=== PATIENT | female | born 1950 | race Caucasian/White ===

== ENCOUNTER 2017-04-26 19:43 | Inpatient (IN) | payer MEDICARE, MEDICAID ==
[2017-04-26 20:07] VITALS: BMI 51.7
[2017-04-26] MEDS ORDERED: Vancomycin 1gm in NS 250ml 1 GM/250 ML BAG IVPB STA (21:50)
[2017-04-26] MEDS ORDERED: Piperacill/Tazo 4.5gm in NS 4.5 GM/100 ML BAG IVPB STA (21:51)
[2017-04-26] MEDS ORDERED: Sodium Chloride 0.9% 1,000 ML IV STA (21:55)
[2017-04-26] MEDS ORDERED: Ipratropium 0.02% Inhal Soln (0.5 mg/2.5 ml) UD IH STA ×2 (21:55→23:14)
[2017-04-26 22:23] LABS: BASO # 0.02 K/mm3 (0.0-2.0); BASO % 0.1 % (0.0-3.0); EOS # 0.1 (0.0-0.7); EOS % 0.5 % (1.5-5.0); GRAN # 15.29 (1.4-6.5); GRAN % 76.8 % (50.0-68.0); HEMOGLOBIN 9.9 g/dL (12.0-16.0); LYMPH # 2.2 (1.2-3.4); LYMPH % 11.1 % (22.0-35.0); MEAN CORPUSCULAR HEMOGLOBIN 28.8 pg (25.0-35.0); MEAN CORPUSCULAR HGB CONC 33.4 g/dl (31.0-37.0); MONO # 2.3 (0.1-0.6); MONO % 11.5 % (1.0-6.0); RBC 3.44 10^6/uL (3.5-6.1); RED CELL DISTRIBUTION WIDTH 14.3 % (11.5-14.5); WHITE BLOOD COUNT 19.9 10^3/ul (4.5-11.0)
[2017-04-26 22:30] LABS: VENOUS BLOOD GAS BASE EXCESS -4.4 mmol/L (0.0-2.0); VENOUS BLOOD GAS PO2 43 mm/Hg (30-55); VENOUS BLOOD PH 7.28 (7.32-7.43)
[2017-04-26 22:36] LABS: ALB/GLOB RATIO 0.8 (1.1-1.8); ALBUMIN 3.4 g/dL (3.0-4.8); CALCIUM 9.8 mg/dL (8.4-10.5); INR 1.15 (0.93-1.08); MAGNESIUM 2.1 mg/dL (1.7-2.2); PARTIAL THROMBOPLASTIN TIME 28.2 Seconds (25.1-36.5); PROTHROMBIN TIME 13.2 SECONDS (9.4-12.5)
[2017-04-26 22:44] LABS: TROPONIN I 0.04 ng/mL
--- NOTE | 2017-04-27 | ED PDOC ---
Arrival/HPI - General Chief Complaint: Flu-like Symptoms Time Seen by Provider: 04/26/17 21:50 Historian: Patient EM Caveat: Acuity of Condition - History of Present Illness Narrative History of Present Illness (Text): 66 y/o woman w/ pmhx of chf ? on cardevilol, HTN, morbid obesity, mild crf, dm recent diagnosis of influenza (+) , w/ sick family contacts as well presents c/ o 5-6 days of worseinng weakness/ increasing malaise/ increasing somnolence/ decreased appetite/worsening of her chronic orthopnea/ possibly subjective temperatures/ increasing tremulousness and terrible gluteal /sacral pain and skin breakdown w/ overlying fibrinopurulent exudates and foul smelling discharge. Family endorses dry cough, pt denies any nausea/ dysuria . 04/26/17 23:49 04/27/17 00:16 Symptom Onset: Sudden Symptom Course: Worsening Quality: Aching, Gas Like Severity Level: 9 Past Medical History - Provider Review Nursing Documentation Reviewed: Yes - Travel History Have you recently traveled outside [place] w/in the past 3 mons?: No - Cardiac Hx Hypertension: Yes - Endocrine/Metabolic Hx Diabetes Mellitus Type 1: Yes - Musculoskeletal/Rheumatological Hx Arthritis: Yes - Psychiatric Hx Substance Use: No Family/Social History - Physician Review Nursing Documentation Reviewed: Yes Family/Social History: No Known Family HX Smoking Status: Never Smoked Hx Alcohol Use: No Hx Substance Use: No Allergies/Home Meds Allergies/Adverse Reactions: Allergies No Known Allergies Allergy (Verified 04/26/17 20:07) Home Medications: Home Meds Medication Instructions Recorded Confirmed Atorvastatin [Lipitor] 10 mg PO DAILY 04/17/16 04/26/17 Carvedilol [Coreg] 6.25 mg PO DAILY 04/17/16 04/26/17 Aspirin [Aspirin Chewable] 81 mg PO DAILY 04/26/17 04/26/17 Gabapentin [Neurontin] 300 mg PO DAILY 04/26/17 04/26/17 Insulin Glargine,Hum.rec.anlog 04/26/17 [Lantus Solostar] Insulin Lispro [humALOG] 04/26/17 Loratadine 10 mg PO DAILY 04/26/17 04/26/17 Meclizine [Antivert] 12.5 mg PO BID 04/26/17 04/26/17 Naproxen [Naprosyn] 500 mg PO Q12H PRN 04/26/17 04/26/17 Penicillin VK [Penicillin VK Tab] 500 mg PO Q12H 04/26/17 04/26/17 Travoprost [Travatan Z] 04/26/17 Review of Systems - Physician Review All systems were reviewed & negative as marked: Yes - Review of Systems Constitutional: Normal, Fatigue Eyes: Normal ENT: Normal Respiratory: Cough Cardiovascular: Normal Gastrointestinal: Normal Genitourinary Female: Normal Musculoskeletal: Normal Skin: Skin Lesions Neurological: Normal Endocrine: Normal Hemo/Lymphatic: Normal Psychiatric: Normal Physical Exam Vital Signs Reviewed: Yes Vital Signs Temp Pulse Resp BP Pulse Ox 04/26/17 23:10 100.7 F H 76 24 112/60 99 04/26/17 21:54 78 24 188/72 H 100 04/26/17 19:43 97.8 F 86 26 H 151/116 H 97 Temperature: Febrile Blood Pressure: Hypertensive Pulse: Tachycardic Respiratory Rate: Other (stridulent breathing) Appearance: Positive for: Non-Toxic, Uncomfortable Pain Distress: None Mental Status: Positive for: Alert and Oriented X 3 Finger Stick Blood Glucose: 332 - Systems Exam Head: Present: Atraumatic, Normocephalic Pupils: Present: PERRL Extroacular Muscles: Present: EOMI Conjunctiva: Present: Normal Mouth: Present: Moist Mucous Membranes Neck: Present: Normal Range of Motion Respiratory/Chest: Present: Other (decreased BS bibasilarly ). No: Respiratory Distress, Accessory Muscle Use Cardiovascular: Present: Regular Rate and Rhythm, Normal S1, S2. No: Murmurs Abdomen: Present: Normal Bowel Sounds, Other (obese pannis, no intertrigo ). No: Tenderness, Distention, Peritoneal Signs Back: Present: Normal Inspection Upper Extremity: Present: Normal Inspection. No: Cyanosis, Edema Lower Extremity: Present: Other (1+ pretibial edema ). No: Edema Neurological: Present: GCS=15, CN II-XII Intact, Speech Normal, Motor Func Grossly Intact, Normal Sensory Function, Normal Cerebellar Funct, Norm Deep Tendon Reflexes Skin: Present: Warm, Dry, Normal Color. No: Rashes Psychiatric: Present: Alert, Oriented x 3, Normal Insight, Normal Concentration Medical Decision Making ED Course and Treatment: 66 y/ o female w/ aforementined pmhx preents c/o infceted sacral decubitus/ stridulent breathing/ worsenng weakness after harvinder flu > 1 week prior . a/p -URI -CHF Exacerbation -infected sacral decubitus -risk stratify w/ labs ro sepsis /MODS - abx - bronchodilators - cxr - conisder ICU consult 04/27/17 00:04 - Lab Interpretations Lab Results: 04/26/17 21:55 04/26/17 21:55 Lab Results 04/26/17 21:55: Sodium 135, Chloride 100, Potassium 4.7, Carbon Dioxide 24, Anion Gap 16, BUN 87 H, Creatinine 3.0 H, Est GFR ( Amer) 19, Est GFR ( Non-Af Amer) 16, Random Glucose 309 H*, Calcium 9.8, Phosphorus 2.9, Magnesium 2.1, Total Bilirubin 1.0, AST 29, ALT 43, Alkaline Phosphatase 215 H, Troponin I 0.04, NT-Pro-B Natriuret Pep 9030 H, Total Protein 7.7, Albumin 3.4, Globulin 4.4, Albumin/Globulin Ratio 0.8 L 04/26/17 21:55: pO2 43, VBG pH 7.28 L, VBG pCO2 48.0, VBG HCO3 22.6, VBG Total CO2 24.1, VBG O2 Sat (Calc) 81.1 H, VBG Base Excess -4.4 L, VBG Potassium 6.1 H , Sodium 133.0, Chloride 101.0, Glucose 320 H, Lactate 2.0, FiO2 21.0, Venous Blood Potassium 6.1 H 04/26/17 21:55: PT 13.2 H, INR 1.15 H, APTT 28.2 04/26/17 21:55: WBC 19.9 H, RBC 3.44 L, Hgb 9.9 L, Hct 29.6 L, MCV 86.0, MCH 28.8, MCHC 33.4, RDW 14.3, Plt Count 269, MPV 10.0, Gran % 76.8 H, Lymph % (Auto ) 11.1 L, Ross % (Auto) 11.5 H, Eos % (Auto) 0.5 L, Baso % (Auto) 0.1, Gran # 15.29 H, Lymph # 2.2, Ross # 2.3 H, Eos # 0.1, Baso # 0.02, ESR 132 H - RAD Interpretation Radiology Orders: 04/26/17 21:56 CHEST PORTABLE [RAD] Stat - Medication Orders Current Medication Orders: Albuterol/Ipratropium (Duoneb 3 Mg/0.5 Mg (3 Ml) Ud) 3 ml IH [id number] [place] Albuterol/Ipratropium (Duoneb 3 Mg/0.5 Mg (3 Ml) Ud) 3 ml IH Q2H PRN PRN Reason: Shortness of Breath Aspirin (Aspirin Chewable) 81 mg PO DAILY [facility] Atorvastatin Calcium (Lipitor) 10 mg PO DAILY [facility] Furosemide (Lasix) 60 mg IVP Q12 [facility] Heparin Sodium (Porcine) (Heparin) 5,000 units SC Q12 [facility] PRN Reason: Protocol Vancomycin HCl (Vancomycin 500mg In Ns) 500 mg in 100 mls @ 200 mls/hr IVPB Q12 [facility] PRN Reason: Protocol Piperacillin Sod/Tazobactam Sod (Zosyn 2.25 Gm In 0.9% 100 Ml) 2.25 gm in 100 mls @ 100 mls/hr IVPB Q6 [facility] PRN Reason: Protocol Stop: 04/27/17 12:59 Insulin Human Regular (Humulin R Med) 15 units SC ONCE ONE PRN Reason: Protocol Stop: 04/27/17 22:16 Pantoprazole Sodium (Protonix Inj) 40 mg IVP DAILY [facility] Discontinued Medications Acetaminophen (Tylenol 325mg Tab) 975 mg PO STAT STA Stop: 04/26/17 23:15 Carvedilol (Coreg) 6.25 mg PO DAILY [facility] Furosemide (Lasix) 60 mg IVP STAT STA Stop: 04/26/17 23:38 Vancomycin HCl (Vancomycin 1gm) 1 gm in 250 mls @ 167 mls/hr IVPB STAT STA PRN Reason: Protocol Stop: 04/26/17 23:19 Last Admin: 04/26/17 23:54 Dose: 167 mls/hr Piperacillin Sod/Tazobactam Sod (Zosyn 4.5 Gm In Ns 100ml) 4.5 gm in 100 mls @ 200 mls/hr IVPB STAT STA PRN Reason: Protocol Stop: 04/26/17 22:20 Last Admin: 04/26/17 23:14 Dose: 200 mls/hr eMAR Start Stop Document 04/26/17 23:14 SF (Rec: 04/26/17 23:15 [id number]) Intravenous Solution Start Date 04/26/17 Start Time 23:15 End Date 04/26/17 End time 23:45 Total Infusion Time 30 Sodium Chloride (Sodium Chloride 0.9%) 1,000 mls @ 999 mls/hr IV .Q1H1M STA Stop: 04/26/17 22:55 Last Admin: 04/26/17 22:09 Dose: 999 mls/hr eMAR Start Stop Document 04/26/17 22:09 RG (Rec: 04/26/17 22:16 RG [email or web address]) Intravenous Solution Start Date 04/26/17 Start Time 22:09 Ipratropium [place] (Atrovent) 0.5 mg IH STAT STA Stop: 04/26/17 21:56 Last Admin: 04/26/17 22:09 Dose: 0.5 mg Ipratropium [place] (Atrovent) 0.5 mg IH STAT STA Stop: 04/26/17 23:15 Ketorolac Tromethamine (Toradol) 15 mg IVP STAT STA Stop: 04/26/17 22:01 Last Admin: 04/26/17 23:15 Dose: 15 mg MAR Pain Assessment Document 04/26/17 23:15 SF (Rec: 04/26/17 23:16 [id number]) Pain Reassessment Is this a pain reassessment? Yes Sleep Is patient sleeping during reassessment? No Presence of Pain Presence of Pain Yes IVP Administration Document 04/26/17 23:15 SF (Rec: 04/26/17 23:16 [id number]) Charges for Administration # of IVP Administrations 1 Methylprednisolone (Solu-Medrol) 125 mg IVP STAT STA Stop: 04/26/17 23:18 Disposition/Present on Arrival - Present on Arrival Any Indicators Present on Arrival: No History of DVT/PE: No History of Uncontrolled Diabetes: No Urinary Catheter: No History of Decub. Ulcer: No History Surgical Site Infection Following: None - Disposition Have Diagnosis and Disposition been Completed?: Yes Diagnosis: Upper respiratory disease, Acute exacerbation of CHF (congestive heart failure) , Sacral decubitus ulcer, stage II, Sepsis Disposition: HOSPITALIZED Disposition Time: 00:19 Patient Plan: Admission, Telemetry Patient Problems: Current Active Problems Problem Status Onset Upper respiratory disease Acute Acute exacerbation of CHF (congestive heart failure) Acute Sacral decubitus ulcer, stage II Acute Condition: GUARDED Discharge Instructions (ExitCare): Heart Failure (ED), Sepsis (ED) Forms: [employer] (Polish)
[2017-04-27] MEDS ORDERED: Insulin Regular 1 UNITS/0.01 ML ML SC ONE (00:30)
--- NOTE | 2017-04-27 00:43 | CP.PCM.CON ---
<Karen Oneil - Last Filed: 04/27/17 01:31> History of Present Illness - History of Present Illness History of Present Illness: PGY-2 ICU consult note 66 yo female with past medical history of questionable chf on cardevilol, HTN, morbid obesity, mild ckd, diabetes, recent diagnosis and treatment of influenza , with sick family contacts presents complaining of worsening weakness, increasing malaise and progressively worsening dyspnea for the past few days. Per daughter at bedside patient was diagnosed and treated for flu about 1 weeks ago. She states that at baseline the patient does not walk a lot but is able to move from her bed to the bathroom. However over the past few days she has not been able tot walk to the bathroom and has required the assistance of others to be carried. The patient has been increasing somnolence, decreased appetite and worsening of her chronic orthopnea. Per daughter she may also been having subjective temperatures, increasing tremulousness. Patient also has terrible gluteal and sacral pain and skin breakdown and foul smelling discharge. Family endorses dry cough, patient denies any nausea, dysuria. PMH: questionable chf on cardevilol, HTN, morbid obesity, mild ckd, diabetes, recent diagnosis and treatment of influenza, PSH: none social history: denies smoking, alcohol use, illicit drug use allergy: nkda Review of Systems - Constitutional Constitutional: Chills, Fever, Weakness. absent: Headache - Cardiovascular Cardiovascular: Dyspnea. absent: Chest Pain - Respiratory Respiratory: Cough, Dyspnea. absent: Hemoptysis - Gastrointestinal Gastrointestinal: absent: Abdominal Pain, Nausea, Vomiting - Genitourinary Genitourinary: absent: Difficulty Urinating, Dysuria - Musculoskeletal Musculoskeletal: Numbness, Tingling - Integumentary Integumentary: Skin Ulcer (sacral ulcer) - Neurological Neurological: Numbness, Weakness. absent: Dizziness, Syncope - Hematologic/Lymphatic Hematologic: absent: Easy Bleeding, Easy Bruising Past Patient History - Past Social History Smoking Status: Never Smoked - CARDIAC Hx Hypertension: Yes - ENDOCRINE/METABOLIC Hx Diabetes Mellitus Type 1: Yes - MUSCULOSKELETAL/RHEUMATOLOGICAL Hx Arthritis: Yes - PSYCHIATRIC Hx Substance Use: No Meds Allergies/Adverse Reactions: Allergies Allergy/AdvReac Type Severity Reaction Status Date / Time No Known Allergies Allergy Verified 04/26/17 20:07 - Medications Medications: Current Medications Albuterol/Ipratropium (Duoneb 3 Mg/0.5 Mg (3 Ml) Ud) 3 ml IH [id number] IVONNE Albuterol/Ipratropium (Duoneb 3 Mg/0.5 Mg (3 Ml) Ud) 3 ml IH Q2H PRN PRN Reason: Shortness of Breath Aspirin (Aspirin Chewable) 81 mg PO DAILY [facility] Atorvastatin Calcium (Lipitor) 10 mg PO DAILY [facility] Carvedilol (Coreg) 6.25 mg PO DAILY [facility] Furosemide (Lasix) 60 mg IVP Q12 IVONNE Heparin Sodium (Porcine) (Heparin) 5,000 units SC Q12 IVONNE PRN Reason: Protocol Vancomycin HCl (Vancomycin 500mg In Ns) 500 mg in 100 mls @ 200 mls/hr IVPB Q12 IVONNE PRN Reason: Protocol Piperacillin Sod/Tazobactam Sod (Zosyn 2.25 Gm In 0.9% 100 Ml) 2.25 gm in 100 mls @ 100 mls/hr IVPB Q6 IVONNE PRN Reason: Protocol Stop: 04/27/17 12:59 Insulin Human Regular (Humulin R Low) 0 units SC ACHS IVONNE PRN Reason: Protocol Pantoprazole Sodium (Protonix Inj) 40 mg IVP DAILY [facility] Physical Exam - Constitutional Appears: Other (anxious, mild distress) - Head Exam Head Exam: ATRAUMATIC, NORMAL INSPECTION, NORMOCEPHALIC - Eye Exam Eye Exam: EOMI, Normal appearance - ENT Exam ENT Exam: Mucous Membranes Moist - Respiratory Exam Respiratory Exam: Rhonchi, Wheezes. absent: Respiratory Distress Additional comments: on bipap - Cardiovascular Exam Cardiovascular Exam: REGULAR RHYTHM, +S1, +S2. absent: Tachycardia, Systolic Murmur - GI/Abdominal Exam GI & Abdominal Exam: Normal Bowel Sounds, Soft. absent: Distended, Firm, Guarding, Tenderness - Neurological Exam Neurological exam: Alert, CN II-XII Intact, Oriented x3 - Skin Additional comments: stage 2 sacral decubitus ulcer Results - Vital Signs Recent Vital Signs: Last Vital Signs Temp 100.7 F H 04/26/17 23:10 Pulse 76 04/26/17 23:10 Resp 24 04/26/17 23:10 BP 112/60 04/26/17 23:10 Pulse Ox 99 04/26/17 23:10 - Labs Result Diagrams: 04/26/17 21:55 04/26/17 21:55 Labs: Laboratory Results - last 24 hr 04/26/17 04/26/17 04/26/17 21:55 21:55 21:55 WBC 19.9 H RBC 3.44 L Hgb 9.9 L Hct 29.6 L MCV 86.0 MCH 28.8 MCHC 33.4 RDW 14.3 Plt Count 269 MPV 10.0 Gran % 76.8 H Lymph % (Auto) 11.1 L [place] % (Auto) 11.5 H Eos % (Auto) 0.5 L Baso % (Auto) 0.1 Gran # 15.29 H Lymph # 2.2 [place] # 2.3 H Eos # 0.1 Baso # 0.02 ESR 132 H PT 13.2 H INR 1.15 H APTT 28.2 pO2 43 VBG pH 7.28 L VBG pCO2 48.0 VBG HCO3 22.6 VBG Total CO2 24.1 VBG O2 Sat (Calc) 81.1 H VBG Base Excess -4.4 L VBG Potassium 6.1 H Sodium 133.0 Chloride 101.0 Glucose 320 H Lactate 2.0 FiO2 21.0 Potassium Carbon Dioxide Anion Gap BUN Creatinine Est GFR ( Amer) Est GFR (Non-Af Amer) Random Glucose Calcium Phosphorus Magnesium Total Bilirubin AST ALT Alkaline Phosphatase Troponin I NT-Pro-B Natriuret Pep Total Protein Albumin Globulin Albumin/Globulin Ratio Venous Blood Potassium 6.1 H 04/26/17 21:55 WBC RBC Hgb Hct MCV MCH MCHC RDW Plt Count MPV Gran % Lymph % (Auto) [place] % (Auto) Eos % (Auto) Baso % (Auto) Gran # Lymph # [place] # Eos # Baso # ESR PT INR APTT pO2 VBG pH VBG pCO2 VBG HCO3 VBG Total CO2 VBG O2 Sat (Calc) VBG Base Excess VBG Potassium Sodium 135 Chloride 100 Glucose Lactate FiO2 Potassium 4.7 Carbon Dioxide 24 Anion Gap 16 BUN 87 H Creatinine 3.0 H Est GFR ( Amer) 19 Est GFR (Non-Af Amer) 16 Random Glucose 309 H* Calcium 9.8 Phosphorus 2.9 Magnesium 2.1 Total Bilirubin 1.0 AST 29 ALT 43 Alkaline Phosphatase 215 H Troponin I 0.04 NT-Pro-B Natriuret Pep 9030 H Total Protein 7.7 Albumin 3.4 Globulin 4.4 Albumin/Globulin Ratio 0.8 L Venous Blood Potassium Assessment & Plan - Assessment and Plan (Free Text) Assessment: 66 yo female with past medical history of questionable chf on cardevilol, HTN, morbid obesity, mild ckd, diabetes, recent diagnosis and treatment of influenza , with sick family contacts presents complaining of worsening weakness, increasing malaise and progressively worsening dyspnea for the past few days. Plan: Neuro : - awake, alert and oriented x3 - monitor for acute changes in mental status CV : - Hemodynamically stable. - continue coreg - cont lipitor - will order lipid panel - possible new onset chf - echo - trop in ED 0.04, indeterminate, will trend trops - Maintain MAP>65. - lasix 60 given in ED, will start lasix 60 bid (hold is bp less then 110) - contionue asa 81 - consult cardiology - Cont to monitor. Pulm: - dyspnea cause is most likely multifactorial, including new onset chf, pna - placed on bipap - repeat abg with shock panel - given lasix 60mg IV, will continue with 60mg bid - duonebs q4 ivonne and q2 prn - Maintain O2 sat>90% - Continue with HOB elevation> 35 degrees, - aspiration precautions. - strict i&o GI: - NPO expect meds - Protonix for GI ppx Renal : - BUN/Cr elevated - monitor electrolyte, and correct as needed - strick i&O - Continue to monitor - consulted nephrology ID: - mild fever, with leukocytosis - cxr possible for pne, pending official read - renally dosed vanco and zosyn - lactic acid 2, - will hold off on ivf due to fluid overload - procal pending - influenza pending Endo: - Blood sugar elevated, h/o diabetes - start ISS - finger sticks achs - Maintain glucose between 140-180 DVT ppx - heparin GI ppx - Protonix <Melina ANDREWS,[place] - Last Filed: 04/27/17 09:38> Meds - Medications Medications: Current Medications Albuterol/Ipratropium (Duoneb 3 Mg/0.5 Mg (3 Ml) Ud) 3 ml IH [id number] IVONNE Last Admin: 04/27/17 08:02 Dose: 3 ml Albuterol/Ipratropium (Duoneb 3 Mg/0.5 Mg (3 Ml) Ud) 3 ml IH Q2H PRN PRN Reason: Shortness of Breath Aspirin (Aspirin Chewable) 81 mg PO DAILY [facility] Atorvastatin Calcium (Lipitor) 10 mg PO DAILY [facility] Carvedilol (Coreg) 6.25 mg PO DAILY [facility] Furosemide (Lasix) 60 mg IVP Q12 [facility] Heparin Sodium (Porcine) (Heparin) 5,000 units SC Q12 IVONNE PRN Reason: Protocol Vancomycin HCl (Vancomycin 500mg In Ns) 500 mg in 100 mls @ 200 mls/hr IVPB Q12 IVONNE PRN Reason: Protocol Piperacillin Sod/Tazobactam Sod (Zosyn 2.25 Gm In 0.9% 100 Ml) 2.25 gm in 100 mls @ 100 mls/hr IVPB Q6 IVONNE PRN Reason: Protocol Stop: 04/27/17 12:59 Last Admin: 04/27/17 06:03 Dose: 100 mls/hr Insulin Human Regular (Humulin R Low) 0 units SC ACHS IVONNE PRN Reason: Protocol Last Admin: 04/27/17 08:01 Dose: 1 units Pantoprazole Sodium (Protonix Inj) 40 mg IVP DAILY [facility] Results - Vital Signs Recent Vital Signs: Last Vital Signs Temp 100.7 F H 04/26/17 23:10 Pulse 62 04/27/17 08:13 Resp 17 04/27/17 08:13 BP 147/70 04/27/17 08:13 Pulse Ox 100 04/27/17 08:13 - Labs Result Diagrams: 04/27/17 05:30 04/27/17 05:30 Labs: Laboratory Results - last 24 hr 04/27/17 04/27/17 04/27/17 03:55 05:30 05:30 WBC 22.3 H RBC 3.28 L Hgb 9.3 L Hct 28.2 L MCV 86.0 MCH 28.4 MCHC 33.0 RDW 14.5 Plt Count 268 MPV 9.9 Gran % 86.1 H Lymph % (Auto) 8.6 L [place] % (Auto) 5.1 Eos % (Auto) 0.1 L Baso % (Auto) 0.1 Gran # 19.24 H Lymph # 1.9 [place] # 1.1 H Eos # 0.0 Baso # 0.02 pCO2 pO2 HCO3 ABG pH ABG Total CO2 ABG O2 Saturation ABG Base Excess ABG Potassium VBG pH VBG pCO2 VBG HCO3 VBG Total CO2 VBG O2 Sat (Calc) VBG Base Excess VBG Potassium Glucose Lactate FiO2 Sodium Potassium Chloride Carbon Dioxide Anion Gap BUN Creatinine Est GFR ( Amer) Est GFR (Non-Af Amer) POC Glucose (mg/dL) Random Glucose Calcium Total Bilirubin AST ALT Alkaline Phosphatase Troponin I 0.05 D Total Protein Albumin Globulin Albumin/Globulin Ratio Triglycerides Cholesterol LDL Cholesterol Direct HDL Cholesterol Arterial Blood Potassium Venous Blood Potassium Urine Color Yellow Urine Appearance Clear Urine pH 6.0 Ur Specific [place] 1.015 Urine Protein Trace H Urine Glucose (UA) Negative Urine Ketones Negative Urine Blood Trace-lysed H Urine Nitrate Negative Urine Bilirubin Negative Urine Urobilinogen 0.2 Ur Leukocyte Esterase Negative Urine RBC 0 - 2 Urine WBC 0 - 2 Ur Epithelial Cells 0 - 2 04/27/17 04/27/17 04/27/17 05:30 05:35 06:20 WBC RBC Hgb Hct MCV MCH MCHC RDW Plt Count MPV Gran % Lymph % (Auto) [place] % (Auto) Eos % (Auto) Baso % (Auto) Gran # Lymph # [place] # Eos # Baso # pCO2 35 pO2 178 H 128.0 H HCO3 19.8 L ABG pH 7.36 ABG Total CO2 20.9 L ABG O2 Saturation 98.3 H ABG Base Excess -5.1 L ABG Potassium 5.2 VBG pH 7.35 VBG pCO2 41.0 VBG HCO3 22.6 VBG Total CO2 23.9 VBG O2 Sat (Calc) 99.8 H VBG Base Excess -2.9 L VBG Potassium 5.6 H Glucose 163 H 165 H Lactate 0.9 0.7 FiO2 21.0 35.0 Sodium 138 136.0 136.0 Potassium 5.5 H Chloride 104 106.0 108.0 H Carbon Dioxide 22 Anion Gap 18 BUN 88 H Creatinine 3.0 H Est GFR ( Amer) 19 Est GFR (Non-Af Amer) 16 POC Glucose (mg/dL) Random Glucose 162 H Calcium 9.8 Total Bilirubin 0.9 AST 29 ALT 37 Alkaline Phosphatase 179 H Troponin I Total Protein 7.5 Albumin 3.4 Globulin 4.1 Albumin/Globulin Ratio 0.8 L Triglycerides 190 H Cholesterol 136 LDL Cholesterol Direct 62 HDL Cholesterol 23 L Arterial Blood Potassium 5.2 Venous Blood Potassium 5.6 H Urine Color Urine Appearance Urine pH Ur Specific [place] Urine Protein Urine Glucose (UA) Urine Ketones Urine Blood Urine Nitrate Urine Bilirubin Urine Urobilinogen Ur Leukocyte Esterase Urine RBC Urine WBC Ur Epithelial Cells 04/27/17 06:55 WBC RBC Hgb Hct MCV MCH MCHC RDW Plt Count MPV Gran % Lymph % (Auto) [place] % (Auto) Eos % (Auto) Baso % (Auto) Gran # Lymph # [place] # Eos # Baso # pCO2 pO2 HCO3 ABG pH ABG Total CO2 ABG O2 Saturation ABG Base Excess ABG Potassium VBG pH VBG pCO2 VBG HCO3 VBG Total CO2 VBG O2 Sat (Calc) VBG Base Excess VBG Potassium Glucose Lactate FiO2 Sodium Potassium Chloride Carbon Dioxide Anion Gap BUN Creatinine Est GFR ( Amer) Est GFR (Non-Af Amer) POC Glucose (mg/dL) 182 H Random Glucose Calcium Total Bilirubin AST ALT Alkaline Phosphatase Troponin I Total Protein Albumin Globulin Albumin/Globulin Ratio Triglycerides Cholesterol LDL Cholesterol Direct HDL Cholesterol Arterial Blood Potassium Venous Blood Potassium Urine Color Urine Appearance Urine pH Ur Specific [place] Urine Protein Urine Glucose (UA) Urine Ketones Urine Blood Urine Nitrate Urine Bilirubin Urine Urobilinogen Ur Leukocyte Esterase Urine RBC Urine WBC Ur Epithelial Cells Attending/Attestation - Attestation I have personally seen and examined this patient.: Yes I have fully participated in the care of the patient.: Yes I have reviewed all pertinent clinical information: Yes Notes (Text): -I agree with the above ICU consult note completed by the resident physician, with the following additions and/or changes: -The patient is a 66 year old morbidly obese woman with a history of CKD ( baseline Cr unknown), HTN, a history of lower extremity DVT (s/p anticoagulation ) and NIDDM, who is being admitted to the ICU for sepsis due to questionable PNA and stage II infected decubitus ulcer, acute pulmonary vascular congestion and uremia (BUN=84). Of note, the patient had the flu last week and completed a 5-day course of Tamiflu prescribed by her PMD. She also reports a long history of worsening 3-4 pillow orthopnea and MIRAMONTES (but no PND). She denies chest pain, recent travel, dysuria or changes in urine output. In the ED, she was very uncomfortable appearing, tachypneic and febrile (100.7). Her WBC was 22,000 on ED labs. Although somewhat of a poor film, her CXR showed pulmonary congestion. As a result, she will be admitted to the ICU overnight, started on Bipap therapy , empiric IV antibiotics, breathing treatments and IV Lasix. We will monitor strict I/O's, daily weights and keep her HOB>30 degrees. A renal U/S, 2D-echo and serial trop's and EKG's have been ordered. Nephrology and cardiology have been consulted. Blood and urine cultures, ABG and procalcitonin ordered. If these supportive measures don't improve her breathing overnight, then will consider alternative etiologies such as pulmonary embolism.
[2017-04-27 04:20] LABS: URINE BILIRUBIN NEGATIVE (NEGATIVE); URINE BLOOD TRACE-LYSED (NEGATIVE); URINE GLUCOSE (UA) NEGATIVE (NEGATIVE); URINE LEUKOCYTE ESTERASE NEGATIVE Leu/uL (NEGATIVE); URINE NITRATE NEGATIVE (NEGATIVE); URINE PROTEIN TRACE mg/dL (<30 mg/dL); URINE UROBILINOGEN 0.2 E.U./dL (<1 E.U./dL)
[2017-04-27 04:29] LABS: URINE APPEARANCE CLEAR (CLEAR); URINE COLOR YELLOW (YELLOW)
[2017-04-27 04:38] LABS: URINE EPITHELIAL CELLS 0 - 2 /hpf (0-5); URINE RBC 0 - 2 /hpf (0-2); URINE WBC 0 - 2 /hpf (0-6)
[2017-04-27] MEDS: Albuterol-Ipratrop 3 mg / 0.5 (3 ml) UD IH SCH ×5 (05:07→23:36)
[2017-04-27] MEDS: Piperacillin/Tazobact 2.25gm 2.25 GM/100 ML BAG IVPB SCH ×2 (06:03→17:10)
[2017-04-27 06:06] LABS: BASO # 0.02 K/mm3 (0.0-2.0); BASO % 0.1 % (0.0-3.0); EOS % 0.1 % (1.5-5.0); GRAN # 19.24 (1.4-6.5); GRAN % 86.1 % (50.0-68.0); HEMOGLOBIN 9.3 g/dL (12.0-16.0); LYMPH # 1.9 (1.2-3.4); LYMPH % 8.6 % (22.0-35.0); MEAN CORPUSCULAR HEMOGLOBIN 28.4 pg (25.0-35.0); MEAN PLATELET VOLUME 9.9 fl (7.0-11.0); MONO # 1.1 (0.1-0.6); MONO % 5.1 % (1.0-6.0); RBC 3.28 10^6/uL (3.5-6.1); RED CELL DISTRIBUTION WIDTH 14.5 % (11.5-14.5); WHITE BLOOD COUNT 22.3 10^3/ul (4.5-11.0)
[2017-04-27 06:17] LABS: VENOUS BLOOD GAS BASE EXCESS -2.9 mmol/L (0.0-2.0); VENOUS BLOOD GAS PO2 178 mm/Hg (30-55); VENOUS BLOOD PH 7.35 (7.32-7.43)
[2017-04-27 06:41] LABS: ARTERIAL BLOOD GAS HCO3 19.8 mmol/L (21-28); ARTERIAL BLOOD GAS O2 SAT 98.3 % (95-98); ARTERIAL BLOOD GAS PCO2 35 mm/Hg (35-45); ARTERIAL BLOOD GAS PH 7.36 (7.35-7.45); ARTERIAL BLOOD GAS TCO2 20.9 mmol.L (22-28)
--- NOTE | 2017-04-27 07:02 | RAD ---
HISTORY: sob COMPARISON: No prior. FINDINGS: LUNGS: Mild bilateral interstitial changes. PLEURA: No significant pleural effusion identified, no pneumothorax apparent. CARDIOVASCULAR: Normal. OSSEOUS STRUCTURES: No significant abnormalities. VISUALIZED UPPER ABDOMEN: Normal. OTHER FINDINGS: None. IMPRESSION: Mild bilateral interstitial changes.
[2017-04-27 07:13] LABS: ALB/GLOB RATIO 0.8 (1.1-1.8); ALBUMIN 3.4 g/dL (3.0-4.8); CALCIUM 9.8 mg/dL (8.4-10.5)
[2017-04-27] MEDS ORDERED: Sod Polystyrene Sulf 15 gm/60 ml Susp PO STA (07:44)
[2017-04-27] MEDS ORDERED: Insulin Regular 1 UNITS/0.01 ML ML ONE (07:55)
[2017-04-27] MEDS: Insulin Reg-LOW-Coverage SC SCH ×4 (08:01→22:25)
--- NOTE | 2017-04-27 09:19 | RAD ---
HISTORY: Routine medical exam COMPARISON: No prior. FINDINGS: LUNGS: No active pulmonary disease. PLEURA: No significant pleural effusion identified, no pneumothorax apparent. CARDIOVASCULAR: No radiographic findings to suggest acute or significant cardiovascular disease. OSSEOUS STRUCTURES: No significant abnormalities. VISUALIZED UPPER ABDOMEN: Normal. OTHER FINDINGS: None. IMPRESSION: No active disease.
[2017-04-27] MEDS ORDERED: Vancomycin 500mg in NS 500 MG/100 ML BAG IVPB SCH (10:00)
--- NOTE | 2017-04-27 10:20 | PCM.SEPTIC ---
Sepsis Progress Note - Reassessment Type Date of Evaluation: 04/27/17 Time of Evaluation: 07:00 Reassessment Type: Non-invasive reassessment - Non Invasive Reassessment Were the most recent vital sign reviewed: Yes Vital Sign (Latest): Temp Pulse Resp BP Pulse Ox 100.7 F H 57 L 23 111/54 L 100 04/26/17 23:10 04/27/17 10:08 04/27/17 09:49 04/27/17 10:08 04/27/17 09:49 Cardiovascular: Yes: Regular Rate, Rhythm, Chest Non Tender Respiratory: Yes: Decreased Breath Sounds Capillary Refill: Normal (Less than 2 sec) Pulses: Normal Radial Skin: Normal Color - Invasive Reassessment (complete 2 of 4) Was a Central Venous Pressure Measurement obtained within 6 Hours after the presentation of septic shock: No Was a central venous oxygen measurement obtained within 6 hours after the presentation of septic shock: No Was a bedside cardiovascular ultrasound performed within 6 hours after the presentation of septic shock: No Was a passive leg raise performed or was a fluid challenge performed within 6 hrs of the initial fluid bolus: Yes Fluid Challenge performed: Yes
--- NOTE | 2017-04-27 12:40 | CP.PCM.CON ---
History of Present Illness - History of Present Illness History of Present Illness: Consult Note General Surgery - Dr. Bernard CC: Sacral/Ischial decubitus ulcer HPI: 66 year old female with PMH for HTN, morbid obesity, CKD, NIDDM, suspected CHF, and recent treatment of influenza who presented to [facility] complaining of worsening weakness, increased malaise and progressively worsening dyspnea for the past week. Patient was admitted to ICU for acute pulmonary congestion and sepsis with suspected source of pneumonia vs. sacral decubitus ulcer. General surgery team has been consulted for evaluation of sacral decubitus ulcer with potential for intervention. Timeline for development of ulcer is unknown according to family and patient. Patient is noted to be mostly bed bound with minimal ambulation at home. Her baseline involves walking with assistance only to her bathroom and back to bed. According to family patient is mostly bed bound and has had minimal movement out of bed for the past month. Family reports breakdown of skin with foul smelling discharge from suspected decubitus ulcer. Patient denied any symptoms of pain or discomfort at location of decubitus ulcer leading up to current presentation. Family credits this to her diabetes. Patient reports subjective fever and chills since being diagnosed with influenza. Patient indicates associated symptoms of dry cough. Patient denies chest pain, abdominal discomfort, nausea, vomiting, numbness, weakness. PMH: Suspected CHF unknown last EF, HTN, morbid obesity, CKD, DM, Recent Influenza infection PSH: none SOCHx: Denies smoking, alcohol use, illicit drug use ALL: NKDA Meds: MAR Reviewed Review of Systems - Review of Systems All systems: reviewed and no additional remarkable complaints except (other than mentioned HPI) Past Patient History - Past Social History Smoking Status: Never Smoked Alcohol: None Drugs: Denies - CARDIAC Hx Hypertension: Yes - ENDOCRINE/METABOLIC Hx Diabetes Mellitus Type 1: Yes - MUSCULOSKELETAL/RHEUMATOLOGICAL Hx Arthritis: Yes - PSYCHIATRIC Hx Substance Use: No Meds Allergies/Adverse Reactions: Allergies Allergy/AdvReac Type Severity Reaction Status Date / Time No Known Allergies Allergy Verified 04/27/17 12:12 - Medications Medications: Current Medications Albuterol/Ipratropium (Duoneb 3 Mg/0.5 Mg (3 Ml) Ud) 3 ml IH [id number] [facility] Last Admin: 04/27/17 08:02 Dose: 3 ml Albuterol/Ipratropium (Duoneb 3 Mg/0.5 Mg (3 Ml) Ud) 3 ml IH Q2H PRN PRN Reason: Shortness of Breath Aspirin (Aspirin Chewable) 81 mg PO DAILY [facility] Last Admin: 04/27/17 10:16 Dose: 81 mg Atorvastatin Calcium (Lipitor) 10 mg PO DAILY [facility] Last Admin: 04/27/17 10:16 Dose: 10 mg Carvedilol (Coreg) 6.25 mg PO DAILY [facility] Last Admin: 04/27/17 10:08 Dose: Not Given Furosemide (Lasix) 60 mg IVP Q12 [facility] Last Admin: 04/27/17 10:10 Dose: Not Given Heparin Sodium (Porcine) (Heparin) 5,000 units SC Q12 [facility] PRN Reason: Protocol Last Admin: 04/27/17 10:16 Dose: 5,000 units Vancomycin HCl (Vancomycin 500mg In Ns) 500 mg in 100 mls @ 200 mls/hr IVPB Q12 [facility] PRN Reason: Protocol Last Admin: 04/27/17 10:06 Dose: 200 mls/hr Piperacillin Sod/Tazobactam Sod (Zosyn 2.25 Gm In 0.9% 100 Ml) 2.25 gm in 100 mls @ 100 mls/hr IVPB Q6 [facility] PRN Reason: Protocol Stop: 04/27/17 12:59 Last Admin: 04/27/17 06:03 Dose: 100 mls/hr Insulin Human Regular (Humulin R Low) 0 units SC ACHS [facility] PRN Reason: Protocol Last Admin: 04/27/17 08:01 Dose: 1 units Pantoprazole Sodium (Protonix Inj) 40 mg IVP DAILY [facility] Last Admin: 04/27/17 10:16 Dose: 40 mg Physical Exam - Constitutional Additional comments: laying in bed with BiPAP in place and mild distress - Head Exam Head Exam: ATRAUMATIC, NORMAL INSPECTION - Eye Exam Eye Exam: EOMI, PERRL - ENT Exam ENT Exam: Mucous Membranes Moist Additional comments: BiPAP in place - Respiratory Exam Respiratory Exam: Rhonchi, Wheezes, NORMAL BREATHING PATTERN. absent: Respiratory Distress Additional comments: On BiPAP - Cardiovascular Exam Cardiovascular Exam: REGULAR RHYTHM, +S1, +S2 - GI/Abdominal Exam GI & Abdominal Exam: Distended (normal), Normal Bowel Sounds, Soft. absent: Guarding, Rebound, Rigid - Extremities Exam Extremities exam: Negative for: calf tenderness - Neurological Exam Neurological exam: Alert, CN II-XII Intact, Oriented x3 Additional comments: Patient able to follow simple commands, motor and sensory grossly intact - Psychiatric Exam Psychiatric exam: Normal Affect, Normal Mood - Skin Skin Exam: Dry, Warm Additional comments: Perineum with left ischial decubitus ulcer unable to stage with fluctuance to palpation, evidence of necrotic tissue, foul odor appreciated Results - Vital Signs Recent Vital Signs: Last Vital Signs Temp 98.2 F 04/27/17 09:49 Pulse 57 L 04/27/17 10:08 Resp 23 04/27/17 09:49 BP 111/54 L 04/27/17 10:08 Pulse Ox 100 04/27/17 09:49 - Labs Result Diagrams: 04/27/17 05:30 04/27/17 12:10 Labs: Laboratory Results - last 24 hr 04/27/17 04/27/17 04/27/17 03:55 05:30 05:30 WBC 22.3 H RBC 3.28 L Hgb 9.3 L Hct 28.2 L MCV 86.0 MCH 28.4 MCHC 33.0 RDW 14.5 Plt Count 268 MPV 9.9 Gran % 86.1 H Lymph % (Auto) 8.6 L Potter % (Auto) 5.1 Eos % (Auto) 0.1 L Baso % (Auto) 0.1 Gran # 19.24 H Lymph # 1.9 Potter # 1.1 H Eos # 0.0 Baso # 0.02 pCO2 pO2 HCO3 ABG pH ABG Total CO2 ABG O2 Saturation ABG Base Excess ABG Potassium VBG pH VBG pCO2 VBG HCO3 VBG Total CO2 VBG O2 Sat (Calc) VBG Base Excess VBG Potassium Glucose Lactate FiO2 Sodium Potassium Chloride Carbon Dioxide Anion Gap BUN Creatinine Est GFR ( Amer) Est GFR (Non-Af Amer) POC Glucose (mg/dL) Random Glucose Calcium Total Bilirubin AST ALT Alkaline Phosphatase Troponin I 0.05 D Total Protein Albumin Globulin Albumin/Globulin Ratio Triglycerides Cholesterol LDL Cholesterol Direct HDL Cholesterol Arterial Blood Potassium Venous Blood Potassium Urine Color Yellow Urine Appearance Clear Urine pH 6.0 Ur Specific Elbert 1.015 Urine Protein Trace H Urine Glucose (UA) Negative Urine Ketones Negative Urine Blood Trace-lysed H Urine Nitrate Negative Urine Bilirubin Negative Urine Urobilinogen 0.2 Ur Leukocyte Esterase Negative Urine RBC 0 - 2 Urine WBC 0 - 2 Ur Epithelial Cells 0 - 2 04/27/17 04/27/17 04/27/17 05:30 05:35 06:20 WBC RBC Hgb Hct MCV MCH MCHC RDW Plt Count MPV Gran % Lymph % (Auto) Potter % (Auto) Eos % (Auto) Baso % (Auto) Gran # Lymph # Potter # Eos # Baso # pCO2 35 pO2 178 H 128.0 H HCO3 19.8 L ABG pH 7.36 ABG Total CO2 20.9 L ABG O2 Saturation 98.3 H ABG Base Excess -5.1 L ABG Potassium 5.2 VBG pH 7.35 VBG pCO2 41.0 VBG HCO3 22.6 VBG Total CO2 23.9 VBG O2 Sat (Calc) 99.8 H VBG Base Excess -2.9 L VBG Potassium 5.6 H Glucose 163 H 165 H Lactate 0.9 0.7 FiO2 21.0 35.0 Sodium 138 136.0 136.0 Potassium 5.5 H Chloride 104 106.0 108.0 H Carbon Dioxide 22 Anion Gap 18 BUN 88 H Creatinine 3.0 H Est GFR ( Amer) 19 Est GFR (Non-Af Amer) 16 POC Glucose (mg/dL) Random Glucose 162 H Calcium 9.8 Total Bilirubin 0.9 AST 29 ALT 37 Alkaline Phosphatase 179 H Troponin I Total Protein 7.5 Albumin 3.4 Globulin 4.1 Albumin/Globulin Ratio 0.8 L Triglycerides 190 H Cholesterol 136 LDL Cholesterol Direct 62 HDL Cholesterol 23 L Arterial Blood Potassium 5.2 Venous Blood Potassium 5.6 H Urine Color Urine Appearance Urine pH Ur Specific Elbert Urine Protein Urine Glucose (UA) Urine Ketones Urine Blood Urine Nitrate Urine Bilirubin Urine Urobilinogen Ur Leukocyte Esterase Urine RBC Urine WBC Ur Epithelial Cells 04/27/17 04/27/17 06:55 09:20 WBC RBC Hgb Hct MCV MCH MCHC RDW Plt Count MPV Gran % Lymph % (Auto) Potter % (Auto) Eos % (Auto) Baso % (Auto) Gran # Lymph # Potter # Eos # Baso # pCO2 pO2 HCO3 ABG pH ABG Total CO2 ABG O2 Saturation ABG Base Excess ABG Potassium VBG pH VBG pCO2 VBG HCO3 VBG Total CO2 VBG O2 Sat (Calc) VBG Base Excess VBG Potassium Glucose Lactate FiO2 Sodium Potassium Chloride Carbon Dioxide Anion Gap BUN Creatinine Est GFR ( Amer) Est GFR (Non-Af Amer) POC Glucose (mg/dL) 182 H Random Glucose Calcium Total Bilirubin AST ALT Alkaline Phosphatase Troponin I 0.04 Total Protein Albumin Globulin Albumin/Globulin Ratio Triglycerides Cholesterol LDL Cholesterol Direct HDL Cholesterol Arterial Blood Potassium Venous Blood Potassium Urine Color Urine Appearance Urine pH Ur Specific Elbert Urine Protein Urine Glucose (UA) Urine Ketones Urine Blood Urine Nitrate Urine Bilirubin Urine Urobilinogen Ur Leukocyte Esterase Urine RBC Urine WBC Ur Epithelial Cells Assessment & Plan - Assessment and Plan (Free Text) Assessment: 66 year old female with sacral/ischial decubitus ulcers, unstageable Plan: -Continue current management of wound with Santyl -Local wound care -IV antibiotics with Vanc and Zosyn -Incision and drainage with debridement and possible wound vac placement today or tomorrow -Discussed plan with Dr. Marco Antonio Castle PGY1 - Date & Time Date: 04/27/17 Time: 14:13
[2017-04-27 13:05] LABS: CALCIUM 9.1 mg/dL (8.4-10.5); URIC ACID 14.1 mg/dL (2.5-6.2)
--- NOTE | 2017-04-27 14:20 | CP.PCM.PN ---
Subjective - Date & Time of Evaluation Date of Evaluation: 04/27/17 Time of Evaluation: 08:05 - Subjective Subjective: Pt seen and examined, remains on BIPAP, comfortable, in NAD. Objective - Vital Signs/Intake and Output Vital Signs (last 24 hours): Temp Pulse Resp BP Pulse Ox 98.2 F 57 L 23 111/54 L 100 04/27/17 09:49 04/27/17 10:08 04/27/17 09:49 04/27/17 10:08 04/27/17 09:49 - Medications Medications: Current Medications Albuterol/Ipratropium (Duoneb 3 Mg/0.5 Mg (3 Ml) Ud) [id number] [facility] Last Admin: 04/27/17 08:02 Dose: 3 ml Albuterol/Ipratropium (Duoneb 3 Mg/0.5 Mg (3 Ml) Ud) 3 ml IH Q2H PRN PRN Reason: Shortness of Breath Aspirin (Aspirin Chewable) [address] [facility] Last Admin: 04/27/17 10:16 Dose: 81 mg Atorvastatin Calcium (Lipitor) [address] [facility] Last Admin: 04/27/17 10:16 Dose: 10 mg Carvedilol (Coreg) 6.[address] [facility] Last Admin: 04/27/17 10:08 Dose: Not Given Furosemide (Lasix) [address] [facility] Last Admin: 04/27/17 10:10 Dose: Not Given Heparin Sodium (Porcine) (Heparin) 5,000 units SC Q12 [facility] PRN Reason: Protocol Last Admin: 04/27/17 10:16 Dose: 5,000 units Vancomycin HCl (Vancomycin 500mg In Ns) 500 mg in 100 mls @ 200 mls/hr IVPB Q12 [facility] PRN Reason: Protocol Last Admin: 04/27/17 10:06 Dose: 200 mls/hr Insulin Human Regular (Humulin R Low) 0 units SC ACHS [facility] PRN Reason: Protocol Last Admin: 04/27/17 08:01 Dose: 1 units Pantoprazole Sodium (Protonix Inj) [address] [facility] Last Admin: 04/27/17 10:16 Dose: 40 mg - Labs Labs: 04/27/17 05:30 04/27/17 12:10 PT 13.2 SECONDS (9.4-12.5) H 04/26/17 21:55 INR 1.15 (0.93-1.08) H 04/26/17 21:55 APTT 28.2 Seconds (25.1-36.5) 04/26/17 21:55 - Constitutional Appears: Well, No Acute Distress - Head Exam Head Exam: ATRAUMATIC - Eye Exam Eye Exam: Normal appearance - ENT Exam ENT Exam: Mucous Membranes Moist - Respiratory Exam Respiratory Exam: Rales, NORMAL BREATHING PATTERN - Cardiovascular Exam Cardiovascular Exam: REGULAR RHYTHM, +S1, +S2 - GI/Abdominal Exam GI & Abdominal Exam: Soft, Normal Bowel Sounds Additional comments: obese - Rectal Exam Additional comments: unstageable rectal,perianal ulcer/decub - Extremities Exam Extremities Exam: Full ROM Additional comments: bilateral edema 3+ - Neurological Exam Neurological Exam: Alert, Awake, Oriented x3 Assessment and Plan - Assessment and Plan (Free Text) Assessment: 66yo female a/w SOB, Respiratory failure on BIPAP Renal Failure Respiratory Failure CHF/VOlume Overload Severe Sepsis Decub Ulcer/Sacral Hyperkalemia Morbid Obesity - currently afebrile, HD stable, comfortable on BIPAP 10/5/35%, ABG with no evidence of CO2 retention, or hypoxia - has unstageable decub/ulcer sacral area, surgery consulted Recommend: - cont with BIPAP as needed, wean off BIPAP, ABG acceptable - broad spectrum antibiotics, Vanco, Zosyn, Azithro - Follow up cultures, Procalcitonin - BP control - Check UA, Ulytes - Renal Sonogram - renal consult, unclear baseline Cr - hold IV diuresis for now - Obtain ECHO - Cardiology eval - Kayex 30 PO x 1, repeat BMP/K - Surgical consult for decub/ulcer - elevated Uric Acid, Start Allopurinol, Check CPK - GI ppx - DVT ppx - FS control - Monitor in MICU critical care time 40 minutes
--- NOTE | 2017-04-27 14:48 | CP.PCM.CON ---
History of Present Illness - History of Present Illness History of Present Illness: Initial Nephrology Consultation (covering for Dr Oziel Morgan): Assessment: critical Acute Kidney Injury (N17.9) likely multi-factorial: sepsis, decreased oral intake leading to pre-renal state, some contribution by NSAIDs, urine retention Diabetic chronic Kidney Disease (E11.22) Hypertensive Chronic Kidney Disease (I12.9) Chronic Kidney Disease (N18.3) Stage 3 with ? mg proteinuria (R80.9) likely due to DM Anemia (D64.9), HTN (I12.9) Morbid obesity, recent Influenza with Myalgias, arthalgias Hyperkalemia, uncontrolled DM ? CHF Plan No acute need for renal replacement therapy at this time but may need soon and will need close follow up Hypertension control with meds as ordered. No ACEI/ARB due to [place] Monitor Input/Output, daily weights and renal function with basic metabolic panel agree with kayexylate for hyperglycemia choice between fluid and lasix difficult. hx and renal function favors pre- renal state. SOB and elevated BNP are contrary. if serum uric acid high and urine Na low, will favor pre-renal state. IVC compressibility (>50%) on echo will be more sensitive marker of intravascular volume depletion status. In that case IVF as NS will be recommended. Check urine analysis, spot protein/creatinine and albumin/creatinine ratio, renal sonogram. Urine for eosinophils, CPK, uric acid. will check C3, C4, GRETCHEN, Anti dsDNA, ASO titers, ANCA (MPO and VA-3), serum protein electrophoresis with immunofixation, K/L ratio, rheumatoid factor Dose meds/antibiotics for reduced GFR. Avoid fleets enema/magnesium based laxatives. Avoid nephrotoxins/NSAIDs/ iodinated contrast (unless needed emergently) Glycemic control. dose vanco by level Further work up/management as per primary team Thanks for allowing me to participate in care of your patient. Will follow patient with you. Please call if any Qs. 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 Denies OTC/herbal meds but has taken NSAIDs as naproxen on prn basis over last 1 week No recent iodinated contrast exposure. No obvious episodes of low BP. ROS: family helped in upper sorbian interpretation Cardiovascular: No chest pain. Pulmonary: c/o shortness of breath but better on BipAP Gastrointestinal: denies abdominal pain No nausea. No vomiting. Genitourinary: No pain while urinating. Denies blood in urine. had decreased urine output before coming in. improved after cota All other negative except as mentioned in HPI Physical Examination: General Appearance: Comfortable, in no acute respiratory distress, co-operative . ill appearing, on BiPAP. morbid obese Vitals reviewed and noted as below Head; Atraumatic, normocephalic ENT: no ulcers no thrush. Tongue is midline. Oropharynx: no rash or ulcers. EYES: Pupils are equal, round and reactive to light accommodation. Eye muscles and extraocular movement intact. Sclera is anicteric. Neck; supple no lymphadenopathy, no thyromegaly or bruit Lungs: Increased respiratory rate/effort. Breath sounds bilateral equal and clear Heart: Normal rate. s1s2 normal. No rub or gallop. Extremities: no edema. No varicose veins Neurological: Patient is alert, awake and oriented to person, place and time. No focal deficit. Strength bilateral appropriate and equal Skin: Warm and dry. Normal turgor. No rash. Palpitation: Normal elasticity for age Abdomen: Abdomen is soft. Bowel sounds +. There is no abdominal tenderness, no guarding/rigidity no organomegaly Psych: normal insight and normal affect/mood MSK: no joint tenderness or swelling. Digits and nails normal, no deformity : kidney or bladder not palpable Labs/imaging reviewed. Past medical history, past surgical history, family history, social history, allergy reviewed and noted as below Family hx: no hx of CKD. Rest non-contributory BNP 9030 UA trace blood trace protein Past Patient History - Past Social History Smoking Status: Never Smoked Alcohol: None Drugs: Denies - CARDIAC Hx Hypertension: Yes - ENDOCRINE/METABOLIC Hx Diabetes Mellitus Type 1: Yes - MUSCULOSKELETAL/RHEUMATOLOGICAL Hx Arthritis: Yes - PSYCHIATRIC Hx Substance Use: No Meds Allergies/Adverse Reactions: Allergies Allergy/AdvReac Type Severity Reaction Status Date / Time No Known Allergies Allergy Verified 04/27/17 12:12 - Medications Medications: Current Medications Albuterol/Ipratropium (Duoneb 3 Mg/0.5 Mg (3 Ml) Ud) 3 ml IH [id number] [facility] Last Admin: 04/27/17 08:02 Dose: 3 ml Albuterol/Ipratropium (Duoneb 3 Mg/0.5 Mg (3 Ml) Ud) 3 ml IH Q2H PRN PRN Reason: Shortness of Breath Aspirin (Aspirin Chewable) 81 mg PO DAILY [facility] Last Admin: 04/27/17 10:16 Dose: 81 mg Atorvastatin Calcium (Lipitor) 10 mg PO DAILY [facility] Last Admin: 04/27/17 10:16 Dose: 10 mg Carvedilol (Coreg) 6.25 mg PO DAILY [facility] Last Admin: 04/27/17 10:08 Dose: Not Given Furosemide (Lasix) 60 mg IVP Q12 [facility] Last Admin: 04/27/17 10:10 Dose: Not Given Heparin Sodium (Porcine) (Heparin) 5,000 units SC Q12 FLOWER PRN Reason: Protocol Last Admin: 04/27/17 10:16 Dose: 5,000 units Vancomycin HCl (Vancomycin 500mg In Ns) 500 mg in 100 mls @ 200 mls/hr IVPB Q12 FLOWER PRN Reason: Protocol Last Admin: 04/27/17 10:06 Dose: 200 mls/hr Insulin Human Regular (Humulin R Low) 0 units SC ACHS FLOWER PRN Reason: Protocol Last Admin: 04/27/17 08:01 Dose: 1 units Pantoprazole Sodium (Protonix Inj) 40 mg IVP DAILY [facility] Last Admin: 04/27/17 10:16 Dose: 40 mg Results - Vital Signs Recent Vital Signs: Last Vital Signs Temp 98.2 F 04/27/17 09:49 Pulse 57 L 04/27/17 10:08 Resp 23 04/27/17 09:49 BP 111/54 L 04/27/17 10:08 Pulse Ox 100 04/27/17 09:49 - Labs Result Diagrams: 04/27/17 05:30 04/27/17 12:10 Labs: Laboratory Results - last 24 hr 04/27/17 04/27/17 04/27/17 03:55 05:30 05:30 WBC RBC Hgb Hct MCV MCH MCHC RDW Plt Count MPV Gran % Lymph % (Auto) [place] % (Auto) Eos % (Auto) Baso % (Auto) Gran # Lymph # [place] # Eos # Baso # pCO2 pO2 HCO3 ABG pH ABG Total CO2 ABG O2 Saturation ABG Base Excess ABG Potassium VBG pH VBG pCO2 VBG HCO3 VBG Total CO2 VBG O2 Sat (Calc) VBG Base Excess VBG Potassium Glucose Lactate FiO2 Sodium Potassium Chloride Carbon Dioxide Anion Gap BUN Creatinine Est GFR ( Amer) Est GFR (Non-Af Amer) POC Glucose (mg/dL) Random Glucose Hemoglobin A1c 8.3 H Uric Acid Calcium Total Bilirubin AST ALT Alkaline Phosphatase Total Creatine Kinase Troponin I 0.05 D Total Protein Albumin Globulin Albumin/Globulin Ratio Triglycerides Cholesterol LDL Cholesterol Direct HDL Cholesterol Arterial Blood Potassium Venous Blood Potassium Urine Color Yellow Urine Appearance Clear Urine pH 6.0 Ur Specific [place] 1.015 Urine Protein Trace H Urine Glucose (UA) Negative Urine Ketones Negative Urine Blood Trace-lysed H Urine Nitrate Negative Urine Bilirubin Negative Urine Urobilinogen 0.2 Ur Leukocyte Esterase Negative Urine RBC 0 - 2 Urine WBC 0 - 2 Ur Epithelial Cells 0 - 2 Influenza Typ A,B (EIA) 04/27/17 04/27/17 04/27/17 05:30 05:30 05:35 WBC 22.3 H RBC 3.28 L Hgb 9.3 L Hct 28.2 L MCV 86.0 MCH 28.4 MCHC 33.0 RDW 14.5 Plt Count 268 MPV 9.9 Gran % 86.1 H Lymph % (Auto) 8.6 L [place] % (Auto) 5.1 Eos % (Auto) 0.1 L Baso % (Auto) 0.1 Gran # 19.24 H Lymph # 1.9 [place] # 1.1 H Eos # 0.0 Baso # 0.02 pCO2 pO2 178 H HCO3 ABG pH ABG Total CO2 ABG O2 Saturation ABG Base Excess ABG Potassium VBG pH 7.35 VBG pCO2 41.0 VBG HCO3 22.6 VBG Total CO2 23.9 VBG O2 Sat (Calc) 99.8 H VBG Base Excess -2.9 L VBG Potassium 5.6 H Glucose 163 H Lactate 0.9 FiO2 21.0 Sodium 138 136.0 Potassium 5.5 H Chloride 104 106.0 Carbon Dioxide 22 Anion Gap 18 BUN 88 H Creatinine 3.0 H Est GFR ( Amer) 19 Est GFR (Non-Af Amer) 16 POC Glucose (mg/dL) Random Glucose 162 H Hemoglobin A1c Uric Acid Calcium 9.8 Total Bilirubin 0.9 AST 29 ALT 37 Alkaline Phosphatase 179 H Total Creatine Kinase Troponin I Total Protein 7.5 Albumin 3.4 Globulin 4.1 Albumin/Globulin Ratio 0.8 L Triglycerides 190 H Cholesterol 136 LDL Cholesterol Direct 62 HDL Cholesterol 23 L Arterial Blood Potassium Venous Blood Potassium 5.6 H Urine Color Urine Appearance Urine pH Ur Specific [place] Urine Protein Urine Glucose (UA) Urine Ketones Urine Blood Urine Nitrate Urine Bilirubin Urine Urobilinogen Ur Leukocyte Esterase Urine RBC Urine WBC Ur Epithelial Cells Influenza Typ A,B (EIA) 04/27/17 04/27/17 04/27/17 06:20 06:55 09:20 WBC RBC Hgb Hct MCV MCH MCHC RDW Plt Count MPV Gran % Lymph % (Auto) [place] % (Auto) Eos % (Auto) Baso % (Auto) Gran # Lymph # [place] # Eos # Baso # pCO2 35 pO2 128.0 H HCO3 19.8 L ABG pH 7.36 ABG Total CO2 20.9 L ABG O2 Saturation 98.3 H ABG Base Excess -5.1 L ABG Potassium 5.2 VBG pH VBG pCO2 VBG HCO3 VBG Total CO2 VBG O2 Sat (Calc) VBG Base Excess VBG Potassium Glucose 165 H Lactate 0.7 FiO2 35.0 Sodium 136.0 Potassium Chloride 108.0 H Carbon Dioxide Anion Gap BUN Creatinine Est GFR ( Amer) Est GFR (Non-Af Amer) POC Glucose (mg/dL) 182 H Random Glucose Hemoglobin A1c Uric Acid Calcium Total Bilirubin AST ALT Alkaline Phosphatase Total Creatine Kinase Troponin I 0.04 Total Protein Albumin Globulin Albumin/Globulin Ratio Triglycerides Cholesterol LDL Cholesterol Direct HDL Cholesterol Arterial Blood Potassium 5.2 Venous Blood Potassium Urine Color Urine Appearance Urine pH Ur Specific [place] Urine Protein Urine Glucose (UA) Urine Ketones Urine Blood Urine Nitrate Urine Bilirubin Urine Urobilinogen Ur Leukocyte Esterase Urine RBC Urine WBC Ur Epithelial Cells Influenza Typ A,B (EIA) 04/27/17 04/27/17 11:20 12:10 WBC RBC Hgb Hct MCV MCH MCHC RDW Plt Count MPV Gran % Lymph % (Auto) [place] % (Auto) Eos % (Auto) Baso % (Auto) Gran # Lymph # [place] # Eos # Baso # pCO2 pO2 HCO3 ABG pH ABG Total CO2 ABG O2 Saturation ABG Base Excess ABG Potassium VBG pH VBG pCO2 VBG HCO3 VBG Total CO2 VBG O2 Sat (Calc) VBG Base Excess VBG Potassium Glucose Lactate FiO2 Sodium 136 Potassium 5.6 H* Chloride 103 Carbon Dioxide 21 Anion Gap 18 BUN 93 H Creatinine 3.0 H Est GFR ( Amer) 19 Est GFR (Non-Af Amer) 16 POC Glucose (mg/dL) Random Glucose 298 H Hemoglobin A1c Uric Acid 14.1 H Calcium 9.1 Total Bilirubin AST ALT Alkaline Phosphatase Total Creatine Kinase 33 L Troponin I Total Protein Albumin Globulin Albumin/Globulin Ratio Triglycerides Cholesterol LDL Cholesterol Direct HDL Cholesterol Arterial Blood Potassium Venous Blood Potassium Urine Color Urine Appearance Urine pH Ur Specific [place] Urine Protein Urine Glucose (UA) Urine Ketones Urine Blood Urine Nitrate Urine Bilirubin Urine Urobilinogen Ur Leukocyte Esterase Urine RBC Urine WBC Ur Epithelial Cells Influenza Typ A,B (EIA) Negative for flu a/b
[2017-04-27] MEDS ORDERED: Pneumococcal 23-Valent Vaccine IM ONE (15:42)
[2017-04-27] MEDS ORDERED: Influenza Vaccine 60 mcg/0.5 mL SYR (4YR UP) IM ONE (15:42)
--- NOTE | 2017-04-27 15:48 | US ---
PROCEDURE: Ultrasound of the Kidneys HISTORY: Evaluate for Hydronephrosis COMPARISON: None available. TECHNIQUE: Sonogram of the kidneys. FINDINGS: RIGHT KIDNEY: Measures: 5 x 5.6 x 11.9 cm. Normal in size, contour and echogenicity. No stone, solid mass lesion or hydronephrosis visualized. LEFT KIDNEY: Measures: 4.854.9 x 10.2 cm. Normal in size, contour and echogenicity. No stone, solid mass lesion or hydronephrosis visualized. OTHER FINDINGS: None. IMPRESSION: Unremarkable renal sonogram.
[2017-04-27] MEDS ORDERED: Propofol 10 mg/ml Inj (20 ML) ONE (16:21)
[2017-04-27] MEDS ORDERED: Lidocaine 1% Inj (20ml) ONE (16:24)
[2017-04-27] MEDS ORDERED: Bupivacaine 0.5% Inj(30mL) ONE (16:24)
--- NOTE | 2017-04-27 16:53 | CARD ---
APPROVED REPORT EKG Measurement Heart [id number] MD [id number] <Conclusion> Normal sinus rhythm Possible Inferior infarct, age undetermined Abnormal ECG
--- NOTE | 2017-04-27 17:24 | PCM.SURG1 ---
Surgeon's Initial Post Op Note - Surgeon's Notes Surgeon: Dr. Bernard Web Developer Programmer: Dr. Bailey, PGY-3, Dr. Ledezma PGY-1 Type of Anesthesia: IV Sedation, Local Anesthesia Administered By: Dr. Dao Pre-Operative Diagnosis: Shamika-rectal Abscess Operative Findings: See operative report Post-Operative Diagnosis: Vaginal abscess extending to perirectum Operation Performed: Incision & Drainage, Debridement of Shamika-rectal Abscess Specimen/Specimens Removed: necrosed skin Estimated Blood Loss: EBL {In ML}: 5 Blood Products Given: N/A Drains Used: No Drains Post-Op Condition: Good Date of Surgery/Procedure: 04/27/17 Time of Surgery/Procedure: 17:24
--- NOTE | 2017-04-27 19:29 | CARD ---
APPROVED REPORT EXAM: Two-dimensional and M-mode echocardiogram with Doppler and color Doppler. INDICATION NEW CHF 2D DIMENSIONS Left Atrium (2D)4.3 (1.6-4.0cm)IVSd1.3 (0.7-1.1cm) LVDd4.0 (3.9-5.9cm)PWd1.4 (0.7-1.1cm) LVDs2.9 (2.5-4.0cm)FS (%) 27.9 % LVEF (%)54.6 (>50%) M-Mode DIMENSIONS Aortic Root3.00 (2.2-3.7cm)Aortic Cusp Exc.1.50 (1.5-2.0cm) Aortic Valve AoV Peak Zgfjyiqa528.0cm/Migdalia Peak GR.12mmHgLVOT Peak Iwqfvbdk272.0cm/s LVOT VTI33.20cm Mitral Valve MV E Zmrbxqgp762.0cm/sMV A Gdckatrg91.4cm/sMV [id number] E/A ratio1.7MVA (PHT)2.06cm2 TDI E/Lateral E'0.0E/Medial E'0.0 Pulmonary Valve PV Peak Fpwpdzrd15.5cm/sPV Peak Grad.3mmHg Tricuspid Valve TR Peak Xuwsvvqx549ck/sRAP [id number] Peak Gr.46mmHg [id number] LEFT VENTRICLE The left ventricle is normal size. There is mild concentric left ventricular hypertrophy. The left ventricular function is normal. The left ventricular ejection fraction is within the normal range. There is normal LV segmental wall motion. Transmitral Doppler flow pattern is Grade II-pseudonormal filling dynamics. RIGHT VENTRICLE The right ventricle is normal size. There is normal right ventricular wall thickness. The right ventricular systolic function is normal. ATRIA The left atrium is borderline dilated. The right atrium is borderline dilated. AORTIC VALVE The aortic valve is not well visualized. There is trace aortic regurgitation. MITRAL VALVE Mitral annular calcification is moderate. There is no mitral valve regurgitation noted. There is no mitral valve stenosis. TRICUSPID VALVE There is moderate pulmonary hypertension. GREAT VESSELS The aortic root is normal in size. The IVC is normal in size and collapses >50% with inspiration. PERICARDIAL EFFUSION There is no pericardial effusion. <Conclusion> The left ventricle is normal size. There is mild concentric left ventricular hypertrophy. The left ventricular function is normal. The left ventricular ejection fraction is within the normal range. There is normal LV segmental wall motion. Transmitral Doppler flow pattern is Grade II-pseudonormal filling dynamics. There is moderate pulmonary hypertension.
[2017-04-27 19:40] LABS: CREATININE,RANDOM URINE 81 mg/dL; TOTAL PROTEIN,RANDOM URINE 14 mg/L
--- NOTE | 2017-04-27 20:24 | CP.PCM.CON ---
History of Present Illness - History of Present Illness History of Present Illness: Infectious Disease Consultation: April 27, 2017 66 yo female with presentation of weakness and somnolence progressing over the last few days. The patient was recently treated for influenza and has severely limited mobility. The patient also has gluteal and sacral pain with possible abscess formation with foul smelling discharge. Normally as per the family, the patient is able to ambulate to the bathroom but stays mostly in bed. She was taken to the OR for eli-rectal abscess I&D and washout. Taken to MICU for further toro. PMHx: CHF, DM, hyperkalemia history, morbid obesity, Anemia, HTN, CKD stage III Recently treated for influenza PSHx: none prior to this hospitalization Allergies: NKDA Social Hx: No tobacco, EtOH, or illicit drug use Active Medications Albuterol/Ipratropium (Duoneb 3 Mg/0.5 Mg (3 Ml) Ud) 3 ml IH [id number] [facility] Last Admin: 04/27/17 08:02 Dose: 3 ml Albuterol/Ipratropium (Duoneb 3 Mg/0.5 Mg (3 Ml) Ud) 3 ml IH Q2H PRN PRN Reason: Shortness of Breath Aspirin (Aspirin Chewable) 81 mg PO DAILY [facility] Last Admin: 04/27/17 10:16 Dose: 81 mg Atorvastatin Calcium (Lipitor) 10 mg PO DAILY [facility] Last Admin: 04/27/17 10:16 Dose: 10 mg Carvedilol (Coreg) 6.25 mg PO DAILY [facility] Last Admin: 04/27/17 10:08 Dose: Not Given Furosemide (Lasix) 60 mg IVP Q12 [facility] Last Admin: 04/27/17 10:10 Dose: Not Given Heparin Sodium (Porcine) (Heparin) 5,000 units SC Q12 [facility] PRN Reason: Protocol Last Admin: 04/27/17 10:16 Dose: 5,000 units Vancomycin HCl (Vancomycin 500mg In Ns) 500 mg in 100 mls @ 200 mls/hr IVPB Q12 [facility] PRN Reason: Protocol Last Admin: 04/27/17 10:06 Dose: 200 mls/hr Piperacillin Sod/Tazobactam Sod (Zosyn 2.25 Gm In 0.9% 100 Ml) 2.25 gm in 100 mls @ 100 mls/hr IVPB Q8 [facility] PRN Reason: Protocol Stop: 04/28/17 06:59 Insulin Human Regular (Humulin R Low) 0 units SC ACHS [facility] PRN Reason: Protocol Last Admin: 04/27/17 17:34 Dose: 5 units Pantoprazole Sodium (Protonix Inj) 40 mg IVP DAILY [facility] Last Admin: 04/27/17 10:16 Dose: 40 mg Family Hx: none ROS: Unable to obtain from the patient at this time. As per family, somnolence, fatigue, weakness, sacral/rectal pain, poor gait. Past Patient History - Past Social History Smoking Status: Never Smoked - CARDIAC Hx Cardiac Disorders: Yes Hx Circulatory Problems: Yes Hx Congestive Heart Failure: Yes Hx Hypercholesterolemia: Yes Hx Hypertension: Yes Hx Peripheral Edema: Yes - PULMONARY Hx Respiratory Disorders: Yes (URI 04-27-17 WAS ON TAMIFLU) - NEUROLOGICAL Hx Neurological Disorder: Yes (NEUROPATHY) - HEENT Hx HEENT Problems: Yes (TONSILLECTOMY) Hx Cataracts: Yes (BILATERAL CATARACT SX) Hx Glaucoma: Yes - RENAL Hx Chronic Kidney Disease: No - ENDOCRINE/METABOLIC Hx Endocrine Disorders: Yes Hx Diabetes Mellitus Type 1: Yes - HEMATOLOGICAL/ONCOLOGICAL Hx Blood Disorders: No - INTEGUMENTARY Hx Dermatological Problems: Yes Other/Comment: PRESSURE ULCER UNSTAGEABLE BILATERAL LOWER BUTTOCKS AREA EXTENDING TO VULVA. - MUSCULOSKELETAL/RHEUMATOLOGICAL Hx Musculoskeletal Disorders: Yes (RIGHT FOOT TOE SURGERY) Hx Arthritis: Yes Hx Falls: Yes Hx Unsteady Gait: Yes - GASTROINTESTINAL Hx Gastrointestinal Disorders: Yes (TONSILLECTOMY) - GENITOURINARY/GYNECOLOGICAL Hx Genitourinary Disorders: Yes Hx Incontinence: Yes - PSYCHIATRIC Hx Psychophysiologic Disorder: No Hx Substance Use: No - SURGICAL HISTORY Hx Surgeries: Yes (RIGHT FOOT TOE SX,BILATERAL CATARACT SURGERY.) Meds Allergies/Adverse Reactions: Allergies Allergy/AdvReac Type Severity Reaction Status Date / Time No Known Allergies Allergy Verified 04/27/17 12:12 - Medications Medications: Current Medications Albuterol/Ipratropium (Duoneb 3 Mg/0.5 Mg (3 Ml) Ud) 3 ml IH [id number] [facility] Last Admin: 04/27/17 08:02 Dose: 3 ml Albuterol/Ipratropium (Duoneb 3 Mg/0.5 Mg (3 Ml) Ud) 3 ml IH Q2H PRN PRN Reason: Shortness of Breath Aspirin (Aspirin Chewable) 81 mg PO DAILY [facility] Last Admin: 04/27/17 10:16 Dose: 81 mg Atorvastatin Calcium (Lipitor) 10 mg PO DAILY [facility] Last Admin: 04/27/17 10:16 Dose: 10 mg Carvedilol (Coreg) 6.25 mg PO DAILY [facility] Last Admin: 04/27/17 10:08 Dose: Not Given Furosemide (Lasix) 60 mg IVP Q12 [facility] Last Admin: 04/27/17 10:10 Dose: Not Given Heparin Sodium (Porcine) (Heparin) 5,000 units SC Q12 [facility] PRN Reason: Protocol Last Admin: 04/27/17 10:16 Dose: 5,000 units Vancomycin HCl (Vancomycin 500mg In Ns) 500 mg in 100 mls @ 200 mls/hr IVPB Q12 [facility] PRN Reason: Protocol Last Admin: 04/27/17 10:06 Dose: 200 mls/hr Piperacillin Sod/Tazobactam Sod (Zosyn 2.25 Gm In 0.9% 100 Ml) 2.25 gm in 100 mls @ 100 mls/hr IVPB Q8 [facility] PRN Reason: Protocol Stop: 04/28/17 06:59 Insulin Human Regular (Humulin R Low) 0 units SC ACHS [facility] PRN Reason: Protocol Last Admin: 04/27/17 17:34 Dose: 5 units Pantoprazole Sodium (Protonix Inj) 40 mg IVP DAILY [facility] Last Admin: 04/27/17 10:16 Dose: 40 mg Physical Exam - Constitutional Appears: No Acute Distress, Chronically Ill - Head Exam Head Exam: ATRAUMATIC, NORMOCEPHALIC - Eye Exam Eye Exam: EOMI, PERRL Pupil Exam: NORMAL ACCOMODATION, PERRL - ENT Exam ENT Exam: Mucous Membranes Moist, Normal External Ear Exam, TM's Normal Bilaterally - Neck Exam Neck exam: Positive for: Full Rom, Normal Inspection - Respiratory Exam Respiratory Exam: Rhonchi, Wheezes Additional comments: placed on BiPAP - Cardiovascular Exam Cardiovascular Exam: REGULAR RHYTHM, RRR, +S1, +S2 - GI/Abdominal Exam GI & Abdominal Exam: Normal Bowel Sounds, Soft. absent: Distended, Tenderness - Extremities Exam Additional comments: general weakness. - Neurological Exam Neurological exam: Alert, CN II-XII Intact, Oriented x3 - Psychiatric Exam Psychiatric exam: Anxious, Normal Affect - Skin Additional comments: unstagable sacral decubitus ulcer. vaginal abscess extending to perirectal area. I&D today. Results - Vital Signs Recent Vital Signs: Last Vital Signs Temp 97.6 F 04/27/17 16:30 Pulse 68 04/27/17 18:20 Resp 21 04/27/17 17:02 BP 134/82 04/27/17 18:00 Pulse Ox 97 04/27/17 18:20 - Labs Result Diagrams: 04/27/17 05:30 04/27/17 12:10 Labs: Laboratory Results - last 24 hr 04/27/17 04/27/17 04/27/17 03:55 05:30 05:30 WBC RBC Hgb Hct MCV MCH MCHC RDW Plt Count MPV Gran % Lymph % (Auto) [place]ie % (Auto) Eos % (Auto) Baso % (Auto) Gran # Lymph # [place]ie # Eos # Baso # pCO2 pO2 HCO3 ABG pH ABG Total CO2 ABG O2 Saturation ABG Base Excess ABG Potassium VBG pH VBG pCO2 VBG HCO3 VBG Total CO2 VBG O2 Sat (Calc) VBG Base Excess VBG Potassium Glucose Lactate FiO2 Sodium Potassium Chloride Carbon Dioxide Anion Gap BUN Creatinine Est GFR ( Amer) Est GFR (Non-Af Amer) POC Glucose (mg/dL) Random Glucose Hemoglobin A1c 8.3 H Uric Acid Calcium Total Bilirubin AST ALT Alkaline Phosphatase Total Creatine Kinase Troponin I 0.05 D Total Protein Albumin Globulin Albumin/Globulin Ratio Triglycerides Cholesterol LDL Cholesterol Direct HDL Cholesterol Arterial Blood Potassium Venous Blood Potassium Urine Color Yellow Urine Appearance Clear Urine pH 6.0 Ur Specific Grant 1.015 Urine Protein Trace H Urine Glucose (UA) Negative Urine Ketones Negative Urine Blood Trace-lysed H Urine Nitrate Negative Urine Bilirubin Negative Urine Urobilinogen 0.2 Ur Leukocyte Esterase Negative Urine RBC 0 - 2 Urine WBC 0 - 2 Ur Epithelial Cells 0 - 2 Ur Random Creatinine U Random Total Protein Ur Random Sodium Influenza Typ A,B (EIA) 04/27/17 04/27/17 04/27/17 05:30 05:30 05:35 WBC 22.3 H RBC 3.28 L Hgb 9.3 L Hct 28.2 L MCV 86.0 MCH 28.4 MCHC 33.0 RDW 14.5 Plt Count 268 MPV 9.9 Gran % 86.1 H Lymph % (Auto) 8.6 L Bowie % (Auto) 5.1 Eos % (Auto) 0.1 L Baso % (Auto) 0.1 Gran # 19.24 H Lymph # 1.9 Bowie # 1.1 H Eos # 0.0 Baso # 0.02 pCO2 pO2 178 H HCO3 ABG pH ABG Total CO2 ABG O2 Saturation ABG Base Excess ABG Potassium VBG pH 7.35 VBG pCO2 41.0 VBG HCO3 22.6 VBG Total CO2 23.9 VBG O2 Sat (Calc) 99.8 H VBG Base Excess -2.9 L VBG Potassium 5.6 H Glucose 163 H Lactate 0.9 FiO2 21.0 Sodium 138 136.0 Potassium 5.5 H Chloride 104 106.0 Carbon Dioxide 22 Anion Gap 18 BUN 88 H Creatinine 3.0 H Est GFR ( Amer) 19 Est GFR (Non-Af Amer) 16 POC Glucose (mg/dL) Random Glucose 162 H Hemoglobin A1c Uric Acid Calcium 9.8 Total Bilirubin 0.9 AST 29 ALT 37 Alkaline Phosphatase 179 H Total Creatine Kinase Troponin I Total Protein 7.5 Albumin 3.4 Globulin 4.1 Albumin/Globulin Ratio 0.8 L Triglycerides 190 H Cholesterol 136 LDL Cholesterol Direct 62 HDL Cholesterol 23 L Arterial Blood Potassium Venous Blood Potassium 5.6 H Urine Color Urine Appearance Urine pH Ur Specific Grant Urine Protein Urine Glucose (UA) Urine Ketones Urine Blood Urine Nitrate Urine Bilirubin Urine Urobilinogen Ur Leukocyte Esterase Urine RBC Urine WBC Ur Epithelial Cells Ur Random Creatinine U Random Total Protein Ur Random Sodium Influenza Typ A,B (EIA) 04/27/17 04/27/17 04/27/17 06:20 06:55 09:20 WBC RBC Hgb Hct MCV MCH MCHC RDW Plt Count MPV Gran % Lymph % (Auto) Bowie % (Auto) Eos % (Auto) Baso % (Auto) Gran # Lymph # [place]ie # Eos # Baso # pCO2 35 pO2 128.0 H HCO3 19.8 L ABG pH 7.36 ABG Total CO2 20.9 L ABG O2 Saturation 98.3 H ABG Base Excess -5.1 L ABG Potassium 5.2 VBG pH VBG pCO2 VBG HCO3 VBG Total CO2 VBG O2 Sat (Calc) VBG Base Excess VBG Potassium Glucose 165 H Lactate 0.7 FiO2 35.0 Sodium 136.0 Potassium Chloride 108.0 H Carbon Dioxide Anion Gap BUN Creatinine Est GFR ( Amer) Est GFR (Non-Af Amer) POC Glucose (mg/dL) 182 H Random Glucose Hemoglobin A1c Uric Acid Calcium Total Bilirubin AST ALT Alkaline Phosphatase Total Creatine Kinase Troponin I 0.04 Total Protein Albumin Globulin Albumin/Globulin Ratio Triglycerides Cholesterol LDL Cholesterol Direct HDL Cholesterol Arterial Blood Potassium 5.2 Venous Blood Potassium Urine Color Urine Appearance Urine pH Ur Specific Grant Urine Protein Urine Glucose (UA) Urine Ketones Urine Blood Urine Nitrate Urine Bilirubin Urine Urobilinogen Ur Leukocyte Esterase Urine RBC Urine WBC Ur Epithelial Cells Ur Random Creatinine U Random Total Protein Ur Random Sodium Influenza Typ A,B (EIA) 04/27/17 04/27/17 04/27/17 11:20 12:10 12:51 WBC RBC Hgb Hct MCV MCH MCHC RDW Plt Count MPV Gran % Lymph % (Auto) [place]ie % (Auto) Eos % (Auto) Baso % (Auto) Gran # Lymph # [place] # Eos # Baso # pCO2 pO2 HCO3 ABG pH ABG Total CO2 ABG O2 Saturation ABG Base Excess ABG Potassium VBG pH VBG pCO2 VBG HCO3 VBG Total CO2 VBG O2 Sat (Calc) VBG Base Excess VBG Potassium Glucose Lactate FiO2 Sodium 136 Potassium 5.6 H* Chloride 103 Carbon Dioxide 21 Anion Gap 18 BUN 93 H Creatinine 3.0 H Est GFR ( Amer) 19 Est GFR (Non-Af Amer) 16 POC Glucose (mg/dL) 274 H Random Glucose 298 H Hemoglobin A1c Uric Acid 14.1 H Calcium 9.1 Total Bilirubin AST ALT Alkaline Phosphatase Total Creatine Kinase 33 L Troponin I Total Protein Albumin Globulin Albumin/Globulin Ratio Triglycerides Cholesterol LDL Cholesterol Direct HDL Cholesterol Arterial Blood Potassium Venous Blood Potassium Urine Color Urine Appearance Urine pH Ur Specific [place] Urine Protein Urine Glucose (UA) Urine Ketones Urine Blood Urine Nitrate Urine Bilirubin Urine Urobilinogen Ur Leukocyte Esterase Urine RBC Urine WBC Ur Epithelial Cells Ur Random Creatinine U Random Total Protein Ur Random Sodium Influenza Typ A,B (EIA) Negative for flu a/b 04/27/17 04/27/17 17:29 17:30 WBC RBC Hgb Hct MCV MCH MCHC RDW Plt Count MPV Gran % Lymph % (Auto) [place] % (Auto) Eos % (Auto) Baso % (Auto) Gran # Lymph # [place] # Eos # Baso # pCO2 pO2 HCO3 ABG pH ABG Total CO2 ABG O2 Saturation ABG Base Excess ABG Potassium VBG pH VBG pCO2 VBG HCO3 VBG Total CO2 VBG O2 Sat (Calc) VBG Base Excess VBG Potassium Glucose Lactate FiO2 Sodium Potassium Chloride Carbon Dioxide Anion Gap BUN Creatinine Est GFR ( Amer) Est GFR (Non-Af Amer) POC Glucose (mg/dL) 368 H Random Glucose Hemoglobin A1c Uric Acid Calcium Total Bilirubin AST ALT Alkaline Phosphatase Total Creatine Kinase Troponin I Total Protein Albumin Globulin Albumin/Globulin Ratio Triglycerides Cholesterol LDL Cholesterol Direct HDL Cholesterol Arterial Blood Potassium Venous Blood Potassium Urine Color Urine Appearance Urine pH Ur Specific [place] Urine Protein Urine Glucose (UA) Urine Ketones Urine Blood Urine Nitrate Urine Bilirubin Urine Urobilinogen Ur Leukocyte Esterase Urine RBC Urine WBC Ur Epithelial Cells Ur Random Creatinine 81 U Random Total Protein 14 Ur Random Sodium 35 Influenza Typ A,B (EIA) Assessment & Plan - Assessment and Plan (Free Text) Assessment: 66 yo morbidly obese female with multiple medical issues presenting with sepsis like symptoms in setting of large perirectal abscess. The patient had known history of NIDDM, lower extremity DVT, HTN, and CKD at least stage III. Patient with foul smelling discharge from the buttocks area. Recently treated for influenza. Question of CHF. Taken to OR tonight for I&D of the sacral abscess. Procalcitonin of 2.87 which can fall in diagnosis of sepsis. Hgb A1c of 8.3. The patient is awake and alert although groggy from anesthesia. Supportive care. Continue with antibiotics of Vancomycin and Zosyn although would monitor renal function closely while on this regimen. Thank you for allowing me to participate in the care of the patient, we will follow with you.
[2017-04-27] MEDS ORDERED: Piperacillin/Tazobact 2.25gm 2.25 GM/100 ML BAG IVPB SCH (22:00)
--- NOTE | 2017-04-27 22:25 | CP.PCM.HP ---
History of Present Illness - History of Present Illness History of Present Illness: CC: Generalized Weakness and Somnolence History of Present Illness: A 66 y/o woman w/ pmhx of chf ? on carvidelol, HTN, morbid obesity, Mild Renal Insufficiency, DM , recent diagnosis of influenza (+) , w/ sick family contacts as well presents c/o 5-6 days of worsening weaknes/malaise/ increasing somnolence/ decreased appetite/worsening of her chronic orthopnea/ possibly subjective temperatures/ increasing tremulousness and terrible gluteal /sacral pain and skin breakdown w/ overlying fibrinopurulent exudates and foul smelling discharge. Family endorses dry cough, pt denies any nausea/ dysuria . In the ER , she was found to be in Severe Sepsis with Unstageable Gluteal and Perianal area Ulcer with Foul smelling discharge, and admitted to the ICU after she was started on IV Vancomycin and Zosyn, and S/P Initial I&D and Debridment. Wound and Blood cultures sent. Present on Admission - Present on Admission Any Indicators Present on Admission: Yes History of DVT/PE: No History of Uncontrolled Diabetes: Yes Urinary Catheter: No Decubitus Ulcer Present: Yes Decubitus Ulcer Location: Gluteal and Perinal area Decubitus Ulcer Stage: Unstageable Review of Systems - Review of Systems All systems: reviewed and no additional remarkable complaints except - Constitutional Constitutional: As Per HPI, Chills, Fever - Integumentary Integumentary: As Per HPI Past Patient History - Infectious Disease Hx of Infectious Diseases: None - Past Medical History & Family History Past Medical History?: Yes Past Family History: Reviewed and not pertinent - Past Social History Smoking Status: Never Smoked Alcohol: None Drugs: Denies - CARDIAC Hx Cardiac Disorders: Yes Hx Circulatory Problems: Yes Hx Congestive Heart Failure: Yes Hx Hypercholesterolemia: Yes Hx Hypertension: Yes Hx Peripheral Edema: Yes - PULMONARY Hx Respiratory Disorders: Yes (URI 18 WAS ON TAMIFLU) - NEUROLOGICAL Hx Neurological Disorder: Yes (NEUROPATHY) - HEENT Hx HEENT Problems: Yes (TONSILLECTOMY) Hx Cataracts: Yes (BILATERAL CATARACT SX) Hx Glaucoma: Yes - RENAL Hx Chronic Kidney Disease: No - ENDOCRINE/METABOLIC Hx Endocrine Disorders: Yes Hx Diabetes Mellitus Type 2: Yes - HEMATOLOGICAL/ONCOLOGICAL Hx Blood Disorders: No - INTEGUMENTARY Hx Dermatological Problems: Yes Other/Comment: PRESSURE ULCER UNSTAGEABLE BILATERAL LOWER BUTTOCKS AREA EXTENDING TO VULVA. - MUSCULOSKELETAL/RHEUMATOLOGICAL Hx Musculoskeletal Disorders: Yes (RIGHT FOOT TOE SURGERY) Hx Arthritis: Yes Hx Falls: Yes Hx Unsteady Gait: Yes - GASTROINTESTINAL Hx Gastrointestinal Disorders: Yes (TONSILLECTOMY) - GENITOURINARY/GYNECOLOGICAL Hx Genitourinary Disorders: Yes Hx Incontinence: Yes - PSYCHIATRIC Hx Psychophysiologic Disorder: No Hx Substance Use: No - SURGICAL HISTORY Hx Surgeries: Yes (RIGHT FOOT TOE SX,BILATERAL CATARACT SURGERY.) Meds Allergies/Adverse Reactions: Allergies Allergy/AdvReac Type Severity Reaction Status Date / Time No Known Allergies Allergy Verified 04/27/17 12:12 Physical Exam - Constitutional Appears: In Acute Distress - Head Exam Head Exam: ATRAUMATIC, NORMAL INSPECTION, NORMOCEPHALIC - Eye Exam Eye Exam: EOMI, Normal appearance, PERRL Pupil Exam: NORMAL ACCOMODATION, PERRL - ENT Exam ENT Exam: Mucous Membranes Moist, Normal Exam - Neck Exam Neck exam: Positive for: Full Rom, Normal Inspection - Respiratory Exam Respiratory Exam: Clear to Auscultation Bilateral, NORMAL BREATHING PATTERN. absent: Rales, Wheezes - Cardiovascular Exam Cardiovascular Exam: REGULAR RHYTHM, +S1, +S2 - GI/Abdominal Exam GI & Abdominal Exam: Normal Bowel Sounds, Soft. absent: Tenderness - Extremities Exam Extremities exam: Positive for: full ROM, normal inspection, pedal edema - Back Exam Back exam: NORMAL INSPECTION - Neurological Exam Neurological exam: Alert, CN II-XII Intact, Oriented x3, Reflexes Normal Additional comments: Unable to ambulate - Psychiatric Exam Psychiatric exam: Anxious, Normal Affect, Normal Mood - Skin Skin Exam: Dry, Warm Additional comments: Unstageable Cleft area/Gluteal and Perianal area pressure ulcer afte r I& D by the surgery Results - Vital Signs Recent Vital Signs: Last Vital Signs Temp 97.6 F 04/27/17 16:30 Pulse 68 04/27/17 18:20 Resp 21 04/27/17 17:02 BP 162/44 H 04/27/17 21:40 Pulse Ox 97 04/27/17 18:20 - Labs Result Diagrams: 05/04/17 06:30 05/04/17 06:30 Labs: Laboratory Results - last 24 hr 04/27/17 04/27/17 04/27/17 03:55 05:30 05:30 WBC RBC Hgb Hct MCV MCH MCHC RDW Plt Count MPV Gran % Lymph % (Auto) [place] % (Auto) Eos % (Auto) Baso % (Auto) Gran # Lymph # [place] # Eos # Baso # pCO2 pO2 HCO3 ABG pH ABG Total CO2 ABG O2 Saturation ABG Base Excess ABG Potassium VBG pH VBG pCO2 VBG HCO3 VBG Total CO2 VBG O2 Sat (Calc) VBG Base Excess VBG Potassium Glucose Lactate FiO2 Sodium Potassium Chloride Carbon Dioxide Anion Gap BUN Creatinine Est GFR ( Amer) Est GFR (Non-Af Amer) POC Glucose (mg/dL) Random Glucose Hemoglobin A1c 8.3 H Uric Acid Calcium Total Bilirubin AST ALT Alkaline Phosphatase Total Creatine Kinase Troponin I 0.05 D Total Protein Albumin Globulin Albumin/Globulin Ratio Triglycerides Cholesterol LDL Cholesterol Direct HDL Cholesterol Arterial Blood Potassium Venous Blood Potassium Urine Color Yellow Urine Appearance Clear Urine pH 6.0 Ur Specific [place] 1.015 Urine Protein Trace H Urine Glucose (UA) Negative Urine Ketones Negative Urine Blood Trace-lysed H Urine Nitrate Negative Urine Bilirubin Negative Urine Urobilinogen 0.2 Ur Leukocyte Esterase Negative Urine RBC 0 - 2 Urine WBC 0 - 2 Ur Epithelial Cells 0 - 2 Ur Random Creatinine U Random Total Protein Ur Random Sodium Urine Microalbumin Influenza Typ A,B (EIA) 04/27/17 04/27/17 04/27/17 05:30 05:30 05:35 WBC 22.3 H RBC 3.28 L Hgb 9.3 L Hct 28.2 L MCV 86.0 MCH 28.4 MCHC 33.0 RDW 14.5 Plt Count 268 MPV 9.9 Gran % 86.1 H Lymph % (Auto) 8.6 L [place] % (Auto) 5.1 Eos % (Auto) 0.1 L Baso % (Auto) 0.1 Gran # 19.24 H Lymph # 1.9 [place] # 1.1 H Eos # 0.0 Baso # 0.02 pCO2 pO2 178 H HCO3 ABG pH ABG Total CO2 ABG O2 Saturation ABG Base Excess ABG Potassium VBG pH 7.35 VBG pCO2 41.0 VBG HCO3 22.6 VBG Total CO2 23.9 VBG O2 Sat (Calc) 99.8 H VBG Base Excess -2.9 L VBG Potassium 5.6 H Glucose 163 H Lactate 0.9 FiO2 21.0 Sodium 138 136.0 Potassium 5.5 H Chloride 104 106.0 Carbon Dioxide 22 Anion Gap 18 BUN 88 H Creatinine 3.0 H Est GFR ( Amer) 19 Est GFR (Non-Af Amer) 16 POC Glucose (mg/dL) Random Glucose 162 H Hemoglobin A1c Uric Acid Calcium 9.8 Total Bilirubin 0.9 AST 29 ALT 37 Alkaline Phosphatase 179 H Total Creatine Kinase Troponin I Total Protein 7.5 Albumin 3.4 Globulin 4.1 Albumin/Globulin Ratio 0.8 L Triglycerides 190 H Cholesterol 136 LDL Cholesterol Direct 62 HDL Cholesterol 23 L Arterial Blood Potassium Venous Blood Potassium 5.6 H Urine Color Urine Appearance Urine pH Ur Specific [place] Urine Protein Urine Glucose (UA) Urine Ketones Urine Blood Urine Nitrate Urine Bilirubin Urine Urobilinogen Ur Leukocyte Esterase Urine RBC Urine WBC Ur Epithelial Cells Ur Random Creatinine U Random Total Protein Ur Random Sodium Urine Microalbumin Influenza Typ A,B (EIA) 04/27/17 04/27/17 04/27/17 06:20 06:55 09:20 WBC RBC Hgb Hct MCV MCH MCHC RDW Plt Count MPV Gran % Lymph % (Auto) [place] % (Auto) Eos % (Auto) Baso % (Auto) Gran # Lymph # [place] # Eos # Baso # pCO2 35 pO2 128.0 H HCO3 19.8 L ABG pH 7.36 ABG Total CO2 20.9 L ABG O2 Saturation 98.3 H ABG Base Excess -5.1 L ABG Potassium 5.2 VBG pH VBG pCO2 VBG HCO3 VBG Total CO2 VBG O2 Sat (Calc) VBG Base Excess VBG Potassium Glucose 165 H Lactate 0.7 FiO2 35.0 Sodium 136.0 Potassium Chloride 108.0 H Carbon Dioxide Anion Gap BUN Creatinine Est GFR ( Amer) Est GFR (Non-Af Amer) POC Glucose (mg/dL) 182 H Random Glucose Hemoglobin A1c Uric Acid Calcium Total Bilirubin AST ALT Alkaline Phosphatase Total Creatine Kinase Troponin I 0.04 Total Protein Albumin Globulin Albumin/Globulin Ratio Triglycerides Cholesterol LDL Cholesterol Direct HDL Cholesterol Arterial Blood Potassium 5.2 Venous Blood Potassium Urine Color Urine Appearance Urine pH Ur Specific [place] Urine Protein Urine Glucose (UA) Urine Ketones Urine Blood Urine Nitrate Urine Bilirubin Urine Urobilinogen Ur Leukocyte Esterase Urine RBC Urine WBC Ur Epithelial Cells Ur Random Creatinine U Random Total Protein Ur Random Sodium Urine Microalbumin Influenza Typ A,B (EIA) 04/27/17 04/27/17 04/27/17 11:20 12:10 12:51 WBC RBC Hgb Hct MCV MCH MCHC RDW Plt Count MPV Gran % Lymph % (Auto) [place] % (Auto) Eos % (Auto) Baso % (Auto) Gran # Lymph # [place] # Eos # Baso # pCO2 pO2 HCO3 ABG pH ABG Total CO2 ABG O2 Saturation ABG Base Excess ABG Potassium VBG pH VBG pCO2 VBG HCO3 VBG Total CO2 VBG O2 Sat (Calc) VBG Base Excess VBG Potassium Glucose Lactate FiO2 Sodium 136 Potassium 5.6 H* Chloride 103 Carbon Dioxide 21 Anion Gap 18 BUN 93 H Creatinine 3.0 H Est GFR ( Amer) 19 Est GFR (Non-Af Amer) 16 POC Glucose (mg/dL) 274 H Random Glucose 298 H Hemoglobin A1c Uric Acid 14.1 H Calcium 9.1 Total Bilirubin AST ALT Alkaline Phosphatase Total Creatine Kinase 33 L Troponin I Total Protein Albumin Globulin Albumin/Globulin Ratio Triglycerides Cholesterol LDL Cholesterol Direct HDL Cholesterol Arterial Blood Potassium Venous Blood Potassium Urine Color Urine Appearance Urine pH Ur Specific [place] Urine Protein Urine Glucose (UA) Urine Ketones Urine Blood Urine Nitrate Urine Bilirubin Urine Urobilinogen Ur Leukocyte Esterase Urine RBC Urine WBC Ur Epithelial Cells Ur Random Creatinine U Random Total Protein Ur Random Sodium Urine Microalbumin Influenza Typ A,B (EIA) Negative for flu a/b 04/27/17 04/27/17 04/27/17 17:29 17:30 17:30 WBC RBC Hgb Hct MCV MCH MCHC RDW Plt Count MPV Gran % Lymph % (Auto) [place] % (Auto) Eos % (Auto) Baso % (Auto) Gran # Lymph # [place] # Eos # Baso # pCO2 pO2 HCO3 ABG pH ABG Total CO2 ABG O2 Saturation ABG Base Excess ABG Potassium VBG pH VBG pCO2 VBG HCO3 VBG Total CO2 VBG O2 Sat (Calc) VBG Base Excess VBG Potassium Glucose Lactate FiO2 Sodium Potassium Chloride Carbon Dioxide Anion Gap BUN Creatinine Est GFR ( Amer) Est GFR (Non-Af Amer) POC Glucose (mg/dL) 368 H Random Glucose Hemoglobin A1c Uric Acid Calcium Total Bilirubin AST ALT Alkaline Phosphatase Total Creatine Kinase Troponin I Total Protein Albumin Globulin Albumin/Globulin Ratio Triglycerides Cholesterol LDL Cholesterol Direct HDL Cholesterol Arterial Blood Potassium Venous Blood Potassium Urine Color Urine Appearance Urine pH Ur Specific [place] Urine Protein Urine Glucose (UA) Urine Ketones Urine Blood Urine Nitrate Urine Bilirubin Urine Urobilinogen Ur Leukocyte Esterase Urine RBC Urine WBC Ur Epithelial Cells Ur Random Creatinine 81 U Random Total Protein 14 Ur Random Sodium 35 Urine Microalbumin 20.9 H Influenza Typ A,B (EIA) - Imaging and Cardiology Chest x-ray Status: Report reviewed by me Additional comment: No Active Disease Assessment & Plan (1) Sepsis Assessment and Plan: Admit to ICU Unstageable Sacral, Gluteal, and Perianal Pressure Ulcers S/P I&D, Surgery F/U for wound Care and Possible Re-Debridment Continue IVF, IV Zosyn and Vancomycin Air Loss Mattress Reposition Q2hrs ID Consult Wound and Blood Culture CBC with diff/CMP Status: Acute Priority: High (2) Acute on chronic renal failure Assessment and Plan: IVF Monitor BMP Nephrology Consult Status: Acute Priority: High (3) Diabetes mellitus with hyperglycemia Assessment and Plan: ACccucheck with Covergae HgA1C Status: Acute Priority: Medium (4) Essential hypertension Status: Chronic Priority: Low (5) DVT prophylaxis Status: Inactive Priority: High (6) Morbid obesity Status: Acute Priority: High
--- NOTE | 2017-04-27 23:50 | CON ---
DATE: 04/27/2017 REASON FOR CONSULTATION: Congestive heart failure. HISTORY OF PRESENT ILLNESS: History was obtained from the patient and her family. The patient is a 66-year-old morbidly obese Italian female, has history of hypertension, diabetes mellitus, and chronic renal insufficiency with multiple admissions to [facility] for congestive heart failure. The patient has no prior cardiac catheterization or coronary intervention. She does have nebulizer therapy at home. She is not a former smoker. SOCIAL HISTORY: Nonsmoker, nondrinker. PAST MEDICAL HISTORY: Hypertension, diabetes mellitus, chronic renal insufficiency, congestive heart failure, chronic obstructive lung disease, right second toe amputation. MEDICATIONS: Aspirin 81 mg once a day, albuterol inhaler, heparin 5000 units subcutaneously twice a day, Lasix 60 mg intravenously twice a day, Lipitor 10 mg once a day, Protonix 40 mg intravenously once a day, vancomycin 500 mg intravenously q.12 hours, Zosyn 2.25 gm intravenously q.6 hours. REVIEW OF SYSTEMS: The patient denies any fevers or chills. She does report productive cough. She denies dizziness or syncope and denies any retrosternal chest pain. PHYSICAL EXAMINATION: GENERAL: The patient is a morbidly obese female who is currently on BiPAP. VITAL SIGNS: Blood pressure 111/54, heart rate 57, temperature 98.2, respirations 23. HEENT: Pale conjunctivae. CHEST: Diffuse bilateral rhonchi. HEART: S1, S2 regular. ABDOMEN: Soft. EXTREMITIES: 1+ pitting edema with right second toe amputation. LABORATORY DATA: Today's hemoglobin and hematocrit 9.3 and 28.2. White count 22.3, platelet count 268,000. Today's SMA-7: Sodium 138, potassium 5.5, chloride 104, CO2 of 22, glucose 162, BUN 80, creatinine 3.0. Troponin 0.05 and 0.04. INR is 1.15. DIAGNOSTIC DATA: EKG revealed sinus rhythm, possible old inferior infarct. Chest x-ray revealed cardiomegaly with moderate CHF, possible left lower lobe pneumonia. ASSESSMENT: 1. Exacerbation of congestive heart failure. 2. Consider underlying pneumonia. 3. Chronic renal insufficiency. 4. Hyperkalemia. 5. Chronic obstructive lung disease. 6. Anemia. 7. Uncontrolled diabetes mellitus. CONDITIONS: Continue current aspirin 81 mg once a day, subcutaneous heparin 5000 units q.12 hours. Coreg is on hold for now. Continue Lasix 60 mg intravenously twice a day, Lipitor 10 mg once a day. Continue IV vancomycin and IV Zosyn. Obtain a bedside echocardiogram. Consider venous Doppler of the lower extremities. The patient is not a suitable candidate for either ALIDA inhibitors or Aldactone therapy. Sameer Dorsey MD
[2017-04-28] MEDS: Piperacillin/Tazobact 2.25gm 2.25 GM/100 ML BAG IVPB SCH ×5 (00:24→23:44)
[2017-04-28] MEDS: Albuterol-Ipratrop 3 mg / 0.5 (3 ml) UD IH SCH ×5 (03:20→20:00)
[2017-04-28] MEDS ORDERED: Barium Sulfate Susp 2.1% w/v, 2.0% w/w 450 mL Bottle PO ONE (06:42)
[2017-04-28 07:15] LABS: BASO # 0.01 K/mm3 (0.0-2.0); BASO % 0.1 % (0.0-3.0); EOS % 0.1 % (1.5-5.0); GRAN # 9.47 (1.4-6.5); GRAN % 71.7 % (50.0-68.0); HEMOGLOBIN 8.5 g/dL (12.0-16.0); LYMPH # 2.2 (1.2-3.4); LYMPH % 16.4 % (22.0-35.0); MEAN CELL VOLUME 86.6 fl (80.0-105.0); MEAN CORPUSCULAR HEMOGLOBIN 27.7 pg (25.0-35.0); MONO # 1.5 (0.1-0.6); MONO % 11.7 % (1.0-6.0); RBC 3.07 10^6/uL (3.5-6.1); RED CELL DISTRIBUTION WIDTH 14.8 % (11.5-14.5); WHITE BLOOD COUNT 13.2 10^3/ul (4.5-11.0)
[2017-04-28 07:31] LABS: ALB/GLOB RATIO 0.9 (1.1-1.8); ALBUMIN 3.1 g/dL (3.0-4.8)
[2017-04-28] MEDS: Insulin Reg-MEDIUM-Coverage SC SCH ×2 (08:00→11:45)
--- NOTE | 2017-04-28 08:13 | OP ---
PROCEDURE DATE: 04/27/2017 PREOPERATIVE DIAGNOSIS: Perirectal abscess. POSTOPERATIVE DIAGNOSIS: Perirectal abscess with impending rectovaginal fistula. The patient is diabetic, morbidly obese, who is in congestive heart failure, and probable sepsis. DESCRIPTION OF PROCEDURE: In the operating room, the patient was given anesthesia, who elected to give very minimal anesthesia. The patient was placed in the lithotomy position and using the LODGING MANAGER stirrups, the anus was examined. There is a butterfly area of necrosis anteriorly and going on either side. Necrotic tissue has a foul smell. It is clearly necrotic tissue. This is widely debrided in a butterfly shaped pattern. Photographs were taken showing an impending fistula in the posterior vaginal wall and probably going towards the anus. There seemed to be a connection between this area and the abscess. It was not a typical ischiorectal abscess, I think this will be a more superficial. Because of the patient's instability, it was a minimal debridement, the wounds were cultured and after cutting the area out with cautery and scissor and a knife, the area was packed. Clearly, the patient can need further debridement and probably need a colostomy. CAT scan is ordered. Messi Bernard MD
[2017-04-28] MEDS: Insulin Detemir 100 units/ml Vial (Levemir) SC SCH (10:00)
[2017-04-28] MEDS: Vancomycin 1gm in NS 250ml 1 GM/250 ML BAG IVPB SCH (10:01)
--- NOTE | 2017-04-28 10:05 | CP.PCM.PN ---
Subjective - Date & Time of Evaluation Date of Evaluation: 04/28/17 Time of Evaluation: 07:15 - Subjective Subjective: Surgery Progress note. Dr. Bernard Pt seen and examined at bedside. No acute events overnight. Patient family at beside. No new complaints reported. Still c/o pain. No F/C. Objective - Vital Signs/Intake and Output Vital Signs (last 24 hours): Temp Pulse Resp BP Pulse Ox 99.2 F 72 18 127/66 95 04/28/17 08:00 04/28/17 09:00 04/28/17 06:00 04/28/17 09:00 04/28/17 09:00 Intake and Output: 04/28/17 04/28/17 06:59 18:59 Intake Total 700 Output Total 1800 Balance -1100 - Medications Medications: Current Medications Albuterol/Ipratropium (Duoneb 3 Mg/0.5 Mg (3 Ml) Ud) 3 ml IH [id number] [facility] Last Admin: 04/28/17 07:34 Dose: 3 ml Albuterol/Ipratropium (Duoneb 3 Mg/0.5 Mg (3 Ml) Ud) 3 ml IH Q2H PRN PRN Reason: Shortness of Breath Aspirin (Aspirin Chewable) 81 mg PO DAILY [facility] Last Admin: 04/27/17 10:16 Dose: 81 mg Atorvastatin Calcium (Lipitor) 10 mg PO DAILY [facility] Last Admin: 04/27/17 10:16 Dose: 10 mg Carvedilol (Coreg) 6.25 mg PO DAILY [facility] Last Admin: 04/27/17 10:08 Dose: Not Given Furosemide (Lasix) 60 mg IVP Q12 [facility] Last Admin: 04/27/17 21:40 Dose: 60 mg Heparin Sodium (Porcine) (Heparin) 5,000 units SC Q12 [facility] PRN Reason: Protocol Last Admin: 04/27/17 21:39 Dose: 5,000 units Piperacillin Sod/Tazobactam Sod (Zosyn 2.25 Gm In 0.9% 100 Ml) 2.25 gm in 100 mls @ 100 mls/hr IVPB Q6 [facility] PRN Reason: Protocol Last Admin: 04/28/17 05:25 Dose: 100 mls/hr Vancomycin HCl (Vancomycin 1gm) 1 gm in 250 mls @ 167 mls/hr IVPB DAILY [facility] PRN Reason: Protocol Insulin Detemir (Levemir) 50 unit SC DAILY [facility] Insulin Human Regular (Humulin R Med) 0 units SC ACHS [facility] PRN Reason: Protocol Last Admin: 04/28/17 08:00 Dose: 8 units Pantoprazole Sodium (Protonix Inj) 40 mg IVP DAILY [facility] Last Admin: 04/27/17 10:16 Dose: 40 mg - Labs Labs: 04/28/17 06:30 04/28/17 06:30 PT 13.2 SECONDS (9.4-12.5) H 04/26/17 21:55 INR 1.15 (0.93-1.08) H 04/26/17 21:55 APTT 28.2 Seconds (25.1-36.5) 04/26/17 21:55 - Constitutional Appears: Non-toxic, No Acute Distress - Head Exam Head Exam: ATRAUMATIC, NORMAL INSPECTION, NORMOCEPHALIC - Eye Exam Eye Exam: EOMI - ENT Exam ENT Exam: Mucous Membranes Moist - Respiratory Exam Respiratory Exam: NORMAL BREATHING PATTERN. absent: Accessory Muscle Use, Respiratory Distress - GI/Abdominal Exam GI & Abdominal Exam: Soft. absent: Distended, Firm, Guarding, Rigid, Tenderness Additional comments: Perirectal abscess dressings in place. Foul odor noted - Extremities Exam Extremities Exam: Normal Inspection. absent: Calf Tenderness - Neurological Exam Neurological Exam: Alert, Awake, Oriented x3 - Psychiatric Exam Psychiatric exam: Anxious Assessment and Plan - Assessment and Plan (Free Text) Assessment: 66yo F with labial abscess. S/P I&D 04/27/17 - CT scan noted. No perirectal abscess - Will plan for interval debridement with possible Diverting Colostomy placement . - Continue with medical management as per Primary and ICU teams - Optimize glycemic control - Wound care: replace dressings as needed - Continue Abx as per ID Further recs as per Dr. Marco Antonio Mann PGY1 surgery pager: [phone]
--- NOTE | 2017-04-28 10:07 | PQF CHF ---
This form is a permanent part of the medical record Clarification of your documentation is requested to better reflect the severity of illness and intensity of treatment of your patient. Indicators present Documentation of exerbation of CHF, needs further calrification as to acuity & type. Please document in your notes to best reflect severity of illness & intensity of services [x] Diagnosis of CHF and/or history of CHF [] BNP > 200 [] Imaging Finding of Pulmonary Edema /Pleural Effusions [x] Fluid/Volume Overload [] Pitting edema [] Ejection Fraction < 40% (Indicative of Systolic Heart Failure) [x] Ejection Fraction > 40% (Indicative of Diastolic Heart Failure) [] Dyspnea / Orthopenea / Paroxysmal Nocturnal Dyspnea [] Other: Location in the medical record that reflects the above clinical findings: [x] Cardiac consult Treatment Provided: [] IV Lasix 2 x day PHYSICIAN'S RESPONSE Based on your medical judgment of the clinical indicators outlined above, are you treating this patient for a known or suspected: [] Acute CHF [] Systolic [] Diastolic [] Combined [] Chronic CHF [] Systolic [] Diastolic [] Combined [] Acute on Chronic CHF []Systolic [] Diastolic [] Combined [] CHF due hypertension [] Acute systolic []Chronic systolic [] Acute/ chronic systolic [] Other, please indicate: [] [] If Unable to Determine, please check the box, sign and date. Present On Admission (POA) Indicator: [] Present at the time of admission [] Not present at the time of admission [] Clinically Undetermined In responding to this query, please exercise your independent professional judgment. The fact that a question is asked does not imply that any particular answer is desired or expected. Thank you for your clarification on this documentation. If you have any questions please call:[ ] [phone] * Thank you, [ ]Erin Velásquez RN CDS religious educator [employer]
[2017-04-28 11:07] LABS: COMPLEMENT C4 38.1 mg/dL (14.0-44.0)
--- NOTE | 2017-04-28 11:31 | CT ---
PROCEDURE: CT Abdomen and Pelvis without intravenous contrast HISTORY: Shamika-rectal abscess COMPARISON: None. TECHNIQUE: Without contrast. Contrast Dose: Radiation dose: Total exam DLP = 1635 mGy-cm. This CT exam was performed using one or more of the following dose reduction techniques: Automated exposure control, adjustment of the mA and/or kV according to patient size, and/or use of iterative reconstruction technique. FINDINGS: LOWER THORAX: Ground-glass densities are seen in both lung bases. LIVER: Unremarkable. No gross lesion or ductal dilatation. GALLBLADDER AND BILE DUCTS: Unremarkable. PANCREAS: Unremarkable. No gross lesion or ductal dilatation. SPLEEN: Unremarkable. ADRENALS: Unremarkable. No mass. KIDNEYS AND URETERS: Unremarkable. No hydronephrosis. No solid mass. VASCULATURE: Unremarkable. No aortic aneurysm. BOWEL: Unremarkable. No obstruction. No gross mural thickening. APPENDIX: Unremarkable. Normal appendix. PERITONEUM: Unremarkable. No free fluid. No free air. LYMPH NODES: Unremarkable. No enlarged lymph nodes. BLADDER: There is a Simeon catheter in the bladder REPRODUCTIVE: Unremarkable. BONES: No acute fracture. OTHER FINDINGS: The scan included the rectum and perineum but did not extend into the gluteal regions or upper thighs. IMPRESSION: No acute findings. No evidence of perirectal abscess
--- NOTE | 2017-04-28 12:25 | CP.PCM.PN ---
Subjective - Date & Time of Evaluation Date of Evaluation: 04/28/17 Time of Evaluation: 07:30 - Subjective Subjective: Pt seen and examined, remains off bipap, comfortable NAD, on 2LNC Objective - Vital Signs/Intake and Output Vital Signs (last 24 hours): Temp Pulse Resp BP Pulse Ox 99.2 F 77 18 127/66 95 04/28/17 08:00 04/28/17 09:59 04/28/17 06:00 04/28/17 10:00 04/28/17 09:00 Intake and Output: 04/28/17 04/28/17 06:59 18:59 Intake Total 700 Output Total 1800 Balance -1100 - Medications Medications: Current Medications Albuterol/Ipratropium (Duoneb 3 Mg/0.5 Mg (3 Ml) Ud) 3 ml IH [id number] [facility] Last Admin: 04/28/17 12:06 Dose: 3 ml Albuterol/Ipratropium (Duoneb 3 Mg/0.5 Mg (3 Ml) Ud) 3 ml IH Q2H PRN PRN Reason: Shortness of Breath Aspirin (Aspirin Chewable) 81 mg PO DAILY [facility] Last Admin: 04/28/17 09:59 Dose: 81 mg Atorvastatin Calcium (Lipitor) 10 mg PO DAILY [facility] Last Admin: 04/28/17 10:03 Dose: 10 mg Carvedilol (Coreg) 6.25 mg PO DAILY [facility] Last Admin: 04/28/17 09:59 Dose: 6.25 mg Furosemide (Lasix) 60 mg IVP Q12 [facility] Last Admin: 04/28/17 10:00 Dose: 60 mg Heparin Sodium (Porcine) (Heparin) 5,000 units SC Q8H [facility] PRN Reason: Protocol Piperacillin Sod/Tazobactam Sod (Zosyn 2.25 Gm In 0.9% 100 Ml) 2.25 gm in 100 mls @ 100 mls/hr IVPB Q6 [facility] PRN Reason: Protocol Last Admin: 04/28/17 05:25 Dose: 100 mls/hr Vancomycin HCl (Vancomycin 1gm) 1 gm in 250 mls @ 167 mls/hr IVPB DAILY [facility] PRN Reason: Protocol Last Admin: 04/28/17 10:01 Dose: 167 mls/hr Insulin Detemir (Levemir) 50 unit SC DAILY [facility] Last Admin: 04/28/17 10:00 Dose: 50 unit Insulin Human Regular (Humulin R Med) 0 units SC ACHS [facility] PRN Reason: Protocol Last Admin: 04/28/17 08:00 Dose: 8 units Pantoprazole Sodium (Protonix Inj) 40 mg IVP DAILY [facility] Last Admin: 04/28/17 10:01 Dose: 40 mg - Labs Labs: 04/28/17 06:30 04/28/17 06:30 PT 13.2 SECONDS (9.4-12.5) H 04/26/17 21:55 INR 1.15 (0.93-1.08) H 04/26/17 21:55 APTT 28.2 Seconds (25.1-36.5) 04/26/17 21:55 - Constitutional Appears: Well, Non-toxic, No Acute Distress - Eye Exam Eye Exam: Normal appearance - ENT Exam ENT Exam: Mucous Membranes Moist - Respiratory Exam Respiratory Exam: Clear to Ausculation Bilateral, NORMAL BREATHING PATTERN - Cardiovascular Exam Cardiovascular Exam: REGULAR RHYTHM, +S1, +S2 - GI/Abdominal Exam GI & Abdominal Exam: Soft, Normal Bowel Sounds - Extremities Exam Extremities Exam: Full ROM - Neurological Exam Neurological Exam: Alert, Awake, Oriented x3 Neuro motor strength exam: Left Upper Extremity: 5, Right Upper Extremity: 5, Left Lower Extremity: 5, Right Lower Extremity: 5 Assessment and Plan - Assessment and Plan (Free Text) Assessment: 66yo female a/w SOB, perianal abscess Renal Failure CHF/VOlume Overload Severe Sepsis Perianal Abscess Hyperkalemia, resolved Morbid Obesity - currently afebrile, HD stable, comfortable off BIPAP, on 2LNC - ECHO with EF 55% - going back to OR Recommend: - cont with 2LNC, BIPAP as needed - broad spectrum antibiotics, Vanco, Zosyn - Follow up cultures, Procalcitonin - BP control - Check UA, Ulytes - follow up nephrology - hold IV diuresis - Cardiology eval - follow up surgery - elevated Uric Acid, Start Allopurinol, Check CPK - GI ppx - DVT ppx - FS control - Monitor in MICU critical care time 40 minutes
[2017-04-28] MEDS: Sodium Chloride 0.9% 1,000 ML IV SCH (13:00)
--- NOTE | 2017-04-28 13:55 | PN ---
DATE: SUBJECTIVE: The patient denies any chest pain. She is mildly short of breath. PHYSICAL EXAMINATION: VITAL SIGNS: Blood pressure 127/66, heart rate 77, temperature 99.2, respirations 20. HEENT: Bilateral lower eyelid ecchymosis. NECK: No JVD. CHEST: Bilateral rhonchi. HEART: S1, S2 regular. EXTREMITIES: 1+ pitting edema. LABORATORY DATA: Today's hemoglobin and hematocrit 8.5 and 26.6, white count 13.2, and platelet count 174,000. SMA-7: Sodium 136, potassium 4.9, chloride 101, CO2 of 21, glucose is 523, BUN of 98, creatinine 2.8. Today's EKG revealed normal sinus rhythm at a rate of 65. Echocardiogram study revealed mild concentric LVH with normal ejection fraction and normal segmental wall motion, moderate pulmonary hypertension. Renal ultrasound is unremarkable. ASSESSMENT: 1. Diastolic heart failure. 2. Morbid obesity. 3. Moderate pulmonary hypertension. 4. Chronic renal insufficiency. 5. Uncontrolled diabetes mellitus. 6. History of deep vein thrombosis 2 years ago, treated for 1 year. RECOMMENDATIONS: Continue aspirin 81 mg once a day, Coreg 6.25 mg daily, subcutaneous heparin will be increased to 5000 q. 8 hours. Continue IV Lasix 20 mg twice a day, Lipitor 10 mg once a day. Continue IV Zosyn and IV vancomycin. I will follow venous Doppler of lower extremity report as well as CT scan of the abdomen and pelvis. Sameer Dorsey MD
--- NOTE | 2017-04-28 14:48 | CP.PCM.PN ---
Subjective - Date & Time of Evaluation Date of Evaluation: 04/28/17 Time of Evaluation: 14:45 - Subjective Subjective: Follow up Nephrology Consultation (covering for Dr Oziel Morgan): Assessment: stable non-oliguric Acute Kidney Injury (N17.9) likely multi-factorial: sepsis, decreased oral intake leading to pre-renal state, some contribution by NSAIDs, urine retention Diabetic chronic Kidney Disease (E11.22) Hypertensive Chronic Kidney Disease (I12.9) Chronic Kidney Disease (N18.3) Stage 3 with ? mg proteinuria (R80.9) likely due to DM Anemia (D64.9), HTN (I12.9) Morbid obesity, recent Influenza with Myalgias, arthalgias Hyperkalemia, uncontrolled DM moderate pulmonary HTN Plan No acute need for renal replacement therapy at this time Hypertension control with meds as ordered. No ACEI/ARB due to [place] Monitor Input/Output, daily weights and renal function with basic metabolic panel hold lasix and suggest IVF as normal saline as hx and renal function favors pre- renal state though SOB and elevated BNP are contrary. [Serum uric acid high and FeNa low (1%) and IVC compressibility (>50%) on echo suggest intravascular volume depletion status] pending GRETCHEN, Anti dsDNA, ANCA (MPO and NJ-3), serum protein electrophoresis with immunofixation, K/L ratio, rheumatoid factor Dose meds/antibiotics for reduced GFR. Avoid fleets enema/magnesium based laxatives. Avoid nephrotoxins/NSAIDs/ iodinated contrast (unless needed emergently) Glycemic control. dose vanco by level Further work up/management as per primary team Thanks for allowing me to participate in care of your patient. Will follow patient with you. Please call if any Qs. d/w team and family Dr Rj Montalvo Office: [phone] reason for consult: [facility] HPI: Pt is a 66 F with hx of diabetes Mellitus (30 years) with retinopathhy, hypertension (few years), morbid obesity with bodyaches/joint pains, mostly bedbound for last 1 year, CKD for last 1-2 years (per family best creatinine has been 1.3-1.5) however had lack of regular follow up lately due to her difficulty in ambulatin presented with complaints of SOB, worsening bodyaches, generalized fatigue and weakness for last 1 week after she was diagnosed with Influenza in ER and was treated with tamiflu. Denies OTC/herbal meds but has taken NSAIDs as naproxen on prn basis over last 1 week No recent iodinated contrast exposure. No obvious episodes of low BP. ROS: family helped in syriac interpretation Cardiovascular: No chest pain. Pulmonary: improved shortness of breath Gastrointestinal: denies abdominal pain No nausea. No vomiting. Genitourinary: No pain while urinating. Denies blood in urine. had decreased urine output before coming in. improved after cota Physical Examination: General Appearance: Comfortable, in no acute respiratory distress, co-operative .morbid obese Vitals reviewed and noted as below Head; Atraumatic, normocephalic ENT: no ulcers no thrush. Tongue is midline. Oropharynx: no rash or ulcers. EYES: Pupils are equal, round and reactive to light accommodation. Eye muscles and extraocular movement intact. Sclera is anicteric. Neck; supple no lymphadenopathy, no thyromegaly or bruit Lungs: improved respiratory rate/effort. Breath sounds bilateral equal and clear Heart: Normal rate. s1s2 normal. No rub or gallop. Extremities: no edema. No varicose veins Neurological: Patient is alert, awake and oriented to person, place and time. No focal deficit. Strength bilateral appropriate and equal Skin: Warm and dry. Normal turgor. No rash. Palpitation: Normal elasticity for age Abdomen: Abdomen is soft. Bowel sounds +. There is no abdominal tenderness, no guarding/rigidity no organomegaly Psych: normal insight and normal affect/mood MSK: no joint tenderness or swelling. Digits and nails normal, no deformity : kidney or bladder not palpable Labs/imaging reviewed. Past medical history, past surgical history, family history, social history, allergy reviewed and noted as below Family hx: no hx of CKD. Rest non-contributory BNP 9030 UA trace blood trace protein normal complements CT abdomen; normal renals Objective - Vital Signs/Intake and Output Vital Signs (last 24 hours): Temp Pulse Resp BP Pulse Ox 98.6 F 66 23 124/53 L 97 04/28/17 12:00 04/28/17 12:00 04/28/17 11:02 04/28/17 12:00 04/28/17 12:00 Intake and Output: 04/28/17 04/28/17 06:59 18:59 Intake Total 700 Output Total 1800 Balance -1100 - Medications Medications: Current Medications Albuterol/Ipratropium (Duoneb 3 Mg/0.5 Mg (3 Ml) Ud) 3 ml IH [id number] [facility] Last Admin: 04/28/17 12:06 Dose: 3 ml Albuterol/Ipratropium (Duoneb 3 Mg/0.5 Mg (3 Ml) Ud) 3 ml IH Q2H PRN PRN Reason: Shortness of Breath Aspirin (Aspirin Chewable) 81 mg PO DAILY [facility] Last Admin: 04/28/17 09:59 Dose: 81 mg Atorvastatin Calcium (Lipitor) 10 mg PO DAILY [facility] Last Admin: 04/28/17 10:03 Dose: 10 mg Carvedilol (Coreg) 6.25 mg PO DAILY [facility] Last Admin: 04/28/17 09:59 Dose: 6.25 mg Furosemide (Lasix) 60 mg IVP Q12 [facility] Last Admin: 04/28/17 10:00 Dose: 60 mg Heparin Sodium (Porcine) (Heparin) 5,000 units SC Q8H [facility] PRN Reason: Protocol Last Admin: 04/28/17 11:45 Dose: Not Given Piperacillin Sod/Tazobactam Sod (Zosyn 2.25 Gm In 0.9% 100 Ml) 2.25 gm in 100 mls @ 100 mls/hr IVPB Q6 [facility] PRN Reason: Protocol Last Admin: 04/28/17 12:40 Dose: 100 mls/hr Vancomycin HCl (Vancomycin 1gm) 1 gm in 250 mls @ 167 mls/hr IVPB DAILY [facility] PRN Reason: Protocol Last Admin: 04/28/17 10:01 Dose: 167 mls/hr Sodium Chloride (Sodium Chloride 0.9%) 1,000 mls @ 75 mls/hr IV .[id number] [facility] Last Admin: 04/28/17 13:00 Dose: 75 mls/hr Insulin Detemir (Levemir) 50 unit SC DAILY [facility] Last Admin: 04/28/17 10:00 Dose: 50 unit Insulin Human Regular (Humulin R Med) 0 units SC ACHS [facility] PRN Reason: Protocol Last Admin: 04/28/17 11:45 Dose: 10 units Pantoprazole Sodium (Protonix Inj) 40 mg IVP DAILY [facility] Last Admin: 04/28/17 10:01 Dose: 40 mg - Labs Labs: 04/28/17 06:30 04/28/17 06:30 PT 13.2 SECONDS (9.4-12.5) H 04/26/17 21:55 INR 1.15 (0.93-1.08) H 04/26/17 21:55 APTT 28.2 Seconds (25.1-36.5) 04/26/17 21:55
[2017-04-28] MEDS: Insulin Reg-HIGH-Coverage SC SCH ×2 (16:43→22:15)
--- NOTE | 2017-04-28 17:21 | CP.PCM.PN ---
Subjective - Date & Time of Evaluation Date of Evaluation: 04/28/17 Time of Evaluation: 15:15 - Subjective Subjective: Infectious Disease Follow Up: April 28, 2017 66 yo female with presentation of weakness and somnolence progressing over the last few days. The patient was recently treated for influenza and has severely limited mobility. The patient also has gluteal and sacral pain with possible abscess formation with foul smelling discharge. Normally as per the family, the patient is able to ambulate to the bathroom but stays mostly in bed. She was taken to the OR for eli-rectal abscess I&D and washout. Taken to MICU for further care. Currently on nasal cannula. Cultures pending. On IV Vancomycin and Zosyn for treatment at this time. Objective - Vital Signs/Intake and Output Vital Signs (last 24 hours): Temp Pulse Resp BP Pulse Ox 98.6 F 66 23 124/53 L 97 04/28/17 12:00 04/28/17 12:00 04/28/17 11:02 04/28/17 12:00 04/28/17 12:00 Intake and Output: 04/28/17 04/28/17 06:59 18:59 Intake Total 700 Output Total 1800 Balance -1100 - Medications Medications: Current Medications Albuterol/Ipratropium (Duoneb 3 Mg/0.5 Mg (3 Ml) Ud) 3 ml IH [id number] [facility] Last Admin: 04/28/17 15:57 Dose: 3 ml Albuterol/Ipratropium (Duoneb 3 Mg/0.5 Mg (3 Ml) Ud) 3 ml IH Q2H PRN PRN Reason: Shortness of Breath Aspirin (Aspirin Chewable) 81 mg PO DAILY [facility] Last Admin: 04/28/17 09:59 Dose: 81 mg Atorvastatin Calcium (Lipitor) 10 mg PO DAILY [facility] Last Admin: 04/28/17 10:03 Dose: 10 mg Carvedilol (Coreg) 6.25 mg PO DAILY [facility] Last Admin: 04/28/17 09:59 Dose: 6.25 mg Furosemide (Lasix) 60 mg IVP Q12 [facility] Last Admin: 04/28/17 10:00 Dose: 60 mg Heparin Sodium (Porcine) (Heparin) 5,000 units SC Q8H [facility] PRN Reason: Protocol Last Admin: 04/28/17 11:45 Dose: Not Given Piperacillin Sod/Tazobactam Sod (Zosyn 2.25 Gm In 0.9% 100 Ml) 2.25 gm in 100 mls @ 100 mls/hr IVPB Q6 [facility] PRN Reason: Protocol Last Admin: 04/28/17 12:40 Dose: 100 mls/hr Vancomycin HCl (Vancomycin 1gm) 1 gm in 250 mls @ 167 mls/hr IVPB DAILY [facility] PRN Reason: Protocol Last Admin: 04/28/17 10:01 Dose: 167 mls/hr Sodium Chloride (Sodium Chloride 0.9%) 1,000 mls @ 75 mls/hr IV .[id number] [facility] Last Admin: 04/28/17 13:00 Dose: 75 mls/hr Insulin Detemir (Levemir) 50 unit SC DAILY [facility] Last Admin: 04/28/17 10:00 Dose: 50 unit Insulin Human Regular (Humulin R High) 0 units SC ACHS [facility] PRN Reason: Protocol Last Admin: 04/28/17 16:43 Dose: 15 units Pantoprazole Sodium (Protonix Inj) 40 mg IVP DAILY [facility] Last Admin: 04/28/17 10:01 Dose: 40 mg - Labs Labs: 04/28/17 06:30 04/28/17 06:30 PT 13.2 SECONDS (9.4-12.5) H 04/26/17 21:55 INR 1.15 (0.93-1.08) H 04/26/17 21:55 APTT 28.2 Seconds (25.1-36.5) 04/26/17 21:55 - Constitutional Appears: Non-toxic, No Acute Distress, Chronically Ill - Head Exam Head Exam: ATRAUMATIC, NORMOCEPHALIC - Eye Exam Eye Exam: EOMI, PERRL Pupil Exam: NORMAL ACCOMODATION - ENT Exam ENT Exam: Mucous Membranes Moist, Normal External Ear Exam, TM's Normal Bilaterally - Neck Exam Neck Exam: Full ROM, Normal Inspection - Respiratory Exam Respiratory Exam: Rhonchi, Wheezes - Cardiovascular Exam Cardiovascular Exam: REGULAR RHYTHM, RRR, +S1, +S2 - GI/Abdominal Exam GI & Abdominal Exam: Soft, Normal Bowel Sounds. absent: Distended, Tenderness - Extremities Exam Extremities Exam: absent: Joint Swelling, Pedal Edema Additional comments: general weakness - Neurological Exam Neurological Exam: Alert, Awake, CN II-XII Intact, Oriented x3 - Psychiatric Exam Psychiatric exam: Anxious, Normal Mood - Skin Skin Exam: Intact, Normal Color Assessment and Plan - Assessment and Plan (Free Text) Assessment: 66 yo morbidly obese female with multiple medical issues presenting with sepsis like symptoms in setting of large perirectal abscess. The patient had known history of NIDDM, lower extremity DVT, HTN, and CKD at least stage III. Patient with foul smelling discharge from the buttocks area. Recently treated for influenza. Question of CHF. Taken to OR tonight for I&D of the sacral abscess. Procalcitonin of 2.87 which can fall in diagnosis of sepsis. Hgb A1c of 8.3. The patient is awake and alert although groggy from anesthesia. Supportive care. Continue with antibiotics of Vancomycin and Zosyn although would monitor renal function closely while on this regimen. Leukocytosis is improving. Thank you for allowing me to participate in the care of the patient, we will follow with you.
--- NOTE | 2017-04-28 18:47 | CP.PCM.PN ---
Subjective - Date & Time of Evaluation Date of Evaluation: 04/29/17 Time of Evaluation: 18:25 - Subjective Subjective: Seen and examined at the bed side. C/O Pain to the back. Denies fever or chills. Going for Diversion colostomy and further wound Debridment tomorrow. Will NPO past midnight. Objective - Vital Signs/Intake and Output Vital Signs (last 24 hours): Temp Pulse Resp BP Pulse Ox 97.2 F L 76 23 132/54 L 98 04/28/17 16:00 04/28/17 18:32 04/28/17 11:02 04/28/17 18:32 04/28/17 18:32 Intake and Output: 04/28/17 04/28/17 06:59 18:59 Intake Total 700 1230 Output Total 1800 2900 Balance -1100 -1670 - Medications Medications: Current Medications Albuterol/Ipratropium (Duoneb 3 Mg/0.5 Mg (3 Ml) Ud) 3 ml IH [id number] [facility] Last Admin: 04/28/17 15:57 Dose: 3 ml Albuterol/Ipratropium (Duoneb 3 Mg/0.5 Mg (3 Ml) Ud) 3 ml IH Q2H PRN PRN Reason: Shortness of Breath Aspirin (Aspirin Chewable) 81 mg PO DAILY [facility] Last Admin: 04/28/17 09:59 Dose: 81 mg Atorvastatin Calcium (Lipitor) 10 mg PO DAILY [facility] Last Admin: 04/28/17 10:03 Dose: 10 mg Carvedilol (Coreg) 6.25 mg PO DAILY [facility] Last Admin: 04/28/17 09:59 Dose: 6.25 mg Furosemide (Lasix) 60 mg IVP Q12 [facility] Last Admin: 04/28/17 10:00 Dose: 60 mg Heparin Sodium (Porcine) (Heparin) 5,000 units SC Q8H [facility] PRN Reason: Protocol Last Admin: 04/28/17 11:45 Dose: Not Given Piperacillin Sod/Tazobactam Sod (Zosyn 2.25 Gm In 0.9% 100 Ml) 2.25 gm in 100 mls @ 100 mls/hr IVPB Q6 [facility] PRN Reason: Protocol Last Admin: 04/28/17 17:57 Dose: 100 mls/hr Vancomycin HCl (Vancomycin 1gm) 1 gm in 250 mls @ 167 mls/hr IVPB DAILY [facility] PRN Reason: Protocol Last Admin: 04/28/17 10:01 Dose: 167 mls/hr Sodium Chloride (Sodium Chloride 0.9%) 1,000 mls @ 75 mls/hr IV .[id number] [facility] Last Admin: 04/28/17 13:00 Dose: 75 mls/hr Insulin Detemir (Levemir) 50 unit SC DAILY [facility] Last Admin: 04/28/17 10:00 Dose: 50 unit Insulin Human Regular (Humulin R High) 0 units SC ACHS [facility] PRN Reason: Protocol Last Admin: 04/28/17 16:43 Dose: 15 units Pantoprazole Sodium (Protonix Inj) 40 mg IVP DAILY [facility] Last Admin: 04/28/17 10:01 Dose: 40 mg - Labs Labs: 04/28/17 06:30 04/28/17 06:30 PT 13.2 SECONDS (9.4-12.5) H 04/26/17 21:55 INR 1.15 (0.93-1.08) H 04/26/17 21:55 APTT 28.2 Seconds (25.1-36.5) 04/26/17 21:55 - Constitutional Appears: No Acute Distress - Head Exam Head Exam: ATRAUMATIC, NORMAL INSPECTION, NORMOCEPHALIC - Eye Exam Eye Exam: EOMI, Normal appearance, PERRL Pupil Exam: NORMAL ACCOMODATION, PERRL - ENT Exam ENT Exam: Mucous Membranes Moist, Normal Exam - Neck Exam Neck Exam: Full ROM, Normal Inspection. absent: Lymphadenopathy - Cardiovascular Exam Cardiovascular Exam: REGULAR RHYTHM, +S1, +S2. absent: Murmur - GI/Abdominal Exam GI & Abdominal Exam: Soft, Normal Bowel Sounds. absent: Tenderness - Extremities Exam Extremities Exam: Full ROM, Normal Capillary Refill, Normal Inspection, Pedal Edema - Back Exam Back Exam: absent: CVA tenderness (L), CVA tenderness (R) - Psychiatric Exam Psychiatric exam: Depressed, Flat Affect - Skin Additional comments: Sacral and Perineal Pressure Ulcer Assessment and Plan (1) Sepsis Assessment & Plan: Unstageable Sacral, Gluteal, and Perianal Pressure Ulcers S/P I&D, Surgery F/U for wound Care and Possible Re-Debridment Continue IVF, IV Zosyn and Vancomycin Air Loss Mattress Reposition Q2hrs ID Consult CBC with diff/CMP Status: Acute Priority: High (2) Acute on chronic renal failure, Improving Assessment and Plan: IVF Monitor BMP Nephrology Consult Status: Acute Priority: High (3) Diabetes mellitus with hyperglycemia Assessment and Plan: ACccucheck with Covergae Status: Acute Priority: Medium (4) Essential hypertension Status: Chronic Priority: Low (5) DVT prophylaxis Status: Inactive Priority: High (6) Morbid obesity Status: Chronic
--- NOTE | 2017-04-28 19:25 | US ---
HISTORY: Leg pain and swelling. Evaluate for DVT PHYSICIAN(S): Ishan Tucker MD. TECHNIQUE: Duplex sonography and color-flow Doppler with graded compression were used to evaluate the deep venous systems of both lower extremities. The exam is limited by body habitus and edema. The lower femoral veins and tibial veins are not well seen. FINDINGS: The visualized deep venous systems of both lower extremities are sonographically normal and compressible. Normal wave forms and augmentation are seen. There is no sonographic evidence for deep venous thrombosis in the visualized segments of both lower extremities. IMPRESSION: No sonographic evidence for deep venous thrombosis in the visualized segments of both lower extremities. Very limited study
[2017-04-28] MEDS ORDERED: DiphenhydrAMINE 50 mg/ml Inj IVP STA (21:01)
--- NOTE | 2017-04-28 22:26 | CARD ---
APPROVED REPORT EKG Measurement Heart [id number] <Conclusion> Normal sinus rhythm Normal ECG
--- NOTE | 2017-04-28 22:39 | CARD ---
APPROVED REPORT EKG Measurement Heart [id number] <Conclusion> Normal sinus rhythm Normal ECG
[2017-04-29] MEDS: Albuterol-Ipratrop 3 mg / 0.5 (3 ml) UD IH SCH ×6 (04:30→20:55)
[2017-04-29] MEDS: Piperacillin/Tazobact 2.25gm 2.25 GM/100 ML BAG IVPB SCH ×4 (05:43→23:11)
[2017-04-29] MEDS: Sodium Chloride 0.9% 1,000 ML IV SCH ×2 (05:59→20:45)
[2017-04-29 07:43] LABS: ALB/GLOB RATIO 0.9 (1.1-1.8); ALBUMIN 3.2 g/dL (3.0-4.8); CALCIUM 9.2 mg/dL (8.4-10.5)
[2017-04-29] MEDS: Insulin Reg-HIGH-Coverage SC SCH ×4 (08:01→22:35)
[2017-04-29 08:06] LABS: HEMOGLOBIN 9.1 g/dL (12.0-16.0); MEAN CELL VOLUME 87.1 fl (80.0-105.0); MEAN CORPUSCULAR HGB CONC 32.2 g/dl (31.0-37.0); MEAN PLATELET VOLUME 9.5 fl (7.0-11.0); RBC 3.25 10^6/uL (3.5-6.1); RED CELL DISTRIBUTION WIDTH 14.3 % (11.5-14.5); WHITE BLOOD COUNT 13.5 10^3/ul (4.5-11.0)
[2017-04-29] MEDS: Insulin Detemir 100 units/ml Vial (Levemir) SC SCH (10:00)
[2017-04-29] MEDS: Dakin's Topical 0.25%-Half Strength (480 ml) TOP SCH (11:45)
[2017-04-29 12:08] LABS: ALBUMIN (PEP) 2.4 g/dL (3.8-4.8); ALPHA-1-GLOBULIN (PEP) 0.6 g/dL (0.2-0.3)
--- NOTE | 2017-04-29 12:08 | CP.PCM.PN ---
Subjective - Date & Time of Evaluation Date of Evaluation: 04/29/17 Time of Evaluation: 07:35 - Subjective Subjective: Pt seen and examined, remains off bipap, doing well on 2LNC Objective - Vital Signs/Intake and Output Vital Signs (last 24 hours): Temp Pulse Resp BP Pulse Ox 97.2 F L 81 23 186/78 H 97 04/28/17 16:00 04/29/17 06:01 04/29/17 05:01 04/29/17 06:01 04/29/17 06:01 Intake and Output: 04/29/17 04/29/17 06:59 18:59 Intake Total 900 Output Total 2950 Balance -2049 - Medications Medications: Current Medications Albuterol/Ipratropium (Duoneb 3 Mg/0.5 Mg (3 Ml) Ud) 3 ml IH [id number] [facility] Last Admin: 04/29/17 11:03 Dose: 3 ml Albuterol/Ipratropium (Duoneb 3 Mg/0.5 Mg (3 Ml) Ud) 3 ml IH Q2H PRN PRN Reason: Shortness of Breath Aspirin (Aspirin Chewable) 81 mg PO DAILY [facility] Last Admin: 04/28/17 09:59 Dose: 81 mg Atorvastatin Calcium (Lipitor) 10 mg PO DAILY [facility] Last Admin: 04/28/17 10:03 Dose: 10 mg Carvedilol (Coreg) 6.25 mg PO DAILY [facility] Last Admin: 04/28/17 09:59 Dose: 6.25 mg Furosemide (Lasix) 60 mg IVP Q12 [facility] Last Admin: 04/28/17 22:15 Dose: 60 mg Heparin Sodium (Porcine) (Heparin) 5,000 units SC Q8H [facility] PRN Reason: Protocol Last Admin: 04/29/17 03:45 Dose: 5,000 units Piperacillin Sod/Tazobactam Sod (Zosyn 2.25 Gm In 0.9% 100 Ml) 2.25 gm in 100 mls @ 100 mls/hr IVPB Q6 [facility] PRN Reason: Protocol Last Admin: 04/29/17 05:43 Dose: 100 mls/hr Vancomycin HCl (Vancomycin 1gm) 1 gm in 250 mls @ 167 mls/hr IVPB DAILY [facility] PRN Reason: Protocol Last Admin: 04/28/17 10:01 Dose: 167 mls/hr Sodium Chloride (Sodium Chloride 0.9%) 1,000 mls @ 75 mls/hr IV .[id number] [facility] Last Admin: 04/29/17 05:59 Dose: 75 mls/hr Insulin Detemir (Levemir) 50 unit SC DAILY [facility] Last Admin: 04/28/17 10:00 Dose: 50 unit Insulin Human Regular (Humulin R High) 0 units SC ACHS [facility] PRN Reason: Protocol Last Admin: 04/29/17 08:01 Dose: 7 units Pantoprazole Sodium (Protonix Inj) 40 mg IVP DAILY [facility] Last Admin: 04/28/17 10:01 Dose: 40 mg Sodium Hypochlorite (Dakins Solution 0.25%) 0 ml TOP DAILY [facility] - Labs Labs: 04/29/17 06:00 04/29/17 06:00 PT 13.2 SECONDS (9.4-12.5) H 04/26/17 21:55 INR 1.15 (0.93-1.08) H 04/26/17 21:55 APTT 28.2 Seconds (25.1-36.5) 04/26/17 21:55 - Constitutional Appears: Non-toxic - Head Exam Head Exam: NORMAL INSPECTION - Eye Exam Eye Exam: Normal appearance - ENT Exam ENT Exam: Mucous Membranes Moist - Respiratory Exam Respiratory Exam: Clear to Ausculation Bilateral, NORMAL BREATHING PATTERN - Cardiovascular Exam Cardiovascular Exam: REGULAR RHYTHM, +S1, +S2 - GI/Abdominal Exam GI & Abdominal Exam: Soft, Normal Bowel Sounds - Neurological Exam Neurological Exam: Alert, Awake, Oriented x3 Assessment and Plan - Assessment and Plan (Free Text) Assessment: 66yo female a/w SOB, perianal abscess Renal Failure CHF/VOlume Overload Severe Sepsis Perianal Abscess Hyperkalemia, resolved Morbid Obesity - currently afebrile, HD stable, comfortable on 2LNC - ECHO with EF 55% - going back to OR tomorrow Recommend: - cont with 2LNC, BIPAP as needed - broad spectrum antibiotics, Vanco, Zosyn - Follow up cultures, Procalcitonin - BP control - Check UA, Ulytes - IVF Hydration - Levemir 50u QHS, Sliding scale - follow up surgery - GI ppx - DVT ppx - FS control - stable transfer to [facility]
[2017-04-29] MEDS: Vancomycin 1gm in NS 250ml 1 GM/250 ML BAG IVPB SCH (12:27)
--- NOTE | 2017-04-29 12:28 | CP.PCM.PN ---
Subjective - Date & Time of Evaluation Date of Evaluation: 04/29/17 Time of Evaluation: 10:10 - Subjective Subjective: General Surgery - Dr. Bernard Patient seen and examined this AM at bedside. No acute events overnight. Patient with wound change today at bedside. Patient reports pain associated with wound. Denies fever, chills, nausea, vomiting, fever, diarrhea, constipation. Objective - Vital Signs/Intake and Output Vital Signs (last 24 hours): Temp Pulse Resp BP Pulse Ox 97.2 F L 81 23 186/78 H 97 04/28/17 16:00 04/29/17 06:01 04/29/17 05:01 04/29/17 06:01 04/29/17 06:01 Intake and Output: 04/29/17 04/29/17 06:59 18:59 Intake Total 900 Output Total 2950 Balance -2049 - Medications Medications: Current Medications Albuterol/Ipratropium (Duoneb 3 Mg/0.5 Mg (3 Ml) Ud) 3 ml IH [id number] [facility] Last Admin: 04/29/17 11:03 Dose: 3 ml Albuterol/Ipratropium (Duoneb 3 Mg/0.5 Mg (3 Ml) Ud) 3 ml IH Q2H PRN PRN Reason: Shortness of Breath Aspirin (Aspirin Chewable) 81 mg PO DAILY [facility] Last Admin: 04/28/17 09:59 Dose: 81 mg Atorvastatin Calcium (Lipitor) 10 mg PO DAILY [facility] Last Admin: 04/28/17 10:03 Dose: 10 mg Carvedilol (Coreg) 6.25 mg PO DAILY [facility] Last Admin: 04/28/17 09:59 Dose: 6.25 mg Furosemide (Lasix) 60 mg IVP Q12 [facility] Last Admin: 04/28/17 22:15 Dose: 60 mg Heparin Sodium (Porcine) (Heparin) 5,000 units SC Q8H [facility] PRN Reason: Protocol Last Admin: 04/29/17 03:45 Dose: 5,000 units Piperacillin Sod/Tazobactam Sod (Zosyn 2.25 Gm In 0.9% 100 Ml) 2.25 gm in 100 mls @ 100 mls/hr IVPB Q6 [facility] PRN Reason: Protocol Last Admin: 04/29/17 05:43 Dose: 100 mls/hr Vancomycin HCl (Vancomycin 1gm) 1 gm in 250 mls @ 167 mls/hr IVPB DAILY [facility] PRN Reason: Protocol Last Admin: 04/28/17 10:01 Dose: 167 mls/hr Sodium Chloride (Sodium Chloride 0.9%) 1,000 mls @ 75 mls/hr IV .[id number] [facility] Last Admin: 04/29/17 05:59 Dose: 75 mls/hr Insulin Detemir (Levemir) 50 unit SC DAILY [facility] Last Admin: 04/28/17 10:00 Dose: 50 unit Insulin Human Regular (Humulin R High) 0 units SC ACHS [facility] PRN Reason: Protocol Last Admin: 04/29/17 08:01 Dose: 7 units Pantoprazole Sodium (Protonix Inj) 40 mg IVP DAILY [facility] Last Admin: 04/28/17 10:01 Dose: 40 mg Sodium Hypochlorite (Dakins Solution 0.25%) 0 ml TOP DAILY [facility] - Labs Labs: 04/29/17 06:00 04/29/17 06:00 PT 13.2 SECONDS (9.4-12.5) H 04/26/17 21:55 INR 1.15 (0.93-1.08) H 04/26/17 21:55 APTT 28.2 Seconds (25.1-36.5) 04/26/17 21:55 - Constitutional Appears: Non-toxic - Head Exam Head Exam: ATRAUMATIC, NORMAL INSPECTION - Eye Exam Eye Exam: EOMI, PERRL - ENT Exam ENT Exam: Mucous Membranes Moist - Respiratory Exam Respiratory Exam: Clear to Ausculation Bilateral, NORMAL BREATHING PATTERN. absent: Rales, Rhonchi, Wheezes - Cardiovascular Exam Cardiovascular Exam: RRR, +S1, +S2 - GI/Abdominal Exam GI & Abdominal Exam: Soft, Normal Bowel Sounds. absent: Tenderness - Extremities Exam Extremities Exam: Normal Inspection. absent: Calf Tenderness - Neurological Exam Neurological Exam: Alert, Awake, Oriented x3 Additional comments: motor and sensory grossly intact, able to move all four extremities past midline - Psychiatric Exam Psychiatric exam: Anxious - Skin Skin Exam: Dry, Intact Additional comments: Perirectal abscess with mild fluctuation associated, no drainage, erythema appreciated, wound dressing changed today Assessment and Plan - Assessment and Plan (Free Text) Assessment: 66 year old female with perirectal/labial abscess s/p I&D 04/27/17 Plan: - Will plan for interval debridement with possible Diverting Colostomy placement 04/30/17 - Continue with medical management as per Primary and ICU teams - Optimize glycemic control - Wound care, replaced dressing today - Wound culture with growth of E. coli - Continue Abx as per ID Further recs as per Dr. Marco Antonio Castle PGY1
[2017-04-29] MEDS: Morphine 2 mg/ml ISec IVP PRN (14:38)
--- NOTE | 2017-04-29 15:13 | PN ---
DATE: SUBJECTIVE: The patient underwent incision and drainage of perirectal abscess. She denies any chest pain. PHYSICAL EXAMINATION: VITAL SIGNS: Blood pressure 186/78, heart rate 81, and temperature 98.6. HEENT: Pale conjunctivae. CHEST: Bilateral rhonchi. HEART: S1 and S2 regular. EXTREMITIES: 1+ pitting edema. LABORATORY DATA: Today's hemoglobin and hematocrit 9.1 and 28.3, white count is 13.5, and platelet 294,000. Today's BUN and creatinine are 88 and 2.4 respectively. Glucose is 412. Venous Doppler of the lower extremities, no DVT in the visualized segments. Abdomen and pelvis CT scan, no acute findings. No evidence of perirectal abscess. ASSESSMENT: 1. Status post incision and drainage of perirectal abscess. 2. Chronic renal insufficiency. 3. Anemia. 4. Morbid obesity. 5. Moderate pulmonary hypertension. 6. Uncontrolled diabetes mellitus. RECOMMENDATIONS: Continue aspirin 81 mg once a day, Coreg 6.125 mg twice a day, subcutaneous heparin 5000 units q.8 hours, Lasix 60 mg intravenously twice a day, and continue IV vancomycin and IV Zosyn. Sameer Dorsey MD
--- NOTE | 2017-04-29 16:12 | CP.PCM.PN ---
Subjective - Date & Time of Evaluation Date of Evaluation: 04/29/17 Time of Evaluation: 16:11 - Subjective Subjective: Follow up Nephrology Consultation (covering for Dr Oziel Morgan): Assessment: stable non-oliguric Acute Kidney Injury (N17.9) likely multi-factorial: sepsis, decreased oral intake leading to pre-renal state, some contribution by NSAIDs, urine retention Diabetic chronic Kidney Disease (E11.22) Hypertensive Chronic Kidney Disease (I12.9) Chronic Kidney Disease (N18.3) Stage 3 with ? mg proteinuria (R80.9) likely due to DM Anemia (D64.9), HTN (I12.9) Morbid obesity, recent Influenza with Myalgias, arthalgias Hyperkalemia, uncontrolled DM moderate pulmonary HTN Plan No acute need for renal replacement therapy at this time Hypertension control with meds as ordered. No ACEI/ARB due to DAY[place]. started norvasc 5 mg/day Monitor Input/Output, daily weights and renal function with basic metabolic panel hold lasix and suggest IVF as normal saline as hx and renal function favors pre- renal state though SOB and elevated BNP are contrary. [Serum uric acid high and FeNa low (1%) and IVC compressibility (>50%) on echo suggest intravascular volume depletion status] pending GRETCHEN, Anti dsDNA, ANCA (MPO and [place]-3), serum protein electrophoresis with immunofixation, K/L ratio, rheumatoid factor Dose meds/antibiotics for reduced GFR. Avoid fleets enema/magnesium based laxatives. Avoid nephrotoxins/NSAIDs/ iodinated contrast (unless needed emergently) Glycemic control. dose vanco by level Further work up/management as per primary team Thanks for allowing me to participate in care of your patient. Will follow patient with you. Please call if any Qs. 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 Denies OTC/herbal meds but has taken NSAIDs as naproxen on prn basis over last 1 week No recent iodinated contrast exposure. No obvious episodes of low BP. ROS: family helped in kinyarwanda interpretation Cardiovascular: No chest pain. Pulmonary: improved shortness of breath Gastrointestinal: denies abdominal pain No nausea. No vomiting. Genitourinary: No pain while urinating. Denies blood in urine. had decreased urine output before coming in. improved after cota Physical Examination: General Appearance: Comfortable, in no acute respiratory distress, co-operative .morbid obese Vitals reviewed and noted as below Head; Atraumatic, normocephalic ENT: no ulcers no thrush. Tongue is midline. Oropharynx: no rash or ulcers. EYES: Pupils are equal, round and reactive to light accommodation. Eye muscles and extraocular movement intact. Sclera is anicteric. Neck; supple no lymphadenopathy, no thyromegaly or bruit Lungs: improved respiratory rate/effort. Breath sounds bilateral equal and clear Heart: Normal rate. s1s2 normal. No rub or gallop. Extremities: no edema. No varicose veins Neurological: Patient is alert, awake and oriented to person, place and time. No focal deficit. Strength bilateral appropriate and equal Skin: Warm and dry. Normal turgor. No rash. Palpitation: Normal elasticity for age Abdomen: Abdomen is soft. Bowel sounds +. There is no abdominal tenderness, no guarding/rigidity no organomegaly Psych: normal insight and normal affect/mood MSK: no joint tenderness or swelling. Digits and nails normal, no deformity : kidney or bladder not palpable Labs/imaging reviewed. Past medical history, past surgical history, family history, social history, allergy reviewed and noted as below Family hx: no hx of CKD. Rest non-contributory BNP 9030 UA trace blood trace protein normal complements CT abdomen; normal renals Objective - Vital Signs/Intake and Output Vital Signs (last 24 hours): Temp Pulse Resp BP Pulse Ox 97.2 F L 80 23 154/71 H 97 04/28/17 16:00 04/29/17 14:37 04/29/17 05:01 04/29/17 14:37 04/29/17 06:01 Intake and Output: 04/29/17 04/29/17 06:59 18:59 Intake Total 900 Output Total 2950 Balance -2049 - Medications Medications: Current Medications Acetaminophen (Tylenol 325mg Tab) 650 mg PO Q4H PRN PRN Reason: Fever >100.4 F Albuterol/Ipratropium (Duoneb 3 Mg/0.5 Mg (3 Ml) Ud) 3 ml IH [id number] [facility] Last Admin: 04/29/17 16:04 Dose: 3 ml Albuterol/Ipratropium (Duoneb 3 Mg/0.5 Mg (3 Ml) Ud) 3 ml IH Q2H PRN PRN Reason: Shortness of Breath Amlodipine Besylate (Norvasc) 5 mg PO DAILY [facility] Last Admin: 04/29/17 14:37 Dose: 5 mg Aspirin (Aspirin Chewable) 81 mg PO DAILY [facility] Last Admin: 04/29/17 12:25 Dose: 81 mg Atorvastatin Calcium (Lipitor) 10 mg PO DAILY [facility] Last Admin: 04/29/17 12:26 Dose: 10 mg Carvedilol (Coreg) 6.25 mg PO DAILY [facility] Last Admin: 04/29/17 12:25 Dose: 6.25 mg Heparin Sodium (Porcine) (Heparin) 5,000 units SC Q8H [facility] PRN Reason: Protocol Last Admin: 04/29/17 12:27 Dose: 5,000 units Piperacillin Sod/Tazobactam Sod (Zosyn 2.25 Gm In 0.9% 100 Ml) 2.25 gm in 100 mls @ 100 mls/hr IVPB Q6 [facility] PRN Reason: Protocol Last Admin: 04/29/17 12:27 Dose: 100 mls/hr Sodium Chloride (Sodium Chloride 0.9%) 1,000 mls @ 75 mls/hr IV .[id number] [facility] Last Admin: 04/29/17 05:59 Dose: 75 mls/hr Insulin Detemir (Levemir) 50 unit SC DAILY [facility] Last Admin: 04/29/17 10:00 Dose: 50 unit Insulin Human Regular (Humulin R High) 0 units SC ACHS [facility] PRN Reason: Protocol Last Admin: 04/29/17 12:46 Dose: 1 units Morphine Sulfate (Morphine) 2 mg IVP Q4H PRN PRN Reason: Pain, moderate (4-7) Last Admin: 04/29/17 14:38 Dose: 2 mg Pantoprazole Sodium (Protonix Inj) 40 mg IVP DAILY [facility] Last Admin: 04/29/17 12:25 Dose: 40 mg Sodium Hypochlorite (Dakins Solution 0.25%) 0 ml TOP DAILY [facility] - Labs Labs: 04/29/17 06:00 04/29/17 06:00 PT 13.2 SECONDS (9.4-12.5) H 04/26/17 21:55 INR 1.15 (0.93-1.08) H 04/26/17 21:55 APTT 28.2 Seconds (25.1-36.5) 04/26/17 21:55
--- NOTE | 2017-04-29 16:14 | CP.PCM.PN ---
Subjective - Date & Time of Evaluation Date of Evaluation: 04/29/17 Time of Evaluation: 15:00 - Subjective Subjective: Infectious Disease Follow Up: April 29, 2017 66 yo female with presentation of weakness and somnolence progressing over the last few days. The patient was recently treated for influenza and has severely limited mobility. The patient also has gluteal and sacral pain with possible abscess formation with foul smelling discharge. Normally as per the family, the patient is able to ambulate to the bathroom but stays mostly in bed. She was taken to the OR for eli-rectal abscess I&D and washout. Taken to MICU for further care. Currently on nasal cannula. Cultures pending. On IV Vancomycin and Zosyn for treatment at this time. OR cultures showing E. coli sensitive to Zosyn. Objective - Vital Signs/Intake and Output Vital Signs (last 24 hours): Temp Pulse Resp BP Pulse Ox 97.2 F L 80 23 154/71 H 97 04/28/17 16:00 04/29/17 14:37 04/29/17 05:01 04/29/17 14:37 04/29/17 06:01 Intake and Output: 04/29/17 04/29/17 06:59 18:59 Intake Total 900 Output Total 2950 Balance -2049 - Medications Medications: Current Medications Acetaminophen (Tylenol 325mg Tab) 650 mg PO Q4H PRN PRN Reason: Fever >100.4 F Albuterol/Ipratropium (Duoneb 3 Mg/0.5 Mg (3 Ml) Ud) 3 ml IH [id number] [facility] Last Admin: 04/29/17 11:03 Dose: 3 ml Albuterol/Ipratropium (Duoneb 3 Mg/0.5 Mg (3 Ml) Ud) 3 ml IH Q2H PRN PRN Reason: Shortness of Breath Amlodipine Besylate (Norvasc) 5 mg PO DAILY [facility] Last Admin: 04/29/17 14:37 Dose: 5 mg Aspirin (Aspirin Chewable) 81 mg PO DAILY [facility] Last Admin: 04/29/17 12:25 Dose: 81 mg Atorvastatin Calcium (Lipitor) 10 mg PO DAILY [facility] Last Admin: 04/29/17 12:26 Dose: 10 mg Carvedilol (Coreg) 6.25 mg PO DAILY [facility] Last Admin: 04/29/17 12:25 Dose: 6.25 mg Heparin Sodium (Porcine) (Heparin) 5,000 units SC Q8H [facility] PRN Reason: Protocol Last Admin: 04/29/17 12:27 Dose: 5,000 units Piperacillin Sod/Tazobactam Sod (Zosyn 2.25 Gm In 0.9% 100 Ml) 2.25 gm in 100 mls @ 100 mls/hr IVPB Q6 [facility] PRN Reason: Protocol Last Admin: 04/29/17 12:27 Dose: 100 mls/hr Sodium Chloride (Sodium Chloride 0.9%) 1,000 mls @ 75 mls/hr IV .[id number] [facility] Last Admin: 04/29/17 05:59 Dose: 75 mls/hr Insulin Detemir (Levemir) 50 unit SC DAILY [facility] Last Admin: 04/29/17 10:00 Dose: 50 unit Insulin Human Regular (Humulin R High) 0 units SC ACHS [facility] PRN Reason: Protocol Last Admin: 04/29/17 12:46 Dose: 1 units Morphine Sulfate (Morphine) 2 mg IVP Q4H PRN PRN Reason: Pain, moderate (4-7) Last Admin: 04/29/17 14:38 Dose: 2 mg Pantoprazole Sodium (Protonix Inj) 40 mg IVP DAILY [facility] Last Admin: 04/29/17 12:25 Dose: 40 mg Sodium Hypochlorite (Dakins Solution 0.25%) 0 ml TOP DAILY [facility] - Labs Labs: 04/29/17 06:00 04/29/17 06:00 PT 13.2 SECONDS (9.4-12.5) H 04/26/17 21:55 INR 1.15 (0.93-1.08) H 04/26/17 21:55 APTT 28.2 Seconds (25.1-36.5) 04/26/17 21:55 - Constitutional Appears: Non-toxic, No Acute Distress, Chronically Ill - Head Exam Head Exam: ATRAUMATIC, NORMOCEPHALIC - Eye Exam Eye Exam: EOMI, PERRL Pupil Exam: NORMAL ACCOMODATION, PERRL - ENT Exam ENT Exam: Mucous Membranes Moist, Normal External Ear Exam, TM's Normal Bilaterally - Neck Exam Neck Exam: Full ROM, Normal Inspection - Respiratory Exam Respiratory Exam: Decreased Breath Sounds, Wheezes, NORMAL BREATHING PATTERN. absent: Rales, Rhonchi - Cardiovascular Exam Cardiovascular Exam: REGULAR RHYTHM, RRR, +S1, +S2 - GI/Abdominal Exam GI & Abdominal Exam: Soft, Normal Bowel Sounds. absent: Distended, Tenderness - Extremities Exam Extremities Exam: absent: Joint Swelling, Pedal Edema Additional comments: general weakness. - Neurological Exam Neurological Exam: Alert, Awake, CN II-XII Intact, Oriented x3 - Psychiatric Exam Psychiatric exam: Agitated, Anxious - Skin Skin Exam: Intact, Normal Color Assessment and Plan - Assessment and Plan (Free Text) Assessment: 66 yo morbidly obese female with multiple medical issues presenting with sepsis like symptoms in setting of large perirectal abscess. The patient had known history of NIDDM, lower extremity DVT, HTN, and CKD at least stage III. Patient with foul smelling discharge from the buttocks area. Recently treated for influenza. Question of CHF. Taken to OR tonight for I&D of the sacral abscess. Procalcitonin of 2.87 which can fall in diagnosis of sepsis. Hgb A1c of 8.3. The patient is awake and alert although groggy from anesthesia. Supportive care. Continue with antibiotics of Zosyn although would monitor renal function closely while on this regimen. E. coli from OR cultures sensitive to Zosyn. Looking for 14 days of treatment in total. Can consider oral antibiotics when medical cleared from the hospital. Leukocytosis is improving. Thank you for allowing me to participate in the care of the patient, we will follow with you.
[2017-04-30] MEDS: Albuterol-Ipratrop 3 mg / 0.5 (3 ml) UD IH SCH ×7 (00:12→21:40)
[2017-04-30] MEDS: Morphine 2 mg/ml ISec IVP PRN (00:28)
[2017-04-30] MEDS: Piperacillin/Tazobact 2.25gm 2.25 GM/100 ML BAG IVPB SCH ×4 (06:20→23:13)
[2017-04-30] MEDS: Sodium Chloride 0.9% 1,000 ML IV SCH ×2 (06:54→17:00)
[2017-04-30 07:07] LABS: HEMOGLOBIN 9.5 g/dL (12.0-16.0); MEAN CELL VOLUME 87.3 fl (80.0-105.0); MEAN CORPUSCULAR HEMOGLOBIN 28.1 pg (25.0-35.0); MEAN CORPUSCULAR HGB CONC 32.2 g/dl (31.0-37.0); MEAN PLATELET VOLUME 9.3 fl (7.0-11.0); RBC 3.38 10^6/uL (3.5-6.1); RED CELL DISTRIBUTION WIDTH 14.2 % (11.5-14.5); WHITE BLOOD COUNT 14.7 10^3/ul (4.5-11.0)
[2017-04-30 07:11] LABS: INR 1.23 (0.93-1.08); PROTHROMBIN TIME 14.2 SECONDS (9.4-12.5)
[2017-04-30 07:31] LABS: CALCIUM 9.3 mg/dL (8.4-10.5)
[2017-04-30] MEDS ORDERED: Oxychlorosene Topical 2 gm Packet TOP ONE (10:22)
[2017-04-30] MEDS ORDERED: Bupivacaine 0.5% Inj(30mL) ONE (10:22)
[2017-04-30] MEDS ORDERED: Midazolam 2 MG/2 ML VIAL ONE (10:31)
[2017-04-30] MEDS ORDERED: Rocuronium 10 mg/ml (5 ml) ONE ×2 (10:31→11:39)
[2017-04-30] MEDS ORDERED: Propofol 10 mg/ml Inj (20 ML) ONE (10:33)
[2017-04-30] MEDS ORDERED: Liquid Adhesive TOP ONE (12:59)
[2017-04-30] MEDS ORDERED: Sodium Chloride 0.9% 1,000 ML IV SCH (13:15)
[2017-04-30] MEDS ORDERED: Neostigmine Methylsulfate 3mg/3ml Syringe IV ONE (13:16)
[2017-04-30] MEDS ORDERED: Glycopyrrolate 0.2 mg/ml (2ml vial) ONE (13:17)
[2017-04-30] MEDS: Dakin's Topical 0.25%-Half Strength (480 ml) TOP SCH (13:32)
[2017-04-30] MEDS: Insulin Reg-HIGH-Coverage SC SCH ×3 (13:34→22:05)
[2017-04-30] MEDS: Insulin Detemir 100 units/ml Vial (Levemir) SC SCH (13:34)
[2017-04-30] MEDS: HYDROmorphone 0.5 mg/0.5 ml ISec IVP PRN ×6 (13:47→23:33)
[2017-04-30] MEDS ORDERED: HYDROmorphone 0.5 mg/0.5 ml ISec ONE ×5 (13:47→15:29)
[2017-04-30] MEDS ORDERED: HYDROmorphone 0.5 mg/0.5 ml ISec IVP STA ×2 (13:52→17:35)
--- NOTE | 2017-04-30 14:11 | PCM.SURG1 ---
Surgeon's Initial Post Op Note - Surgeon's Notes Surgeon: Dr. Bernard Dish Washer: Leo PGY3, Mackenzie PGY1, Wallace MS3 Type of Anesthesia: General Endo, Local Anesthesia Administered By: Dr. Ninfa Dao Pre-Operative Diagnosis: Labial abscess Operative Findings: Labial abscess with nectrotic tissue; See operative report Post-Operative Diagnosis: same Operation Performed: Interval Sharp Debridement of labial abscess; Transverse divertiving loop colostomy Specimen/Specimens Removed: Debrided tissue Estimated Blood Loss: EBL {In ML}: 20 Blood Products Given: N/A Drains Used: No Drains Post-Op Condition: Fair Date of Surgery/Procedure: 04/30/17 Time of Surgery/Procedure: 14:11
--- NOTE | 2017-04-30 14:20 | CP.PCM.PN ---
Subjective - Date & Time of Evaluation Date of Evaluation: 04/30/17 Time of Evaluation: 14:00 - Subjective Subjective: Infectious Disease Follow Up: April 30, 2017 66 yo female with presentation of weakness and somnolence progressing over the last few days. The patient was recently treated for influenza and has severely limited mobility. The patient also has gluteal and sacral pain with possible abscess formation with foul smelling discharge. Normally as per the family, the patient is able to ambulate to the bathroom but stays mostly in bed. She was taken to the OR for eli-rectal abscess I&D and washout. Taken to MICU for further care. Currently on nasal cannula. Cultures pending. On IV Vancomycin and Zosyn for treatment at this time. OR cultures showing E. coli sensitive to Zosyn. Stopped Vancomycin yesterday. Supportive care. Objective - Vital Signs/Intake and Output Vital Signs (last 24 hours): Temp Pulse Resp BP Pulse Ox 97.9 F 81 17 188/68 H 97 04/30/17 07:14 04/30/17 09:39 04/30/17 09:39 04/30/17 09:39 04/30/17 09:39 Intake and Output: 04/30/17 04/30/17 06:59 18:59 Intake Total 120 975 Output Total 1200 Balance -1080 975 - Medications Medications: Current Medications Acetaminophen (Tylenol 325mg Tab) 650 mg PO Q4H PRN PRN Reason: Fever >100.4 F Albuterol/Ipratropium (Duoneb 3 Mg/0.5 Mg (3 Ml) Ud) 3 ml IH [id number] [facility] Last Admin: 04/30/17 11:18 Dose: Not Given Albuterol/Ipratropium (Duoneb 3 Mg/0.5 Mg (3 Ml) Ud) 3 ml IH Q2H PRN PRN Reason: Shortness of Breath Amlodipine Besylate (Norvasc) 10 mg PO DAILY [facility] Aspirin (Aspirin Chewable) 81 mg PO DAILY [facility] Last Admin: 04/30/17 13:32 Dose: Not Given Atorvastatin Calcium (Lipitor) 10 mg PO DAILY [facility] Last Admin: 04/30/17 13:35 Dose: Not Given Carvedilol (Coreg) 6.25 mg PO BID [facility] Ferrous Gluconate (Fergon) 324 mg PO TID [facility] Heparin Sodium (Porcine) (Heparin) 5,000 units SC Q8H [facility] PRN Reason: Protocol Last Admin: 04/30/17 13:33 Dose: Not Given Hydromorphone HCl (Dilaudid) 0.5 mg IVP Q15M PRN PRN Reason: Pain, severe (8-10) Stop: 04/30/17 23:59 Piperacillin Sod/Tazobactam Sod (Zosyn 2.25 Gm In 0.9% 100 Ml) 2.25 gm in 100 mls @ 100 mls/hr IVPB Q6 [facility] PRN Reason: Protocol Last Admin: 04/30/17 13:35 Dose: Not Given Sodium Chloride (Sodium Chloride 0.9%) 1,000 mls @ 75 mls/hr IV .[id number] [facility] Last Admin: 04/30/17 06:54 Dose: Not Given Sodium Chloride (Sodium Chloride 0.9%) 1,000 mls @ 75 mls/hr IV .[id number] [facility] Stop: 04/30/17 21:16 Insulin Detemir (Levemir) 50 unit SC DAILY [facility] Last Admin: 04/30/17 13:34 Dose: Not Given Insulin Human Regular (Humulin R High) 0 units SC ACHS [facility] PRN Reason: Protocol Last Admin: 04/30/17 13:34 Dose: Not Given Morphine Sulfate (Morphine) 2 mg IVP Q4H PRN PRN Reason: Pain, moderate (4-7) Last Admin: 04/30/17 00:28 Dose: 2 mg Multivitamins (Thera Tab) 1 tab PO 0800 [facility] Ondansetron HCl (Zofran Inj) 4 mg IVP ONCE PRN PRN Reason: Nausea/Vomiting Pantoprazole Sodium (Protonix Inj) 40 mg IVP DAILY [facility] Last Admin: 04/30/17 13:35 Dose: Not Given Sodium Hypochlorite (Dakins Solution 0.25%) 0 ml TOP DAILY [facility] Last Admin: 04/30/17 13:32 Dose: Not Given - Labs Labs: 04/30/17 06:30 04/30/17 06:30 PT 14.2 SECONDS (9.4-12.5) H 04/30/17 06:30 INR 1.23 (0.93-1.08) H 04/30/17 06:30 APTT 28.2 Seconds (25.1-36.5) 04/26/17 21:55 - Constitutional Appears: Non-toxic, No Acute Distress, Chronically Ill - Head Exam Head Exam: ATRAUMATIC, NORMOCEPHALIC - Eye Exam Eye Exam: EOMI, PERRL Pupil Exam: NORMAL ACCOMODATION, PERRL - ENT Exam ENT Exam: Mucous Membranes Moist, Normal External Ear Exam, TM's Normal Bilaterally - Neck Exam Neck Exam: Full ROM, Normal Inspection - Respiratory Exam Respiratory Exam: Clear to Ausculation Bilateral, NORMAL BREATHING PATTERN. absent: Rales, Rhonchi, Wheezes - Cardiovascular Exam Cardiovascular Exam: REGULAR RHYTHM, RRR, +S1, +S2 - GI/Abdominal Exam GI & Abdominal Exam: Soft, Normal Bowel Sounds. absent: Distended, Tenderness - Extremities Exam Extremities Exam: Full ROM, Normal Inspection - Neurological Exam Neurological Exam: Alert, Awake, CN II-XII Intact, Oriented x3 - Psychiatric Exam Psychiatric exam: Normal Affect, Normal Mood - Skin Skin Exam: Intact, Normal Color Assessment and Plan - Assessment and Plan (Free Text) Assessment: 66 yo morbidly obese female with multiple medical issues presenting with sepsis like symptoms in setting of large perirectal abscess. The patient had known history of NIDDM, lower extremity DVT, HTN, and CKD at least stage III. Patient with foul smelling discharge from the buttocks area. Recently treated for influenza. Question of CHF. Taken to OR tonight for I&D of the sacral abscess. Procalcitonin of 2.87 which can fall in diagnosis of sepsis. Hgb A1c of 8.3. The patient is awake and alert although groggy from anesthesia. Supportive care. Continue with antibiotics of Zosyn although would monitor renal function closely while on this regimen. E. coli from OR cultures sensitive to Zosyn. Looking for 14 days of treatment in total. Can consider oral antibiotics when medical cleared from the hospital. Leukocytosis is improving. Taken back to OR today for potential diverting colostomy. Thank you for allowing me to participate in the care of the patient, we will follow with you.
--- NOTE | 2017-04-30 14:54 | CP.CCUPN ---
<Wilbert Ledezma - Last Filed: 04/30/17 14:35> CCU Subjective - Physician Review Subjective (Free Text): Critical Care Progress Note 66F known to our care hx CHF, sepsis, morbid obesity, s/p transverse loop colostomy sharp debridement of the perineum POD #0 with no complication intraoperative, during extubation patient was put on re-breather Oxygen saturation low 90s. Recommend putting patient on BiPAP. CCU Objective - Vital Signs / Intake & Output Vital Signs (Last 4 hours): Vital Signs Pulse 04/30/17 14:20 75 04/30/17 14:19 75 Intake and Output (Last 8hrs): Intake & Output 04/29/17 04/30/17 04/30/17 22:59 06:59 14:59 Intake Total 1950 975 Output Total 4650 Balance -2700 975 Weight 337 lb Intake: IV 1350 975 Left Antecubital 1350 975 Oral 600 Output: Urine 4650 Urethral (Cota) 4650 Other: # Bowel Movements 0 - Physical Exam Head: Positive for: Atraumatic, Normocephalic Pupils: Positive for: PERRL Extroacular Muscles: Positive for: EOMI Conjunctiva: Positive for: Normal Mouth: Positive for: Moist Mucous Membranes Neck: Positive for: Normal Range of Motion Respiratory/Chest: Positive for: Other (decreased BS bibasilarly ). Negative for: Respiratory Distress, Accessory Muscle Use Cardiovascular: Positive for: Regular Rate and Rhythm, Normal S1, S2. Negative for: Murmurs Abdomen: Positive for: Normal Bowel Sounds, Other (obese pannis, no intertrigo , Transverse loop colostomy). Negative for: Tenderness, Distention, Peritoneal Signs Back: Positive for: Normal Inspection Upper Extremity: Positive for: Normal Inspection. Negative for: Cyanosis, Edema Lower Extremity: Positive for: Other (1+ pretibial edema ). Negative for: Edema Neurological: Positive for: GCS=15, Speech Normal Skin: Positive for: Warm, Dry, Normal Color. Negative for: Rashes Psychiatric: Positive for: Alert - Medications Active Medications: Active Medications Generic Name Dose Route Start Last Admin Trade Name Freq PRN Reason Stop Dose Admin Acetaminophen 650 mg 04/29/17 14:22 Tylenol 325mg Tab PO Q4H PRN Fever >100.4 F Albuterol/Ipratropium 3 ml 04/27/17 03:30 04/30/17 11:18 Duoneb 3 Mg/0.5 Mg (3 Ml) Ud IH Not Given [id number] [facility] Albuterol/Ipratropium 3 ml 04/27/17 00:12 Duoneb 3 Mg/0.5 Mg (3 Ml) Ud IH Q2H PRN Shortness of Breath Amlodipine Besylate 10 mg 04/30/17 11:00 Norvasc PO DAILY [facility] Aspirin 81 mg 04/27/17 10:00 04/30/17 13:32 Aspirin Chewable PO Not Given DAILY [facility] Atorvastatin Calcium 10 mg 04/27/17 10:00 04/30/17 13:35 Lipitor PO Not Given DAILY [facility] Carvedilol 6.25 mg 04/30/17 18:00 Coreg PO BID [facility] Ferrous Gluconate 324 mg 04/30/17 14:00 Fergon PO TID [facility] Heparin Sodium (Porcine) 5,000 units 04/28/17 11:30 04/30/17 13:33 Heparin SC Not Given Q8H [facility] Protocol Hydromorphone HCl 0.5 mg 04/30/17 13:04 Dilaudid IVP 04/30/17 23:59 Q15M PRN Pain, severe (8-10) Hydromorphone HCl 0.5 mg 04/30/17 14:13 Dilaudid IVP Q4H PRN Pain, moderate (4-7) Piperacillin Sod/Tazobactam Sod 2.25 gm in 100 mls @ 100 mls/hr 04/28/17 00: 00 04/30/17 13:35 Zosyn 2.25 Gm In 0.9% 100 Ml IVPB Not Given Q6 [facility] Protocol Sodium Chloride 1,000 mls @ 75 mls/hr 04/28/17 12:45 04/30/17 06:54 Sodium Chloride 0.9% IV Not Given .[id number] [facility] Sodium Chloride 1,000 mls @ 75 mls/hr 04/30/17 13:15 Sodium Chloride 0.9% IV 04/30/17 21:16 .[id number] [facility] Insulin Detemir 50 unit 04/28/17 10:00 04/30/17 13:34 Levemir SC Not Given DAILY [facility] Insulin Human Regular 0 units 04/28/17 16:30 04/30/17 13:34 Humulin R High SC Not Given ACHS [facility] Protocol Morphine Sulfate 2 mg 04/29/17 14:22 04/30/17 00:28 Morphine IVP 2 mg Q4H PRN Administration Pain, moderate (4-7) Multivitamins 1 tab 05/01/17 08:00 Thera Tab PO 0800 [facility] Ondansetron HCl 4 mg 04/30/17 13:04 Zofran Inj IVP ONCE PRN Nausea/Vomiting Pantoprazole Sodium 40 mg 04/27/17 10:00 04/30/17 13:35 Protonix Inj IVP Not Given DAILY [facility] Sodium Hypochlorite 0 ml 04/29/17 11:30 04/30/17 13:32 Dakins Solution 0.25% TOP Not Given DAILY [facility] - Patient Studies Lab Studies: Lab Studies 04/30/17 04/30/17 04/30/17 Range/Units 07:18 06:30 06:30 WBC (4.5-11.0) 10^3/ul RBC (3.5-6.1) 10^6/uL Hgb (12.0-16.0) g/dL Hct (36.0-48.0) % MCV (80.0-105.0) fl MCH (25.0-35.0) pg MCHC (31.0-37.0) g/dl RDW (11.5-14.5) % Plt Count (120.0-450.0) 10^3/uL MPV (7.0-11.0) fl PT (9.4-12.5) SECONDS INR (0.93-1.08) Sodium 141 (132-148) mmol/L Potassium 4.3 (3.6-5.0) mmol/L Chloride 104 (98-107) mmol/L Carbon Dioxide 27 (21-33) mmol/L Anion Gap 15 (10-20) BUN 66 H (7-21) mg/dL Creatinine 1.9 H (0.7-1.2) mg/dl Est GFR ( Amer) 32 Est GFR (Non-Af Amer) 27 POC Glucose (mg/dL) 327 H (65-110) mg/dL Random Glucose 370 H* (70-110) mg/dL Calcium 9.3 (8.4-10.5) mg/dL Serum Immunofixation (Not Detected) Blood Type Blood Type Confirm A NEGATIVE Antibody Screen BBK History Checked 04/30/17 04/30/17 04/30/17 Range/Units 06:30 06:30 06:20 WBC 14.7 H (4.5-11.0) 10^3/ul RBC 3.38 L (3.5-6.1) 10^6/uL Hgb 9.5 L (12.0-16.0) g/dL Hct 29.5 L (36.0-48.0) % MCV 87.3 (80.0-105.0) fl MCH 28.1 (25.0-35.0) pg MCHC 32.2 (31.0-37.0) g/dl RDW 14.2 (11.5-14.5) % Plt Count 323 (120.0-450.0) 10^3/uL MPV 9.3 (7.0-11.0) fl PT 14.2 H (9.4-12.5) SECONDS INR 1.23 H (0.93-1.08) Sodium (132-148) mmol/L Potassium (3.6-5.0) mmol/L Chloride (98-107) mmol/L Carbon Dioxide (21-33) mmol/L Anion Gap (10-20) BUN (7-21) mg/dL Creatinine (0.7-1.2) mg/dl Est GFR ( Amer) Est GFR (Non-Af Amer) POC Glucose (mg/dL) (65-110) mg/dL Random Glucose (70-110) mg/dL Calcium (8.4-10.5) mg/dL Serum Immunofixation (Not Detected) Blood Type A NEGATIVE Blood Type Confirm Antibody Screen Negative BBK History Checked No verified bt 04/29/17 04/29/17 04/28/17 Range/Units 22:33 16:09 05:00 WBC (4.5-11.0) 10^3/ul RBC (3.5-6.1) 10^6/uL Hgb (12.0-16.0) g/dL Hct (36.0-48.0) % MCV (80.0-105.0) fl MCH (25.0-35.0) pg MCHC (31.0-37.0) g/dl RDW (11.5-14.5) % Plt Count (120.0-450.0) 10^3/uL MPV (7.0-11.0) fl PT (9.4-12.5) SECONDS INR (0.93-1.08) Sodium (132-148) mmol/L Potassium (3.6-5.0) mmol/L Chloride (98-107) mmol/L Carbon Dioxide (21-33) mmol/L Anion Gap (10-20) BUN (7-21) mg/dL Creatinine (0.7-1.2) mg/dl Est GFR ( Amer) Est GFR (Non-Af Amer) POC Glucose (mg/dL) 288 H 395 H (65-110) mg/dL Random Glucose (70-110) mg/dL Calcium (8.4-10.5) mg/dL Serum Immunofixation Detected H (Not Detected) Blood Type Blood Type Confirm Antibody Screen BBK History Checked Laboratory Results - last 24 hr 04/28/17 04/29/17 04/29/17 05:00 16:09 22:33 WBC RBC Hgb Hct MCV MCH MCHC RDW Plt Count MPV PT INR Sodium Potassium Chloride Carbon Dioxide Anion Gap BUN Creatinine Est GFR ( Amer) Est GFR (Non-Af Amer) POC Glucose (mg/dL) 395 H 288 H Random Glucose Calcium Serum Immunofixation Detected H Blood Type Blood Type Confirm Antibody Screen BBK History Checked 04/30/17 04/30/17 04/30/17 06:20 06:30 06:30 WBC 14.7 H RBC 3.38 L Hgb 9.5 L Hct 29.5 L MCV 87.3 MCH 28.1 MCHC 32.2 RDW 14.2 Plt Count 323 MPV 9.3 PT 14.2 H INR 1.23 H Sodium Potassium Chloride Carbon Dioxide Anion Gap BUN Creatinine Est GFR ( Amer) Est GFR (Non-Af Amer) POC Glucose (mg/dL) Random Glucose Calcium Serum Immunofixation Blood Type A NEGATIVE Blood Type Confirm Antibody Screen Negative BBK History Checked No verified bt 04/30/17 04/30/17 04/30/17 06:30 06:30 07:18 WBC RBC Hgb Hct MCV MCH MCHC RDW Plt Count MPV PT INR Sodium 141 Potassium 4.3 Chloride 104 Carbon Dioxide 27 Anion Gap 15 BUN 66 H Creatinine 1.9 H Est GFR ( Amer) 32 Est GFR (Non-Af Amer) 27 POC Glucose (mg/dL) 327 H Random Glucose 370 H* Calcium 9.3 Serum Immunofixation Blood Type Blood Type Confirm A NEGATIVE Antibody Screen BBK History Checked Fingerstick Blood Sugar Results: 327 Critical Care Progress Note - Nutrition Nutrition: Nutrition Category Date Time Status Heart Healthy Diet [DIET] Diets 04/27/17 Dinner Ordered Assessment/Plan - Assessment and Plan (Free Text) Assessment: 66F hx of CHF presents w/ sepsis, SOB, s/p transverse loop colostomy and sharp debridement of perineum POD #0, will be admitted to CCU for observation and pulmonary status. Currently on BiPAP Plan: Neuro: awake alert answering questions Pain control PRN- recommend limited opiod use Pulm: Pulmonary toilet Incentive spirometer Chest PT Out of bed to chair as early as possible duonebs PRN BiPAP keep SaO2 above 92% Cardio: monitor vitals GI: NPO Monitor bowel function return from colostomy Renal/Electrolytes: trend BUN/Cr cota in monitor urine output Skin: wound care for perineum keep area clean Endo: Keep pt euglycemic per NICE-SUGAR trial Heme: Trend Hg AM labs Will accept patient in CCU. Monitor overnight. Pain control. wound care per perineum discussed w/ Dr. Valente intensive care attending Wilbert Ledezma PGY1 <Eric Valente - Last Filed: 04/30/17 15:32> CCU Objective - Vital Signs / Intake & Output Vital Signs (Last 4 hours): Vital Signs Temp Pulse Resp BP Pulse Ox 04/30/17 14:20 75 04/30/17 14:19 75 04/30/17 13:57 97.9 F 77 17 154/65 H 99 04/30/17 13:42 97.9 F 86 17 152/120 H 99 Intake and Output (Last 8hrs): Intake & Output 04/30/17 04/30/17 04/30/17 06:59 14:59 22:59 Intake Total 975 Balance 975 Weight 337 lb Intake: IV 975 Left Antecubital 975 - Medications Active Medications: Active Medications Generic Name Dose Route Start Last Admin Trade Name Freq PRN Reason Stop Dose Admin Acetaminophen 650 mg 04/29/17 14:22 Tylenol 325mg Tab PO Q4H PRN Fever >100.4 F Albuterol/Ipratropium 3 ml 04/27/17 03:30 04/30/17 11:18 Duoneb 3 Mg/0.5 Mg (3 Ml) Ud IH Not Given [id number] [facility] Albuterol/Ipratropium 3 ml 04/27/17 00:12 Duoneb 3 Mg/0.5 Mg (3 Ml) Ud IH Q2H PRN Shortness of Breath Amlodipine Besylate 10 mg 04/30/17 11:00 Norvasc PO DAILY [facility] Aspirin 81 mg 04/27/17 10:00 04/30/17 13:32 Aspirin Chewable PO Not Given DAILY [facility] Atorvastatin Calcium 10 mg 04/27/17 10:00 04/30/17 13:35 Lipitor PO Not Given DAILY [facility] Carvedilol 6.25 mg 04/30/17 18:00 Coreg PO BID [facility] Ferrous Gluconate 324 mg 04/30/17 14:00 Fergon PO TID [facility] Heparin Sodium (Porcine) 5,000 units 04/28/17 11:30 04/30/17 13:33 Heparin SC Not Given Q8H [facility] Protocol Hydromorphone HCl 0.5 mg 04/30/17 13:04 Dilaudid IVP 04/30/17 23:59 Q15M PRN Pain, severe (8-10) Hydromorphone HCl 0.5 mg 04/30/17 14:13 Dilaudid IVP Q4H PRN Pain, moderate (4-7) Piperacillin Sod/Tazobactam Sod 2.25 gm in 100 mls @ 100 mls/hr 04/28/17 00: 00 04/30/17 13:35 Zosyn 2.25 Gm In 0.9% 100 Ml IVPB Not Given Q6 [facility] Protocol Sodium Chloride 1,000 mls @ 75 mls/hr 04/28/17 12:45 04/30/17 06:54 Sodium Chloride 0.9% IV Not Given .[id number] [facility] Sodium Chloride 1,000 mls @ 75 mls/hr 04/30/17 13:15 Sodium Chloride 0.9% IV 04/30/17 21:16 .[id number] [facility] Insulin Detemir 50 unit 04/28/17 10:00 04/30/17 13:34 Levemir SC Not Given DAILY [facility] Insulin Human Regular 0 units 04/28/17 16:30 04/30/17 13:34 Humulin R High SC Not Given ACHS [facility] Protocol Morphine Sulfate 2 mg 04/29/17 14:22 04/30/17 00:28 Morphine IVP 2 mg Q4H PRN Administration Pain, moderate (4-7) Multivitamins 1 tab 05/01/17 08:00 Thera Tab PO 0800 [facility] Ondansetron HCl 4 mg 04/30/17 13:04 Zofran Inj IVP ONCE PRN Nausea/Vomiting Pantoprazole Sodium 40 mg 04/27/17 10:00 04/30/17 13:35 Protonix Inj IVP Not Given DAILY [facility] Sodium Hypochlorite 0 ml 04/29/17 11:30 04/30/17 13:32 Dakins Solution 0.25% TOP Not Given DAILY [facility] - Patient Studies Lab Studies: Lab Studies 04/30/17 04/30/17 04/30/17 Range/Units 07:18 06:30 06:30 WBC (4.5-11.0) 10^3/ul RBC (3.5-6.1) 10^6/uL Hgb (12.0-16.0) g/dL Hct (36.0-48.0) % MCV (80.0-105.0) fl MCH (25.0-35.0) pg MCHC (31.0-37.0) g/dl RDW (11.5-14.5) % Plt Count (120.0-450.0) 10^3/uL MPV (7.0-11.0) fl PT (9.4-12.5) SECONDS INR (0.93-1.08) Sodium 141 (132-148) mmol/L Potassium 4.3 (3.6-5.0) mmol/L Chloride 104 (98-107) mmol/L Carbon Dioxide 27 (21-33) mmol/L Anion Gap 15 (10-20) BUN 66 H (7-21) mg/dL Creatinine 1.9 H (0.7-1.2) mg/dl Est GFR ( Amer) 32 Est GFR (Non-Af Amer) 27 POC Glucose (mg/dL) 327 H (65-110) mg/dL Random Glucose 370 H* (70-110) mg/dL Calcium 9.3 (8.4-10.5) mg/dL Serum Immunofixation (Not Detected) Tot [place]/Lambda Ratio (1.29-2.55) [place] Light Chain Anal (176-443) mg/dL Lambda Light Chain Anal (91-240) mg/dL Blood Type Blood Type Confirm A NEGATIVE Antibody Screen BBK History Checked 04/30/17 04/30/17 04/30/17 Range/Units 06:30 06:30 06:20 WBC 14.7 H (4.5-11.0) 10^3/ul RBC 3.38 L (3.5-6.1) 10^6/uL Hgb 9.5 L (12.0-16.0) g/dL Hct 29.5 L (36.0-48.0) % MCV 87.3 (80.0-105.0) fl MCH 28.1 (25.0-35.0) pg MCHC 32.2 (31.0-37.0) g/dl RDW 14.2 (11.5-14.5) % Plt Count 323 (120.0-450.0) 10^3/uL MPV 9.3 (7.0-11.0) fl PT 14.2 H (9.4-12.5) SECONDS INR 1.23 H (0.93-1.08) Sodium (132-148) mmol/L Potassium (3.6-5.0) mmol/L Chloride (98-107) mmol/L Carbon Dioxide (21-33) mmol/L Anion Gap (10-20) BUN (7-21) mg/dL Creatinine (0.7-1.2) mg/dl Est GFR ( Amer) Est GFR (Non-Af Amer) POC Glucose (mg/dL) (65-110) mg/dL Random Glucose (70-110) mg/dL Calcium (8.4-10.5) mg/dL Serum Immunofixation (Not Detected) Tot [place]/Lambda Ratio (1.29-2.55) [place] Light Chain Anal (176-443) mg/dL Lambda Light Chain Anal (91-240) mg/dL Blood Type A NEGATIVE Blood Type Confirm Antibody Screen Negative BBK History Checked No verified bt 04/29/17 04/29/17 04/28/17 Range/Units 22:33 16:09 06:30 WBC (4.5-11.0) 10^3/ul RBC (3.5-6.1) 10^6/uL Hgb (12.0-16.0) g/dL Hct (36.0-48.0) % MCV (80.0-105.0) fl MCH (25.0-35.0) pg MCHC (31.0-37.0) g/dl RDW (11.5-14.5) % Plt Count (120.0-450.0) 10^3/uL MPV (7.0-11.0) fl PT (9.4-12.5) SECONDS INR (0.93-1.08) Sodium (132-148) mmol/L Potassium (3.6-5.0) mmol/L Chloride (98-107) mmol/L Carbon Dioxide (21-33) mmol/L Anion Gap (10-20) BUN (7-21) mg/dL Creatinine (0.7-1.2) mg/dl Est GFR ( Amer) Est GFR (Non-Af Amer) POC Glucose (mg/dL) 288 H 395 H (65-110) mg/dL Random Glucose (70-110) mg/dL Calcium (8.4-10.5) mg/dL Serum Immunofixation (Not Detected) Tot [place]/Lambda Ratio 2.54 (1.29-2.55) [place] Light Chain Anal 272 (176-443) mg/dL Lambda Light Chain Anal 107 (91-240) mg/dL Blood Type Blood Type Confirm Antibody Screen BBK History Checked 04/28/17 Range/Units 05:00 WBC (4.5-11.0) 10^3/ul RBC (3.5-6.1) 10^6/uL Hgb (12.0-16.0) g/dL Hct (36.0-48.0) % MCV (80.0-105.0) fl MCH (25.0-35.0) pg MCHC (31.0-37.0) g/dl RDW (11.5-14.5) % Plt Count (120.0-450.0) 10^3/uL MPV (7.0-11.0) fl PT (9.4-12.5) SECONDS INR (0.93-1.08) Sodium (132-148) mmol/L Potassium (3.6-5.0) mmol/L Chloride (98-107) mmol/L Carbon Dioxide (21-33) mmol/L Anion Gap (10-20) BUN (7-21) mg/dL Creatinine (0.7-1.2) mg/dl Est GFR ( Amer) Est GFR (Non-Af Amer) POC Glucose (mg/dL) (65-110) mg/dL Random Glucose (70-110) mg/dL Calcium (8.4-10.5) mg/dL Serum Immunofixation Detected H (Not Detected) Tot [place]/Lambda Ratio (1.29-2.55) [place] Light Chain Anal (176-443) mg/dL Lambda Light Chain Anal (91-240) mg/dL Blood Type Blood Type Confirm Antibody Screen BBK History Checked Laboratory Results - last 24 hr 04/28/17 04/28/17 04/29/17 05:00 06:30 16:09 WBC RBC Hgb Hct MCV MCH MCHC RDW Plt Count MPV PT INR Sodium Potassium Chloride Carbon Dioxide Anion Gap BUN Creatinine Est GFR ( Amer) Est GFR (Non-Af Amer) POC Glucose (mg/dL) 395 H Random Glucose Calcium Serum Immunofixation Detected H Tot [place]/Lambda Ratio 2.54 [place] Light Chain Anal 272 L[place] Light Chain Anal 107 Blood Type Blood Type Confirm Antibody Screen BBK History Checked 04/29/17 04/30/17 04/30/17 22:33 06:20 06:30 WBC 14.7 H RBC 3.38 L Hgb 9.5 L Hct 29.5 L MCV 87.3 MCH 28.1 MCHC 32.2 RDW 14.2 Plt Count 323 MPV 9.3 PT INR Sodium Potassium Chloride Carbon Dioxide Anion Gap BUN Creatinine Est GFR ( Amer) Est GFR (Non-Af Amer) POC Glucose (mg/dL) 288 H Random Glucose Calcium Serum Immunofixation Tot [place]/Lambda Ratio [place] Light Chain Anal Lambda Light Chain Anal Blood Type A NEGATIVE Blood Type Confirm Antibody Screen Negative BBK History Checked No verified bt 04/30/17 04/30/17 04/30/17 06:30 06:30 06:30 WBC RBC Hgb Hct MCV MCH MCHC RDW Plt Count MPV PT 14.2 H INR 1.23 H Sodium 141 Potassium 4.3 Chloride 104 Carbon Dioxide 27 Anion Gap 15 BUN 66 H Creatinine 1.9 H Est GFR ( Amer) 32 Est GFR (Non-Af Amer) 27 POC Glucose (mg/dL) Random Glucose 370 H* Calcium 9.3 Serum Immunofixation Tot [place]/Lambda Ratio [place] Light Chain Anal Lambda Light Chain Anal Blood Type Blood Type Confirm A NEGATIVE Antibody Screen BBK History Checked 04/30/17 07:18 WBC RBC Hgb Hct MCV MCH MCHC RDW Plt Count MPV PT INR Sodium Potassium Chloride Carbon Dioxide Anion Gap BUN Creatinine Est GFR ( Amer) Est GFR (Non-Af Amer) POC Glucose (mg/dL) 327 H Random Glucose Calcium Serum Immunofixation Tot [place]/Lambda Ratio [place] Light Chain Anal Lambda Light Chain Anal Blood Type Blood Type Confirm Antibody Screen BBK History Checked Critical Care Progress Note - Nutrition Nutrition: Nutrition Category Date Time Status Heart Healthy Diet [DIET] Diets 04/27/17 Dinner Ordered Assessment/Plan - Assessment and Plan (Free Text) Plan: Pt seen and examined with resident. Pt known to MICU service from prior. 66F hx of CHF presented w/ sepsis 2/2 perianal abscess, SOB, s/p transverse loop colostomy and sharp debridement of perineum POD #0, will be admitted to CCU for closer observation of pulmonary status. CUrrently awake, alert, moaning, likely 2/2 pain. Would continue with BIPAP for now, given likely history of LEONARDA/OHS and recent general anesthesia. WOuld obtain post op CXR and ABG, Cont with antibiotics as per ID. Monitor fluid status, would give Lasix 40mg IV x 1. Fs control, 140-180, GI ppx, DVT ppx. Transfer to MICU for observation. Stable.
--- NOTE | 2017-04-30 14:58 | CP.PCM.PN ---
Subjective - Date & Time of Evaluation Date of Evaluation: 04/30/17 Time of Evaluation: 14:56 - Subjective Subjective: Follow up Nephrology Consultation (covering for Dr Oziel Morgan): Assessment: stable non-oliguric Acute Kidney Injury (N17.9) likely multi-factorial: sepsis, decreased oral intake leading to pre-renal state, some contribution by NSAIDs, urine retention Diabetic chronic Kidney Disease (E11.22) Hypertensive Chronic Kidney Disease (I12.9) Chronic Kidney Disease (N18.3) Stage 3 with ? mg proteinuria (R80.9) likely due to DM Anemia (D64.9), HTN (I12.9) Morbid obesity, recent Influenza with Myalgias, arthalgias Hyperkalemia, uncontrolled DM moderate pulmonary HTN necrotic sacral decubitus ulcer s/p debridement Plan No acute need for renal replacement therapy at this time Hypertension control with meds as ordered. No ACEI/ARB due to [place]. Increased norvasc 10 mg/day and coreg bid Monitor Input/Output, daily weights and renal function with basic metabolic panel hold lasix and suggest IVF as normal saline as hx and renal function favors pre- renal state though SOB and elevated BNP are contrary. [Serum uric acid high and FeNa low (1%) and IVC compressibility (>50%) on echo suggest intravascular volume depletion status] pending GRETCHEN, Anti dsDNA, ANCA (MPO and OH-3) Dose meds/antibiotics for reduced GFR. Avoid fleets enema/magnesium based laxatives. Avoid nephrotoxins/NSAIDs/ iodinated contrast (unless needed emergently) Glycemic control. Further work up/management as per primary team Thanks for allowing me to participate in care of your patient. Will follow patient with you. Please call if any Qs. 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 Denies OTC/herbal meds but has taken NSAIDs as naproxen on prn basis over last 1 week No recent iodinated contrast exposure. No obvious episodes of low BP. ROS: pt confused post-op. seein PACU. hence unable to obtain ROS Physical Examination: General Appearance: Comfortable, in no acute respiratory distress, co-operative .morbid obese. on BiPAP Vitals reviewed and noted as below Head; Atraumatic, normocephalic ENT: no ulcers no thrush. Tongue is midline. Oropharynx: no rash or ulcers. EYES: Pupils are equal, round and reactive to light accommodation. Eye muscles and extraocular movement intact. Sclera is anicteric. Neck; supple no lymphadenopathy, no thyromegaly or bruit Lungs: improved respiratory rate/effort. Breath sounds bilateral equal and clear Heart: Normal rate. s1s2 normal. No rub or gallop. Extremities: no edema. No varicose veins Neurological: Patient is confused at this time Skin: Warm and dry. Normal turgor. No rash. Palpitation: Normal elasticity for age Abdomen: Abdomen is soft. Bowel sounds +. There is no abdominal tenderness, no guarding/rigidity no organomegaly Psych: deferred MSK: no joint tenderness or swelling. Digits and nails normal, no deformity : kidney or bladder not palpable Labs/imaging reviewed. Past medical history, past surgical history, family history, social history, allergy reviewed and noted as below Family hx: no hx of CKD. Rest non-contributory BNP 9030 UA trace blood trace protein normal complements CT abdomen; normal renals Objective - Vital Signs/Intake and Output Vital Signs (last 24 hours): Temp Pulse Resp BP Pulse Ox 97.9 F 75 17 154/65 H 99 04/30/17 13:57 04/30/17 14:20 04/30/17 13:57 04/30/17 13:57 04/30/17 13:57 Intake and Output: 04/30/17 04/30/17 06:59 18:59 Intake Total 120 975 Output Total 1200 Balance -1080 975 - Medications Medications: Current Medications Acetaminophen (Tylenol 325mg Tab) 650 mg PO Q4H PRN PRN Reason: Fever >100.4 F Albuterol/Ipratropium (Duoneb 3 Mg/0.5 Mg (3 Ml) Ud) 3 ml IH [id number] [facility] Last Admin: 04/30/17 11:18 Dose: Not Given Albuterol/Ipratropium (Duoneb 3 Mg/0.5 Mg (3 Ml) Ud) 3 ml IH Q2H PRN PRN Reason: Shortness of Breath Amlodipine Besylate (Norvasc) 10 mg PO DAILY [facility] Aspirin (Aspirin Chewable) 81 mg PO DAILY [facility] Last Admin: 04/30/17 13:32 Dose: Not Given Atorvastatin Calcium (Lipitor) 10 mg PO DAILY [facility] Last Admin: 04/30/17 13:35 Dose: Not Given Carvedilol (Coreg) 6.25 mg PO BID [facility] Ferrous Gluconate (Fergon) 324 mg PO TID [facility] Heparin Sodium (Porcine) (Heparin) 5,000 units SC Q8H [facility] PRN Reason: Protocol Last Admin: 04/30/17 13:33 Dose: Not Given Hydromorphone HCl (Dilaudid) 0.5 mg IVP Q15M PRN PRN Reason: Pain, severe (8-10) Stop: 04/30/17 23:59 Hydromorphone HCl (Dilaudid) 0.5 mg IVP Q4H PRN PRN Reason: Pain, moderate (4-7) Piperacillin Sod/Tazobactam Sod (Zosyn 2.25 Gm In 0.9% 100 Ml) 2.25 gm in 100 mls @ 100 mls/hr IVPB Q6 [facility] PRN Reason: Protocol Last Admin: 04/30/17 13:35 Dose: Not Given Sodium Chloride (Sodium Chloride 0.9%) 1,000 mls @ 75 mls/hr IV .[id number] [facility] Last Admin: 04/30/17 06:54 Dose: Not Given Sodium Chloride (Sodium Chloride 0.9%) 1,000 mls @ 75 mls/hr IV .[id number] [facility] Stop: 04/30/17 21:16 Insulin Detemir (Levemir) 50 unit SC DAILY [facility] Last Admin: 04/30/17 13:34 Dose: Not Given Insulin Human Regular (Humulin R High) 0 units SC ACHS [facility] PRN Reason: Protocol Last Admin: 04/30/17 13:34 Dose: Not Given Morphine Sulfate (Morphine) 2 mg IVP Q4H PRN PRN Reason: Pain, moderate (4-7) Last Admin: 04/30/17 00:28 Dose: 2 mg Multivitamins (Thera Tab) 1 tab PO 0800 [facility] Ondansetron HCl (Zofran Inj) 4 mg IVP ONCE PRN PRN Reason: Nausea/Vomiting Pantoprazole Sodium (Protonix Inj) 40 mg IVP DAILY [facility] Last Admin: 04/30/17 13:35 Dose: Not Given Sodium Hypochlorite (Dakins Solution 0.25%) 0 ml TOP DAILY [facility] Last Admin: 04/30/17 13:32 Dose: Not Given - Labs Labs: 04/30/17 06:30 04/30/17 06:30 PT 14.2 SECONDS (9.4-12.5) H 04/30/17 06:30 INR 1.23 (0.93-1.08) H 04/30/17 06:30 APTT 28.2 Seconds (25.1-36.5) 04/26/17 21:55
--- NOTE | 2017-04-30 21:59 | OP ---
PROCEDURE DATE: 04/29/2017 PREOPERATIVE DIAGNOSIS: Necrosis of the perineum. POSTOPERATIVE DIAGNOSIS: Necrosis of the perineum. PROCEDURE: Surgical sharp debridement of the perineum and transverse loop colostomy, diverting. SURGEON: Messi Bernard MD NAIL TECHNICIAN: Dr. Nazario. DESCRIPTION OF PROCEDURE: In the operating room, the patient was placed in lithotomy and in the stirrups and after the IV was started with some difficulty, the operation began. Simeon was in place. There was necrosis in a butterfly pattern anterior to the anus involving the edge and right side of the vagina. It is also an ____ left-sided perirectal necrotic skin with an abscess cavity. This is all surgically sharp debrided with the cautery, scissor, and a 15 blade as necessary. The tube of the anus and rectum was identified and avoided. There was a lot of necrotic fat, which was debrided with debrider on 04/26/2017. We found bleeding tissue in virtually other direction and being very careful to avoid the nerve supply to the anus. The area was packed with Dakin's and tissue was sent to the lab. This was dressed. Thereafter, after the appropriate time out again, the abdomen had been prepped and draped on the SCIP protocol. The presumptive transverse colon was accessed through an upper midline incision going transversely. This allowed us to lay the bar easily without any much more dissection. Because of her obesity, it was hard to find the transverse colon. Several maneuvers were found, one was to remove the omentum, but it was too tight. The incision was enlarged inferiorly and eventually the omentum was pulled up, the transverse colon was identified. It was lysed from the omentum, circumscribed bluntly and a Genesis drain placed. The omentum was then placed back into the abdomen. The incisions on the upside and downside were closed with a total of 3 stitches of mattress Novafil. This allowed good opening. The colostomy was then brought up. The sutures were tied. The bar was placed and the ostomy was then matured. Finding the midline, it was opened, drained, sutured, and circumferentially the skin was closed. The patient was taken to the recovery room and the question now is whether to put the patient in the unit or back to the floor, we will make that decision later. Messi Bernard MD
[2017-05-01] MEDS: Albuterol-Ipratrop 3 mg / 0.5 (3 ml) UD IH SCH ×6 (01:20→22:45)
[2017-05-01] MEDS: Piperacillin/Tazobact 2.25gm 2.25 GM/100 ML BAG IVPB SCH ×3 (05:01→16:59)
[2017-05-01] MEDS: Sodium Chloride 0.9% 1,000 ML IV SCH (06:17)
[2017-05-01 07:16] LABS: IRON 36 ug/dL (45-180)
[2017-05-01 07:25] LABS: TOTAL IRON BINDING CAPACITY 235 ug/dL (265-497)
[2017-05-01 07:31] LABS: % IRON SATURATION 15 % (20-55)
[2017-05-01 07:51] LABS: BASO # 0.01 K/mm3 (0.0-2.0); BASO % 0.1 % (0.0-3.0); EOS # 0.1 (0.0-0.7); EOS % 0.7 % (1.5-5.0); GRAN # 12.07 (1.4-6.5); HEMOGLOBIN 8.8 g/dL (12.0-16.0); LYMPH # 1.9 (1.2-3.4); LYMPH % 12.5 % (22.0-35.0); MEAN CELL VOLUME 89.3 fl (80.0-105.0); MEAN CORPUSCULAR HEMOGLOBIN 27.6 pg (25.0-35.0); MEAN CORPUSCULAR HGB CONC 30.9 g/dl (31.0-37.0); MEAN PLATELET VOLUME 9.4 fl (7.0-11.0); MONO # 1.2 (0.1-0.6); MONO % 7.7 % (1.0-6.0); RBC 3.19 10^6/uL (3.5-6.1); RED CELL DISTRIBUTION WIDTH 14.1 % (11.5-14.5); WHITE BLOOD COUNT 15.3 10^3/ul (4.5-11.0)
--- NOTE | 2017-05-01 08:06 | CP.PCM.PN ---
Subjective - Date & Time of Evaluation Date of Evaluation: 05/01/17 Time of Evaluation: 08:03 - Subjective Subjective: Surgery Progress note. Dr. Bernard Pt seen and examined at bedside. Family at bedside. No acute event overnight. No F/C. No N/V/D. Tolerating CLD, does report appetite. No new complaints. No ostomy output, pink ostomy, no leaks. Objective - Vital Signs/Intake and Output Vital Signs (last 24 hours): Temp Pulse Resp BP Pulse Ox 97.9 F 69 20 131/87 94 L 04/30/17 15:56 05/01/17 06:00 05/01/17 06:00 05/01/17 06:00 05/01/17 06:00 Intake and Output: 05/01/17 05/01/17 06:59 18:59 Intake Total 1100 Output Total 450 Balance 650 - Medications Medications: Current Medications Albuterol/Ipratropium (Duoneb 3 Mg/0.5 Mg (3 Ml) Ud) 3 ml IH [id number] [facility] Last Admin: 05/01/17 07:48 Dose: 3 ml Albuterol/Ipratropium (Duoneb 3 Mg/0.5 Mg (3 Ml) Ud) 3 ml IH Q2H PRN PRN Reason: Shortness of Breath Amlodipine Besylate (Norvasc) 10 mg PO DAILY [facility] Aspirin (Aspirin Chewable) 81 mg PO DAILY [facility] Last Admin: 04/30/17 13:32 Dose: Not Given Atorvastatin Calcium (Lipitor) 10 mg PO DAILY [facility] Last Admin: 04/30/17 13:35 Dose: Not Given Carvedilol (Coreg) 6.25 mg PO BID [facility] Last Admin: 04/30/17 17:31 Dose: 6.25 mg Ferrous Gluconate (Fergon) 324 mg PO TID [facility] Last Admin: 04/30/17 18:12 Dose: 324 mg Heparin Sodium (Porcine) (Heparin) 5,000 units SC Q8H [facility] PRN Reason: Protocol Last Admin: 04/30/17 13:33 Dose: Not Given Hydromorphone HCl (Dilaudid) 0.5 mg IVP Q4H PRN PRN Reason: Pain, moderate (4-7) Last Admin: 04/30/17 23:33 Dose: 0.5 mg Piperacillin Sod/Tazobactam Sod (Zosyn 2.25 Gm In 0.9% 100 Ml) 2.25 gm in 100 mls @ 100 mls/hr IVPB Q6 [facility] PRN Reason: Protocol Last Admin: 05/01/17 05:01 Dose: 100 mls/hr Sodium Chloride (Sodium Chloride 0.9%) 1,000 mls @ 75 mls/hr IV .[id number] [facility] Last Admin: 05/01/17 06:17 Dose: 75 mls/hr Acetaminophen (Ofirmev) 1,000 mg in 100 mls @ 400 mls/hr IVPB Q6H PRN PRN Reason: Pain, moderate (4-7) Stop: 05/02/17 15:11 Insulin Detemir (Levemir) 50 unit SC DAILY [facility] Last Admin: 04/30/17 13:34 Dose: Not Given Insulin Human Regular (Humulin R High) 0 units SC ACHS [facility] PRN Reason: Protocol Last Admin: 04/30/17 22:05 Dose: 3 units Multivitamins (Thera Tab) 1 tab PO 0800 [facility] Ondansetron HCl (Zofran Inj) 4 mg IVP ONCE PRN PRN Reason: Nausea/Vomiting Pantoprazole Sodium (Protonix Inj) 40 mg IVP DAILY [facility] Last Admin: 04/30/17 13:35 Dose: Not Given Sodium Hypochlorite (Dakins Solution 0.25%) 0 ml TOP DAILY [facility] Last Admin: 04/30/17 13:32 Dose: Not Given - Labs Labs: 05/01/17 07:40 04/30/17 06:30 PT 14.2 SECONDS (9.4-12.5) H 04/30/17 06:30 INR 1.23 (0.93-1.08) H 04/30/17 06:30 APTT 28.2 Seconds (25.1-36.5) 04/26/17 21:55 - Constitutional Appears: Non-toxic, No Acute Distress - Head Exam Head Exam: ATRAUMATIC, NORMAL INSPECTION, NORMOCEPHALIC - Eye Exam Eye Exam: EOMI - ENT Exam ENT Exam: Mucous Membranes Moist - Respiratory Exam Respiratory Exam: NORMAL BREATHING PATTERN. absent: Accessory Muscle Use, Respiratory Distress - Cardiovascular Exam Cardiovascular Exam: absent: JVD - GI/Abdominal Exam GI & Abdominal Exam: Soft. absent: Distended, Guarding, Rigid Additional comments: mild tender to palpation. perineal I&D dressing in place. - Extremities Exam Extremities Exam: Normal Inspection. absent: Calf Tenderness - Neurological Exam Neurological Exam: Alert, Awake, Oriented x3 - Psychiatric Exam Psychiatric exam: Normal Affect, Normal Mood Assessment and Plan - Assessment and Plan (Free Text) Assessment: 66yo F with perianal/labial abscess s/p I&D 04/27/17 and interval I&D with loop colostomy on 04/30/17. Plan: - CCD/HHD soft. ADAT - Continue with medical management as per Primary, Endocrine. Optimize glycemic control - Continue wound care as per Wound care team recs - Continue Abx as per ID. Recommend PICC for intermediate card tender IV access - Pain control - PT eval and treat Further recs as per Dr. Marco Antonio Mann PGY1 surgery pager: [phone]
[2017-05-01 08:16] LABS: CALCIUM 8.7 mg/dL (8.4-10.5)
[2017-05-01] MEDS ORDERED: Insulin Regular 1 UNITS/0.01 ML ML IVP ONE (08:31)
--- NOTE | 2017-05-01 08:33 | PN ---
DATE: 05/01/2017 SUBJECTIVE: The patient is seen and examined at bedside. She is comfortable. She talks in full sentences. She is not in respiratory or otherwise distress. She reports that her night was uneventful. OBJECTIVE: VITAL SIGNS: Temperature 97.9, blood pressure 131/87, respiratory rate 20, and oxygen saturations 100% on nasal cannula. ENT: Head and neck atraumatic. LUNGS: Clear to auscultation bilaterally. HEART: Regular rate and rhythm. S1 and S2 normal. ABDOMEN: Soft, nontender, mildly distended. Transverse loop colostomy appears to be pink, viable mildly edematous. There is minor amount of serosanguineous fluid in the back. MUSCULOSKELETAL: Trace bilateral pedal and ankle edema, some lymphedema. SKIN: Moist. PSYCHIATRIC: The patient is alert and awake, not in respiratory or otherwise distress. LABORATORY DATA: WBC 14.7, hemoglobin 9.5, and platelet count 323. Sodium 141, potassium 4.3, chloride 104, carbon dioxide 27, BUN 66, creatinine 1.9 down from 2.4, and glucose 375. MEDICATIONS: Tylenol p.r.n., DuoNeb p.r.n. and every 4 hours on standing basis, Norvasc, aspirin, Lipitor, Coreg, heparin subcu (at present time on hold, however, will be restarted once cleared by surgery), Dilaudid p.r.n., Levemir 50 units subcu daily, regular insulin sliding scale high protocol, vitamin C, Zofran p.r.n., Protonix, normal saline 75 mL/hour, and Zosyn. ASSESSMENT AND PLAN: This is a 66-year-old lady who presented for debridement of the vaginal abscess with extension into perineal space, which required also diverting loop transverse colostomy. At the present time, she is hemodynamically and respiratory vásquez stable, able to protect airways. I would recommend to continue with pain control, DVT, and GI prophylaxis. Out of bed to chair, incentive spirometry, chest PT, physical therapy, and postural drainage. Pulmonary toilet and bronchodilators. The patient may have LEONARDA, thus empiric CPAP at night would be reasonable, but PSG/split night after discharge would be recommended. We will continue to target euvolemia, euglycemia, normothermia and oxygen saturation more than 90%. The patient does have some chronic kidney disease, thus I would limit Toradol utilization. Addendum: patient was cleared for clear liquid diet by surgery. BG is still elevated, but no AG. insulin IV and sc according to sliding scale and levemir were given. 1L NS was given as well as a bolus. Patient is alert/oriented,. hemodynamically and respiratory vásquez stable ccm time 40 min Luis Velez MD MTDStephani
[2017-05-01] MEDS: Insulin Detemir 100 units/ml Vial (Levemir) SC SCH (09:01)
[2017-05-01] MEDS: Multivitamin Therapeutic Tab PO SCH (09:01)
[2017-05-01] MEDS: Insulin Reg-HIGH-Coverage SC SCH ×4 (09:18→21:45)
[2017-05-01] MEDS ORDERED: Darbepoetin Alfa 60 mcg/ml Inj SC ONE (10:38)
--- NOTE | 2017-05-01 13:37 | RAD ---
HISTORY: PICC LINE PLACEMENT COMPARISON: 04/27/2017 FINDINGS: LUNGS: No active pulmonary disease. PLEURA: No significant pleural effusion identified, no pneumothorax apparent. CARDIOVASCULAR: Normal. OSSEOUS STRUCTURES: No significant abnormalities. VISUALIZED UPPER ABDOMEN: Normal. OTHER FINDINGS: None. IMPRESSION: Left-sided PICC line terminates in satisfactory position at the cavoatrial junction
[2017-05-01] MEDS: HYDROmorphone 0.5 mg/0.5 ml ISec IVP PRN (15:03)
--- NOTE | 2017-05-01 15:18 | CP.PCM.PN ---
Subjective - Date & Time of Evaluation Date of Evaluation: 05/01/17 Time of Evaluation: 15:15 - Subjective Subjective: Follow up Nephrology Consultation (covering for Dr Oziel Morgan): Assessment: stable non-oliguric Acute Kidney Injury (N17.9) likely multi-factorial: sepsis, decreased oral intake leading to pre-renal state, some contribution by NSAIDs, urine retention . work up for GN neg so far Diabetic chronic Kidney Disease (E11.22) Hypertensive Chronic Kidney Disease (I12.9) Chronic Kidney Disease (N18.3) Stage 3 with ? mg proteinuria (R80.9) likely due to DM Anemia (D64.9), HTN (I12.9) Morbid obesity, recent Influenza with Myalgias, arthalgias Hyperkalemia, uncontrolled DM moderate pulmonary HTN necrotic sacral decubitus ulcer s/p debridement Plan No acute need for renal replacement therapy at this time Hypertension control with meds as ordered. No ACEI/ARB due to [place]. Increased norvasc 10 mg/day and coreg bid Monitor Input/Output, daily weights and renal function with basic metabolic panel hold lasix and suggest IVF as normal saline as hx and renal function favors pre- renal state though SOB and elevated BNP are contrary. [Serum uric acid high and FeNa low (1%) and IVC compressibility (>50%) on echo suggest intravascular volume depletion status] continue with iron supplements, MVI, dose of aransep 05/01/17 check Vit D and PTH in AM pending GRETCHEN, Anti dsDNA, ANCA (MPO and [place]-3) Dose meds/antibiotics for reduced GFR. Avoid fleets enema/magnesium based laxatives. Avoid nephrotoxins/NSAIDs/ iodinated contrast (unless needed emergently) need better glycemic control. Further work up/management as per primary team Thanks for allowing me to participate in care of your patient. Will follow patient with you. Please call if any Qs. 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 Denies OTC/herbal meds but has taken NSAIDs as naproxen on prn basis over last 1 week No recent iodinated contrast exposure. No obvious episodes of low BP. ROS: pt denies CP/SOB/nausea. Physical Examination: General Appearance: Comfortable, in no acute respiratory distress, co-operative .morbid obese. Vitals reviewed and noted as below Head; Atraumatic, normocephalic ENT: no ulcers no thrush. Tongue is midline. Oropharynx: no rash or ulcers. EYES: Pupils are equal, round and reactive to light accommodation. Eye muscles and extraocular movement intact. Sclera is anicteric. Neck; supple no lymphadenopathy, no thyromegaly or bruit Lungs: improved respiratory rate/effort. Breath sounds bilateral equal and clear Heart: Normal rate. s1s2 normal. No rub or gallop. Extremities: no edema. No varicose veins Neurological: Patient is awake alert follow commands no deficit Skin: Warm and dry. Normal turgor. No rash. Palpitation: Normal elasticity for age Abdomen: Abdomen is soft. Bowel sounds +. There is no abdominal tenderness, no guarding/rigidity no organomegaly Psych: deferred MSK: no joint tenderness or swelling. Digits and nails normal, no deformity : kidney or bladder not palpable Labs/imaging reviewed. Past medical history, past surgical history, family history, social history, allergy reviewed and noted as below Family hx: no hx of CKD. Rest non-contributory BNP 9030 UA trace blood trace protein normal complements CT abdomen; normal renals Objective - Vital Signs/Intake and Output Vital Signs (last 24 hours): Temp Pulse Resp BP Pulse Ox 97.9 F 70 14 142/64 97 04/30/17 15:56 05/01/17 14:00 05/01/17 14:00 05/01/17 14:01 05/01/17 12:01 Intake and Output: 05/01/17 05/01/17 06:59 18:59 Intake Total 1100 Output Total 450 Balance 650 - Medications Medications: Current Medications Albuterol/Ipratropium (Duoneb 3 Mg/0.5 Mg (3 Ml) Ud) 3 ml IH Q2H PRN PRN Reason: Shortness of Breath Albuterol/Ipratropium (Duoneb 3 Mg/0.5 Mg (3 Ml) Ud) 3 ml IH [id number] [facility] Last Admin: 05/01/17 13:46 Dose: 3 ml Amlodipine Besylate (Norvasc) 10 mg PO DAILY [facility] Last Admin: 05/01/17 09:03 Dose: 10 mg Aspirin (Aspirin Chewable) 81 mg PO DAILY [facility] Last Admin: 05/01/17 09:01 Dose: 81 mg Atorvastatin Calcium (Lipitor) 10 mg PO DAILY [facility] Last Admin: 05/01/17 09:03 Dose: 10 mg Carvedilol (Coreg) 6.25 mg PO BID [facility] Last Admin: 05/01/17 09:01 Dose: 6.25 mg Ferrous Gluconate (Fergon) 324 mg PO TID [facility] Last Admin: 05/01/17 13:15 Dose: 324 mg Heparin Sodium (Porcine) (Heparin) 5,000 units SC Q8H [facility] PRN Reason: Protocol Last Admin: 05/01/17 13:15 Dose: 5,000 units Hydromorphone HCl (Dilaudid) 0.5 mg IVP Q4H PRN PRN Reason: Pain, moderate (4-7) Last Admin: 05/01/17 15:03 Dose: 0.5 mg Piperacillin Sod/Tazobactam Sod (Zosyn 2.25 Gm In 0.9% 100 Ml) 2.25 gm in 100 mls @ 100 mls/hr IVPB Q6 [facility] PRN Reason: Protocol Last Admin: 05/01/17 05:01 Dose: 100 mls/hr Sodium Chloride (Sodium Chloride 0.9%) 1,000 mls @ 75 mls/hr IV .[id number] [facility] Last Admin: 05/01/17 06:17 Dose: 75 mls/hr Acetaminophen (Ofirmev) 1,000 mg in 100 mls @ 400 mls/hr IVPB Q6H PRN PRN Reason: Pain, moderate (4-7) Stop: 05/02/17 15:11 Last Admin: 05/01/17 08:04 Dose: 400 mls/hr Insulin Detemir (Levemir) 50 unit SC DAILY [facility] Last Admin: 05/01/17 09:01 Dose: 50 unit Insulin Human Regular (Humulin R High) 0 units SC ACHS [facility] PRN Reason: Protocol Last Admin: 05/01/17 13:14 Dose: 15 units Multivitamins (Thera Tab) 1 tab PO 0800 [facility] Last Admin: 05/01/17 09:01 Dose: 1 tab Ondansetron HCl (Zofran Inj) 4 mg IVP ONCE PRN PRN Reason: Nausea/Vomiting Pantoprazole Sodium (Protonix Inj) 40 mg IVP DAILY [facility] Last Admin: 05/01/17 09:00 Dose: 40 mg Sodium Hypochlorite (Dakins Solution 0.25%) 0 ml TOP DAILY [facility] Last Admin: 04/30/17 13:32 Dose: Not Given - Labs Labs: 05/01/17 07:40 05/01/17 06:00 PT 14.2 SECONDS (9.4-12.5) H 04/30/17 06:30 INR 1.23 (0.93-1.08) H 04/30/17 06:30 APTT 28.2 Seconds (25.1-36.5) 04/26/17 21:55
[2017-05-01 15:45] LABS: ANCA SCREEN NEGATIVE (NEGATIVE)
[2017-05-01] MEDS ORDERED: Sodium Chloride 0.9% 1,000 ML IV STA (16:05)
[2017-05-01] MEDS ORDERED: HYDROmorphone 0.5 mg/0.5 ml ISec IVP STA (16:52)
[2017-05-01] MEDS ORDERED: Insulin Regular 1 UNITS/0.01 ML ML IV STA (17:03)
--- NOTE | 2017-05-01 20:34 | PN ---
DATE: SUBJECTIVE: The patient underwent debridement of labial wound and colostomy. The patient denied any chest pain. No reported hypertension. PHYSICAL EXAMINATION VITAL SIGNS: Blood pressure 142/64, heart rate 70, and temperature 97.9. HEENT: Pale conjunctivae. CHEST: Clear. HEART: S1 and S2 regular. EXTREMITIES: 1+ pitting edema. LABORATORY DATA: Today's hemoglobin and hematocrit 8.8 and 28.5, white count is 15.3 and platelet 315,000. SMA-7; sodium 137, potassium 5.2, chloride 103, CO2 of 24, glucose 172, BUN 69, creatinine 2.3. ASSESSMENT: 1. Status post debridement of vaginal abscess and colostomy. 2. Morbid obesity. 3. History of deep venous thrombosis. 4. Anemia. 5. Moderate pulmonary hypertension. 6. Chronic renal insufficiency. 7. Uncontrolled diabetes mellitus. RECOMMENDATIONS: 81 mg once a day, Coreg 6.25 mg twice a day. Continue current bronchodilators and receive heparin 5000 units q. 8 hours, Lipitor 10 mg once a day and Zosyn 2.25 g intravenously q. 6 hours. Sameer Dorsey MD
--- NOTE | 2017-05-01 22:41 | CP.PCM.PN ---
Subjective - Date & Time of Evaluation Date of Evaluation: 05/01/17 Time of Evaluation: 22:37 - Subjective Subjective: Infectious Disease Follow Up: May 01, 2017 66 yo female with presentation of weakness and somnolence progressing over the last few days. The patient was recently treated for influenza and has severely limited mobility. The patient also has gluteal and sacral pain with possible abscess formation with foul smelling discharge. Normally as per the family, the patient is able to ambulate to the bathroom but stays mostly in bed. She was taken to the OR for eli-rectal abscess I&D and washout. Taken to MICU for further care. Currently on nasal cannula. Cultures pending. On IV Zosyn for treatment at this time. OR cultures showing E. coli sensitive to Zosyn. Supportive care. Transferred to medical floor. Awaiting further surgery. Noted the positive Antibodies for Influenza A. This only states the patient was exposed to Influenza within the last 6 months of so and not a confirmation of active influenza. EIA for Influenza was negative which is a much more accurate method of checking for active influenza infection. Objective - Vital Signs/Intake and Output Vital Signs (last 24 hours): Temp Pulse Resp BP Pulse Ox 97.9 F 71 14 149/60 97 04/30/17 15:56 05/01/17 17:04 05/01/17 14:00 05/01/17 17:04 05/01/17 12:01 Intake and Output: 05/01/17 05/02/17 18:59 06:59 Intake Total 2050 Output Total 700 Balance 1350 - Medications Medications: Current Medications Albuterol/Ipratropium (Duoneb 3 Mg/0.5 Mg (3 Ml) Ud) 3 ml IH Q2H PRN PRN Reason: Shortness of Breath Albuterol/Ipratropium (Duoneb 3 Mg/0.5 Mg (3 Ml) Ud) 3 ml IH [id number] [facility] Last Admin: 05/01/17 13:46 Dose: 3 ml Amlodipine Besylate (Norvasc) 10 mg PO DAILY [facility] Last Admin: 05/01/17 09:03 Dose: 10 mg Aspirin (Aspirin Chewable) 81 mg PO DAILY [facility] Last Admin: 05/01/17 09:01 Dose: 81 mg Atorvastatin Calcium (Lipitor) 10 mg PO DAILY [facility] Last Admin: 05/01/17 09:03 Dose: 10 mg Carvedilol (Coreg) 6.25 mg PO BID [facility] Last Admin: 05/01/17 17:04 Dose: 6.25 mg Ferrous Gluconate (Fergon) 324 mg PO TID [facility] Last Admin: 05/01/17 17:03 Dose: 324 mg Heparin Sodium (Porcine) (Heparin) 5,000 units SC Q8H [facility] PRN Reason: Protocol Last Admin: 05/01/17 20:56 Dose: 5,000 units Hydromorphone HCl (Dilaudid) 0.5 mg IVP Q4H PRN PRN Reason: Pain, moderate (4-7) Last Admin: 05/01/17 15:03 Dose: 0.5 mg Piperacillin Sod/Tazobactam Sod (Zosyn 2.25 Gm In 0.9% 100 Ml) 2.25 gm in 100 mls @ 100 mls/hr IVPB Q6 [facility] PRN Reason: Protocol Last Admin: 05/01/17 16:59 Dose: 100 mls/hr Sodium Chloride (Sodium Chloride 0.9%) 1,000 mls @ 75 mls/hr IV .[id number] [facility] Last Admin: 05/01/17 06:17 Dose: 75 mls/hr Acetaminophen (Ofirmev) 1,000 mg in 100 mls @ 400 mls/hr IVPB Q6H PRN PRN Reason: Pain, moderate (4-7) Stop: 05/02/17 15:11 Last Admin: 05/01/17 16:39 Dose: 400 mls/hr Insulin Detemir (Levemir) 50 unit SC DAILY [facility] Last Admin: 05/01/17 09:01 Dose: 50 unit Insulin Human Regular (Humulin R High) 0 units SC ACHS [facility] PRN Reason: Protocol Last Admin: 05/01/17 21:45 Dose: Not Given Multivitamins (Thera Tab) 1 tab PO 0800 [facility] Last Admin: 05/01/17 09:01 Dose: 1 tab Ondansetron HCl (Zofran Inj) 4 mg IVP ONCE PRN PRN Reason: Nausea/Vomiting Pantoprazole Sodium (Protonix Inj) 40 mg IVP DAILY [facility] Last Admin: 05/01/17 09:00 Dose: 40 mg Sodium Hypochlorite (Dakins Solution 0.25%) 0 ml TOP DAILY [facility] Last Admin: 04/30/17 13:32 Dose: Not Given - Labs Labs: 05/01/17 07:40 05/01/17 06:00 PT 14.2 SECONDS (9.4-12.5) H 04/30/17 06:30 INR 1.23 (0.93-1.08) H 04/30/17 06:30 APTT 28.2 Seconds (25.1-36.5) 04/26/17 21:55 - Constitutional Appears: Non-toxic, No Acute Distress, Chronically Ill - Head Exam Head Exam: ATRAUMATIC, NORMOCEPHALIC - Eye Exam Eye Exam: EOMI, PERRL Pupil Exam: NORMAL ACCOMODATION, PERRL - ENT Exam ENT Exam: Mucous Membranes Moist, Normal External Ear Exam, TM's Normal Bilaterally - Neck Exam Neck Exam: Full ROM, Normal Inspection - Respiratory Exam Respiratory Exam: Clear to Ausculation Bilateral, NORMAL BREATHING PATTERN. absent: Rales, Rhonchi, Wheezes - Cardiovascular Exam Cardiovascular Exam: REGULAR RHYTHM, +S1, +S2 - GI/Abdominal Exam GI & Abdominal Exam: Soft, Normal Bowel Sounds. absent: Distended, Tenderness Additional comments: multiple recent surgical incisions - Extremities Exam Extremities Exam: Full ROM, Normal Inspection - Neurological Exam Neurological Exam: Alert, Awake, CN II-XII Intact, Oriented x3 - Psychiatric Exam Psychiatric exam: Normal Affect, Normal Mood - Skin Skin Exam: Intact, Normal Color Assessment and Plan - Assessment and Plan (Free Text) Assessment: 66 yo morbidly obese female with multiple medical issues presenting with sepsis like symptoms in setting of large perirectal abscess. The patient had known history of NIDDM, lower extremity DVT, HTN, and CKD at least stage III. Patient with foul smelling discharge from the buttocks area. Recently treated for influenza. Question of CHF. Taken to OR tonight for I&D of the sacral abscess. Procalcitonin of 2.87 which can fall in diagnosis of sepsis. Hgb A1c of 8.3. The patient is awake and alert although groggy from anesthesia. Supportive care. Continue with antibiotics of Zosyn although would monitor renal function closely while on this regimen. E. coli from OR cultures sensitive to Zosyn. Looking for 14 days of treatment in total. Can consider oral antibiotics when medical cleared from the hospital. Leukocytosis is improving. Taken back to OR today for potential diverting colostomy. Thank you for allowing me to participate in the care of the patient, we will follow with you.
[2017-05-02] MEDS: Piperacillin/Tazobact 2.25gm 2.25 GM/100 ML BAG IVPB SCH ×5 (00:06→23:38)
[2017-05-02] MEDS: HYDROmorphone 0.5 mg/0.5 ml ISec IVP PRN ×3 (00:07→15:15)
--- NOTE | 2017-05-02 00:55 | CP.PCM.PN ---
Subjective - Date & Time of Evaluation Date of Evaluation: 04/29/17 Time of Evaluation: 18:20 - Subjective Subjective: Seen and examined at the bed side. C/O Pain to the back. Denies fever or chills. For Diversion colostomy and further wound debridment when patient is stable. Objective - Vital Signs/Intake and Output Vital Signs (last 24 hours): Temp Pulse Resp BP Pulse Ox 97.9 F 71 14 149/60 97 04/30/17 15:56 05/01/17 17:04 05/01/17 14:00 05/01/17 17:04 05/01/17 12:01 Intake and Output: 05/01/17 05/02/17 18:59 06:59 Intake Total 2050 Output Total 700 Balance 1350 - Medications Medications: Current Medications Albuterol/Ipratropium (Duoneb 3 Mg/0.5 Mg (3 Ml) Ud) 3 ml IH Q2H PRN PRN Reason: Shortness of Breath Albuterol/Ipratropium (Duoneb 3 Mg/0.5 Mg (3 Ml) Ud) 3 ml IH [id number] [facility] Last Admin: 05/01/17 22:45 Dose: 3 ml Amlodipine Besylate (Norvasc) 10 mg PO DAILY [facility] Last Admin: 05/01/17 09:03 Dose: 10 mg Aspirin (Aspirin Chewable) 81 mg PO DAILY [facility] Last Admin: 05/01/17 09:01 Dose: 81 mg Atorvastatin Calcium (Lipitor) 10 mg PO DAILY [facility] Last Admin: 05/01/17 09:03 Dose: 10 mg Carvedilol (Coreg) 6.25 mg PO BID [facility] Last Admin: 05/01/17 17:04 Dose: 6.25 mg Ferrous Gluconate (Fergon) 324 mg PO TID [facility] Last Admin: 05/01/17 17:03 Dose: 324 mg Heparin Sodium (Porcine) (Heparin) 5,000 units SC Q8H [facility] PRN Reason: Protocol Last Admin: 05/01/17 20:56 Dose: 5,000 units Hydromorphone HCl (Dilaudid) 0.5 mg IVP Q4H PRN PRN Reason: Pain, moderate (4-7) Last Admin: 05/02/17 00:07 Dose: 0.5 mg Piperacillin Sod/Tazobactam Sod (Zosyn 2.25 Gm In 0.9% 100 Ml) 2.25 gm in 100 mls @ 100 mls/hr IVPB Q6 [facility] PRN Reason: Protocol Last Admin: 05/02/17 00:06 Dose: 100 mls/hr Sodium Chloride (Sodium Chloride 0.9%) 1,000 mls @ 75 mls/hr IV .[id number] [facility] Last Admin: 05/01/17 06:17 Dose: 75 mls/hr Acetaminophen (Ofirmev) 1,000 mg in 100 mls @ 400 mls/hr IVPB Q6H PRN PRN Reason: Pain, moderate (4-7) Stop: 05/02/17 15:11 Last Admin: 05/01/17 16:39 Dose: 400 mls/hr Insulin Detemir (Levemir) 50 unit SC DAILY [facility] Last Admin: 05/01/17 09:01 Dose: 50 unit Insulin Human Regular (Humulin R High) 0 units SC ACHS [facility] PRN Reason: Protocol Last Admin: 05/01/17 21:45 Dose: Not Given Multivitamins (Thera Tab) 1 tab PO 0800 [facility] Last Admin: 05/01/17 09:01 Dose: 1 tab Ondansetron HCl (Zofran Inj) 4 mg IVP ONCE PRN PRN Reason: Nausea/Vomiting Pantoprazole Sodium (Protonix Inj) 40 mg IVP DAILY [facility] Last Admin: 05/01/17 09:00 Dose: 40 mg Sodium Hypochlorite (Dakins Solution 0.25%) 0 ml TOP DAILY [facility] Last Admin: 04/30/17 13:32 Dose: Not Given - Labs Labs: 05/01/17 07:40 05/01/17 06:00 PT 14.2 SECONDS (9.4-12.5) H 04/30/17 06:30 INR 1.23 (0.93-1.08) H 04/30/17 06:30 APTT 28.2 Seconds (25.1-36.5) 04/26/17 21:55 - Constitutional Appears: No Acute Distress - Head Exam Head Exam: ATRAUMATIC, NORMAL INSPECTION, NORMOCEPHALIC - Eye Exam Eye Exam: EOMI, Normal appearance, PERRL Pupil Exam: NORMAL ACCOMODATION, PERRL - ENT Exam ENT Exam: Mucous Membranes Moist, Normal Exam - Neck Exam Neck Exam: Full ROM, Normal Inspection. absent: Lymphadenopathy - Respiratory Exam Respiratory Exam: Clear to Ausculation Bilateral, NORMAL BREATHING PATTERN - Cardiovascular Exam Cardiovascular Exam: REGULAR RHYTHM, +S1, +S2. absent: Murmur - GI/Abdominal Exam GI & Abdominal Exam: Soft, Normal Bowel Sounds. absent: Tenderness - Extremities Exam Extremities Exam: Normal Capillary Refill, Pedal Edema - Neurological Exam Neurological Exam: Alert, Awake, CN II-XII Intact, Oriented x3 - Psychiatric Exam Psychiatric exam: Anxious, Depressed - Skin Additional comments: Saral Unstageable wound. - Additional Findings Additional findings: -CT Abdomen and Pelvis without intravenous contrast: HISTORY: Shamika-rectal abscess COMPARISON: None. TECHNIQUE: Without contrast. Contrast Dose: Radiation dose: Total exam DLP = 1635 mGy-cm. This CT exam was performed using one or more of the following dose reduction techniques: Automated exposure control, adjustment of the mA and/or kV according to patient size, and/or use of iterative reconstruction technique. FINDINGS: LOWER THORAX: Ground-glass densities are seen in both lung bases. LIVER: Unremarkable. No gross lesion or ductal dilatation. GALLBLADDER AND BILE DUCTS: Unremarkable. PANCREAS: Unremarkable. No gross lesion or ductal dilatation. SPLEEN: Unremarkable. ADRENALS: Unremarkable. No mass. KIDNEYS AND URETERS: Unremarkable. No hydronephrosis. No solid mass. VASCULATURE: Unremarkable. No aortic aneurysm. BOWEL: Unremarkable. No obstruction. No gross mural thickening. APPENDIX: Unremarkable. Normal appendix. PERITONEUM: Unremarkable. No free fluid. No free air. LYMPH NODES: Unremarkable. No enlarged lymph nodes. BLADDER: There is a Simeon catheter in the bladder REPRODUCTIVE: Unremarkable. BONES: No acute fracture. OTHER FINDINGS: The scan included the rectum and perineum but did not extend into the gluteal regions or upper thighs. IMPRESSION: No acute findings. No evidence of perirectal abscess Assessment and Plan (1) Sepsis Assessment & Plan: Unstageable Sacral, Gluteal, and Perianal Pressure Ulcers S/P I&D, Surgery F/U for wound Care and Possible Re-Debridment Continue IVF, IV Zosyn and Vancomycin Air Loss Mattress Reposition Q2hrs ID Consult Wound Blood Culture CBC with diff/CMP Status: Acute Priority: High (2) Acute on chronic renal failure Assessment and Plan: IVF Monitor BMP Nephrology Consult Status: Acute Priority: High (3) Diabetes mellitus with hyperglycemia Assessment and Plan: Accu-check with Coverage HgA1C Status: Acute Priority: Medium (4) Essential hypertension Status: Chronic Priority: Low (5) DVT prophylaxis Status: Inactive Priority: High (6) Morbid obesity Status: Acute
--- NOTE | 2017-05-02 00:58 | CP.PCM.PN ---
Subjective - Date & Time of Evaluation Date of Evaluation: 04/30/17 Time of Evaluation: 17:05 - Subjective Subjective: Seen and examined at the bed side. S/P Diversion Colostomy, and Wound care. No fever or chills. Objective - Vital Signs/Intake and Output Vital Signs (last 24 hours): Temp Pulse Resp BP Pulse Ox 97.9 F 71 14 149/60 97 04/30/17 15:56 05/01/17 17:04 05/01/17 14:00 05/01/17 17:04 05/01/17 12:01 Intake and Output: 05/01/17 05/02/17 18:59 06:59 Intake Total 2050 Output Total 700 Balance 1350 - Medications Medications: Current Medications Albuterol/Ipratropium (Duoneb 3 Mg/0.5 Mg (3 Ml) Ud) 3 ml IH Q2H PRN PRN Reason: Shortness of Breath Albuterol/Ipratropium (Duoneb 3 Mg/0.5 Mg (3 Ml) Ud) 3 ml IH [id number] [facility] Last Admin: 05/01/17 22:45 Dose: 3 ml Amlodipine Besylate (Norvasc) 10 mg PO DAILY [facility] Last Admin: 05/01/17 09:03 Dose: 10 mg Aspirin (Aspirin Chewable) 81 mg PO DAILY [facility] Last Admin: 05/01/17 09:01 Dose: 81 mg Atorvastatin Calcium (Lipitor) 10 mg PO DAILY [facility] Last Admin: 05/01/17 09:03 Dose: 10 mg Carvedilol (Coreg) 6.25 mg PO BID [facility] Last Admin: 05/01/17 17:04 Dose: 6.25 mg Ferrous Gluconate (Fergon) 324 mg PO TID [facility] Last Admin: 05/01/17 17:03 Dose: 324 mg Heparin Sodium (Porcine) (Heparin) 5,000 units SC Q8H [facility] PRN Reason: Protocol Last Admin: 05/01/17 20:56 Dose: 5,000 units Hydromorphone HCl (Dilaudid) 0.5 mg IVP Q4H PRN PRN Reason: Pain, moderate (4-7) Last Admin: 05/02/17 00:07 Dose: 0.5 mg Piperacillin Sod/Tazobactam Sod (Zosyn 2.25 Gm In 0.9% 100 Ml) 2.25 gm in 100 mls @ 100 mls/hr IVPB Q6 [facility] PRN Reason: Protocol Last Admin: 05/02/17 00:06 Dose: 100 mls/hr Sodium Chloride (Sodium Chloride 0.9%) 1,000 mls @ 75 mls/hr IV .[id number] [facility] Last Admin: 05/01/17 06:17 Dose: 75 mls/hr Acetaminophen (Ofirmev) 1,000 mg in 100 mls @ 400 mls/hr IVPB Q6H PRN PRN Reason: Pain, moderate (4-7) Stop: 05/02/17 15:11 Last Admin: 05/01/17 16:39 Dose: 400 mls/hr Insulin Detemir (Levemir) 50 unit SC DAILY [facility] Last Admin: 05/01/17 09:01 Dose: 50 unit Insulin Human Regular (Humulin R High) 0 units SC ACHS [facility] PRN Reason: Protocol Last Admin: 05/01/17 21:45 Dose: Not Given Multivitamins (Thera Tab) 1 tab PO 0800 [facility] Last Admin: 05/01/17 09:01 Dose: 1 tab Ondansetron HCl (Zofran Inj) 4 mg IVP ONCE PRN PRN Reason: Nausea/Vomiting Pantoprazole Sodium (Protonix Inj) 40 mg IVP DAILY [facility] Last Admin: 05/01/17 09:00 Dose: 40 mg Sodium Hypochlorite (Dakins Solution 0.25%) 0 ml TOP DAILY [facility] Last Admin: 04/30/17 13:32 Dose: Not Given - Labs Labs: 05/01/17 07:40 05/01/17 06:00 PT 14.2 SECONDS (9.4-12.5) H 04/30/17 06:30 INR 1.23 (0.93-1.08) H 04/30/17 06:30 APTT 28.2 Seconds (25.1-36.5) 04/26/17 21:55 - Constitutional Appears: No Acute Distress - Head Exam Head Exam: ATRAUMATIC, NORMAL INSPECTION, NORMOCEPHALIC - Eye Exam Eye Exam: EOMI, Normal appearance, PERRL Pupil Exam: NORMAL ACCOMODATION, PERRL - ENT Exam ENT Exam: Mucous Membranes Moist, Normal Exam - Neck Exam Neck Exam: Full ROM, Normal Inspection. absent: Lymphadenopathy - Respiratory Exam Respiratory Exam: Clear to Ausculation Bilateral, NORMAL BREATHING PATTERN - Cardiovascular Exam Cardiovascular Exam: REGULAR RHYTHM, +S1, +S2. absent: Murmur - GI/Abdominal Exam GI & Abdominal Exam: Soft, Normal Bowel Sounds. absent: Tenderness - Extremities Exam Extremities Exam: Full ROM, Normal Capillary Refill, Normal Inspection. absent : Joint Swelling, Pedal Edema - Back Exam Back Exam: Full ROM, NORMAL INSPECTION. absent: CVA tenderness (L), CVA tenderness (R) - Neurological Exam Neurological Exam: Alert, Awake, Oriented x3 - Psychiatric Exam Psychiatric exam: Depressed, Flat Affect - Skin Skin Exam: Dry, Intact, Normal Color Assessment and Plan (1) Sepsis Assessment & Plan: Unstageable Sacral, Gluteal, and Perianal Pressure Ulcers S/P I&D, Surgery F/U for wound Care and Possible Re-Debridment S/P Diversion Colostomy Continue IVF, IV Zosyn. Air Loss Mattress Reposition Q2hrs CBC with diff/CMP Status: Acute Priority: High (2) Acute on chronic renal failure, Improving Assessment and Plan: IVF Monitor BMP Nephrology Consult Status: Acute Priority: High (3) Diabetes mellitus with hyperglycemia Assessment and Plan: ACccucheck with Covergae Status: Acute Priority: Medium (4) Essential hypertension Status: Chronic Priority: Low (5) DVT prophylaxis Status: Inactive Priority: High (6) Morbid obesity Status: Acute
--- NOTE | 2017-05-02 01:00 | CP.PCM.PN ---
Subjective - Date & Time of Evaluation Date of Evaluation: 05/01/17 Time of Evaluation: 22:00 - Subjective Subjective: Seen and examined at the bed side. S/P Diversion Colostomy, and Wound care. No fever or ch Objective - Vital Signs/Intake and Output Vital Signs (last 24 hours): Temp Pulse Resp BP Pulse Ox 97.9 F 71 14 149/60 97 04/30/17 15:56 05/01/17 17:04 05/01/17 14:00 05/01/17 17:04 05/01/17 12:01 Intake and Output: 05/01/17 05/02/17 18:59 06:59 Intake Total 2050 Output Total 700 Balance 1350 - Medications Medications: Current Medications Albuterol/Ipratropium (Duoneb 3 Mg/0.5 Mg (3 Ml) Ud) 3 ml IH Q2H PRN PRN Reason: Shortness of Breath Albuterol/Ipratropium (Duoneb 3 Mg/0.5 Mg (3 Ml) Ud) 3 ml IH [id number] [facility] Last Admin: 05/01/17 22:45 Dose: 3 ml Amlodipine Besylate (Norvasc) 10 mg PO DAILY [facility] [place] Last Admin: 05/01/17 09:03 Dose: 10 mg Aspirin (Aspirin Chewable) 81 mg PO DAILY [facility] [place] Last Admin: 05/01/17 09:01 Dose: 81 mg Atorvastatin Calcium (Lipitor) 10 mg PO DAILY [facility] [place] Last Admin: 05/01/17 09:03 Dose: 10 mg Carvedilol (Coreg) 6.25 mg PO BID [facility] [place] Last Admin: 05/01/17 17:04 Dose: 6.25 mg Ferrous Gluconate (Fergon) 324 mg PO TID [facility] [place] Last Admin: 05/01/17 17:03 Dose: 324 mg Heparin Sodium (Porcine) (Heparin) 5,000 units SC Q8H [facility] PRN Reason: Protocol Last Admin: 05/01/17 20:56 Dose: 5,000 units Hydromorphone HCl (Dilaudid) 0.5 mg IVP Q4H PRN PRN Reason: Pain, moderate (4-7) Last Admin: 05/02/17 00:07 Dose: 0.5 mg Piperacillin Sod/Tazobactam Sod (Zosyn 2.25 Gm In 0.9% 100 Ml) 2.25 gm in 100 mls @ 100 mls/hr IVPB Q6 [facility] PRN Reason: Protocol Last Admin: 05/02/17 00:06 Dose: 100 mls/hr Sodium Chloride (Sodium Chloride 0.9%) 1,000 mls @ 75 mls/hr IV .[id number] [facility] [place] Last Admin: 05/01/17 06:17 Dose: 75 mls/hr Acetaminophen (Ofirmev) 1,000 mg in 100 mls @ 400 mls/hr IVPB Q6H PRN PRN Reason: Pain, moderate (4-7) Stop: 05/02/17 15:11 Last Admin: 05/01/17 16:39 Dose: 400 mls/hr Insulin Detemir (Levemir) 50 unit SC DAILY [facility] [place] Last Admin: 05/01/17 09:01 Dose: 50 unit Insulin Human Regular (Humulin R High) 0 units SC ACHS [facility] [place] PRN Reason: Protocol Last Admin: 05/01/17 21:45 Dose: Not Given Multivitamins (Thera Tab) 1 tab PO 0800 [facility] [place] Last Admin: 05/01/17 09:01 Dose: 1 tab Pantoprazole Sodium (Protonix Inj) 40 mg IVP DAILY [facility] [place] Last Admin: 05/01/17 09:00 Dose: 40 mg Sodium Hypochlorite (Dakins Solution 0.25%) 0 ml TOP DAILY [facility] [place] Last Admin: 04/30/17 13:32 Dose: Not Given - Labs Labs: 05/01/17 07:40 05/01/17 06:00 PT 14.2 SECONDS (9.4-12.5) H 04/30/17 06:30 INR 1.23 (0.93-1.08) H 04/30/17 06:30 APTT 28.2 Seconds (25.1-36.5) 04/26/17 21:55 - Constitutional Appears: No Acute Distress - Head Exam Head Exam: ATRAUMATIC, NORMAL INSPECTION, NORMOCEPHALIC - Eye Exam Eye Exam: EOMI, Normal appearance, PERRL Pupil Exam: NORMAL ACCOMODATION, PERRL - ENT Exam ENT Exam: Mucous Membranes Moist, Normal Exam - Neck Exam Neck Exam: Full ROM, Normal Inspection. absent: Lymphadenopathy - Respiratory Exam Respiratory Exam: Clear to Ausculation Bilateral, NORMAL BREATHING PATTERN - Cardiovascular Exam Cardiovascular Exam: REGULAR RHYTHM, +S1, +S2. absent: Murmur - GI/Abdominal Exam GI & Abdominal Exam: Soft, Normal Bowel Sounds. absent: Tenderness - Back Exam Back Exam: NORMAL INSPECTION - Neurological Exam Neurological Exam: Alert, Awake, CN II-XII Intact, Oriented x3 - Psychiatric Exam Psychiatric exam: Depressed, Flat Affect - Skin Additional comments: Pressure Ulcers to he sacrum and perineum. Assessment and Plan (1) Sepsis Assessment & Plan: Unstageable Sacral, Gluteal, and Perianal Pressure Ulcers S/P I&D, Surgery F/U for wound Care and Possible Re-Debridment Continue IVF, IV Zosyn and Vancomycin Air Loss Mattress Reposition Q2hrs ID Consult Wound and Blood Culture CBC with diff/CMP Status: Acute Priority: High (2) Acute on chronic renal failure Assessment and Plan: IVF Monitor BMP Nephrology Consult Status: Acute Priority: High (3) Diabetes mellitus with hyperglycemia Assessment and Plan: ACccucheck with Covergae HgA1C Status: Acute Priority: Medium (4) Essential hypertension Status: Chronic Priority: Low (5) DVT prophylaxis Status: Inactive Priority: High (6) Morbid obesity Status: Chronic
[2017-05-02] MEDS: Albuterol-Ipratrop 3 mg / 0.5 (3 ml) UD IH SCH ×4 (01:26→19:45)
--- NOTE | 2017-05-02 02:38 | CP.PCM.PN ---
Subjective - Date & Time of Evaluation Date of Evaluation: 05/02/17 Time of Evaluation: 02:37 - Subjective Subjective: Patient was seen at bedside for her complaint of itching in lower back, para sacral area. Has no other complaints now. Medical record was reviewed. This 66 year old woman was admitted with 5-6 days history of increasing malaise , somnolence, anorexia, gluteal / sacral pain, skin breakdown, purulent discharge, renal insufficiency, leukocytosis, anemia, hyperglycemia, URI, Sepsis, exacerbation of CHF. Has PMH of CHF, HTN, morbid obesity, DM II, sacral decubetus ulcer stage II, influenza. Objective - Vital Signs/Intake and Output Vital Signs (last 24 hours): Temp Pulse Resp BP Pulse Ox 97.9 F 71 14 149/60 97 04/30/17 15:56 05/01/17 17:04 05/01/17 14:00 05/01/17 17:04 05/01/17 12:01 Intake and Output: 05/01/17 05/02/17 18:59 06:59 Intake Total 2050 Output Total 700 Balance 1350 - Medications Medications: Current Medications Albuterol/Ipratropium (Duoneb 3 Mg/0.5 Mg (3 Ml) Ud) 3 ml IH Q2H PRN PRN Reason: Shortness of Breath Albuterol/Ipratropium (Duoneb 3 Mg/0.5 Mg (3 Ml) Ud) 3 ml IH [id number] [facility] Last Admin: 05/02/17 01:26 Dose: 3 ml Amlodipine Besylate (Norvasc) 10 mg PO DAILY [facility] Last Admin: 05/01/17 09:03 Dose: 10 mg Aspirin (Aspirin Chewable) 81 mg PO DAILY [facility] Last Admin: 05/01/17 09:01 Dose: 81 mg Atorvastatin Calcium (Lipitor) 10 mg PO DAILY [facility] Last Admin: 05/01/17 09:03 Dose: 10 mg Carvedilol (Coreg) 6.25 mg PO BID [facility] Last Admin: 05/01/17 17:04 Dose: 6.25 mg Ferrous Gluconate (Fergon) 324 mg PO TID [facility] Last Admin: 05/01/17 17:03 Dose: 324 mg Heparin Sodium (Porcine) (Heparin) 5,000 units SC Q8H [facility] PRN Reason: Protocol Last Admin: 05/01/17 20:56 Dose: 5,000 units Hydromorphone HCl (Dilaudid) 0.5 mg IVP Q4H PRN PRN Reason: Pain, moderate (4-7) Last Admin: 05/02/17 00:07 Dose: 0.5 mg Piperacillin Sod/Tazobactam Sod (Zosyn 2.25 Gm In 0.9% 100 Ml) 2.25 gm in 100 mls @ 100 mls/hr IVPB Q6 [facility] PRN Reason: Protocol Last Admin: 05/02/17 00:06 Dose: 100 mls/hr Sodium Chloride (Sodium Chloride 0.9%) 1,000 mls @ 75 mls/hr IV .[id number] [facility] Last Admin: 05/01/17 06:17 Dose: 75 mls/hr Acetaminophen (Ofirmev) 1,000 mg in 100 mls @ 400 mls/hr IVPB Q6H PRN PRN Reason: Pain, moderate (4-7) Stop: 05/02/17 15:11 Last Admin: 05/01/17 16:39 Dose: 400 mls/hr Insulin Detemir (Levemir) 50 unit SC DAILY [facility] Last Admin: 05/01/17 09:01 Dose: 50 unit Insulin Human Regular (Humulin R High) 0 units SC ACHS [facility] PRN Reason: Protocol Last Admin: 05/01/17 21:45 Dose: Not Given Multivitamins (Thera Tab) 1 tab PO 0800 [facility] Last Admin: 05/01/17 09:01 Dose: 1 tab Pantoprazole Sodium (Protonix Inj) 40 mg IVP DAILY [facility] Last Admin: 05/01/17 09:00 Dose: 40 mg Sodium Hypochlorite (Dakins Solution 0.25%) 0 ml TOP DAILY [facility] Last Admin: 04/30/17 13:32 Dose: Not Given - Labs Labs: 05/01/17 07:40 05/01/17 06:00 PT 14.2 SECONDS (9.4-12.5) H 04/30/17 06:30 INR 1.23 (0.93-1.08) H 04/30/17 06:30 APTT 28.2 Seconds (25.1-36.5) 04/26/17 21:55 Micro Results 04/26/17 23:00 Blood Blood Culture - Final NO GROWTH AFTER 5 DAYS 04/26/17 23:00 Blood Gram Stain - Final TEST NOT PERFORMED 04/26/17 21:55 Blood Blood Culture - Final NO GROWTH AFTER 5 DAYS 04/26/17 21:55 Blood Gram Stain - Final TEST NOT PERFORMED 04/27/17 19:11 Other: Please Indicate Gram Stain - Final 04/27/17 19:11 Other: Please Indicate Anaerobic Culture - Final NO ANAEROBES ISOLATED. 04/27/17 19:11 Other: Please Indicate Wound Culture - Final Escherichia Coli 04/27/17 11:20 Nose MRSA Culture (Admit) - Final MRSA NOT DETECTED 04/27/17 03:55 Urine,Clean Catch Urine Culture - Final No Growth (<1,000 CFU/ML) Most Recent Lab Values WBC 15.3 10^3/ul (4.5-11.0) H 05/01/17 07:40 RBC 3.19 10^6/uL (3.5-6.1) L 05/01/17 07:40 Hgb 8.8 g/dL (12.0-16.0) L 05/01/17 07:40 Hct 28.5 % (36.0-48.0) L 05/01/17 07:40 MCV 89.3 fl (80.0-105.0) 05/01/17 07:40 MCH 27.6 pg (25.0-35.0) 05/01/17 07:40 MCHC 30.9 g/dl (31.0-37.0) L 05/01/17 07:40 RDW 14.1 % (11.5-14.5) 05/01/17 07:40 Plt Count 315 10^3/uL (120.0-450.0) 05/01/17 07:40 MPV 9.4 fl (7.0-11.0) 05/01/17 07:40 Gran % 79.0 % (50.0-68.0) H 05/01/17 07:40 Lymph % (Auto) 12.5 % (22.0-35.0) L 05/01/17 07:40 [place] % (Auto) 7.7 % (1.0-6.0) H 05/01/17 07:40 Eos % (Auto) 0.7 % (1.5-5.0) L 05/01/17 07:40 Baso % (Auto) 0.1 % (0.0-3.0) 05/01/17 07:40 Gran # 12.07 (1.4-6.5) H 05/01/17 07:40 Lymph # 1.9 (1.2-3.4) 05/01/17 07:40 [place] # 1.2 (0.1-0.6) H 05/01/17 07:40 Eos # 0.1 (0.0-0.7) 05/01/17 07:40 Baso # 0.01 K/mm3 (0.0-2.0) 05/01/17 07:40 ESR 132 mm/hr (0.0-20.0) H 04/26/17 21:55 PT 14.2 SECONDS (9.4-12.5) H 04/30/17 06:30 INR 1.23 (0.93-1.08) H 04/30/17 06:30 APTT 28.2 Seconds (25.1-36.5) 04/26/17 21:55 pCO2 35 mm/Hg (35-45) 04/27/17 06:20 pO2 128.0 mm/Hg (80-100) H 04/27/17 06:20 HCO3 19.8 mmol/L (21-28) L 04/27/17 06:20 ABG pH 7.36 (7.35-7.45) 04/27/17 06:20 ABG Total CO2 20.9 mmol.L (22-28) L 04/27/17 06:20 ABG O2 Saturation 98.3 % (95-98) H 04/27/17 06:20 ABG Base Excess -5.1 mmol/L (-2.0-3.0) L 04/27/17 06:20 ABG Potassium 5.2 mmol/L (3.6-5.2) 04/27/17 06:20 VBG pH 7.35 (7.32-7.43) 04/27/17 05:35 VBG pCO2 41.0 (40-60) 04/27/17 05:35 VBG HCO3 22.6 mmol/l (21-28) 04/27/17 05:35 VBG Total CO2 23.9 mmol.L (22-28) 04/27/17 05:35 VBG O2 Sat (Calc) 99.8 % (40-65) H 04/27/17 05:35 VBG Base Excess -2.9 mmol/L (0.0-2.0) L 04/27/17 05:35 VBG Potassium 5.6 mmol/L (3.6-5.2) H 04/27/17 05:35 Sodium 136.0 mmol/L (132-148) 04/27/17 06:20 Chloride 108.0 mmol/L (98-107) H 04/27/17 06:20 Glucose 165 mg/dl (65-105) H 04/27/17 06:20 Lactate 0.7 mmol/L (0.7-2.1) 04/27/17 06:20 FiO2 35.0 % 04/27/17 06:20 Sodium 137 mmol/L (132-148) 05/01/17 06:00 Potassium 5.2 mmol/L (3.6-5.0) H 05/01/17 06:00 Chloride 103 mmol/L (98-107) 05/01/17 06:00 Carbon Dioxide 24 mmol/L (21-33) 05/01/17 06:00 Anion Gap 15 (10-20) 05/01/17 06:00 BUN 69 mg/dL (7-21) H 05/01/17 06:00 Creatinine 2.3 mg/dl (0.7-1.2) H 05/01/17 06:00 Est GFR ( Amer) 26 05/01/17 06:00 Est GFR (Non-Af Amer) 21 05/01/17 06:00 POC Glucose (mg/dL) 260 mg/dL (65-110) H 05/01/17 21:39 Random Glucose 472 mg/dL (70-110) H* D 05/01/17 06:00 Hemoglobin A1c 8.3 % (4.2-6.5) H 04/27/17 05:30 Uric Acid 14.1 mg/dL (2.5-6.2) H 04/27/17 12:10 Calcium 8.7 mg/dL (8.4-10.5) 05/01/17 06:00 Phosphorus 2.9 mg/dL (2.5-4.5) 04/26/17 21:55 Magnesium 2.1 mg/dL (1.7-2.2) 04/26/17 21:55 Iron 36 ug/dL (45-180) L 05/01/17 06:00 TIBC 235 ug/dL (265-497) L 05/01/17 06:00 % Saturation 15 % (20-55) L 05/01/17 06:00 Ferritin 186.0 ng/mL 05/01/17 06:00 Total Bilirubin 0.6 mg/dL (0.2-1.3) 04/29/17 06:00 AST 36 U/L (14-36) 04/29/17 06:00 ALT 33 U/L (7-56) 04/29/17 06:00 Alkaline Phosphatase 141 U/L (38-126) H 04/29/17 06:00 Total Creatine Kinase 33 U/L (35-230) L 04/27/17 12:10 Troponin I 0.04 ng/mL 04/27/17 09:20 NT-Pro-B Natriuret Pep 9030 pg/mL (0-450) H 04/26/17 21:55 Total Protein 6.9 g/dL (5.8-8.3) 04/29/17 06:00 Total Protein (PEP) 5.8 g/dL (6.1-8.1) L 04/28/17 05:00 Albumin 3.2 g/dL (3.0-4.8) 04/29/17 06:00 Albumin (PEP) 2.4 g/dL (3.8-4.8) L 04/28/17 05:00 Globulin 3.7 gm/dL 04/29/17 06:00 Albumin/Globulin Ratio 0.9 (1.1-1.8) L 04/29/17 06:00 Ecvdn-9-Khnibjiqy 0.6 g/dL (0.2-0.3) H 04/28/17 05:00 Jwgea-5-Kysbgnfxj 0.9 g/dL (0.5-0.9) 04/28/17 05:00 Sryh-0-Tzalqgsj 0.4 g/dL (0.4-0.6) 04/28/17 05:00 Oymj-2-Seewuwbx 0.2 g/dL (0.2-0.5) 04/28/17 05:00 Gamma Globulins 1.4 g/dL (0.8-1.7) 04/28/17 05:00 Abnorm Protein Band 1 0.68 g/dL (None Detected) H 04/28/17 05:00 Abnorm Protein Band 2 TEST NOT PERFORMED 04/28/17 05:00 Abnorm Protein Band 3 TEST NOT PERFORMED 04/28/17 05:00 Triglycerides 190 mg/dL (35-160) H 04/27/17 05:30 Cholesterol 136 mg/dL (130-200) 04/27/17 05:30 LDL Cholesterol Direct 62 mg/dL (0-129) 04/27/17 05:30 HDL Cholesterol 23 mg/dL (29-60) L 04/27/17 05:30 Procalcitonin 2.87 NG/ML (0.19-0.49) H 04/26/17 21:55 Arterial Blood Potassium 5.2 mmol/L (3.6-5.2) 04/27/17 06:20 Venous Blood Potassium 5.6 mmol/L (3.6-5.2) H 04/27/17 05:35 Urine Color Yellow (YELLOW) 04/27/17 03:55 Urine Appearance Clear (CLEAR) 04/27/17 03:55 Urine pH 6.0 (4.7-8.0) 04/27/17 03:55 Ur Specific [place] 1.015 (1.005-1.035) 04/27/17 03:55 Urine Protein Trace mg/dL (<30 mg/dL) H 04/27/17 03:55 Urine Glucose (UA) Negative mg/dL (NEGATIVE) 04/27/17 03:55 Urine Ketones Negative mg/dL (NEGATIVE) 04/27/17 03:55 Urine Blood Trace-lysed (NEGATIVE) H 04/27/17 03:55 Urine Nitrate Negative (NEGATIVE) 04/27/17 03:55 Urine Bilirubin Negative (NEGATIVE) 04/27/17 03:55 Urine Urobilinogen 0.2 E.U./dL (<1 E.U./dL) 04/27/17 03:55 Ur Leukocyte Esterase Negative Rosa/uL (NEGATIVE) 04/27/17 03:55 Urine RBC 0 - 2 /hpf (0-2) 04/27/17 03:55 Urine WBC 0 - 2 /hpf (0-6) 04/27/17 03:55 Ur Epithelial Cells 0 - 2 /hpf (0-5) 04/27/17 03:55 Ur Random Creatinine 81 mg/dL 04/27/17 17:30 U Random Total Protein 14 mg/L 04/27/17 17:30 Ur Random Sodium 35 meq/L 04/27/17 17:30 Urine Microalbumin 20.9 mg/L (0.0-16.6) H 04/27/17 17:30 ESTELA & SPEP Interp See note 04/28/17 05:00 Serum Immunofixation Detected (Not Detected) H 04/28/17 05:00 Rheumatoid Factor 15 IU/mL (<14) H 04/28/17 06:30 GRETCHEN Screen Negative (NEGATIVE) 04/28/17 06:30 GRETCHEN Titer TNP 04/28/17 06:30 GRETCHEN Pattern TNP 04/28/17 06:30 ANCA Screen Negative (NEGATIVE) 04/28/17 05:00 c-ANCA Titer TNP 04/28/17 05:00 Proteinase 3 (PR3) <1.0 AI (<1.0) 04/28/17 05:00 p-ANCA Titer TNP 04/28/17 05:00 Atypical p-ANCA Titer TNP 04/28/17 05:00 Myeloperoxidase Ab <1.0 AI (<1.0) 04/28/17 05:00 SS-A Antibody <1.0 neg AI (<1.0 NEGATIVE) 04/28/17 06:30 SS-B Antibody <1.0 neg AI (<1.0 NEGATIVE) 04/28/17 06:30 Sm (Tucker) Antibody <1.0 neg AI (<1.0 NEGATIVE) 04/28/17 06:30 SM/BROACH SETTER Antibody <1.0 neg AI (<1.0 NEGATIVE) 04/28/17 06:30 Scl-70 Antibody <1.0 neg AI (<1.0 NEGATIVE) 04/28/17 06:30 Anti-ds DNA Titer (Crith) TNP 04/28/17 06:30 Anti-ds DNA (Crithidia) Negative (NEGATIVE) 04/28/17 06:30 Ribosomal P Prot Ab <1.0 neg AI (<1.0 NEGATIVE) 04/28/17 06:30 Actin IgG Antibody <20 U 04/28/17 06:30 Striated Muscle Ab Negative (NEGATIVE) 04/28/17 06:30 Myocardial Ab Titer TNP 04/28/17 06:30 Anti-Myocardial Ab Negative (NEGATIVE) 04/28/17 06:30 Reticulin Ab Titer TNP 04/28/17 06:30 Reticulin IgA Antibody Negative (NEGATIVE) 04/28/17 06:30 Thyroperoxidase Ab <1 IU/mL (<9) 04/28/17 06:30 Complement C3 161 mg/dL 04/28/17 06:30 Complement C4 36 mg/dL (ADULTS: 16-47) 04/28/17 06:30 Tot Aspers/Lambda Ratio 2.54 (1.29-2.55) 04/28/17 06:30 Aspers Light Chain Anal 272 mg/dL (176-443) 04/28/17 06:30 Lambda Light Chain Anal 107 mg/dL (91-240) 04/28/17 06:30 Influenza Typ A,B (EIA) Negative for flu a/b (NEGATIVE) 04/27/17 11:20 Influenza Type A Ab 1:128 titer (<1:8) H 04/27/17 05:30 Influenza Type B Ab 1:16 titer (<1:8) H 04/27/17 05:30 Blood Type A NEGATIVE 04/30/17 06:20 Blood Type Confirm A NEGATIVE 04/30/17 06:30 Antibody Screen Negative 04/30/17 06:20 BBK History Checked No verified bt 04/30/17 06:20 - Constitutional Appears: Well, No Acute Distress - Head Exam Head Exam: ATRAUMATIC, NORMAL INSPECTION, NORMOCEPHALIC - Eye Exam Eye Exam: Normal appearance - ENT Exam ENT Exam: Normal External Ear Exam - Neck Exam Neck Exam: Normal Inspection - Respiratory Exam Respiratory Exam: NORMAL BREATHING PATTERN - Cardiovascular Exam Cardiovascular Exam: absent: JVD - GI/Abdominal Exam GI & Abdominal Exam: absent: Distended - Rectal Exam Rectal Exam: Deferred - Exam Additional comments: Deferred. - Extremities Exam Extremities Exam: Normal Inspection - Back Exam Back Exam: NORMAL INSPECTION - Neurological Exam Neurological Exam: Alert, Awake - Psychiatric Exam Psychiatric exam: Normal Affect, Normal Mood - Skin Additional comments: Parasacral erythema present more on left side than right. Some part covered with dressing. Assessment and Plan - Assessment and Plan (Free Text) Assessment: Lower back itching. Sacral decubetus. Leukocytosis. Anemia. CHF. HTN. DM II. Morbid obesity. Plan: Benadryl 50 mg PO x 1. Continue present management.
[2017-05-02 07:31] LABS: BASO # 0.02 K/mm3 (0.0-2.0); BASO % 0.1 % (0.0-3.0); EOS # 0.2 (0.0-0.7); EOS % 0.9 % (1.5-5.0); GRAN % 81.4 % (50.0-68.0); HEMOGLOBIN 8.9 g/dL (12.0-16.0); LYMPH # 2.4 (1.2-3.4); MEAN CELL VOLUME 88.1 fl (80.0-105.0); MEAN CORPUSCULAR HEMOGLOBIN 27.9 pg (25.0-35.0); MEAN CORPUSCULAR HGB CONC 31.7 g/dl (31.0-37.0); MEAN PLATELET VOLUME 9.3 fl (7.0-11.0); MONO # 1.1 (0.1-0.6); MONO % 5.6 % (1.0-6.0); RBC 3.19 10^6/uL (3.5-6.1); WHITE BLOOD COUNT 19.7 10^3/ul (4.5-11.0)
[2017-05-02] MEDS: Insulin Reg-HIGH-Coverage SC SCH ×4 (08:44→22:34)
[2017-05-02] MEDS: Multivitamin Therapeutic Tab PO SCH (08:50)
[2017-05-02] MEDS: Sodium Chloride 0.9% 1,000 ML IV SCH (09:08)
[2017-05-02] MEDS: Insulin Detemir 100 units/ml Vial (Levemir) SC SCH (10:53)
--- NOTE | 2017-05-02 14:25 | CP.PCM.PN ---
Subjective - Date & Time of Evaluation Date of Evaluation: 05/02/17 Time of Evaluation: 14:20 - Subjective Subjective: Surgery: Progress Note Pt seen and examined. No acute overnight events. States she has pain "down below " but otherwise no complaints. Pt is tolerating her diet and as per discussion with the family she is having stool in the ostomy bag. Denies F/C, N/V. Objective - Vital Signs/Intake and Output Vital Signs (last 24 hours): Temp Pulse Resp BP Pulse Ox 98.7 F 74 20 142/52 L 95 05/02/17 09:20 05/02/17 09:20 05/02/17 09:20 05/02/17 09:20 05/02/17 09:20 Intake and Output: 05/02/17 05/02/17 06:59 18:59 Intake Total 120 1770 Output Total 700 700 Balance -580 1070 - Medications Medications: Current Medications Albuterol/Ipratropium (Duoneb 3 Mg/0.5 Mg (3 Ml) Ud) 3 ml IH Q2H PRN PRN Reason: Shortness of Breath Albuterol/Ipratropium (Duoneb 3 Mg/0.5 Mg (3 Ml) Ud) 3 ml IH [id number] [facility] Last Admin: 05/02/17 08:32 Dose: 3 ml Amlodipine Besylate (Norvasc) 10 mg PO DAILY [facility] Last Admin: 05/02/17 09:11 Dose: 10 mg Aspirin (Aspirin Chewable) 81 mg PO DAILY [facility] Last Admin: 05/02/17 09:12 Dose: 81 mg Atorvastatin Calcium (Lipitor) 10 mg PO DAILY [facility] Last Admin: 05/02/17 09:12 Dose: 10 mg Carvedilol (Coreg) 6.25 mg PO BID [facility] Last Admin: 05/02/17 09:12 Dose: 6.25 mg Ferrous Gluconate (Fergon) 324 mg PO TID [facility] Last Admin: 05/02/17 09:13 Dose: 324 mg Heparin Sodium (Porcine) (Heparin) 5,000 units SC Q8H [facility] PRN Reason: Protocol Last Admin: 05/02/17 11:47 Dose: 5,000 units Hydromorphone HCl (Dilaudid) 0.5 mg IVP Q4H PRN PRN Reason: Pain, moderate (4-7) Last Admin: 05/02/17 09:02 Dose: 0.5 mg Piperacillin Sod/Tazobactam Sod (Zosyn 2.25 Gm In 0.9% 100 Ml) 2.25 gm in 100 mls @ 100 mls/hr IVPB Q6 [facility] PRN Reason: Protocol Last Admin: 05/02/17 11:48 Dose: 100 mls/hr Sodium Chloride (Sodium Chloride 0.9%) 1,000 mls @ 75 mls/hr IV .[id number] [facility] Last Admin: 05/02/17 09:08 Dose: 75 mls/hr Acetaminophen (Ofirmev) 1,000 mg in 100 mls @ 400 mls/hr IVPB Q6H PRN PRN Reason: Pain, moderate (4-7) Stop: 05/02/17 15:11 Last Admin: 05/01/17 16:39 Dose: 400 mls/hr Insulin Detemir (Levemir) 50 unit SC DAILY [facility] Last Admin: 05/02/17 10:53 Dose: 50 unit Insulin Human Regular (Humulin R High) 0 units SC ACHS [facility] PRN Reason: Protocol Last Admin: 05/02/17 08:44 Dose: 7 units Multivitamins (Thera Tab) 1 tab PO 0800 [facility] Last Admin: 05/02/17 08:50 Dose: 1 tab Pantoprazole Sodium (Protonix Inj) 40 mg IVP DAILY [facility] Last Admin: 05/02/17 09:11 Dose: 40 mg Sodium Hypochlorite (Dakins Solution 0.25%) 0 ml TOP DAILY [facility] Last Admin: 04/30/17 13:32 Dose: Not Given - Labs Labs: 05/02/17 07:00 05/02/17 07:00 PT 14.2 SECONDS (9.4-12.5) H 04/30/17 06:30 INR 1.23 (0.93-1.08) H 04/30/17 06:30 APTT 28.2 Seconds (25.1-36.5) 04/26/17 21:55 - Constitutional Appears: Well, No Acute Distress - Head Exam Head Exam: ATRAUMATIC, NORMOCEPHALIC - ENT Exam ENT Exam: Mucous Membranes Moist - Respiratory Exam Respiratory Exam: NORMAL BREATHING PATTERN - Cardiovascular Exam Cardiovascular Exam: RRR - GI/Abdominal Exam GI & Abdominal Exam: Soft. absent: Tenderness Additional comments: transverse loop ostomy in place, pink, patent, producing - Neurological Exam Neurological Exam: Alert, Awake, Oriented x3 - Skin Skin Exam: Dry, Warm Assessment and Plan - Assessment and Plan (Free Text) Assessment: 66F with complex, non-healing labial abscess/wound requiring diverting loop colostomy; POD#2 Plan: - cont local wound care for the labial/perineal wound - may need further debridement - cont IV ABX, ID on board - d/w Dr. Marco Antonio Bailey, PGY-3 Surgery
--- NOTE | 2017-05-02 15:55 | PN ---
SUBJECTIVE: Vital signs are noted to be normal. The dressing is being changed. The ostomy is pink, beautiful, viable, with a little bit of edema. Diet can be advanced. The wounds, we will consider re-debriding early in the week, Thursday or Thursday. Messi Bernard MD
--- NOTE | 2017-05-02 19:32 | CP.PCM.PN ---
Subjective - Date & Time of Evaluation Date of Evaluation: 05/02/17 Time of Evaluation: 19:23 - Subjective Subjective: Infectious Disease Follow Up: May 02, 2017 66 yo female with presentation of weakness and somnolence progressing over the last few days. The patient was recently treated for influenza and has severely limited mobility. The patient also has gluteal and sacral pain with possible abscess formation with foul smelling discharge. Normally as per the family, the patient is able to ambulate to the bathroom but stays mostly in bed. She was taken to the OR for eli-rectal abscess I&D and washout. Taken to MICU for further care. Currently on nasal cannula. Cultures pending. On IV Zosyn for treatment at this time. OR cultures showing E. coli sensitive to Zosyn. Supportive care. Transferred to medical floor. Awaiting further surgery. Noted the positive Antibodies for Influenza A. This only states the patient was exposed to Influenza within the last 6 months of so and not a confirmation of active influenza. EIA for Influenza was negative which is a much more accurate method of checking for active influenza infection. In addition the patient was recently treated with TamiFlu for flu [place] [facility] [place] Leukocytosis slightly increased to 20. POD #2 from last washout/debridement and placement of diverting loop colostomy. She has a mild cough with thin white sputum. Remains on Zosyn for antibiotic coverage. Objective - Vital Signs/Intake and Output Vital Signs (last 24 hours): Temp Pulse Resp BP Pulse Ox 98.7 F 98 H 21 166/66 H 97 05/02/17 16:41 05/02/17 17:54 05/02/17 16:41 05/02/17 17:54 05/02/17 16:41 Intake and Output: 05/02/17 05/03/17 18:59 06:59 Intake Total 1770 560 Output Total 700 Balance 1070 560 - Medications Medications: Current Medications Albuterol/Ipratropium (Duoneb 3 Mg/0.5 Mg (3 Ml) Ud) 3 ml IH Q2H PRN PRN Reason: Shortness of Breath Albuterol/Ipratropium (Duoneb 3 Mg/0.5 Mg (3 Ml) Ud) 3 ml IH [id number] [facility] Last Admin: 05/02/17 14:36 Dose: 3 ml Amlodipine Besylate (Norvasc) 10 mg PO DAILY [facility] Last Admin: 05/02/17 09:11 Dose: 10 mg Aspirin (Aspirin Chewable) 81 mg PO DAILY [facility] Last Admin: 05/02/17 09:12 Dose: 81 mg Atorvastatin Calcium (Lipitor) 10 mg PO DAILY [facility] Last Admin: 05/02/17 09:12 Dose: 10 mg Carvedilol (Coreg) 6.25 mg PO BID [facility] Last Admin: 05/02/17 17:54 Dose: 6.25 mg Ferrous Gluconate (Fergon) 324 mg PO TID [facility] Last Admin: 05/02/17 17:57 Dose: 324 mg Heparin Sodium (Porcine) (Heparin) 5,000 units SC Q8H [facility] PRN Reason: Protocol Last Admin: 05/02/17 11:47 Dose: 5,000 units Hydromorphone HCl (Dilaudid) 0.5 mg IVP Q4H PRN PRN Reason: Pain, moderate (4-7) Last Admin: 05/02/17 15:15 Dose: 0.5 mg Piperacillin Sod/Tazobactam Sod (Zosyn 2.25 Gm In 0.9% 100 Ml) 2.25 gm in 100 mls @ 100 mls/hr IVPB Q6 [facility] PRN Reason: Protocol Last Admin: 05/02/17 17:56 Dose: 100 mls/hr Sodium Chloride (Sodium Chloride 0.9%) 1,000 mls @ 75 mls/hr IV .[id number] [facility] Last Admin: 05/02/17 09:08 Dose: 75 mls/hr Insulin Detemir (Levemir) 50 unit SC DAILY [facility] Last Admin: 05/02/17 10:53 Dose: 50 unit Insulin Human Regular (Humulin R High) 0 units SC ACHS [facility] PRN Reason: Protocol Last Admin: 05/02/17 17:00 Dose: 7 units Multivitamins (Thera Tab) 1 tab PO 0800 [facility] Last Admin: 05/02/17 08:50 Dose: 1 tab Pantoprazole Sodium (Protonix Inj) 40 mg IVP DAILY [facility] Last Admin: 05/02/17 09:11 Dose: 40 mg Sodium Hypochlorite (Dakins Solution 0.25%) 0 ml TOP DAILY [facility] Last Admin: 04/30/17 13:32 Dose: Not Given - Labs Labs: 05/02/17 07:00 05/02/17 07:00 PT 14.2 SECONDS (9.4-12.5) H 04/30/17 06:30 INR 1.23 (0.93-1.08) H 04/30/17 06:30 APTT 28.2 Seconds (25.1-36.5) 04/26/17 21:55 - Constitutional Appears: Non-toxic, No Acute Distress, Chronically Ill - Head Exam Head Exam: ATRAUMATIC, NORMOCEPHALIC - Eye Exam Eye Exam: EOMI, PERRL Pupil Exam: NORMAL ACCOMODATION, PERRL - ENT Exam ENT Exam: Mucous Membranes Moist, Normal External Ear Exam, TM's Normal Bilaterally - Neck Exam Neck Exam: Full ROM, Normal Inspection - Respiratory Exam Respiratory Exam: Clear to Ausculation Bilateral, NORMAL BREATHING PATTERN. absent: Rales, Rhonchi, Wheezes - Cardiovascular Exam Cardiovascular Exam: REGULAR RHYTHM, RRR, +S1, +S2 - GI/Abdominal Exam GI & Abdominal Exam: Soft, Normal Bowel Sounds. absent: Tenderness Additional comments: multiple recent surgical incisions. Colostomy in place. - Extremities Exam Extremities Exam: Full ROM, Normal Inspection - Neurological Exam Neurological Exam: Alert, Awake, CN II-XII Intact, Oriented x3 - Psychiatric Exam Psychiatric exam: Normal Affect, Normal Mood - Skin Skin Exam: Intact, Normal Color Assessment and Plan - Assessment and Plan (Free Text) Assessment: 66 yo morbidly obese female with multiple medical issues presenting with sepsis like symptoms in setting of large perirectal abscess. The patient had known history of NIDDM, lower extremity DVT, HTN, and CKD at least stage III. Patient with foul smelling discharge from the buttocks area. Recently treated for influenza. Question of CHF. Taken to OR tonight for I&D of the sacral abscess. Procalcitonin of 2.87 which can fall in diagnosis of sepsis. Hgb A1c of 8.3. The patient is awake and alert although groggy from anesthesia. Supportive care. Continue with antibiotics of Zosyn although would monitor renal function closely while on this regimen. E. coli from OR cultures sensitive to Zosyn. Looking for 14 days of treatment in total. Can consider oral antibiotics when medical cleared from the hospital. Leukocytosis is improving. Taken back to OR for diverting colostomy. Postoperative day #2 now. Leukocytosis up to 20 today. Clinically no changes. Remains on Zosyn for antibiotic coverage at this time. Supportive care. No new symptoms. Treated for influenza prior to this hospitalization. Supportive care. Spoke with Dr. Grullon this afternoon. Thank you for allowing me to participate in the care of the patient, we will follow with you.
--- NOTE | 2017-05-02 20:44 | CP.PCM.PN ---
Subjective - Date & Time of Evaluation Date of Evaluation: 05/02/17 Time of Evaluation: 20:00 - Subjective Subjective: Seen and examined at the bed side. S/P Diversion Colostomy, and Wound care. No fever or chills. C/O Pain to the back and the surgery site. Objective - Vital Signs/Intake and Output Vital Signs (last 24 hours): Temp Pulse Resp BP Pulse Ox 98.7 F 98 H 21 166/66 H 97 05/02/17 16:41 05/02/17 17:54 05/02/17 16:41 05/02/17 17:54 05/02/17 16:41 Intake and Output: 05/02/17 05/03/17 18:59 06:59 Intake Total 1770 560 Output Total 700 Balance 1070 560 - Medications Medications: Current Medications Albuterol/Ipratropium (Duoneb 3 Mg/0.5 Mg (3 Ml) Ud) 3 ml IH Q2H PRN PRN Reason: Shortness of Breath Albuterol/Ipratropium (Duoneb 3 Mg/0.5 Mg (3 Ml) Ud) 3 ml IH [id number] [facility] Last Admin: 05/02/17 19:45 Dose: 3 ml Amlodipine Besylate (Norvasc) 10 mg PO DAILY [facility] Last Admin: 05/02/17 09:11 Dose: 10 mg Aspirin (Aspirin Chewable) 81 mg PO DAILY [facility] Last Admin: 05/02/17 09:12 Dose: 81 mg Atorvastatin Calcium (Lipitor) 10 mg PO DAILY [facility] Last Admin: 05/02/17 09:12 Dose: 10 mg Carvedilol (Coreg) 6.25 mg PO BID [facility] Last Admin: 05/02/17 17:54 Dose: 6.25 mg Ferrous Gluconate (Fergon) 324 mg PO TID [facility] Last Admin: 05/02/17 17:57 Dose: 324 mg Heparin Sodium (Porcine) (Heparin) 5,000 units SC Q8H [facility] PRN Reason: Protocol Last Admin: 05/02/17 11:47 Dose: 5,000 units Hydromorphone HCl (Dilaudid) 0.5 mg IVP Q4H PRN PRN Reason: Pain, moderate (4-7) Last Admin: 05/02/17 15:15 Dose: 0.5 mg Piperacillin Sod/Tazobactam Sod (Zosyn 2.25 Gm In 0.9% 100 Ml) 2.25 gm in 100 mls @ 100 mls/hr IVPB Q6 [facility] PRN Reason: Protocol Last Admin: 05/02/17 17:56 Dose: 100 mls/hr Sodium Chloride (Sodium Chloride 0.9%) 1,000 mls @ 75 mls/hr IV .[id number] [facility] Last Admin: 05/02/17 09:08 Dose: 75 mls/hr Insulin Detemir (Levemir) 50 unit SC DAILY [facility] Last Admin: 05/02/17 10:53 Dose: 50 unit Insulin Human Regular (Humulin R High) 0 units SC ACHS [facility] PRN Reason: Protocol Last Admin: 05/02/17 17:00 Dose: 7 units Multivitamins (Thera Tab) 1 tab PO 0800 [facility] Last Admin: 05/02/17 08:50 Dose: 1 tab Pantoprazole Sodium (Protonix Inj) 40 mg IVP DAILY [facility] Last Admin: 05/02/17 09:11 Dose: 40 mg Sodium Hypochlorite (Dakins Solution 0.25%) 0 ml TOP DAILY [facility] Last Admin: 04/30/17 13:32 Dose: Not Given - Labs Labs: 05/02/17 07:00 05/02/17 07:00 PT 14.2 SECONDS (9.4-12.5) H 04/30/17 06:30 INR 1.23 (0.93-1.08) H 04/30/17 06:30 APTT 28.2 Seconds (25.1-36.5) 04/26/17 21:55 - Constitutional Appears: No Acute Distress - Head Exam Head Exam: ATRAUMATIC, NORMAL INSPECTION, NORMOCEPHALIC - Eye Exam Eye Exam: EOMI Pupil Exam: NORMAL ACCOMODATION - ENT Exam ENT Exam: Mucous Membranes Moist - Neck Exam Neck Exam: Full ROM, Normal Inspection. absent: Lymphadenopathy - Respiratory Exam Respiratory Exam: Clear to Ausculation Bilateral, Rales, NORMAL BREATHING PATTERN. absent: Wheezes - Cardiovascular Exam Cardiovascular Exam: REGULAR RHYTHM, +S1, +S2 - GI/Abdominal Exam GI & Abdominal Exam: Soft, Tenderness, Normal Bowel Sounds - Extremities Exam Extremities Exam: Pedal Edema - Neurological Exam Neurological Exam: Alert, Awake - Psychiatric Exam Psychiatric exam: Depressed - Skin Additional comments: Sacral pressure ulcer extending to the perineum. Assessment and Plan (1) Sepsis Assessment & Plan: Unstageable Sacral, Gluteal, and Perianal Pressure Ulcers S/P I&D, Surgery F/U for wound Care and Possible Re-Debridment, and S/P Diversion Colostomy Continue IVF, IV Zosyn. Colostomy site care Air Loss Mattress Reposition Q2hrs ID [id number]. CBC with diff/CMP Status: Acute Priority: High (2) Acute on chronic renal failure- Improving Assessment and Plan: IVF Monitor BMP Nephrology Consult Status: Acute Priority: High (3) Diabetes mellitus with hyperglycemia Assessment and Plan: ACccucheck with Coverage Status: Acute Priority: Medium (4) Essential hypertension Status: Chronic Priority: Low (5) DVT prophylaxis Status: Inactive Priority: High (6) Morbid obesity Status: Acute
[2017-05-02] MEDS: Albuterol-Ipratrop 3 mg / 0.5 (3 ml) UD IH PRN (23:39)
[2017-05-03] MEDS: Albuterol-Ipratrop 3 mg / 0.5 (3 ml) UD IH SCH ×4 (01:05→19:39)
[2017-05-03] MEDS: Sodium Chloride 0.9% 1,000 ML IV SCH (01:58)
[2017-05-03] MEDS: Piperacillin/Tazobact 2.25gm 2.25 GM/100 ML BAG IVPB SCH ×4 (05:22→22:59)
[2017-05-03] MEDS: Multivitamin Therapeutic Tab PO SCH (08:33)
[2017-05-03] MEDS: Insulin Reg-HIGH-Coverage SC SCH ×4 (08:36→22:15)
[2017-05-03] MEDS: Dakin's Topical 0.25%-Half Strength (480 ml) TOP SCH (09:44)
[2017-05-03] MEDS: Insulin Detemir 100 units/ml Vial (Levemir) SC SCH (09:45)
[2017-05-03] MEDS: Albuterol-Ipratrop 3 mg / 0.5 (3 ml) UD IH PRN (10:56)
--- NOTE | 2017-05-03 14:31 | PN ---
DATE: 05/03/2017 LOCATION: Patient in room 574, bed 1. This progress note is being written on behalf of Dr. Dorsey, whom I am covering. BRIEF HISTORY: Patient is post-debridement of labial wound and colostomy. Patient has history of chronic renal insufficiency, moderate pulmonary hypertension, anemia, morbid obesity. SUBJECTIVE: Patient lying flat in bed without chest pain, shortness of breath, palpitations. PHYSICAL EXAMINATION VITAL SIGNS: Blood pressure 130/80, respiration 20. Patient is afebrile. Pulse is 74. HEENT: Head is normocephalic. Eyes, pupils normal. Conjunctivae slightly pale. NECK: JVP low. Carotids are equal. THORAX: AP diameter normal. LUNGS: Clear. CARDIOVASCULAR: S1 and S2. ABDOMEN: Colostomy as mentioned. EXTREMITIES: No clubbing, no cyanosis. LABORATORY DATA: WBC 19.7, hemoglobin 8.9, hematocrit 28.1, platelet 351. Random sugar 322. DIAGNOSES: 1. Status post debridement of vaginal abscess and colostomy. 2. Morbid obesity. 3. History of deep venous thrombosis. 4. Anemia. 5. Moderate pulmonary hypertension. 6. Chronic renal insufficiency. 7. Uncontrolled diabetes mellitus. PLAN: We will repeat CBC, SMA-7, magnesium and phosphorus in the morning. In the meantime, patient getting aspirin 81 mg daily, carvedilol 6.25 b.i.d., DuoNeb handheld nebulizer therapy, ferrous sulfate 324 mg p.o. t.i.d., heparin 5000 units subcutaneous q. 8 hours, Lipitor 10 mg daily, amlodipine 10 mg daily, antibiotic as per Dr. Johnson, Infectious Disease, from tomorrow. Dr. Dorsey will follow the patient. Rolly Ho MD
--- NOTE | 2017-05-03 16:26 | RAD ---
HISTORY: Dyspnea COMPARISON: 05/01/2017 FINDINGS: LUNGS: No active pulmonary disease. PLEURA: No significant pleural effusion identified, no pneumothorax apparent. CARDIOVASCULAR: Severe vascular congestion and perihilar edema OSSEOUS STRUCTURES: No significant abnormalities. VISUALIZED UPPER ABDOMEN: Normal. OTHER FINDINGS: None. IMPRESSION: CHF
[2017-05-03 17:29] LABS: B-TYPE NATRIURETIC PEPTIDE 4930 pg/mL (0-450); TROPONIN I < 0.01 ng/mL
[2017-05-03 17:34] LABS: ALB/GLOB RATIO 0.8 (1.1-1.8); ALT/SGPT 30 U/L (7-56); AST/SGOT 31 U/L (14-36); BLOOD UREA NITROGEN 31 mg/dL (7-21); GFR AFRICAN-AMERICAN 46; GFR NON-AFRICAN AMERICAN 38
[2017-05-03 17:49] LABS: BASO % 0.2 % (0.0-3.0); EOS % 0.7 % (1.5-5.0); GRAN # 8.99 (1.4-6.5); GRAN % 72.6 % (50.0-68.0); HEMOGLOBIN 8.5 g/dL (12.0-16.0); LYMPH # 2.3 (1.2-3.4); LYMPH % 18.4 % (22.0-35.0); MEAN CELL VOLUME 90.6 fl (80.0-105.0); MEAN CORPUSCULAR HEMOGLOBIN 28.5 pg (25.0-35.0); MEAN CORPUSCULAR HGB CONC 31.5 g/dl (31.0-37.0); MEAN PLATELET VOLUME 9.5 fl (7.0-11.0); MONO % 8.1 % (1.0-6.0); RBC 2.98 10^6/uL (3.5-6.1); RED CELL DISTRIBUTION WIDTH 14.1 % (11.5-14.5); WHITE BLOOD COUNT 12.4 10^3/ul (4.5-11.0)
[2017-05-03 17:50] LABS: BASO # 0.02 K/mm3 (0.0-2.0); EOS # 0.1 (0.0-0.7)
--- NOTE | 2017-05-03 17:51 | CP.PCM.PN ---
Subjective - Date & Time of Evaluation Date of Evaluation: 05/03/17 Time of Evaluation: 17:00 - Subjective Subjective: Infectious Disease Follow Up: May 03, 2017 66 yo female with presentation of weakness and somnolence progressing over the last few days. The patient was recently treated for influenza and has severely limited mobility. The patient also has gluteal and sacral pain with possible abscess formation with foul smelling discharge. Normally as per the family, the patient is able to ambulate to the bathroom but stays mostly in bed. She was taken to the OR for eli-rectal abscess I&D and washout. Taken to MICU for further care. Currently on nasal cannula. Cultures pending. On IV Zosyn for treatment at this time. OR cultures showing E. coli sensitive to Zosyn. Supportive care. Transferred to medical floor. Awaiting further surgery. Noted the positive Antibodies for Influenza A. This only states the patient was exposed to Influenza within the last 6 months of so and not a confirmation of active influenza. EIA for Influenza was negative which is a much more accurate method of checking for active influenza infection. In addition the patient was recently treated with TamiFlu for flu just [place] [facility] Leukocytosis slightly increased to 20. POD #2 from last washout/debridement and placement of diverting loop colostomy. She has a mild cough with thin white sputum. Remains on Zosyn for antibiotic coverage. Still with SOB episodes. No fevers. Repeat CBC pending. Will obtain procalcitonin to monitor trend of the procalcitonin. If procalcitonin remains high, will consider modifying antibiotic therapy further. Objective - Vital Signs/Intake and Output Vital Signs (last 24 hours): Temp Pulse Resp BP Pulse Ox 98.7 F 65 21 130/80 97 05/02/17 16:41 05/03/17 14:00 05/02/17 16:41 05/03/17 09:46 05/02/17 16:41 Intake and Output: 05/03/17 05/03/17 06:59 18:59 Intake Total 800 480 Output Total 1400 700 Balance -600 -220 - Medications Medications: Current Medications Albuterol/Ipratropium (Duoneb 3 Mg/0.5 Mg (3 Ml) Ud) 3 ml IH Q2H PRN PRN Reason: Shortness of Breath Last Admin: 05/03/17 10:56 Dose: 3 ml Albuterol/Ipratropium (Duoneb 3 Mg/0.5 Mg (3 Ml) Ud) 3 ml IH [id number] [facility] Last Admin: 05/03/17 13:53 Dose: 3 ml Amlodipine Besylate (Norvasc) 10 mg PO DAILY [facility] Last Admin: 05/03/17 09:46 Dose: 10 mg Aspirin (Aspirin Chewable) 81 mg PO DAILY [facility] Last Admin: 05/03/17 09:43 Dose: 81 mg Atorvastatin Calcium (Lipitor) 10 mg PO DAILY [facility] Last Admin: 05/03/17 09:45 Dose: 10 mg Carvedilol (Coreg) 6.25 mg PO BID [facility] Last Admin: 05/03/17 09:43 Dose: 6.25 mg Ferrous Gluconate (Fergon) 324 mg PO TID [facility] Last Admin: 05/03/17 14:32 Dose: Not Given Heparin Sodium (Porcine) (Heparin) 5,000 units SC Q8H [facility] PRN Reason: Protocol Last Admin: 05/03/17 11:54 Dose: 5,000 units Hydromorphone HCl (Dilaudid) 0.5 mg IVP Q4H PRN PRN Reason: Pain, moderate (4-7) Last Admin: 05/02/17 15:15 Dose: 0.5 mg Piperacillin Sod/Tazobactam Sod (Zosyn 2.25 Gm In 0.9% 100 Ml) 2.25 gm in 100 mls @ 100 mls/hr IVPB Q6 [facility] PRN Reason: Protocol Last Admin: 05/03/17 11:59 Dose: 100 mls/hr Sodium Chloride (Sodium Chloride 0.9%) 1,000 mls @ 75 mls/hr IV .[id number] [facility] Last Admin: 05/03/17 01:58 Dose: 75 mls/hr Insulin Detemir (Levemir) 50 unit SC DAILY [facility] Last Admin: 05/03/17 09:45 Dose: 50 unit Insulin Human Regular (Humulin R High) 0 units SC ACHS [facility] PRN Reason: Protocol Last Admin: 05/03/17 11:55 Dose: 1 units Multivitamins (Thera Tab) 1 tab PO 0800 [facility] Last Admin: 05/03/17 08:33 Dose: 1 tab Pantoprazole Sodium (Protonix Inj) 40 mg IVP DAILY [facility] Last Admin: 05/03/17 10:52 Dose: 40 mg Sodium Hypochlorite (Dakins Solution 0.25%) 0 ml TOP DAILY [facility] Last Admin: 05/03/17 09:44 Dose: Not Given - Labs Labs: 05/02/17 07:00 05/03/17 16:30 PT 14.2 SECONDS (9.4-12.5) H 04/30/17 06:30 INR 1.23 (0.93-1.08) H 04/30/17 06:30 APTT 28.2 Seconds (25.1-36.5) 04/26/17 21:55 - Constitutional Appears: Non-toxic, No Acute Distress, Chronically Ill - Head Exam Head Exam: ATRAUMATIC, NORMOCEPHALIC - Eye Exam Eye Exam: EOMI, PERRL Pupil Exam: NORMAL ACCOMODATION, PERRL - ENT Exam ENT Exam: Mucous Membranes Moist, Normal External Ear Exam, TM's Normal Bilaterally - Neck Exam Neck Exam: Full ROM, Normal Inspection - Respiratory Exam Respiratory Exam: Clear to Ausculation Bilateral, NORMAL BREATHING PATTERN. absent: Rales, Rhonchi, Wheezes - Cardiovascular Exam Cardiovascular Exam: REGULAR RHYTHM, RRR, +S1, +S2 - GI/Abdominal Exam GI & Abdominal Exam: Soft, Normal Bowel Sounds. absent: Distended, Tenderness Additional comments: multiple recent surgical incisions. Colostomy in place. - Extremities Exam Extremities Exam: Full ROM, Normal Inspection - Neurological Exam Neurological Exam: Alert, Awake, CN II-XII Intact, Oriented x3 - Psychiatric Exam Psychiatric exam: Normal Affect, Normal Mood - Skin Skin Exam: Intact, Normal Color Assessment and Plan - Assessment and Plan (Free Text) Assessment: 66 yo morbidly obese female with multiple medical issues presenting with sepsis like symptoms in setting of large perirectal abscess. The patient had known history of NIDDM, lower extremity DVT, HTN, and CKD at least stage III. Patient with foul smelling discharge from the buttocks area. Recently treated for influenza. Question of CHF. Taken to OR tonight for I&D of the sacral abscess. Procalcitonin of 2.87 which can fall in diagnosis of sepsis. Hgb A1c of 8.3. The patient is awake and alert although groggy from anesthesia. Supportive care. Continue with antibiotics of Zosyn although would monitor renal function closely while on this regimen. E. coli from OR cultures sensitive to Zosyn. Looking for 14 days of treatment in total. Can consider oral antibiotics when medical cleared from the hospital. Leukocytosis is improving. Taken back to OR for diverting colostomy. Postoperative day #2 now. Leukocytosis up to 20 today. Clinically no changes. Remains on Zosyn for antibiotic coverage at this time. Supportive care. No new symptoms. Treated for influenza prior to this hospitalization. Supportive care. Spoke with Dr. Grullon this afternoon. Chest X-ray done today showing CHF. Recheck procalcitonin values. Recheck WBC. Thank you for allowing me to participate in the care of the patient, we will follow with you.
--- NOTE | 2017-05-03 17:56 | CP.PCM.PN ---
Subjective - Date & Time of Evaluation Date of Evaluation: 05/03/17 Time of Evaluation: 07:00 - Subjective Subjective: GENERAL SURGERY PROGRESS NOTE FOR DR. SMALL Patient seen and examined at bedside. She is doing well, denies abdominal pain. She denies nausea or vomiting and is tolerating her regular diet. Objective - Vital Signs/Intake and Output Vital Signs (last 24 hours): Temp Pulse Resp BP Pulse Ox 98.7 F 65 21 130/80 97 05/02/17 16:41 05/03/17 14:00 05/02/17 16:41 05/03/17 09:46 05/02/17 16:41 Intake and Output: 05/03/17 05/03/17 06:59 18:59 Intake Total 800 480 Output Total 1400 700 Balance -600 -220 - Medications Medications: Current Medications Albuterol/Ipratropium (Duoneb 3 Mg/0.5 Mg (3 Ml) Ud) 3 ml IH Q2H PRN PRN Reason: Shortness of Breath Last Admin: 05/03/17 10:56 Dose: 3 ml Albuterol/Ipratropium (Duoneb 3 Mg/0.5 Mg (3 Ml) Ud) 3 ml IH [id number] [facility] Last Admin: 05/03/17 13:53 Dose: 3 ml Amlodipine Besylate (Norvasc) 10 mg PO DAILY [facility] Last Admin: 05/03/17 09:46 Dose: 10 mg Aspirin (Aspirin Chewable) 81 mg PO DAILY [facility] Last Admin: 05/03/17 09:43 Dose: 81 mg Atorvastatin Calcium (Lipitor) 10 mg PO DAILY [facility] Last Admin: 05/03/17 09:45 Dose: 10 mg Carvedilol (Coreg) 6.25 mg PO BID [facility] Last Admin: 05/03/17 09:43 Dose: 6.25 mg Ferrous Gluconate (Fergon) 324 mg PO TID [facility] Last Admin: 05/03/17 14:32 Dose: Not Given Heparin Sodium (Porcine) (Heparin) 5,000 units SC Q8H [facility] PRN Reason: Protocol Last Admin: 05/03/17 11:54 Dose: 5,000 units Hydromorphone HCl (Dilaudid) 0.5 mg IVP Q4H PRN PRN Reason: Pain, moderate (4-7) Last Admin: 05/02/17 15:15 Dose: 0.5 mg Piperacillin Sod/Tazobactam Sod (Zosyn 2.25 Gm In 0.9% 100 Ml) 2.25 gm in 100 mls @ 100 mls/hr IVPB Q6 [facility] PRN Reason: Protocol Last Admin: 05/03/17 11:59 Dose: 100 mls/hr Sodium Chloride (Sodium Chloride 0.9%) 1,000 mls @ 75 mls/hr IV .[id number] [facility] Last Admin: 05/03/17 01:58 Dose: 75 mls/hr Insulin Detemir (Levemir) 50 unit SC DAILY [facility] Last Admin: 05/03/17 09:45 Dose: 50 unit Insulin Human Regular (Humulin R High) 0 units SC ACHS [facility] PRN Reason: Protocol Last Admin: 05/03/17 11:55 Dose: 1 units Multivitamins (Thera Tab) 1 tab PO 0800 [facility] Last Admin: 05/03/17 08:33 Dose: 1 tab Pantoprazole Sodium (Protonix Inj) 40 mg IVP DAILY [facility] Last Admin: 05/03/17 10:52 Dose: 40 mg Sodium Hypochlorite (Dakins Solution 0.25%) 0 ml TOP DAILY [facility] Last Admin: 05/03/17 09:44 Dose: Not Given - Labs Labs: 05/03/17 16:30 05/03/17 16:30 PT 14.2 SECONDS (9.4-12.5) H 04/30/17 06:30 INR 1.23 (0.93-1.08) H 04/30/17 06:30 APTT 28.2 Seconds (25.1-36.5) 04/26/17 21:55 - Constitutional Appears: Well, Non-toxic, No Acute Distress - Head Exam Head Exam: ATRAUMATIC, NORMAL INSPECTION - Eye Exam Eye Exam: EOMI, Normal appearance - Respiratory Exam Respiratory Exam: NORMAL BREATHING PATTERN. absent: Respiratory Distress - Cardiovascular Exam Cardiovascular Exam: +S1, +S2 - GI/Abdominal Exam GI & Abdominal Exam: Soft. absent: Distended, Firm, Guarding, Rigid, Tenderness Additional comments: Loop colostomy with air and bowel sweat in bag. No stool seen. - Neurological Exam Neurological Exam: Alert, Awake - Psychiatric Exam Psychiatric exam: Normal Affect, Normal Mood Assessment and Plan - Assessment and Plan (Free Text) Assessment: 66yo F with complex, non-healing labial abscess/wound requiring diverting loop colostomy POD#3 - Will continue to monitor for ostomy output - Continue local wound care for labial/perineal wound - Continue IV Abx, ID on board - Discussed plan with Dr. Marco Antonio Alarcon PGY-3
[2017-05-03] MEDS: HYDROmorphone 0.5 mg/0.5 ml ISec IVP PRN (18:02)
--- NOTE | 2017-05-03 23:08 | CP.PCM.PN ---
Subjective - Date & Time of Evaluation Date of Evaluation: 05/03/17 Time of Evaluation: 11:30 - Subjective Subjective: Seen and examined at the bed side.+SOB despite BIPAP use. Patient on IVF for ACute Renal Failure and sepsis. Denies chest pain or palpitation. Denies fever or chills. Sat CXR, and Blood work showed Acute Pulmonary Edema in the setting of Daistolic CHF, and High ProbnP. D/C IVF, Stat IV Lasix and Continue to Tele- Monitoring. Objective - Vital Signs/Intake and Output Vital Signs (last 24 hours): Temp Pulse Resp BP Pulse Ox 98.7 F 66 21 145/60 97 05/02/17 16:41 05/03/17 22:31 05/02/17 16:41 05/03/17 22:43 05/02/17 16:41 Intake and Output: 05/03/17 05/04/17 18:59 06:59 Intake Total 480 240 Output Total 700 Balance -220 240 - Medications Medications: Current Medications Albuterol/Ipratropium (Duoneb 3 Mg/0.5 Mg (3 Ml) Ud) 3 ml IH Q2H PRN PRN Reason: Shortness of Breath Last Admin: 05/03/17 10:56 Dose: 3 ml Albuterol/Ipratropium (Duoneb 3 Mg/0.5 Mg (3 Ml) Ud) 3 ml IH [id number] [facility] Last Admin: 05/03/17 19:39 Dose: 3 ml Amlodipine Besylate (Norvasc) 10 mg PO DAILY [facility] Last Admin: 05/03/17 09:46 Dose: 10 mg Aspirin (Aspirin Chewable) 81 mg PO DAILY [facility] Last Admin: 05/03/17 09:43 Dose: 81 mg Atorvastatin Calcium (Lipitor) 10 mg PO DAILY [facility] Last Admin: 05/03/17 09:45 Dose: 10 mg Carvedilol (Coreg) 6.25 mg PO BID [facility] Last Admin: 05/03/17 18:03 Dose: 6.25 mg Ferrous Gluconate (Fergon) 324 mg PO TID [facility] Last Admin: 05/03/17 18:03 Dose: 324 mg Furosemide (Lasix) 40 mg IVP DAILY [facility] Heparin Sodium (Porcine) (Heparin) 5,000 units SC Q8H [facility] PRN Reason: Protocol Last Admin: 05/03/17 21:03 Dose: 5,000 units Hydromorphone HCl (Dilaudid) 0.5 mg IVP Q4H PRN PRN Reason: Pain, moderate (4-7) Last Admin: 05/03/17 18:02 Dose: 0.5 mg Piperacillin Sod/Tazobactam Sod (Zosyn 2.25 Gm In 0.9% 100 Ml) 2.25 gm in 100 mls @ 100 mls/hr IVPB Q6 [facility] PRN Reason: Protocol Last Admin: 05/03/17 18:04 Dose: 100 mls/hr Insulin Detemir (Levemir) 50 unit SC DAILY [facility] Last Admin: 05/03/17 09:45 Dose: 50 unit Insulin Human Regular (Humulin R High) 0 units SC ACHS [facility] PRN Reason: Protocol Last Admin: 05/03/17 22:15 Dose: Not Given Multivitamins (Thera Tab) 1 tab PO 0800 [facility] Last Admin: 05/03/17 08:33 Dose: 1 tab Pantoprazole Sodium (Protonix Inj) 40 mg IVP DAILY [facility] Last Admin: 05/03/17 10:52 Dose: 40 mg Sodium Hypochlorite (Dakins Solution 0.25%) 0 ml TOP DAILY [facility] Last Admin: 05/03/17 09:44 Dose: Not Given - Labs Labs: 05/03/17 16:30 05/03/17 16:30 PT 14.2 SECONDS (9.4-12.5) H 04/30/17 06:30 INR 1.23 (0.93-1.08) H 04/30/17 06:30 APTT 28.2 Seconds (25.1-36.5) 04/26/17 21:55 - Constitutional Appears: In Acute Distress - Head Exam Head Exam: ATRAUMATIC, NORMAL INSPECTION, NORMOCEPHALIC - Eye Exam Eye Exam: EOMI, Normal appearance, PERRL Pupil Exam: NORMAL ACCOMODATION, PERRL - ENT Exam ENT Exam: Mucous Membranes Moist, Normal Exam - Neck Exam Neck Exam: Full ROM, Normal Inspection. absent: Lymphadenopathy - Respiratory Exam Respiratory Exam: Decreased Breath Sounds, Rales. absent: Wheezes - Cardiovascular Exam Cardiovascular Exam: REGULAR RHYTHM, +S1, +S2. absent: Murmur - GI/Abdominal Exam GI & Abdominal Exam: Soft, Normal Bowel Sounds. absent: Tenderness - Extremities Exam Extremities Exam: Full ROM, Normal Capillary Refill, Normal Inspection, Pedal Edema. absent: Joint Swelling - Back Exam Back Exam: NORMAL INSPECTION. absent: CVA tenderness (L), CVA tenderness (R) - Neurological Exam Neurological Exam: Alert, Awake, CN II-XII Intact, Normal Gait, Oriented x3 - Psychiatric Exam Psychiatric exam: Normal Affect, Normal Mood - Skin Skin Exam: Dry Additional comments: +Pressure Ulcer - Additional Findings Additional findings: CXR: Dyspnea COMPARISON: 05/01/2017 FINDINGS: LUNGS: No active pulmonary disease. PLEURA: No significant pleural effusion identified, no pneumothorax apparent. CARDIOVASCULAR: Severe vascular congestion and perihilar edema OSSEOUS STRUCTURES: No significant abnormalities. VISUALIZED UPPER ABDOMEN: Normal. OTHER FINDINGS: None. IMPRESSION: CHF Assessment and Plan (1) Sepsis Assessment & Plan: Unstageable Sacral, Gluteal, and Perianal Pressure Ulcers S/P I&D, Surgery F/U for wound Care and Possible Re-Debridment Continue IVF, IV Zosyn Air Loss Mattress Reposition Q2hrs ID Consult Wound Culture grew E-coli (ESBL Negative) CBC with diff/CMP Status: Acute Priority: High (2) Diastolic CHF Exacerbation IV Lasix 40mg daily 2L O2 Via [place] BIPAP @Night (3) Acute on chronic renal failure Assessment and Plan: IVF Monitor BMP Nephrology Consult Status: Acute Priority: High (4) Diabetes mellitus with hyperglycemia Assessment and Plan: Accu-check with Coverage Status: Acute Priority: Medium (5) Essential hypertension Status: Chronic Priority: Low (6) DVT prophylaxis Status: Inactive Priority: High (7) Morbid obesity Status: Acute
[2017-05-04] MEDS: Albuterol-Ipratrop 3 mg / 0.5 (3 ml) UD IH SCH ×4 (01:59→20:16)
[2017-05-04] MEDS: Piperacillin/Tazobact 2.25gm 2.25 GM/100 ML BAG IVPB SCH ×2 (05:36→18:02)
[2017-05-04] MEDS: HYDROmorphone 0.5 mg/0.5 ml ISec IVP PRN ×2 (07:01→18:03)
[2017-05-04 07:28] LABS: BASO # 0.03 K/mm3 (0.0-2.0); BASO % 0.3 % (0.0-3.0); EOS # 0.1 (0.0-0.7); EOS % 1.1 % (1.5-5.0); GRAN # 8.29 (1.4-6.5); GRAN % 71.2 % (50.0-68.0); HEMOGLOBIN 8.3 g/dL (12.0-16.0); LYMPH # 2.1 (1.2-3.4); LYMPH % 18.4 % (22.0-35.0); MEAN CELL VOLUME 91.8 fl (80.0-105.0); MEAN CORPUSCULAR HEMOGLOBIN 28.4 pg (25.0-35.0); MEAN PLATELET VOLUME 9.8 fl (7.0-11.0); MONO # 1.1 (0.1-0.6); RBC 2.92 10^6/uL (3.5-6.1); RED CELL DISTRIBUTION WIDTH 14.2 % (11.5-14.5); WHITE BLOOD COUNT 11.6 10^3/ul (4.5-11.0)
[2017-05-04 07:34] LABS: MAGNESIUM 1.7 mg/dL (1.7-2.2)
--- NOTE | 2017-05-04 08:36 | PN ---
DATE: 05/02/2017 LOCATION: The patient is in room number 574, bed 1. This progress note I am dictating on behalf of Dr. Sameer Dorsey. SUBJECTIVE: The patient is status post debridement of labial wound and colostomy. The patient is lying flat in bed without any cardiac symptoms like chest pain, shortness of breath or palpitations. PHYSICAL EXAMINATION: VITAL SIGNS: Blood pressure of 142/52, respirations of 20, pulse of 74, and temperature of 98.7. HEENT: Head is normocephalic. Eyes; pupils are normal. Conjunctivae slightly pale. NECK: JVP low. Carotids equal. THORAX: AP diameter normal. LUNGS: Clear. CARDIOVASCULAR: S1 and S2. ABDOMEN: Colostomy. EXTREMITIES: No clubbing, no cyanosis. LABORATORY DATA: WBC of 19.7, hemoglobin of 8.9, hematocrit of 28.1, and platelets of 315. Sodium of 138, potassium of 4.2, BUN of 56, creatinine of 1.8, random sugar of 286, calcium of 9.0, and phosphorus of 2.5. DIAGNOSES: 1. Status post debridement of vaginal abscess and colostomy. 2. Anemia. 3. History of deep venous thrombosis. 4. Morbid obesity. 5. Moderate pulmonary hypertension. 6. Chronic renal insufficiency. 7. Uncontrolled diabetes mellitus. PLAN: Clinically, cardiac status is stable. The patient on medications aspirin 81 mg daily, carvedilol 6.25 b.i.d., ferrous gluconate 324 mg p.o. t.i.d., heparin 5000 units subcu q.8 hours, atorvastatin 10 mg daily, amlodipine 10 mg daily, the patient on piperacillin/tazobactam 2.25 g IV q.6 hours. We will follow. Rolly Ho MD
[2017-05-04] MEDS: Multivitamin Therapeutic Tab PO SCH (09:05)
[2017-05-04] MEDS: Insulin Reg-HIGH-Coverage SC SCH ×3 (09:07→17:57)
[2017-05-04] MEDS: Dakin's Topical 0.25%-Half Strength (480 ml) TOP SCH (10:10)
--- NOTE | 2017-05-04 10:10 | CP.PCM.PN ---
Subjective - Date & Time of Evaluation Date of Evaluation: 05/04/17 Time of Evaluation: 07:05 - Subjective Subjective: General Surgery Progress Note for Dr. Bernard Patient seen and examined at bedside. Patient denies any fever, chills, abdominal pain, nausea, or vomiting. Patient is tolerating diet per family and nursing. Patient has not passed a bowel movement in illeostomy bag as of yet. Objective - Vital Signs/Intake and Output Vital Signs (last 24 hours): Temp Pulse Resp BP Pulse Ox 98.6 F 54 L 20 145/65 100 05/04/17 08:00 05/04/17 08:00 05/04/17 08:00 05/04/17 09:34 05/04/17 08:00 Intake and Output: 05/04/17 05/04/17 06:59 18:59 Intake Total 240 Balance 240 - Medications Medications: Current Medications Albuterol/Ipratropium (Duoneb 3 Mg/0.5 Mg (3 Ml) Ud) 3 ml IH Q2H PRN PRN Reason: Shortness of Breath Last Admin: 05/03/17 10:56 Dose: 3 ml Albuterol/Ipratropium (Duoneb 3 Mg/0.5 Mg (3 Ml) Ud) 3 ml IH [id number] [facility] Last Admin: 05/04/17 07:37 Dose: 3 ml Amlodipine Besylate (Norvasc) 10 mg PO DAILY [facility] Last Admin: 05/03/17 09:46 Dose: 10 mg Aspirin (Aspirin Chewable) 81 mg PO DAILY [facility] Last Admin: 05/04/17 09:39 Dose: 81 mg Atorvastatin Calcium (Lipitor) 10 mg PO DAILY [facility] Last Admin: 05/04/17 09:39 Dose: 10 mg Carvedilol (Coreg) 6.25 mg PO BID [facility] Last Admin: 05/04/17 09:39 Dose: 6.25 mg Ferrous Gluconate (Fergon) 324 mg PO TID [facility] Last Admin: 05/04/17 09:39 Dose: 324 mg Furosemide (Lasix) 40 mg IVP DAILY [facility] Last Admin: 05/04/17 09:34 Dose: 40 mg Heparin Sodium (Porcine) (Heparin) 5,000 units SC Q8H [facility] PRN Reason: Protocol Last Admin: 05/04/17 03:53 Dose: 5,000 units Hydromorphone HCl (Dilaudid) 0.5 mg IVP Q4H PRN PRN Reason: Pain, moderate (4-7) Last Admin: 05/04/17 07:01 Dose: 0.5 mg Piperacillin Sod/Tazobactam Sod (Zosyn 2.25 Gm In 0.9% 100 Ml) 2.25 gm in 100 mls @ 100 mls/hr IVPB Q6 [facility] PRN Reason: Protocol Last Admin: 05/04/17 05:36 Dose: 100 mls/hr Insulin Detemir (Levemir) 50 unit SC DAILY [facility] Last Admin: 05/03/17 09:45 Dose: 50 unit Insulin Human Regular (Humulin R High) 0 units SC ACHS [facility] PRN Reason: Protocol Last Admin: 05/04/17 09:07 Dose: 7 units Multivitamins (Thera Tab) 1 tab PO 0800 [facility] Last Admin: 05/04/17 09:05 Dose: 1 tab Pantoprazole Sodium (Protonix Inj) 40 mg IVP DAILY [facility] Last Admin: 05/04/17 09:33 Dose: 40 mg Sodium Hypochlorite (Dakins Solution 0.25%) 0 ml TOP DAILY [facility] Last Admin: 05/03/17 09:44 Dose: Not Given - Labs Labs: 05/04/17 06:30 05/04/17 06:30 PT 14.2 SECONDS (9.4-12.5) H 04/30/17 06:30 INR 1.23 (0.93-1.08) H 04/30/17 06:30 APTT 28.2 Seconds (25.1-36.5) 04/26/17 21:55 - Constitutional Appears: Well, Non-toxic - Head Exam Head Exam: ATRAUMATIC, NORMOCEPHALIC - Eye Exam Eye Exam: EOMI, Normal appearance - ENT Exam ENT Exam: Mucous Membranes Moist, Normal Oropharynx - Neck Exam Neck Exam: Normal Inspection - Respiratory Exam Respiratory Exam: NORMAL BREATHING PATTERN. absent: Accessory Muscle Use - Cardiovascular Exam Cardiovascular Exam: RRR, +S1, +S2 - GI/Abdominal Exam Additional comments: illeostomy bag shows air and the visible bowel appears pink and moist. - Neurological Exam Neurological Exam: Alert, CN II-XII Intact, Oriented x3 - Psychiatric Exam Psychiatric exam: Normal Affect, Normal Mood - Skin Skin Exam: Dry, Intact, Normal Color, Warm Assessment and Plan - Assessment and Plan (Free Text) Assessment: 66 year old female with complex, non-healing labial abscess/wound requiring diverting loop colostomy POD#4. - Will continue to monitor for ostomy output; no output as of yet. - Continue local wound care for labial/perineal wound; case discussed with Saeed wound care nurse. - Continue IV Abx, ID on board - Discussed plan with Dr. Bernard
[2017-05-04] MEDS: Insulin Detemir 100 units/ml Vial (Levemir) SC SCH (10:11)
[2017-05-04] MEDS ORDERED: Ergocalciferol 50,000 Intl Units Cap PO SCH (12:15)
--- NOTE | 2017-05-04 12:17 | CP.PCM.PN ---
Subjective - Date & Time of Evaluation Date of Evaluation: 05/04/17 Time of Evaluation: 12:14 - Subjective Subjective: Follow up Nephrology Consultation (covering for Dr Oziel Morgan): Assessment: stable non-oliguric Acute Kidney Injury (N17.9) likely multi-factorial: sepsis, decreased oral intake leading to pre-renal state, some contribution by NSAIDs, urine retention . work up for GN neg so far Diabetic chronic Kidney Disease (E11.22) Hypertensive Chronic Kidney Disease (I12.9) Chronic Kidney Disease (N18.3) Stage 3 with ? mg proteinuria (R80.9) likely due to DM Anemia (D64.9), HTN (I12.9) Morbid obesity, recent Influenza with Myalgias, arthalgias Hyperkalemia, uncontrolled DM moderate pulmonary HTN necrotic sacral decubitus ulcer s/p debridement and diversion colostomy Vit D def Plan No acute need for renal replacement therapy at this time Hypertension control with meds as ordered. No ACEI/ARB due to [place]. continue with norvasc 10 mg/day and coreg bid Monitor Input/Output, daily weights and renal function with basic metabolic panel off IVF and getting IV lasix continue with iron supplements, MVI, dose of aransep 05/01/17 supplement with weekly Vit D. PTH pending Dose meds/antibiotics for reduced GFR. Avoid fleets enema/magnesium based laxatives. Avoid nephrotoxins/NSAIDs/ iodinated contrast (unless needed emergently) need better glycemic control. Further work up/management as per primary team Thanks for allowing me to participate in care of your patient. Will follow patient with you. Please call if any Qs. 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 Denies OTC/herbal meds but has taken NSAIDs as naproxen on prn basis over last 1 week No recent iodinated contrast exposure. No obvious episodes of low BP. ROS: pt denies CP/SOB/nausea. doesn't feel well Physical Examination: General Appearance: Comfortable, in no acute respiratory distress, co-operative .morbid obese. Vitals reviewed and noted as below Head; Atraumatic, normocephalic ENT: no ulcers no thrush. Tongue is midline. Oropharynx: no rash or ulcers. EYES: Pupils are equal, round and reactive to light accommodation. Eye muscles and extraocular movement intact. Sclera is anicteric. Neck; supple no lymphadenopathy, no thyromegaly or bruit Lungs: improved respiratory rate/effort. Breath sounds bilateral equal and clear Heart: Normal rate. s1s2 normal. No rub or gallop. Extremities: no edema. No varicose veins Neurological: Patient is awake alert follow commands no deficit Skin: Warm and dry. Normal turgor. No rash. Palpitation: Normal elasticity for age Abdomen: Abdomen is soft. Bowel sounds +. There is no abdominal tenderness, no guarding/rigidity no organomegaly. has LLQ colostomy + Psych: deferred MSK: no joint tenderness or swelling. Digits and nails normal, no deformity : kidney or bladder not palpable Labs/imaging reviewed. Past medical history, past surgical history, family history, social history, allergy reviewed and noted as below Family hx: no hx of CKD. Rest non-contributory BNP 9030 UA trace blood trace protein normal complements CT abdomen; normal renals Objective - Vital Signs/Intake and Output Vital Signs (last 24 hours): Temp Pulse Resp BP Pulse Ox 98.6 F 54 L 20 145/65 100 05/04/17 08:00 05/04/17 08:00 05/04/17 08:00 05/04/17 10:07 05/04/17 08:00 Intake and Output: 05/04/17 05/04/17 06:59 18:59 Intake Total 240 Balance 240 - Medications Medications: Current Medications Albuterol/Ipratropium (Duoneb 3 Mg/0.5 Mg (3 Ml) Ud) 3 ml IH Q2H PRN PRN Reason: Shortness of Breath Last Admin: 05/03/17 10:56 Dose: 3 ml Albuterol/Ipratropium (Duoneb 3 Mg/0.5 Mg (3 Ml) Ud) 3 ml IH [id number] [facility] Last Admin: 05/04/17 07:37 Dose: 3 ml Amlodipine Besylate (Norvasc) 10 mg PO DAILY [facility] Last Admin: 05/04/17 10:07 Dose: 10 mg Aspirin (Aspirin Chewable) 81 mg PO DAILY [facility] Last Admin: 05/04/17 09:39 Dose: 81 mg Atorvastatin Calcium (Lipitor) 10 mg PO DAILY [facility] Last Admin: 05/04/17 09:39 Dose: 10 mg Carvedilol (Coreg) 6.25 mg PO BID [facility] Last Admin: 05/04/17 09:39 Dose: 6.25 mg Ferrous Gluconate (Fergon) 324 mg PO TID [facility] Last Admin: 05/04/17 09:39 Dose: 324 mg Furosemide (Lasix) 40 mg IVP DAILY [facility] Last Admin: 05/04/17 09:34 Dose: 40 mg Heparin Sodium (Porcine) (Heparin) 5,000 units SC Q8H [facility] PRN Reason: Protocol Last Admin: 05/04/17 03:53 Dose: 5,000 units Hydromorphone HCl (Dilaudid) 0.5 mg IVP Q4H PRN PRN Reason: Pain, moderate (4-7) Last Admin: 05/04/17 07:01 Dose: 0.5 mg Piperacillin Sod/Tazobactam Sod (Zosyn 2.25 Gm In 0.9% 100 Ml) 2.25 gm in 100 mls @ 100 mls/hr IVPB Q6 [facility] PRN Reason: Protocol Last Admin: 05/04/17 05:36 Dose: 100 mls/hr Insulin Detemir (Levemir) 50 unit SC DAILY [facility] Last Admin: 05/04/17 10:11 Dose: 50 unit Insulin Human Regular (Humulin R High) 0 units SC ACHS [facility] PRN Reason: Protocol Last Admin: 05/04/17 09:07 Dose: 7 units Multivitamins (Thera Tab) 1 tab PO 0800 [facility] Last Admin: 05/04/17 09:05 Dose: 1 tab Pantoprazole Sodium (Protonix Inj) 40 mg IVP DAILY [facility] Last Admin: 05/04/17 09:33 Dose: 40 mg Sodium Hypochlorite (Dakins Solution 0.25%) 0 ml TOP DAILY [facility] Last Admin: 05/04/17 10:10 Dose: Not Given - Labs Labs: 05/04/17 06:30 05/04/17 06:30 PT 14.2 SECONDS (9.4-12.5) H 04/30/17 06:30 INR 1.23 (0.93-1.08) H 04/30/17 06:30 APTT 28.2 Seconds (25.1-36.5) 04/26/17 21:55
--- NOTE | 2017-05-04 19:58 | CP.PCM.PN ---
Subjective - Date & Time of Evaluation Date of Evaluation: 05/04/17 Time of Evaluation: 18:00 - Subjective Subjective: Infectious Disease Follow Up: May 04, 2017 66 yo female with presentation of weakness and somnolence progressing over the last few days. The patient was recently treated for influenza and has severely limited mobility. The patient also has gluteal and sacral pain with possible abscess formation with foul smelling discharge. Normally as per the family, the patient is able to ambulate to the bathroom but stays mostly in bed. She was taken to the OR for eli-rectal abscess I&D and washout. Taken to MICU for further care. Currently on nasal cannula. Cultures pending. On IV Zosyn for treatment at this time. OR cultures showing E. coli sensitive to Zosyn. Supportive care. Transferred to medical floor. Awaiting further surgery. Noted the positive Antibodies for Influenza A. This only states the patient was exposed to Influenza within the last 6 months of so and not a confirmation of active influenza. EIA for Influenza was negative which is a much more accurate method of checking for active influenza infection. In addition the patient was recently treated with TamiFlu for flu just before admission to [facility]. Leukocytosis slightly increased to 20. POD #2 from last washout/debridement and placement of diverting loop colostomy. She has a mild cough with thin white sputum. Remains on Zosyn for antibiotic coverage. Still with SOB episodes. No fevers. Repeat CBC pending. Will obtain procalcitonin to monitor trend of the procalcitonin. Procalcitonin improved to 0.18 from 2.87. Objective - Vital Signs/Intake and Output Vital Signs (last 24 hours): Temp Pulse Resp BP Pulse Ox 98.7 F 68 20 154/50 H 100 05/04/17 16:00 05/04/17 16:20 05/04/17 16:00 05/04/17 16:00 05/04/17 16:00 - Medications Medications: Current Medications Albuterol/Ipratropium (Duoneb 3 Mg/0.5 Mg (3 Ml) Ud) 3 ml IH Q2H PRN PRN Reason: Shortness of Breath Last Admin: 05/03/17 10:56 Dose: 3 ml Albuterol/Ipratropium (Duoneb 3 Mg/0.5 Mg (3 Ml) Ud) 3 ml IH [id number] [facility] Last Admin: 05/04/17 13:19 Dose: 3 ml Amlodipine Besylate (Norvasc) 10 mg PO DAILY [facility] Last Admin: 05/04/17 10:07 Dose: 10 mg Aspirin (Aspirin Chewable) 81 mg PO DAILY [facility] Last Admin: 05/04/17 09:39 Dose: 81 mg Atorvastatin Calcium (Lipitor) 10 mg PO DAILY [facility] Last Admin: 05/04/17 09:39 Dose: 10 mg Carvedilol (Coreg) 6.25 mg PO BID [facility] Last Admin: 05/04/17 18:01 Dose: 6.25 mg Ergocalciferol (Drisdol 50,000 Intl Units Cap) 1 cap PO Q7D [facility] Last Admin: 05/04/17 17:54 Dose: 1 cap Ferrous Gluconate (Fergon) 324 mg PO TID [facility] Last Admin: 05/04/17 17:55 Dose: 324 mg Furosemide (Lasix) 40 mg IVP DAILY [facility] Last Admin: 05/04/17 09:34 Dose: 40 mg Heparin Sodium (Porcine) (Heparin) 5,000 units SC Q8H [facility] PRN Reason: Protocol Last Admin: 05/04/17 19:42 Dose: 5,000 units Hydromorphone HCl (Dilaudid) 0.5 mg IVP Q3H PRN PRN Reason: Pain, moderate (4-7) Last Admin: 05/04/17 18:03 Dose: 0.5 mg Cefazolin Sodium (Ancef 1gm In Ns) 1 gm in 100 mls @ 100 mls/hr IVPB Q8 [facility] Insulin Detemir (Levemir) 50 unit SC DAILY [facility] Last Admin: 05/04/17 10:11 Dose: 50 unit Insulin Human Regular (Humulin R High) 0 units SC ACHS [facility] PRN Reason: Protocol Last Admin: 05/04/17 17:57 Dose: 10 units Multivitamins (Thera Tab) 1 tab PO 0800 [facility] Last Admin: 05/04/17 09:05 Dose: 1 tab Pantoprazole Sodium (Protonix Ec Tab) 40 mg PO ACB [facility]PL[facility] Sodium Hypochlorite (Dakins Solution 0.25%) 0 ml TOP BID [facility] - Labs Labs: 05/04/17 06:30 05/04/17 06:30 PT 14.2 SECONDS (9.4-12.5) H 01/18 06:30 INR 1.23 (0.93-1.08) H 04/30/17 06:30 APTT 28.2 Seconds (25.1-36.5) 04/26/17 21:55 - Constitutional Appears: Non-toxic, No Acute Distress, Chronically Ill - Head Exam Head Exam: ATRAUMATIC, NORMOCEPHALIC - Eye Exam Eye Exam: EOMI, PERRL Pupil Exam: NORMAL ACCOMODATION, PERRL - ENT Exam ENT Exam: Mucous Membranes Moist, Normal External Ear Exam, TM's Normal Bilaterally - Neck Exam Neck Exam: Full ROM, Normal Inspection - Respiratory Exam Respiratory Exam: Clear to Ausculation Bilateral, NORMAL BREATHING PATTERN. absent: Rales, Rhonchi, Wheezes - Cardiovascular Exam Cardiovascular Exam: REGULAR RHYTHM, RRR, +S1, +S2 - GI/Abdominal Exam GI & Abdominal Exam: Soft, Normal Bowel Sounds. absent: Distended, Tenderness Additional comments: multiple recent surgical incisions. Colostomy in place. - Extremities Exam Extremities Exam: Full ROM, Normal Inspection - Neurological Exam Neurological Exam: Alert, Awake, CN II-XII Intact, Oriented x3 - Psychiatric Exam Psychiatric exam: Normal Affect, Normal Mood - Skin Skin Exam: Intact, Normal Color Assessment and Plan - Assessment and Plan (Free Text) Assessment: 66 yo morbidly obese female with multiple medical issues presenting with sepsis like symptoms in setting of large perirectal abscess. The patient had known history of NIDDM, lower extremity DVT, HTN, and CKD at least stage III. Patient with foul smelling discharge from the buttocks area. Recently treated for influenza. Question of CHF. Taken to OR tonight for I&D of the sacral abscess. Procalcitonin of 2.87 which can fall in diagnosis of sepsis. Hgb A1c of 8.3. The patient is awake and alert although groggy from anesthesia. Supportive care. Continue with antibiotics of Zosyn although would monitor renal function closely while on this regimen. E. coli from OR cultures sensitive to Zosyn. Looking for 14 days of treatment in total. Can consider oral antibiotics when medical cleared from the hospital. Leukocytosis is improving. Taken back to OR for diverting colostomy. Postoperative day #2 now. Leukocytosis up to 20 today. Clinically no changes. Was on Zosyn for antibiotic coverage and now deescalated to Ancef for treatment. Supportive care. No new symptoms. Treated for influenza prior to this hospitalization. Supportive care. Spoke with Dr. Grullon this evening. Chest X-ray done today showing CHF. Recheck procalcitonin values... improved to 0.18. Recheck WBC. Thank you for allowing me to participate in the care of the patient, we will follow with you.
[2017-05-04] MEDS: ceFAZolin 1 gm in NS 1 GM/100 ML BAG IVPB SCH (22:09)
--- NOTE | 2017-05-04 23:46 | CP.PCM.PN ---
Subjective - Date & Time of Evaluation Date of Evaluation: 05/04/17 Time of Evaluation: 17:20 - Subjective Subjective: Seen and examined at the bed side. Increased urine output. SOB has improved, and patient is more comfortable. ID Changed IV Zosyn to IV Cafazolin as the Leukocytois improved to 12K from 22K. Denies fever/chills or chest pain. Objective - Vital Signs/Intake and Output Vital Signs (last 24 hours): Temp Pulse Resp BP Pulse Ox 98.7 F 68 20 154/50 H 100 05/04/17 16:00 05/04/17 16:20 05/04/17 16:00 05/04/17 16:00 05/04/17 16:00 Intake and Output: 05/04/17 05/05/17 18:59 06:59 Intake Total 420 Balance 420 - Medications Medications: Current Medications Albuterol/Ipratropium (Duoneb 3 Mg/0.5 Mg (3 Ml) Ud) 3 ml IH Q2H PRN PRN Reason: Shortness of Breath Last Admin: 05/03/17 10:56 Dose: 3 ml Albuterol/Ipratropium (Duoneb 3 Mg/0.5 Mg (3 Ml) Ud) 3 ml IH [id number] [facility] Last Admin: 05/04/17 20:16 Dose: 3 ml Amlodipine Besylate (Norvasc) 10 mg PO DAILY [facility] Last Admin: 05/04/17 10:07 Dose: 10 mg Aspirin (Aspirin Chewable) 81 mg PO DAILY [facility] Last Admin: 05/04/17 09:39 Dose: 81 mg Atorvastatin Calcium (Lipitor) 10 mg PO DAILY [facility] Last Admin: 05/04/17 09:39 Dose: 10 mg Carvedilol (Coreg) 6.25 mg PO BID [facility] Last Admin: 05/04/17 18:01 Dose: 6.25 mg Ergocalciferol (Drisdol 50,000 Intl Units Cap) 1 cap PO Q7D [facility] Last Admin: 05/04/17 17:54 Dose: 1 cap Ferrous Gluconate (Fergon) 324 mg PO TID [facility] Last Admin: 05/04/17 17:55 Dose: 324 mg Furosemide (Lasix) 40 mg IVP DAILY [facility] Last Admin: 05/04/17 09:34 Dose: 40 mg Heparin Sodium (Porcine) (Heparin) 5,000 units SC Q8H [facility] PRN Reason: Protocol Last Admin: 05/04/17 19:42 Dose: 5,000 units Hydromorphone HCl (Dilaudid) 0.5 mg IVP Q3H PRN PRN Reason: Pain, moderate (4-7) Last Admin: 05/04/17 18:03 Dose: 0.5 mg Cefazolin Sodium (Ancef 1gm In Ns) 1 gm in 100 mls @ 100 mls/hr IVPB Q8 [facility] Last Admin: 05/04/17 22:09 Dose: 100 mls/hr Insulin Detemir (Levemir) 50 unit SC DAILY [facility] Last Admin: 05/04/17 10:11 Dose: 50 unit Insulin Human Regular (Humulin R High) 0 units SC ACHS [facility] PRN Reason: Protocol Last Admin: 05/04/17 17:57 Dose: 10 units Multivitamins (Thera Tab) 1 tab PO 0800 [facility] Last Admin: 05/04/17 09:05 Dose: 1 tab Pantoprazole Sodium (Protonix Ec Tab) 40 mg PO ACB [facility] Sodium Hypochlorite (Dakins Solution 0.25%) 0 ml TOP BID [facility] - Labs Labs: 05/04/17 06:30 05/04/17 06:30 PT 14.2 SECONDS (9.4-12.5) H 04/30/17 06:30 INR 1.23 (0.93-1.08) H 04/30/17 06:30 APTT 28.2 Seconds (25.1-36.5) 04/26/17 21:55 - Constitutional Appears: Well, No Acute Distress - Head Exam Head Exam: ATRAUMATIC, NORMAL INSPECTION, NORMOCEPHALIC - Eye Exam Eye Exam: EOMI, Normal appearance, PERRL Pupil Exam: NORMAL ACCOMODATION, PERRL - ENT Exam ENT Exam: Mucous Membranes Moist, Normal Exam - Neck Exam Neck Exam: Full ROM, Normal Inspection. absent: Lymphadenopathy - Respiratory Exam Respiratory Exam: Clear to Ausculation Bilateral, NORMAL BREATHING PATTERN. absent: Rales, Wheezes - Cardiovascular Exam Cardiovascular Exam: REGULAR RHYTHM, +S1, +S2. absent: Murmur - GI/Abdominal Exam GI & Abdominal Exam: Soft, Normal Bowel Sounds. absent: Tenderness - Extremities Exam Extremities Exam: Normal Capillary Refill, Normal Inspection, Pedal Edema - Back Exam Back Exam: NORMAL INSPECTION - Neurological Exam Neurological Exam: Abnormal Gait, Alert, Awake, CN II-XII Intact, Oriented x3 - Psychiatric Exam Psychiatric exam: Normal Affect, Normal Mood - Skin Additional comments: Pressure Ulcers to the Sacral and Perianal area Assessment and Plan (1) Sepsis Assessment & Plan: Unstageable Sacral, Gluteal, and Perianal Pressure Ulcers S/P I&D, Surgery F/U for wound Care and Possible Re-Debridment Continue IVF, IV Zosyn Air Loss Mattress Reposition Q2hrs ID Consult Wound Culture grew E-coli (ESBL Negative) CBC with diff/CMP Status: Acute Priority: High (2) Pulmonary Edema, Diastolic CHF Exacerbation IV Lasix 40mg daily 2L O2 Via [place] BIPAP @Night (3) Acute on chronic renal failure Assessment and Plan: IVF Monitor BMP Nephrology Consult Status: Acute Priority: High (4) Diabetes mellitus with hyperglycemia Assessment and Plan: Accu-check with Coverage Status: Acute Priority: Medium (5) Essential hypertension Status: Chronic Priority: Low (6) DVT prophylaxis Status: Inactive Priority: High (7) Morbid obesity Status: Acute
[2017-05-05] MEDS: Albuterol-Ipratrop 3 mg / 0.5 (3 ml) UD IH SCH ×4 (01:42→20:44)
[2017-05-05] MEDS: Insulin Reg-HIGH-Coverage SC SCH ×5 (02:44→22:03)
[2017-05-05] MEDS: HYDROmorphone 0.5 mg/0.5 ml ISec IVP PRN ×3 (02:47→22:04)
[2017-05-05] MEDS: Dakin's Topical 0.25%-Half Strength (480 ml) TOP SCH ×3 (02:50→18:14)
[2017-05-05] MEDS: ceFAZolin 1 gm in NS 1 GM/100 ML BAG IVPB SCH ×3 (05:59→21:57)
[2017-05-05 06:58] LABS: BASO # 0.02 K/mm3 (0.0-2.0); BASO % 0.2 % (0.0-3.0); EOS # 0.1 (0.0-0.7); EOS % 1.2 % (1.5-5.0); GRAN # 7.23 (1.4-6.5); GRAN % 67.5 % (50.0-68.0); HEMOGLOBIN 8.5 g/dL (12.0-16.0); LYMPH # 2.3 (1.2-3.4); LYMPH % 21.5 % (22.0-35.0); MEAN CELL VOLUME 88.3 fl (80.0-105.0); MEAN CORPUSCULAR HEMOGLOBIN 27.5 pg (25.0-35.0); MEAN CORPUSCULAR HGB CONC 31.1 g/dl (31.0-37.0); MEAN PLATELET VOLUME 9.5 fl (7.0-11.0); MONO % 9.6 % (1.0-6.0); RBC 3.09 10^6/uL (3.5-6.1); WHITE BLOOD COUNT 10.7 10^3/ul (4.5-11.0)
[2017-05-05 07:28] LABS: ALB/GLOB RATIO 0.8 (1.1-1.8); MAGNESIUM 1.7 mg/dL (1.7-2.2)
[2017-05-05] MEDS: Multivitamin Therapeutic Tab PO SCH (08:15)
[2017-05-05] MEDS: Pantoprazole 40 mg EC Tab PO SCH (08:15)
--- NOTE | 2017-05-05 08:30 | CP.PCM.PN ---
Subjective - Date & Time of Evaluation Date of Evaluation: 05/05/17 Time of Evaluation: 07:20 - Subjective Subjective: General Surgery Progress Note for Dr. Bernard Patient seen and examined at bedside. Patient passed first bowel movement. Patient denies any fever, chills, nausea, vomiting, or abdominal pain. Nurse reports no events overnight. Objective - Vital Signs/Intake and Output Vital Signs (last 24 hours): Temp Pulse Resp BP Pulse Ox 98.7 F 70 20 154/50 H 100 05/04/17 16:00 05/04/17 21:30 05/04/17 16:00 05/04/17 16:00 05/04/17 16:00 Intake and Output: 05/05/17 05/05/17 06:59 18:59 Intake Total 600 Output Total 400 Balance 200 - Medications Medications: Current Medications Albuterol/Ipratropium (Duoneb 3 Mg/0.5 Mg (3 Ml) Ud) 3 ml IH Q2H PRN PRN Reason: Shortness of Breath Last Admin: 05/03/17 10:56 Dose: 3 ml Albuterol/Ipratropium (Duoneb 3 Mg/0.5 Mg (3 Ml) Ud) 3 ml IH [id number] [facility] Last Admin: 05/05/17 07:19 Dose: 3 ml Amlodipine Besylate (Norvasc) 10 mg PO DAILY [facility] Last Admin: 05/04/17 10:07 Dose: 10 mg Aspirin (Aspirin Chewable) 81 mg PO DAILY [facility] Last Admin: 05/04/17 09:39 Dose: 81 mg Atorvastatin Calcium (Lipitor) 10 mg PO DAILY [facility] Last Admin: 05/04/17 09:39 Dose: 10 mg Carvedilol (Coreg) 6.25 mg PO BID [facility] Last Admin: 05/04/17 18:01 Dose: 6.25 mg Ergocalciferol (Drisdol 50,000 Intl Units Cap) 1 cap PO Q7D [facility] Last Admin: 05/04/17 17:54 Dose: 1 cap Ferrous Gluconate (Fergon) 324 mg PO TID [facility] Last Admin: 05/04/17 17:55 Dose: 324 mg Furosemide (Lasix) 40 mg IVP DAILY [facility] Last Admin: 05/04/17 09:34 Dose: 40 mg Heparin Sodium (Porcine) (Heparin) 5,000 units SC Q8H [facility] PRN Reason: Protocol Last Admin: 05/05/17 02:41 Dose: 5,000 units Hydromorphone HCl (Dilaudid) 0.5 mg IVP Q3H PRN PRN Reason: Pain, moderate (4-7) Last Admin: 05/05/17 02:47 Dose: 0.5 mg Cefazolin Sodium (Ancef 1gm In Ns) 1 gm in 100 mls @ 100 mls/hr IVPB Q8 [facility] Last Admin: 05/05/17 05:59 Dose: 100 mls/hr Insulin Detemir (Levemir) 50 unit SC DAILY [facility] Last Admin: 05/04/17 10:11 Dose: 50 unit Insulin Human Regular (Humulin R High) 0 units SC ACHS [facility] PRN Reason: Protocol Last Admin: 05/05/17 08:15 Dose: 7 units Multivitamins (Thera Tab) 1 tab PO 0800 [facility] Last Admin: 05/05/17 08:15 Dose: 1 tab Pantoprazole Sodium (Protonix Ec Tab) 40 mg PO ACB [facility] Last Admin: 05/05/17 08:15 Dose: 40 mg Sodium Hypochlorite (Dakins Solution 0.25%) 0 ml TOP BID [facility] Last Admin: 05/05/17 02:50 Dose: 1 10 - Labs Labs: 05/05/17 06:20 05/05/17 06:20 PT 14.2 SECONDS (9.4-12.5) H 04/30/17 06:30 INR 1.23 (0.93-1.08) H 04/30/17 06:30 APTT 28.2 Seconds (25.1-36.5) 04/26/17 21:55 - Constitutional Appears: Well, Non-toxic - Head Exam Head Exam: ATRAUMATIC, NORMOCEPHALIC - Eye Exam Eye Exam: EOMI, Normal appearance - ENT Exam ENT Exam: Mucous Membranes Moist, Normal Oropharynx - Neck Exam Neck Exam: Normal Inspection - Respiratory Exam Respiratory Exam: NORMAL BREATHING PATTERN. absent: Accessory Muscle Use - GI/Abdominal Exam GI & Abdominal Exam: Normal Bowel Sounds. absent: Guarding, Rebound Additional comments: stool seen within colostomy bag, abdomen is non-tender, soft, non-distended - Extremities Exam Extremities Exam: Normal Inspection - Back Exam Back Exam: NORMAL INSPECTION - Neurological Exam Neurological Exam: Alert, Awake, Oriented x3 - Psychiatric Exam Psychiatric exam: Normal Affect, Normal Mood Assessment and Plan - Assessment and Plan (Free Text) Assessment: 66 year old female with complex, non-healing labial abscess/wound requiring diverting loop colostomy POD#5. - Patient has passed first BM from ostomy site. - Continue local wound care for labial/perineal with Daikens BID; case discussed with wound care nurse. - IV antibiotics per ID, Zosyn discontinued and Cefazolin started. - No further surgical intervention needed at this time. - Will discuss with case management in regards to placement. - Case discussed with Dr. Bernard. Luis Daniel Ayon DO, PGY-1 Internal Medicine
--- NOTE | 2017-05-05 10:44 | CARD ---
APPROVED REPORT EKG Measurement Heart [id number] <Conclusion> Sinus rhythm with premature atrial complexes Otherwise normal ECG
[2017-05-05] MEDS: Insulin Detemir 100 units/ml Vial (Levemir) SC SCH (11:42)
--- NOTE | 2017-05-05 13:54 | PN ---
DATE: SUBJECTIVE: The patient did report chest pain this morning, but could not verify the character of chest pain. She was mildly short of breath. At this time, she is chest pain free. PHYSICAL EXAMINATION: VITAL SIGNS: Blood pressure 192/65, heart rate 62, temperature 98.3, respirations 22. HEENT: Pale conjunctivae. CHEST: Diminished breath sounds, bilaterally. HEART: S1, S2, regular. EXTREMITIES: Trace leg edema. No calf tenderness. LABORATORY DATA: Today's BUN and creatinine are 29 and 1.4. Glucose 293. The rest of SMA-7 is within normal limit. Troponin 0.01, in the indeterminate range. EKG revealed sinus rhythm with APCs, otherwise normal EKG. ASSESSMENT: 1. Atypical chest pain. 2. Rule out pulmonary infarction. 3. Morbid obesity and sleep apnea. 4. Chronic renal insufficiency. 5. History of deep venous thrombosis in the past. 6. Status post incision and drainage of perirectal abscess and colostomy. RECOMMENDATIONS: Continue current aspirin 81 mg once a day, Coreg 6.25 mg twice a day, subcutaneous heparin 5000 units q. 8 hours, Lasix 20 mg intravenously daily, Norvasc 10 mg once a day. Obtain possible chest x-ray as well as ventilation perfusion scan. Sameer Dorsey MD
--- NOTE | 2017-05-05 15:44 | RAD ---
PROCEDURE: CHEST RADIOGRAPH, 1 VIEW HISTORY: R/O PE COMPARISON: 05/03/2017 FINDINGS: LUNGS: There is slight improvement in the degree of pulmonary edema PLEURA: No pneumothorax or pleural fluid seen. CARDIOVASCULAR: Normal. OSSEOUS STRUCTURES: No significant abnormalities. VISUALIZED UPPER ABDOMEN: Normal. OTHER FINDINGS: None. IMPRESSION: Pulmonary edema slightly improved
--- NOTE | 2017-05-05 15:51 | NM ---
COMPARISON: Portable chest same day TECHNIQUE: 38.9 mCi technetium 99-m DTPA aerosol. 4.2 mCI technetium 99-m MAA administered intravenously. FINDINGS: VENTILATION COMPONENT: Normal. PERFUSION COMPONENT: Normal. IMPRESSION: Lowprobability ventilation perfusion scan for pulmonary embolism.
--- NOTE | 2017-05-05 18:11 | CP.PCM.PN ---
Subjective - Date & Time of Evaluation Date of Evaluation: 05/05/17 Time of Evaluation: 16:45 - Subjective Subjective: Infectious Disease Follow Up: May 05, 2017 66 yo female with presentation of weakness and somnolence progressing over the last few days. The patient was recently treated for influenza and has severely limited mobility. The patient also has gluteal and sacral pain with possible abscess formation with foul smelling discharge. Normally as per the family, the patient is able to ambulate to the bathroom but stays mostly in bed. She was taken to the OR for eli-rectal abscess I&D and washout. Taken to MICU for further care. Currently on nasal cannula. Cultures pending. Was on IV Zosyn for treatment and now on Ancef at this time. OR cultures showing E. coli sensitive to Zosyn and Ancef. Supportive care. Transferred to medical floor. Awaiting further surgery. Noted the positive Antibodies for Influenza A. This only states the patient was exposed to Influenza within the last 6 months of so and not a confirmation of active influenza. EIA for Influenza was negative which is a much more accurate method of checking for active influenza infection. In addition the patient was recently treated with TamiFlu for flu just before admission to [facility] [place]. Leukocytosis slightly increased to 20. POD #2 from last washout/debridement and placement of diverting loop colostomy. She has a mild cough with thin white sputum. Remains on Zosyn for antibiotic coverage. Still with SOB episodes. No fevers. Repeat CBC pending. Will obtain procalcitonin to monitor trend of the procalcitonin. Procalcitonin improved to 0.18 from 2.87. WBC down to 10.7. Improving. Patient had first bowel movement since colostomy today. Objective - Vital Signs/Intake and Output Vital Signs (last 24 hours): Temp Pulse Resp BP Pulse Ox 98.3 F 62 22 161/60 H 98 05/05/17 08:00 05/05/17 11:34 05/05/17 08:00 05/05/17 11:43 05/05/17 08:00 Intake and Output: 05/05/17 05/05/17 06:59 18:59 Intake Total 600 Output Total 400 Balance 200 - Medications Medications: Current Medications Albuterol/Ipratropium (Duoneb 3 Mg/0.5 Mg (3 Ml) Ud) 3 ml IH Q2H PRN PRN Reason: Shortness of Breath Last Admin: 05/03/17 10:56 Dose: 3 ml Albuterol/Ipratropium (Duoneb 3 Mg/0.5 Mg (3 Ml) Ud) 3 ml IH [id number] [facility] Last Admin: 05/05/17 14:03 Dose: Not Given Amlodipine Besylate (Norvasc) 10 mg PO DAILY [facility] Last Admin: 05/05/17 11:42 Dose: 10 mg Aspirin (Aspirin Chewable) 81 mg PO DAILY [facility] Last Admin: 05/05/17 11:42 Dose: 81 mg Atorvastatin Calcium (Lipitor) 10 mg PO DAILY [facility] Last Admin: 05/05/17 11:42 Dose: 10 mg Carvedilol (Coreg) 6.25 mg PO BID [facility] Last Admin: 05/05/17 11:42 Dose: 6.25 mg Ergocalciferol (Drisdol 50,000 Intl Units Cap) 1 cap PO Q7D [facility] Last Admin: 05/04/17 17:54 Dose: 1 cap Ferrous Gluconate (Fergon) 324 mg PO TID [facility] Last Admin: 05/05/17 15:25 Dose: 324 mg Furosemide (Lasix) 40 mg IVP DAILY [facility] Last Admin: 05/05/17 11:43 Dose: 40 mg Heparin Sodium (Porcine) (Heparin) 5,000 units SC Q8H [facility] PRN Reason: Protocol Last Admin: 05/05/17 15:22 Dose: 5,000 units Hydromorphone HCl (Dilaudid) 0.5 mg IVP Q3H PRN PRN Reason: Pain, moderate (4-7) Last Admin: 05/05/17 02:47 Dose: 0.5 mg Cefazolin Sodium (Ancef 1gm In Ns) 1 gm in 100 mls @ 100 mls/hr IVPB Q8 [facility] Last Admin: 05/05/17 15:21 Dose: 100 mls/hr Insulin Detemir (Levemir) 50 unit SC DAILY [facility] Last Admin: 05/05/17 11:42 Dose: 50 unit Insulin Human Regular (Humulin R High) 0 units SC ACHS [facility] PRN Reason: Protocol Last Admin: 05/05/17 11:47 Dose: 5 units Multivitamins (Thera Tab) 1 tab PO 0800 [facility] Last Admin: 05/05/17 08:15 Dose: 1 tab Pantoprazole Sodium (Protonix Ec Tab) 40 mg PO ACB [facility] Last Admin: 05/05/17 08:15 Dose: 40 mg Sodium Hypochlorite (Dakins Solution 0.25%) 0 ml TOP BID [facility] Last Admin: 05/05/17 02:50 Dose: 1 10 - Labs Labs: 05/05/17 06:20 05/05/17 06:20 PT 14.2 SECONDS (9.4-12.5) H 04/30/17 06:30 INR 1.23 (0.93-1.08) H 04/30/17 06:30 APTT 28.2 Seconds (25.1-36.5) 04/26/17 21:55 - Constitutional Appears: Non-toxic, No Acute Distress, Chronically Ill - Head Exam Head Exam: ATRAUMATIC, NORMOCEPHALIC - Eye Exam Eye Exam: EOMI, PERRL Pupil Exam: NORMAL ACCOMODATION, PERRL - ENT Exam ENT Exam: Mucous Membranes Moist, Normal External Ear Exam, TM's Normal Bilaterally - Neck Exam Neck Exam: Full ROM, Normal Inspection - Respiratory Exam Respiratory Exam: Clear to Ausculation Bilateral, NORMAL BREATHING PATTERN. absent: Rales, Rhonchi, Wheezes - Cardiovascular Exam Cardiovascular Exam: REGULAR RHYTHM, RRR, +S1, +S2 - GI/Abdominal Exam GI & Abdominal Exam: Soft, Normal Bowel Sounds. absent: Distended (www), Tenderness Additional comments: colostomy in place. healing incisions. - Rectal Exam Rectal Exam: NORMAL INSPECTION - Extremities Exam Extremities Exam: Full ROM, Normal Inspection - Neurological Exam Neurological Exam: Alert, Awake, CN II-XII Intact, Oriented x3 - Psychiatric Exam Psychiatric exam: Normal Affect, Normal Mood - Skin Skin Exam: Normal Color Additional comments: As above. Assessment and Plan - Assessment and Plan (Free Text) Assessment: 66 yo morbidly obese female with multiple medical issues presenting with sepsis like symptoms in setting of large perirectal abscess. The patient had known history of NIDDM, lower extremity DVT, HTN, and CKD at least stage III. Patient with foul smelling discharge from the buttocks area. Recently treated for influenza. Question of CHF. Taken to OR tonight for I&D of the sacral abscess. Procalcitonin of 2.87 which can fall in diagnosis of sepsis. Hgb A1c of 8.3. The patient is awake and alert although groggy from anesthesia. Supportive care. Continue with antibiotics of Zosyn although would monitor renal function closely while on this regimen. E. coli from OR cultures sensitive to Zosyn. Looking for 14 days of treatment in total. Can consider oral antibiotics when medical cleared from the hospital. Leukocytosis is improving. Taken back to OR for diverting colostomy. Postoperative day #2 now. Leukocytosis down to 10.7 today. Clinically no changes. Was on Zosyn for antibiotic coverage and now deescalated to Ancef for treatment yesterday. Supportive care. No new symptoms. Treated for influenza prior to this hospitalization. Supportive care. Spoke with Dr. Grullon this evening. Chest X-ray done today showing CHF. Recheck procalcitonin values... improved to 0.18. Recheck WBC. Thank you for allowing me to participate in the care of the patient, we will follow with you.
--- NOTE | 2017-05-05 19:20 | CP.PCM.PN ---
Subjective - Date & Time of Evaluation Date of Evaluation: 05/05/17 Time of Evaluation: 12:30 - Subjective Subjective: Follow up Nephrology Consultation: Assessment: stable non-oliguric Acute Kidney Injury (N17.9) likely multi-factorial: sepsis, decreased oral intake leading to pre-renal state, some contribution by NSAIDs, urine retention . work up for GN neg Diabetic chronic Kidney Disease (E11.22) Hypertensive Chronic Kidney Disease (I12.9) Chronic Kidney Disease (N18.3) Stage 3 with ? mg proteinuria (R80.9) likely due to DM Anemia (D64.9), HTN (I12.9) Morbid obesity, recent Influenza with Myalgias, arthalgias Hyperkalemia, uncontrolled DM moderate pulmonary HTN necrotic sacral decubitus ulcer s/p debridement and diversion colostomy Vit D def with sec hyper PTH (level 205) Plan No acute need for renal replacement therapy at this time Hypertension control with meds as ordered. No ACEI/ARB due to [place]. continue with norvasc 10 mg/day and coreg bid Monitor Input/Output, daily weights and renal function with basic metabolic panel lasix as per cardiology continue with iron supplements, MVI, dose of aransep 05/01/17 supplement with weekly Vit D. Dose meds/antibiotics for reduced GFR. Avoid fleets enema/magnesium based laxatives. Avoid nephrotoxins/NSAIDs/ iodinated contrast (unless needed emergently) need better glycemic control. Further work up/management as per primary team Thanks for allowing me to participate in care of your patient. Will follow patient with you. Please call if any Qs. 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 Denies OTC/herbal meds but has taken NSAIDs as naproxen on prn basis over last 1 week No recent iodinated contrast exposure. No obvious episodes of low BP. ROS: pt denies CP/SOB/nausea.' Physical Examination: General Appearance: Comfortable, in no acute respiratory distress, co-operative .morbid obese. Vitals reviewed and noted as below Head; Atraumatic, normocephalic ENT: no ulcers no thrush. Tongue is midline. Oropharynx: no rash or ulcers. EYES: Pupils are equal, round and reactive to light accommodation. Eye muscles and extraocular movement intact. Sclera is anicteric. Neck; supple no lymphadenopathy, no thyromegaly or bruit Lungs: improved respiratory rate/effort. Breath sounds bilateral equal and clear anteriorly Heart: Normal rate. s1s2 normal. No rub or gallop. Extremities: no edema. No varicose veins Neurological: Patient is awake alert follow commands no deficit Skin: Warm and dry. Normal turgor. No rash. Palpitation: Normal elasticity for age Abdomen: Abdomen is soft. Bowel sounds +. There is no abdominal tenderness, no guarding/rigidity no organomegaly. has LLQ colostomy + Psych: deferred MSK: no joint tenderness or swelling. Digits and nails normal, no deformity : kidney or bladder not palpable Labs/imaging reviewed. Past medical history, past surgical history, family history, social history, allergy reviewed and noted as below Family hx: no hx of CKD. Rest non-contributory BNP 9030 UA trace blood trace protein normal complements CT abdomen; normal renals CXR improved pulm edema Objective - Vital Signs/Intake and Output Vital Signs (last 24 hours): Temp Pulse Resp BP Pulse Ox 98.3 F 62 22 161/60 H 98 05/05/17 08:00 05/05/17 11:34 05/05/17 08:00 05/05/17 11:43 05/05/17 08:00 - Medications Medications: Current Medications Albuterol/Ipratropium (Duoneb 3 Mg/0.5 Mg (3 Ml) Ud) 3 ml IH Q2H PRN PRN Reason: Shortness of Breath Last Admin: 05/03/17 10:56 Dose: 3 ml Albuterol/Ipratropium (Duoneb 3 Mg/0.5 Mg (3 Ml) Ud) 3 ml IH [id number] [facility] Last Admin: 05/05/17 14:03 Dose: Not Given Amlodipine Besylate (Norvasc) 10 mg PO DAILY [facility] Last Admin: 05/05/17 11:42 Dose: 10 mg Aspirin (Aspirin Chewable) 81 mg PO DAILY [facility] Last Admin: 05/05/17 11:42 Dose: 81 mg Atorvastatin Calcium (Lipitor) 10 mg PO DAILY [facility] Last Admin: 05/05/17 11:42 Dose: 10 mg Carvedilol (Coreg) 6.25 mg PO BID [facility] Last Admin: 05/05/17 18:36 Dose: 6.25 mg Ergocalciferol (Drisdol 50,000 Intl Units Cap) 1 cap PO Q7D [facility] Last Admin: 05/04/17 17:54 Dose: 1 cap Ferrous Gluconate (Fergon) 324 mg PO TID [facility] Last Admin: 05/05/17 18:36 Dose: 324 mg Furosemide (Lasix) 40 mg IVP DAILY [facility] Last Admin: 05/05/17 11:43 Dose: 40 mg Heparin Sodium (Porcine) (Heparin) 5,000 units SC Q8H [facility] PRN Reason: Protocol Last Admin: 05/05/17 18:53 Dose: 5,000 units Hydromorphone HCl (Dilaudid) 0.5 mg IVP Q3H PRN PRN Reason: Pain, moderate (4-7) Last Admin: 05/05/17 18:52 Dose: 0.5 mg Cefazolin Sodium (Ancef 1gm In Ns) 1 gm in 100 mls @ 100 mls/hr IVPB Q8 [facility] Last Admin: 05/05/17 15:21 Dose: 100 mls/hr Insulin Detemir (Levemir) 50 unit SC DAILY [facility] Last Admin: 05/05/17 11:42 Dose: 50 unit Insulin Human Regular (Humulin R High) 0 units SC ACHS [facility] PRN Reason: Protocol Last Admin: 05/05/17 18:35 Dose: 10 units Multivitamins (Thera Tab) 1 tab PO 0800 [facility] Last Admin: 05/05/17 08:15 Dose: 1 tab Pantoprazole Sodium (Protonix Ec Tab) 40 mg PO ACB [facility] Last Admin: 05/05/17 08:15 Dose: 40 mg Sodium Hypochlorite (Dakins Solution 0.25%) 0 ml TOP BID [facility] Last Admin: 05/05/17 18:14 Dose: 10 ml - Labs Labs: 05/05/17 06:20 05/05/17 06:20 PT 14.2 SECONDS (9.4-12.5) H 04/30/17 06:30 INR 1.23 (0.93-1.08) H 04/30/17 06:30 APTT 28.2 Seconds (25.1-36.5) 04/26/17 21:55
--- NOTE | 2017-05-05 23:39 | CP.PCM.PN ---
Subjective - Date & Time of Evaluation Date of Evaluation: 05/05/17 Time of Evaluation: 12:15 - Subjective Subjective: Seen and examined at the bed side. BMV through the Colostomy Bag. +Dyspnea on and off, and the him assistant requested a V?Q scan to rule out PE. No fever or chills. For possible D/c to [facility] tomorrow. Objective - Vital Signs/Intake and Output Vital Signs (last 24 hours): Temp Pulse Resp BP Pulse Ox 98.3 F 80 22 161/60 H 98 05/05/17 08:00 05/05/17 20:30 05/05/17 08:00 05/05/17 11:43 05/05/17 08:00 Intake and Output: 05/05/17 05/06/17 18:59 06:59 Intake Total 120 Output Total 1900 Balance -1780 - Medications Medications: Current Medications Albuterol/Ipratropium (Duoneb 3 Mg/0.5 Mg (3 Ml) Ud) 3 ml IH Q2H PRN PRN Reason: Shortness of Breath Last Admin: 05/03/17 10:56 Dose: 3 ml Albuterol/Ipratropium (Duoneb 3 Mg/0.5 Mg (3 Ml) Ud) 3 ml IH [id number] [facility] Last Admin: 05/05/17 20:44 Dose: 3 ml Amlodipine Besylate (Norvasc) 10 mg PO DAILY [facility] Last Admin: 05/05/17 11:42 Dose: 10 mg Aspirin (Aspirin Chewable) 81 mg PO DAILY [facility] Last Admin: 05/05/17 11:42 Dose: 81 mg Atorvastatin Calcium (Lipitor) 10 mg PO DAILY [facility] Last Admin: 05/05/17 11:42 Dose: 10 mg Carvedilol (Coreg) 6.25 mg PO BID [facility] Last Admin: 05/05/17 18:36 Dose: 6.25 mg Ergocalciferol (Drisdol 50,000 Intl Units Cap) 1 cap PO Q7D [facility] Last Admin: 05/04/17 17:54 Dose: 1 cap Ferrous Gluconate (Fergon) 324 mg PO TID [facility] Last Admin: 05/05/17 18:36 Dose: 324 mg Furosemide (Lasix) 40 mg IVP DAILY [facility] Last Admin: 05/05/17 11:43 Dose: 40 mg Heparin Sodium (Porcine) (Heparin) 5,000 units SC Q8H [facility] PRN Reason: Protocol Last Admin: 05/05/17 18:53 Dose: 5,000 units Hydromorphone HCl (Dilaudid) 0.5 mg IVP Q3H PRN PRN Reason: Pain, moderate (4-7) Last Admin: 05/05/17 22:04 Dose: 0.5 mg Cefazolin Sodium (Ancef 1gm In Ns) 1 gm in 100 mls @ 100 mls/hr IVPB Q8 [facility] Last Admin: 05/05/17 21:57 Dose: 100 mls/hr Insulin Detemir (Levemir) 50 unit SC DAILY [facility] Last Admin: 05/05/17 11:42 Dose: 50 unit Insulin Human Regular (Humulin R High) 0 units SC ACHS [facility] PRN Reason: Protocol Last Admin: 05/05/17 22:03 Dose: 2 units Multivitamins (Thera Tab) 1 tab PO 0800 [facility] Last Admin: 05/05/17 08:15 Dose: 1 tab Pantoprazole Sodium (Protonix Ec Tab) 40 mg PO ACB [facility] Last Admin: 05/05/17 08:15 Dose: 40 mg Sodium Hypochlorite (Dakins Solution 0.25%) 0 ml TOP BID [facility] Last Admin: 05/05/17 18:14 Dose: 10 ml - Labs Labs: 05/05/17 06:20 05/05/17 06:20 PT 14.2 SECONDS (9.4-12.5) H 04/30/17 06:30 INR 1.23 (0.93-1.08) H 04/30/17 06:30 APTT 28.2 Seconds (25.1-36.5) 04/26/17 21:55 - Constitutional Appears: Well, No Acute Distress - Head Exam Head Exam: ATRAUMATIC, NORMAL INSPECTION, NORMOCEPHALIC - Eye Exam Eye Exam: EOMI, Normal appearance, PERRL Pupil Exam: NORMAL ACCOMODATION, PERRL - ENT Exam ENT Exam: Mucous Membranes Moist, Normal Exam - Neck Exam Neck Exam: Full ROM, Normal Inspection. absent: Lymphadenopathy - Respiratory Exam Respiratory Exam: Clear to Ausculation Bilateral, Rales, NORMAL BREATHING PATTERN. absent: Wheezes - Cardiovascular Exam Cardiovascular Exam: REGULAR RHYTHM, +S1, +S2. absent: Murmur - GI/Abdominal Exam GI & Abdominal Exam: Soft, Normal Bowel Sounds. absent: Tenderness Additional comments: +Colostomy Bag with Brown stool. - Extremities Exam Extremities Exam: Full ROM, Normal Capillary Refill, Normal Inspection. absent : Joint Swelling, Pedal Edema - Back Exam Back Exam: NORMAL INSPECTION - Neurological Exam Neurological Exam: Alert, Awake, CN II-XII Intact, Oriented x3 - Psychiatric Exam Psychiatric exam: Normal Affect, Normal Mood - Skin Skin Exam: Dry, Normal Color, Warm Additional comments: Scaral and Perinal pressure Ulcer and wound after I&d and debridment Assessment and Plan (1) Sepsis Assessment & Plan: Resolved sepsis, wbc Normalized. Sacral, Gluteal, and Perianal Pressure Ulcers S/P I&D, Surgery F/U for wound Care and Possible Re-Debridment Continue IV Ancef Air Loss Mattress Reposition Q2hrs ID onboard Wound Culture grew E-coli (ESBL Negative) CBC with diff/CMP Status: Acute Priority: High (2) SOB, Pulmonary Edema, Diastolic CHF Exacerbation R/O PE IV Lasix 40mg daily 2L O2 Via NC BIPAP @Night V/Q Scan (3) Acute on chronic renal failure- Improving Assessment and Plan: Monitor BMP Nephrology onboard. Status: Acute Priority: High Status: Acute
[2017-05-06] MEDS: Albuterol-Ipratrop 3 mg / 0.5 (3 ml) UD IH SCH ×4 (02:56→20:00)
[2017-05-06] MEDS: ceFAZolin 1 gm in NS 1 GM/100 ML BAG IVPB SCH ×3 (05:31→21:44)
[2017-05-06] MEDS: Multivitamin Therapeutic Tab PO SCH (09:20)
[2017-05-06] MEDS: Pantoprazole 40 mg EC Tab PO SCH (09:20)
[2017-05-06] MEDS: HYDROmorphone 0.5 mg/0.5 ml ISec IVP PRN (09:20)
[2017-05-06] MEDS: Insulin Reg-HIGH-Coverage SC SCH ×4 (09:21→21:49)
[2017-05-06] MEDS: Insulin Detemir 100 units/ml Vial (Levemir) SC SCH (11:07)
[2017-05-06] MEDS: Dakin's Topical 0.25%-Half Strength (480 ml) TOP SCH ×2 (11:14→17:25)
[2017-05-06] MEDS ORDERED: Simethicone 80 mg Chewtab PO PRN (12:14)
--- NOTE | 2017-05-06 12:41 | CP.PCM.DIS ---
Provider - Provider Date of Admission: 04/27/17 00:20 Attending physician: Janee Gruloln MD Primary care physician: Vanessa Flynn MD Consults: Dr. Bernard, Surgeon Dr. KEYES, ID Psychiatric Nursing Aide: Dr. Montalvo Time Spent in preparation of Discharge (in minutes): 35 Diagnosis - Discharge Diagnosis (1) Sepsis Status: Acute Priority: High Hospital Course - Lab Results Lab Results: Micro Results 04/27/17 19:11 Other: Please Indicate Gram Stain - Final 04/27/17 19:11 Other: Please Indicate Anaerobic Culture - Final NO ANAEROBES ISOLATED. 04/27/17 19:11 Other: Please Indicate Wound Culture - Final Escherichia Coli 04/27/17 11:20 Nose MRSA Culture (Admit) - Final MRSA NOT DETECTED 04/27/17 03:55 Urine,Clean Catch Urine Culture - Final No Growth (<1,000 CFU/ML) Most Recent Lab Values WBC 10.7 10^3/ul (4.5-11.0) 05/05/17 06:20 RBC 3.09 10^6/uL (3.5-6.1) L 05/05/17 06:20 Hgb 8.5 g/dL (12.0-16.0) L 05/05/17 06:20 Hct 27.3 % (36.0-48.0) L 05/05/17 06:20 MCV 88.3 fl (80.0-105.0) D 05/05/17 06:20 MCH 27.5 pg (25.0-35.0) 05/05/17 06:20 MCHC 31.1 g/dl (31.0-37.0) 05/05/17 06:20 RDW 14.0 % (11.5-14.5) 05/05/17 06:20 Plt Count 338 10^3/uL (120.0-450.0) 05/05/17 06:20 MPV 9.5 fl (7.0-11.0) 05/05/17 06:20 Gran % 67.5 % (50.0-68.0) 05/05/17 06:20 Lymph % (Auto) 21.5 % (22.0-35.0) L 05/05/17 06:20 Ramsey % (Auto) 9.6 % (1.0-6.0) H 05/05/17 06:20 Eos % (Auto) 1.2 % (1.5-5.0) L 05/05/17 06:20 Baso % (Auto) 0.2 % (0.0-3.0) 05/05/17 06:20 Gran # 7.23 (1.4-6.5) H 05/05/17 06:20 Lymph # 2.3 (1.2-3.4) 05/05/17 06:20 Ramsey # 1.0 (0.1-0.6) H 05/05/17 06:20 Eos # 0.1 (0.0-0.7) 05/05/17 06:20 Baso # 0.02 K/mm3 (0.0-2.0) 05/05/17 06:20 ESR 132 mm/hr (0.0-20.0) H 04/26/17 21:55 PT 14.2 SECONDS (9.4-12.5) H 04/30/17 06:30 INR 1.23 (0.93-1.08) H 04/30/17 06:30 APTT 28.2 Seconds (25.1-36.5) 04/26/17 21:55 pCO2 35 mm/Hg (35-45) 04/27/17 06:20 pO2 128.0 mm/Hg (80-100) H 04/27/17 06:20 HCO3 19.8 mmol/L (21-28) L 04/27/17 06:20 ABG pH 7.36 (7.35-7.45) 04/27/17 06:20 ABG Total CO2 20.9 mmol.L (22-28) L 04/27/17 06:20 ABG O2 Saturation 98.3 % (95-98) H 04/27/17 06:20 ABG Base Excess -5.1 mmol/L (-2.0-3.0) L 04/27/17 06:20 ABG Potassium 5.2 mmol/L (3.6-5.2) 04/27/17 06:20 VBG pH 7.35 (7.32-7.43) 04/27/17 05:35 VBG pCO2 41.0 (40-60) 04/27/17 05:35 VBG HCO3 22.6 mmol/l (21-28) 04/27/17 05:35 VBG Total CO2 23.9 mmol.L (22-28) 04/27/17 05:35 VBG O2 Sat (Calc) 99.8 % (40-65) H 04/27/17 05:35 VBG Base Excess -2.9 mmol/L (0.0-2.0) L 04/27/17 05:35 VBG Potassium 5.6 mmol/L (3.6-5.2) H 04/27/17 05:35 Sodium 136.0 mmol/L (132-148) 04/27/17 06:20 Chloride 108.0 mmol/L (98-107) H 04/27/17 06:20 Glucose 165 mg/dl (65-105) H 04/27/17 06:20 Lactate 0.7 mmol/L (0.7-2.1) 04/27/17 06:20 FiO2 35.0 % 04/27/17 06:20 Sodium 139 mmol/L (132-148) 05/05/17 06:20 Potassium 4.1 mmol/L (3.6-5.0) 05/05/17 06:20 Chloride 104 mmol/L (98-107) 05/05/17 06:20 Carbon Dioxide 26 mmol/L (21-33) 05/05/17 06:20 Anion Gap 13 (10-20) 05/05/17 06:20 BUN 29 mg/dL (7-21) H 05/05/17 06:20 Creatinine 1.4 mg/dl (0.7-1.2) H 05/05/17 06:20 Est GFR ( Amer) 46 05/05/17 06:20 Est GFR (Non-Af Amer) 38 05/05/17 06:20 POC Glucose (mg/dL) 312 mg/dL (65-110) H 05/06/17 11:42 Random Glucose 293 mg/dL (70-110) H 05/05/17 06:20 Hemoglobin A1c 8.3 % (4.2-6.5) H 04/27/17 05:30 Lactic Acid 0.8 mmol/L (0.7-2.1) 05/03/17 16:30 Uric Acid 14.1 mg/dL (2.5-6.2) H 04/27/17 12:10 Calcium 9.0 mg/dL (8.4-10.5) 05/05/17 06:20 Phosphorus 2.6 mg/dL (2.5-4.5) 05/04/17 06:30 Magnesium 1.7 mg/dL (1.7-2.2) 05/05/17 06:20 Iron 36 ug/dL (45-180) L 05/01/17 06:00 TIBC 235 ug/dL (265-497) L 05/01/17 06:00 % Saturation 15 % (20-55) L 05/01/17 06:00 Ferritin 186.0 ng/mL 05/01/17 06:00 Total Bilirubin 0.4 mg/dL (0.2-1.3) 05/05/17 06:20 AST 46 U/L (14-36) H D 05/05/17 06:20 ALT 30 U/L (7-56) 05/05/17 06:20 Alkaline Phosphatase 106 U/L (38-126) 05/05/17 06:20 Total Creatine Kinase 33 U/L (35-230) L 04/27/17 12:10 Troponin I 0.01 ng/mL 05/05/17 06:30 NT-Pro-B Natriuret Pep 4930 pg/mL (0-450) H 05/03/17 16:30 Total Protein 6.9 g/dL (5.8-8.3) 05/05/17 06:20 Total Protein (PEP) 5.8 g/dL (6.1-8.1) L 04/28/17 05:00 Albumin 3.0 g/dL (3.0-4.8) 05/05/17 06:20 Albumin (PEP) 2.4 g/dL (3.8-4.8) L 04/28/17 05:00 Globulin 3.9 gm/dL 05/05/17 06:20 Albumin/Globulin Ratio 0.8 (1.1-1.8) L 05/05/17 06:20 Lsduh-3-Awafdguuu 0.6 g/dL (0.2-0.3) H 04/28/17 05:00 Qetri-4-Wwztgycjv 0.9 g/dL (0.5-0.9) 04/28/17 05:00 Lsti-7-Ujuugaqe 0.4 g/dL (0.4-0.6) 04/28/17 05:00 Cmjd-6-Zxqlewsu 0.2 g/dL (0.2-0.5) 04/28/17 05:00 Gamma Globulins 1.4 g/dL (0.8-1.7) 04/28/17 05:00 Abnorm Protein Band 1 0.68 g/dL (None Detected) H 04/28/17 05:00 Abnorm Protein Band 2 TEST NOT PERFORMED 04/28/17 05:00 Abnorm Protein Band 3 TEST NOT PERFORMED 04/28/17 05:00 Triglycerides 190 mg/dL (35-160) H 04/27/17 05:30 Cholesterol 136 mg/dL (130-200) 04/27/17 05:30 LDL Cholesterol Direct 62 mg/dL (0-129) 04/27/17 05:30 HDL Cholesterol 23 mg/dL (29-60) L 04/27/17 05:30 25-OH Vitamin D Total 20.9 NG/ML (30.0-100.0) L 05/02/17 07:00 Procalcitonin 0.18 NG/ML (0.19-0.49) L 05/04/17 06:30 PTH Intact Whole Molec 205 pg/mL (14-64) H 05/01/17 10:45 Arterial Blood Potassium 5.2 mmol/L (3.6-5.2) 04/27/17 06:20 Venous Blood Potassium 5.6 mmol/L (3.6-5.2) H 04/27/17 05:35 Urine Color Yellow (YELLOW) 04/27/17 03:55 Urine Appearance Clear (CLEAR) 04/27/17 03:55 Urine pH 6.0 (4.7-8.0) 04/27/17 03:55 Ur Specific [place] 1.015 (1.005-1.035) 04/27/17 03:55 Urine Protein Trace mg/dL (<30 mg/dL) H 04/27/17 03:55 Urine Glucose (UA) Negative mg/dL (NEGATIVE) 04/27/17 03:55 Urine Ketones Negative mg/dL (NEGATIVE) 04/27/17 03:55 Urine Blood Trace-lysed (NEGATIVE) H 04/27/17 03:55 Urine Nitrate Negative (NEGATIVE) 04/27/17 03:55 Urine Bilirubin Negative (NEGATIVE) 04/27/17 03:55 Urine Urobilinogen 0.2 E.U./dL (<1 E.U./dL) 04/27/17 03:55 Ur Leukocyte Esterase Negative Rosa/uL (NEGATIVE) 04/27/17 03:55 Urine RBC 0 - 2 /hpf (0-2) 04/27/17 03:55 Urine WBC 0 - 2 /hpf (0-6) 04/27/17 03:55 Ur Epithelial Cells 0 - 2 /hpf (0-5) 04/27/17 03:55 Ur Random Creatinine 81 mg/dL 04/27/17 17:30 U Random Total Protein 14 mg/L 04/27/17 17:30 Ur Random Sodium 35 meq/L 04/27/17 17:30 Urine Microalbumin 20.9 mg/L (0.0-16.6) H 04/27/17 17:30 ESTELA & SPEP Interp See note 04/28/17 05:00 Serum Immunofixation Detected (Not Detected) H 04/28/17 05:00 Rheumatoid Factor 15 IU/mL (<14) H 04/28/17 06:30 GRETCHEN Screen Negative (NEGATIVE) 04/28/17 06:30 GRETCEHN Titer TNP 04/28/17 06:30 GRETCHEN Pattern TNP 04/28/17 06:30 ANCA Screen Negative (NEGATIVE) 04/28/17 05:00 c-ANCA Titer TNP 04/28/17 05:00 Proteinase 3 (PR3) <1.0 AI (<1.0) 04/28/17 05:00 p-ANCA Titer TNP 04/28/17 05:00 Atypical p-ANCA Titer TNP 04/28/17 05:00 Myeloperoxidase Ab <1.0 AI (<1.0) 04/28/17 05:00 SS-A Antibody <1.0 neg AI (<1.0 NEGATIVE) 04/28/17 06:30 SS-B Antibody <1.0 neg AI (<1.0 NEGATIVE) 04/28/17 06:30 Sm (Tucker) Antibody <1.0 neg AI (<1.0 NEGATIVE) 04/28/17 06:30 SM/HISTOLOGY AIDE Antibody <1.0 neg AI (<1.0 NEGATIVE) 04/28/17 06:30 Scl-70 Antibody <1.0 neg AI (<1.0 NEGATIVE) 04/28/17 06:30 Anti-ds DNA Titer (Crith) TNP 04/28/17 06:30 Anti-ds DNA (Crithidia) Negative (NEGATIVE) 04/28/17 06:30 Ribosomal P Prot Ab <1.0 neg AI (<1.0 NEGATIVE) 04/28/17 06:30 Anti-Mitochondrial Titr TNP 04/28/17 06:30 Anti-Mitochondrial Ab Negative (NEGATIVE) 04/28/17 06:30 Actin IgG Antibody <20 U 04/28/17 06:30 Striated Muscle Ab Negative (NEGATIVE) 04/28/17 06:30 Myocardial Ab Titer TNP 04/28/17 06:30 Anti-Myocardial Ab Negative (NEGATIVE) 04/28/17 06:30 Reticulin Ab Titer TNP 04/28/17 06:30 Reticulin IgA Antibody Negative (NEGATIVE) 04/28/17 06:30 Thyroperoxidase Ab <1 IU/mL (<9) 04/28/17 06:30 Anti-Parietal Cell Ab <20.0 U 04/28/17 06:30 Complement C3 161 mg/dL 04/28/17 06:30 Complement C4 36 mg/dL (ADULTS: 16-47) 04/28/17 06:30 Tot [place]/Lambda Ratio 2.54 (1.29-2.55) 04/28/17 06:30 [place] Light Chain Anal 272 mg/dL (176-443) 04/28/17 06:30 Lambda Light Chain Anal 107 mg/dL (91-240) 04/28/17 06:30 Influenza Typ A,B (EIA) Negative for flu a/b (NEGATIVE) 04/27/17 11:20 Influenza Type A Ab 1:128 titer (<1:8) H 04/27/17 05:30 Influenza Type B Ab 1:16 titer (<1:8) H 04/27/17 05:30 Blood Type A NEGATIVE 04/30/17 06:20 Blood Type Confirm A NEGATIVE 04/30/17 06:30 Antibody Screen Negative 04/30/17 06:20 BBK History Checked No verified bt 04/30/17 06:20 - Hospital Course Hospital Course: -A 66 y/o woman w/ pmhx of chf ? on carvidelol, HTN, morbid obesity, Mild Renal Insufficiency, DM , recent diagnosis of influenza (+) , w/ sick family contacts as well presents c/o 5-6 days of worsening weaknes/malaise/ increasing somnolence/ decreased appetite/worsening of her chronic orthopnea/ possibly subjective temperatures/ increasing tremulousness and terrible gluteal /sacral pain and skin breakdown w/ overlying fibrinopurulent exudates and foul smelling discharge. Family endorses dry cough, pt denies any nausea/ dysuria . In the ER , she was found to be in Severe Sepsis with Unstageable Gluteal and Perianal area Ulcer with Foul smelling discharge, and admitted to the ICU after she was started on IV Vancomycin and Zosyn, and S/P Initial I&D and Debridment. Wound and Blood cultures done. -Then the patient had another revision of wound ad Diversion Colostomy done. -Patient was on Acute on Chronic Renal failure which improved with IV Hydration and Treatment of underlying severe sepsis. -Patient developed SOB due to CHF precipitated by IVF and renal failure, and treated with IV LAsix, O2, and BIPAP. -Patient improved, and discharged to [facility] for SNF for wound care and [facility] as the patient declined from ambulating with a walker to 2 person assist at this time which is significant decline. -D/w the patient and the Family in detail. -D/w ID about the antibiotics, and recommended to go on PO Keflex instead of IV Ancef. FAmily informed. Discharge Exam - Head Exam Head Exam: ATRAUMATIC, NORMAL INSPECTION, NORMOCEPHALIC - Eye Exam Eye Exam: EOMI, Normal appearance, PERRL Pupil Exam: NORMAL ACCOMODATION, PERRL - ENT Exam ENT Exam: Mucous Membranes Moist, Normal External Ear Exam - Neck Exam Neck exam: Full Rom, Normal Inspection - Respiratory Exam Respiratory Exam: Clear to PA & Lateral, NORMAL BREATHING PATTERN - Cardiovascular Exam Cardiovascular Exam: REGULAR RHYTHM, +S1, +S2 - GI/Abdominal Exam GI & Abdominal Exam: Normal Bowel Sounds, Soft Additional comments: Colostomy Bag anteriorly draining brown stool. +tenderness. - Extremities Exam Extremities exam: full ROM, normal capillary refill, normal inspection - Back Exam Back exam: FULL ROM, NORMAL INSPECTION. absent: CVA tenderness (L), CVA tenderness (R) - Skin Additional comments: Wide area of sacral, Perineal area wound after I&D which involves the labia area anteriorly. Discharge Plan - Discharge Medications Prescriptions: Cephalexin [cephalexin] 500 mg PO Q8 #21 cap - Follow Up Plan Condition: GUARDED Disposition: REHAB FACILITY/REHAB UNIT Instructions: Heart Failure (DC), Wound Infection (DC), Diabetes Mellitus Type 2 in Adults (DC), Peripherally Inserted Central Catheters and Midline Catheters (GEN), Influenza (DC), Sepsis (GEN), Acute Wound Care (DC), Chronic Hypertension (DC), Heart Failure (GEN), Pacemaker (DC), Pacemaker (GEN), Pulmonary Edema (DC), Pulmonary Edema (GEN), Ascites (DC), Ascites (GEN), Renal Failure Diet (DC), Obesity (DC), Obesity (GEN), Hypertension (DC), Hypertension (GEN) Additional Instructions: Discharge patient to [facility] today. Report to the ED if your symptoms worsen. Referrals: Vanessa Flynn MD [Primary Care Provider] -
--- NOTE | 2017-05-06 13:18 | CP.PCM.PN ---
Subjective - Date & Time of Evaluation Date of Evaluation: 05/06/17 Time of Evaluation: 13:16 - Subjective Subjective: General Surgery Progress note for Dr. Bernard Patient seen and examined at bedside. Patient complains of abdominal pain and distension. Family is present at bedside. Nurse reports no events overnight. Objective - Vital Signs/Intake and Output Vital Signs (last 24 hours): Temp Pulse Resp BP Pulse Ox 98.3 F 64 20 172/69 H 96 05/06/17 07:00 05/06/17 07:00 05/06/17 07:00 05/06/17 11:09 05/06/17 07:00 Intake and Output: 05/06/17 05/06/17 06:59 18:59 Intake Total 360 260 Output Total 2700 3200 Balance -2340 -2940 - Medications Medications: Current Medications Albuterol/Ipratropium (Duoneb 3 Mg/0.5 Mg (3 Ml) Ud) 3 ml IH Q2H PRN PRN Reason: Shortness of Breath Last Admin: 05/03/17 10:56 Dose: 3 ml Albuterol/Ipratropium (Duoneb 3 Mg/0.5 Mg (3 Ml) Ud) 3 ml IH [id number] [facility] Last Admin: 05/06/17 07:39 Dose: 3 ml Amlodipine Besylate (Norvasc) 10 mg PO DAILY [facility] Last Admin: 05/06/17 11:09 Dose: 10 mg Aspirin (Aspirin Chewable) 81 mg PO DAILY [facility] Last Admin: 05/06/17 11:10 Dose: 81 mg Atorvastatin Calcium (Lipitor) 10 mg PO DAILY [facility] Last Admin: 05/06/17 11:09 Dose: 10 mg Carvedilol (Coreg) 6.25 mg PO BID [facility] Last Admin: 05/06/17 11:09 Dose: 6.25 mg Ergocalciferol (Drisdol 50,000 Intl Units Cap) 1 cap PO Q7D [facility] Last Admin: 05/04/17 17:54 Dose: 1 cap Ferrous Gluconate (Fergon) 324 mg PO TID [facility] Last Admin: 05/06/17 11:09 Dose: 324 mg Furosemide (Lasix) 40 mg IVP DAILY [facility] Last Admin: 05/06/17 10:59 Dose: 40 mg Heparin Sodium (Porcine) (Heparin) 5,000 units SC Q8H [facility] PRN Reason: Protocol Last Admin: 05/06/17 11:08 Dose: 5,000 units Cefazolin Sodium (Ancef 1gm In Ns) 1 gm in 100 mls @ 100 mls/hr IVPB Q8 [facility] Last Admin: 05/06/17 05:31 Dose: 100 mls/hr Insulin Detemir (Levemir) 50 unit SC DAILY [facility] Last Admin: 05/06/17 11:07 Dose: 50 unit Insulin Human Regular (Humulin R High) 0 units SC ACHS [facility] PRN Reason: Protocol Last Admin: 05/06/17 09:21 Dose: 7 units Losartan Potassium (Cozaar) 25 mg PO DAILY [facility] Last Admin: 05/06/17 11:09 Dose: 25 mg Multivitamins (Thera Tab) 1 tab PO 0800 [facility] Last Admin: 05/06/17 09:20 Dose: 1 tab Oxycodone/Acetaminophen (Percocet 5/325 Mg Tab) 1 tab PO Q4H PRN PRN Reason: Pain, moderate (4-7) Stop: 05/09/17 12:16 Pantoprazole Sodium (Protonix Ec Tab) 40 mg PO ACB [facility] Last Admin: 05/06/17 09:20 Dose: 40 mg Simethicone (Mylicon Chew Tab) 80 mg PO Q6H PRN PRN Reason: GI distress Sodium Hypochlorite (Dakins Solution 0.25%) 0 ml TOP BID [facility] Last Admin: 05/06/17 11:14 Dose: 15 ml - Labs Labs: 05/05/17 06:20 05/05/17 06:20 PT 14.2 SECONDS (9.4-12.5) H 04/30/17 06:30 INR 1.23 (0.93-1.08) H 04/30/17 06:30 APTT 28.2 Seconds (25.1-36.5) 04/26/17 21:55 - Constitutional Appears: Well, Non-toxic - Head Exam Head Exam: ATRAUMATIC, NORMOCEPHALIC - Eye Exam Eye Exam: EOMI, Normal appearance - ENT Exam ENT Exam: Mucous Membranes Moist, Normal Oropharynx - Neck Exam Neck Exam: Normal Inspection - Respiratory Exam Respiratory Exam: NORMAL BREATHING PATTERN. absent: Respiratory Distress - Cardiovascular Exam Cardiovascular Exam: RRR, +S1, +S2 - GI/Abdominal Exam GI & Abdominal Exam: Normal Bowel Sounds Additional comments: ostomy bag contains fecal content - Neurological Exam Neurological Exam: Alert, Awake, Oriented x3 - Psychiatric Exam Psychiatric exam: Anxious Assessment and Plan - Assessment and Plan (Free Text) Assessment: 66 year old female with complex, non-healing labial abscess/wound requiring diverting loop colostomy POD#6. - Patient is passing BM from ostomy site. - Continue local wound care for labial/perineal with 1/2 Daikens solution BID and sterile dressing - Antibiotics switched to PO - No further surgical intervention needed at this time. - Patient to follow up with Dr. Bernard in 2-3 weeks
--- NOTE | 2017-05-06 14:17 | CP.PCM.PN ---
Subjective - Date & Time of Evaluation Date of Evaluation: 05/06/17 Time of Evaluation: 13:00 - Subjective Subjective: Infectious Disease Follow Up: May 06, 2017 66 yo female with presentation of weakness and somnolence progressing over the last few days. The patient was recently treated for influenza and has severely limited mobility. The patient also has gluteal and sacral pain with possible abscess formation with foul smelling discharge. Normally as per the family, the patient is able to ambulate to the bathroom but stays mostly in bed. She was taken to the OR for eli-rectal abscess I&D and washout. Taken to MICU for further care. Currently on nasal cannula. Cultures pending. Was on IV Zosyn for treatment and now on Ancef at this time. OR cultures showing E. coli sensitive to Zosyn and Ancef. Supportive care. Transferred to medical floor. Awaiting further surgery. Noted the positive Antibodies for Influenza A. This only states the patient was exposed to Influenza within the last 6 months of so and not a confirmation of active influenza. EIA for Influenza was negative which is a much more accurate method of checking for active influenza infection. In addition the patient was recently treated with TamiFlu for flu just before admission to [facility]. Leukocytosis normalized now. Had placement of diverting loop colostomy during this hospitalization. She has a mild cough with thin white sputum. Remains on Zosyn for antibiotic coverage. Still with SOB episodes. No fevers. Repeat CBC pending. Will obtain procalcitonin to monitor trend of the procalcitonin. Procalcitonin improved to 0.18 from 2.87. WBC down to 10.7. Improving. Objective - Vital Signs/Intake and Output Vital Signs (last 24 hours): Temp Pulse Resp BP Pulse Ox 98.3 F 68 20 172/69 H 96 05/06/17 07:00 05/06/17 13:31 05/06/17 07:00 05/06/17 11:09 05/06/17 07:00 Intake and Output: 05/06/17 05/06/17 06:59 18:59 Intake Total 360 260 Output Total 2700 3200 Balance -3580 -2940 - Medications Medications: Current Medications Albuterol/Ipratropium (Duoneb 3 Mg/0.5 Mg (3 Ml) Ud) 3 ml IH Q2H PRN PRN Reason: Shortness of Breath Last Admin: 05/03/17 10:56 Dose: 3 ml Albuterol/Ipratropium (Duoneb 3 Mg/0.5 Mg (3 Ml) Ud) 3 ml IH [id number] [facility] Last Admin: 05/06/17 13:30 Dose: 3 ml Amlodipine Besylate (Norvasc) 10 mg PO DAILY [facility] Last Admin: 05/06/17 11:09 Dose: 10 mg Aspirin (Aspirin Chewable) 81 mg PO DAILY [facility] Last Admin: 05/06/17 11:10 Dose: 81 mg Atorvastatin Calcium (Lipitor) 10 mg PO DAILY [facility] Last Admin: 05/06/17 11:09 Dose: 10 mg Carvedilol (Coreg) 6.25 mg PO BID [facility] Last Admin: 05/06/17 11:09 Dose: 6.25 mg Ergocalciferol (Drisdol 50,000 Intl Units Cap) 1 cap PO Q7D [facility] Last Admin: 05/04/17 17:54 Dose: 1 cap Ferrous Gluconate (Fergon) 324 mg PO TID [facility] Last Admin: 05/06/17 11:09 Dose: 324 mg Furosemide (Lasix) 40 mg IVP DAILY [facility] Last Admin: 05/06/17 10:59 Dose: 40 mg Heparin Sodium (Porcine) (Heparin) 5,000 units SC Q8H [facility] PRN Reason: Protocol Last Admin: 05/06/17 11:08 Dose: 5,000 units Cefazolin Sodium (Ancef 1gm In Ns) 1 gm in 100 mls @ 100 mls/hr IVPB Q8 [facility] Last Admin: 05/06/17 05:31 Dose: 100 mls/hr Insulin Detemir (Levemir) 50 unit SC DAILY [facility] Last Admin: 05/06/17 11:07 Dose: 50 unit Insulin Human Regular (Humulin R High) 0 units SC ACHS [facility] PRN Reason: Protocol Last Admin: 05/06/17 09:21 Dose: 7 units Losartan Potassium (Cozaar) 25 mg PO DAILY [facility] Last Admin: 05/06/17 11:09 Dose: 25 mg Multivitamins (Thera Tab) 1 tab PO 0800 [facility] Last Admin: 05/06/17 09:20 Dose: 1 tab Oxycodone/Acetaminophen (Percocet 5/325 Mg Tab) 1 tab PO Q4H PRN PRN Reason: Pain, moderate (4-7) Stop: 05/09/17 12:16 Pantoprazole Sodium (Protonix Ec Tab) 40 mg PO ACB [facility] Last Admin: 05/06/17 09:20 Dose: 40 mg Simethicone (Mylicon Chew Tab) 80 mg PO Q6H PRN PRN Reason: GI distress Sodium Hypochlorite (Dakins Solution 0.25%) 0 ml TOP BID [facility] Last Admin: 05/06/17 11:14 Dose: 15 ml - Labs Labs: 05/05/17 06:20 05/05/17 06:20 PT 14.2 SECONDS (9.4-12.5) H 04/30/17 06:30 INR 1.23 (0.93-1.08) H 04/30/17 06:30 APTT 28.2 Seconds (25.1-36.5) 04/26/17 21:55 - Constitutional Appears: Non-toxic, No Acute Distress, Chronically Ill - Head Exam Head Exam: ATRAUMATIC, NORMOCEPHALIC - Eye Exam Eye Exam: EOMI, PERRL Pupil Exam: NORMAL ACCOMODATION, PERRL - ENT Exam ENT Exam: Mucous Membranes Moist, Normal External Ear Exam, TM's Normal Bilaterally - Neck Exam Neck Exam: Full ROM, Normal Inspection - Respiratory Exam Respiratory Exam: Clear to Ausculation Bilateral, NORMAL BREATHING PATTERN. absent: Rales, Rhonchi, Wheezes - Cardiovascular Exam Cardiovascular Exam: REGULAR RHYTHM, RRR, +S1, +S2 - GI/Abdominal Exam GI & Abdominal Exam: Soft, Normal Bowel Sounds. absent: Distended, Tenderness Additional comments: colostomy in place. healing incisions. - Extremities Exam Extremities Exam: Full ROM, Normal Inspection - Neurological Exam Neurological Exam: Alert, Awake, CN II-XII Intact, Oriented x3 - Psychiatric Exam Psychiatric exam: Normal Affect, Normal Mood - Skin Skin Exam: Normal Color Additional comments: As Above. Assessment and Plan - Assessment and Plan (Free Text) Assessment: 66 yo morbidly obese female with multiple medical issues presenting with sepsis like symptoms in setting of large perirectal abscess. The patient had known history of NIDDM, lower extremity DVT, HTN, and CKD at least stage III. Patient with foul smelling discharge from the buttocks area. Recently treated for influenza. Question of CHF. Taken to OR tonight for I&D of the sacral abscess. Procalcitonin of 2.87 which can fall in diagnosis of sepsis. Hgb A1c of 8.3. The patient is awake and alert although groggy from anesthesia. Supportive care. Continue with antibiotics of Zosyn although would monitor renal function closely while on this regimen. E. coli from OR cultures sensitive to Zosyn. Looking for 14 days of treatment in total. Can consider oral antibiotics when medical cleared from the hospital. Leukocytosis is improving. Taken back to OR for diverting colostomy. Postoperative day #2 now. Leukocytosis down to 10.7 today. Clinically no changes. Was on Zosyn for antibiotic coverage and now deescalated to Ancef for treatment yesterday. Supportive care. No new symptoms. Treated for influenza prior to this hospitalization. Supportive care. Spoke with Dr. Grullon this afternoon. Chest X-ray done today showing CHF. Recheck procalcitonin values... improved to 0.18. The patient can be given Keflex 500mg PO TID for 7 more days on discharge. Thank you for allowing me to participate in the care of the patient, we will follow with you.
--- NOTE | 2017-05-06 15:17 | CP.PCM.PN ---
Subjective - Date & Time of Evaluation Date of Evaluation: 05/06/17 Time of Evaluation: 10:00 - Subjective Subjective: Follow up Nephrology Consultation: Assessment: stable non-oliguric Acute Kidney Injury (N17.9) likely multi-factorial: sepsis, decreased oral intake leading to pre-renal state, some contribution by NSAIDs, urine retention . work up for GN neg Diabetic chronic Kidney Disease (E11.22) Hypertensive Chronic Kidney Disease (I12.9) Chronic Kidney Disease (N18.3) Stage 3 with ? mg proteinuria (R80.9) likely due to DM Anemia (D64.9), HTN (I12.9) Morbid obesity, recent Influenza with Myalgias, arthalgias Hyperkalemia, uncontrolled DM moderate pulmonary HTN necrotic sacral decubitus ulcer s/p debridement and diversion colostomy Vit D def with sec hyper PTH (level 205) Plan No acute need for renal replacement therapy at this time Hypertension control with meds as ordered. started losartan 25 mg/day. continue with norvasc 10 mg/day and coreg bid Monitor Input/Output, daily weights and renal function with basic metabolic panel lasix as per cardiology continue with iron supplements, MVI, dose of aransep 05/01/17 supplement with weekly Vit D. Dose meds/antibiotics for reduced GFR. Avoid fleets enema/magnesium based laxatives. Avoid nephrotoxins/NSAIDs/ iodinated contrast (unless needed emergently) need better glycemic control. Further work up/management as per primary team pt planned for d/c to [facility]. stable for d/c from renal perspective. f/up outpt 1- 2 weeks post d/c Thanks for allowing me to participate in care of your patient. Please call if any Qs. d/w team and family Dr Rj Montalvo Office: [phone] reason for consult: [place] HPI: Pt is a 66 F with hx of diabetes Mellitus (30 years) with retinopathhy, hypertension (few years), morbid obesity with bodyaches/joint pains, mostly bedbound for last 1 year, CKD for last 1-2 years (per family best creatinine has been 1.3-1.5) however had lack of regular follow up lately due to her difficulty in ambulatin presented with complaints of SOB, worsening bodyaches, generalized fatigue and weakness for last 1 week after she was diagnosed with Influenza in ER and was treated with tamiflu. Denies OTC/herbal meds but has taken NSAIDs as naproxen on prn basis over last 1 week No recent iodinated contrast exposure. No obvious episodes of low BP. ROS: pt denies CP/SOB/nausea.' Physical Examination: General Appearance: Comfortable, in no acute respiratory distress, co-operative .morbid obese. Vitals reviewed and noted as below Head; Atraumatic, normocephalic ENT: no ulcers no thrush. Tongue is midline. Oropharynx: no rash or ulcers. EYES: Pupils are equal, round and reactive to light accommodation. Eye muscles and extraocular movement intact. Sclera is anicteric. Neck; supple no lymphadenopathy, no thyromegaly or bruit Lungs: improved respiratory rate/effort. Breath sounds bilateral equal and clear anteriorly Heart: Normal rate. s1s2 normal. No rub or gallop. Extremities: no edema. No varicose veins Neurological: Patient is awake alert follow commands no deficit Skin: Warm and dry. Normal turgor. No rash. Palpitation: Normal elasticity for age Abdomen: Abdomen is soft. Bowel sounds +. There is no abdominal tenderness, no guarding/rigidity no organomegaly. has LLQ colostomy + Psych: deferred MSK: no joint tenderness or swelling. Digits and nails normal, no deformity : kidney or bladder not palpable Labs/imaging reviewed. Past medical history, past surgical history, family history, social history, allergy reviewed and noted as below Family hx: no hx of CKD. Rest non-contributory BNP 9030 UA trace blood trace protein normal complements CT abdomen; normal renals CXR improved pulm edema Objective Objective - Vital Signs/Intake and Output Vital Signs (last 24 hours): Temp Pulse Resp BP Pulse Ox 98.3 F 68 20 172/69 H 96 05/06/17 07:00 05/06/17 13:31 05/06/17 07:00 05/06/17 11:09 05/06/17 07:00 Intake and Output: 05/06/17 05/06/17 06:59 18:59 Intake Total 360 260 Output Total 2700 3200 Balance -2340 -2940 - Medications Medications: Current Medications Albuterol/Ipratropium (Duoneb 3 Mg/0.5 Mg (3 Ml) Ud) 3 ml IH Q2H PRN PRN Reason: Shortness of Breath Last Admin: 05/03/17 10:56 Dose: 3 ml Albuterol/Ipratropium (Duoneb 3 Mg/0.5 Mg (3 Ml) Ud) 3 ml IH [id number] [facility] Last Admin: 05/06/17 13:30 Dose: 3 ml Amlodipine Besylate (Norvasc) 10 mg PO DAILY [facility] Last Admin: 05/06/17 11:09 Dose: 10 mg Aspirin (Aspirin Chewable) 81 mg PO DAILY [facility] Last Admin: 05/06/17 11:10 Dose: 81 mg Atorvastatin Calcium (Lipitor) 10 mg PO DAILY [facility] Last Admin: 05/06/17 11:09 Dose: 10 mg Carvedilol (Coreg) 6.25 mg PO BID [facility] Last Admin: 05/06/17 11:09 Dose: 6.25 mg Ergocalciferol (Drisdol 50,000 Intl Units Cap) 1 cap PO Q7D [facility] Last Admin: 05/04/17 17:54 Dose: 1 cap Ferrous Gluconate (Fergon) 324 mg PO TID [facility] Last Admin: 05/06/17 11:09 Dose: 324 mg Furosemide (Lasix) 40 mg IVP DAILY [facility] Last Admin: 05/06/17 10:59 Dose: 40 mg Heparin Sodium (Porcine) (Heparin) 5,000 units SC Q8H [facility] PRN Reason: Protocol Last Admin: 05/06/17 11:08 Dose: 5,000 units Cefazolin Sodium (Ancef 1gm In Ns) 1 gm in 100 mls @ 100 mls/hr IVPB Q8 [facility] Last Admin: 05/06/17 05:31 Dose: 100 mls/hr Insulin Detemir (Levemir) 50 unit SC DAILY [facility] Last Admin: 05/06/17 11:07 Dose: 50 unit Insulin Human Regular (Humulin R High) 0 units SC ACHS [facility] PRN Reason: Protocol Last Admin: 05/06/17 09:21 Dose: 7 units Losartan Potassium (Cozaar) 25 mg PO DAILY [facility] Last Admin: 05/06/17 11:09 Dose: 25 mg Multivitamins (Thera Tab) 1 tab PO 0800 [facility] Last Admin: 05/06/17 09:20 Dose: 1 tab Oxycodone/Acetaminophen (Percocet 5/325 Mg Tab) 1 tab PO Q4H PRN PRN Reason: Pain, moderate (4-7) Stop: 05/09/17 12:16 Pantoprazole Sodium (Protonix Ec Tab) 40 mg PO ACB [facility] Last Admin: 05/06/17 09:20 Dose: 40 mg Simethicone (Mylicon Chew Tab) 80 mg PO Q6H PRN PRN Reason: GI distress Sodium Hypochlorite (Dakins Solution 0.25%) 0 ml TOP BID [facility] Last Admin: 05/06/17 11:14 Dose: 15 ml - Labs Labs: 05/05/17 06:20 05/05/17 06:20 PT 14.2 SECONDS (9.4-12.5) H 04/30/17 06:30 INR 1.23 (0.93-1.08) H 04/30/17 06:30 APTT 28.2 Seconds (25.1-36.5) 04/26/17 21:55
--- NOTE | 2017-05-06 18:16 | CP.PCM.PN ---
Subjective - Date & Time of Evaluation Date of Evaluation: 05/06/17 Time of Evaluation: 17:20 - Subjective Subjective: Seen and examined at the bed side. Sick but improving. NAD. Awaiting placement [facility] for PT/OT and Wound Care. Objective - Vital Signs/Intake and Output Vital Signs (last 24 hours): Temp Pulse Resp BP Pulse Ox 98.3 F 68 20 172/69 H 96 05/06/17 07:00 05/06/17 13:31 05/06/17 07:00 05/06/17 11:09 05/06/17 07:00 Intake and Output: 05/06/17 05/06/17 06:59 18:59 Intake Total 360 260 Output Total 2700 3200 Balance -2340 -2940 - Medications Medications: Current Medications Albuterol/Ipratropium (Duoneb 3 Mg/0.5 Mg (3 Ml) Ud) 3 ml IH Q2H PRN PRN Reason: Shortness of Breath Last Admin: 05/03/17 10:56 Dose: 3 ml Albuterol/Ipratropium (Duoneb 3 Mg/0.5 Mg (3 Ml) Ud) 3 ml IH [id number] [facility] Last Admin: 05/06/17 13:30 Dose: 3 ml Amlodipine Besylate (Norvasc) 10 mg PO DAILY [facility] Last Admin: 05/06/17 11:09 Dose: 10 mg Aspirin (Aspirin Chewable) 81 mg PO DAILY [facility] Last Admin: 05/06/17 11:10 Dose: 81 mg Atorvastatin Calcium (Lipitor) 10 mg PO DAILY [facility] Last Admin: 05/06/17 11:09 Dose: 10 mg Carvedilol (Coreg) 6.25 mg PO BID [facility] Last Admin: 05/06/17 11:09 Dose: 6.25 mg Ergocalciferol (Drisdol 50,000 Intl Units Cap) 1 cap PO Q7D [facility] Last Admin: 05/04/17 17:54 Dose: 1 cap Ferrous Gluconate (Fergon) 324 mg PO TID [facility] Last Admin: 05/06/17 14:50 Dose: 324 mg Furosemide (Lasix) 40 mg IVP DAILY [facility] Last Admin: 05/06/17 10:59 Dose: 40 mg Heparin Sodium (Porcine) (Heparin) 5,000 units SC Q8H [facility] PRN Reason: Protocol Last Admin: 05/06/17 11:08 Dose: 5,000 units Cefazolin Sodium (Ancef 1gm In Ns) 1 gm in 100 mls @ 100 mls/hr IVPB Q8 [facility] Last Admin: 05/06/17 14:50 Dose: 100 mls/hr Insulin Detemir (Levemir) 50 unit SC DAILY [facility] Last Admin: 05/06/17 11:07 Dose: 50 unit Insulin Human Regular (Humulin R High) 0 units SC ACHS [facility] PRN Reason: Protocol Last Admin: 05/06/17 09:21 Dose: 7 units Losartan Potassium (Cozaar) 25 mg PO DAILY [facility] Last Admin: 05/06/17 11:09 Dose: 25 mg Multivitamins (Thera Tab) 1 tab PO 0800 [facility] Last Admin: 05/06/17 09:20 Dose: 1 tab Oxycodone/Acetaminophen (Percocet 5/325 Mg Tab) 1 tab PO Q4H PRN PRN Reason: Pain, moderate (4-7) Stop: 05/09/17 12:16 Pantoprazole Sodium (Protonix Ec Tab) 40 mg PO ACB [facility] Last Admin: 05/06/17 09:20 Dose: 40 mg Simethicone (Mylicon Chew Tab) 80 mg PO Q6H PRN PRN Reason: GI distress Sodium Hypochlorite (Dakins Solution 0.25%) 0 ml TOP BID [facility] Last Admin: 05/06/17 11:14 Dose: 15 ml - Labs Labs: 05/05/17 06:20 05/05/17 06:20 PT 14.2 SECONDS (9.4-12.5) H 04/30/17 06:30 INR 1.23 (0.93-1.08) H 04/30/17 06:30 APTT 28.2 Seconds (25.1-36.5) 04/26/17 21:55 - Constitutional Appears: Well, No Acute Distress - Head Exam Head Exam: ATRAUMATIC, NORMAL INSPECTION, NORMOCEPHALIC - Eye Exam Eye Exam: EOMI, Normal appearance, PERRL Pupil Exam: NORMAL ACCOMODATION, PERRL - ENT Exam ENT Exam: Mucous Membranes Moist, Normal Exam - Neck Exam Neck Exam: Full ROM, Normal Inspection. absent: Lymphadenopathy - Respiratory Exam Respiratory Exam: Clear to Ausculation Bilateral, NORMAL BREATHING PATTERN. absent: Wheezes - Cardiovascular Exam Cardiovascular Exam: REGULAR RHYTHM, +S1, +S2. absent: Murmur - GI/Abdominal Exam GI & Abdominal Exam: Soft, Normal Bowel Sounds. absent: Tenderness Additional comments: +Colostomy bag. - Extremities Exam Extremities Exam: Full ROM, Normal Capillary Refill, Normal Inspection, Pedal Edema. absent: Joint Swelling - Neurological Exam Neurological Exam: Alert, Awake, CN II-XII Intact, Normal Gait, Oriented x3 - Psychiatric Exam Psychiatric exam: Normal Affect, Normal Mood - Skin Skin Exam: Dry, Normal Color, Warm Additional comments: +Sacral and Perineal Ulcers with some slough. Assessment and Plan (1) Sepsis Assessment & Plan: Resolved sepsis, wbc Normalized. Sacral, Gluteal, and Perianal Pressure Ulcers S/P I&D, Surgery F/U for wound Care and Possible Re-Debridment Continue IV Ancef, and Will change to Keflex Air Loss Mattress Reposition Q2hrs ID onboard Wound Culture grew E-coli (ESBL Negative) CBC with diff/CMP Status: Acute Priority: High (2) SOB, Pulmonary Edema, Diastolic CHF Exacerbation, PE- Ruled out IV Lasix 40mg daily 2L O2 Via NC BIPAP @Night V/Q Scan (3) Acute on chronic renal failure- Improving Assessment and Plan: Monitor BMP Nephrology onboard. Status: Acute Priority: High Status: Acute
[2017-05-07] MEDS: Albuterol-Ipratrop 3 mg / 0.5 (3 ml) UD IH SCH ×4 (02:13→20:38)
[2017-05-07] MEDS: Oxycodone/Acetaminophen 5/325 mg Tab PO PRN ×2 (03:44→16:25)
[2017-05-07] MEDS: ceFAZolin 1 gm in NS 1 GM/100 ML BAG IVPB SCH ×2 (05:30→13:28)
[2017-05-07 07:15] LABS: BASO # 0.01 K/mm3 (0.0-2.0); BASO % 0.1 % (0.0-3.0); EOS # 0.1 (0.0-0.7); GRAN # 7.82 (1.4-6.5); GRAN % 68.5 % (50.0-68.0); HEMOGLOBIN 8.7 g/dL (12.0-16.0); LYMPH # 2.4 (1.2-3.4); LYMPH % 20.9 % (22.0-35.0); MEAN CELL VOLUME 87.8 fl (80.0-105.0); MEAN CORPUSCULAR HEMOGLOBIN 27.9 pg (25.0-35.0); MEAN CORPUSCULAR HGB CONC 31.8 g/dl (31.0-37.0); MEAN PLATELET VOLUME 9.6 fl (7.0-11.0); MONO # 1.1 (0.1-0.6); MONO % 9.5 % (1.0-6.0); RBC 3.12 10^6/uL (3.5-6.1); WHITE BLOOD COUNT 11.4 10^3/ul (4.5-11.0)
[2017-05-07 08:14] LABS: ALB/GLOB RATIO 0.8 (1.1-1.8); MAGNESIUM 1.5 mg/dL (1.7-2.2)
[2017-05-07] MEDS: Insulin Reg-HIGH-Coverage SC SCH ×3 (08:20→17:15)
[2017-05-07 08:23] VITALS: RESP 20; TEMP 98.7; O2SAT 95
[2017-05-07] MEDS ORDERED: Collagenase 250 Units/gm Ointment(30 gm) TOP SCH (10:00)
[2017-05-07] MEDS: Insulin Detemir 100 units/ml Vial (Levemir) SC SCH (10:32)
[2017-05-07] MEDS: Pantoprazole 40 mg EC Tab PO SCH (10:37)
[2017-05-07] MEDS: Multivitamin Therapeutic Tab PO SCH (10:37)
[2017-05-07] MEDS ORDERED: Magnesium Oxide 400 mg Tab UD PO SCH (11:45)
--- NOTE | 2017-05-07 14:42 | PN ---
DATE: SUBJECTIVE: The patient is currently on BiPAP. She denies any chest pain. PHYSICAL EXAMINATION: VITAL SIGNS: Blood pressure 175/70, heart rate 65, temperature 98.7, respirations 20. HEENT: Normocephalic. CHEST: Bilateral rhonchi. HEART: S1 and S2 regular. EXTREMITIES: Improved pedal edema. LABORATORY DATA: Today's SMA-7; sodium 136, potassium 3.9, chloride 99, CO2 of 29, glucose 327, BUN 24, creatinine 1.5. CBC: WBC 11.4, hemoglobin 8.7, hematocrit 27.4, platelet count 262,000. Ventilation perfusion scan done day before yesterday revealed low probability for pulmonary embolus. Wound culture is positive for E. coli. ASSESSMENT: 1. Atypical chest pain. 2. Morbid obesity and sleep apnea. 3. Sacral, gluteal, and perineal pressure ulcers, status post incision and drainage. 4. History of deep venous thrombosis in the past. Most recent venous Doppler is negative during this admission. CONDITIONS: Continue current IV cefazolin at 1 g q. 8 hours. Continue Lasix 40 mg intravenously once a day, subcutaneous heparin 5000 units q. 8 hours, albuterol inhaler. Continue Cozaar 25 mg daily, Coreg 6.25 mg twice a day, aspirin 81 mg once a day. The patient is awaiting subacute rehab. Sameer Dorsey MD
[2017-05-07] MEDS ORDERED: Darbepoetin Alfa 60 mcg/ml Inj SC ONE (15:40)
--- NOTE | 2017-05-07 15:40 | CP.PCM.PN ---
Subjective - Date & Time of Evaluation Date of Evaluation: 05/07/17 Time of Evaluation: 15:39 - Subjective Subjective: Follow up Nephrology Consultation: Assessment: stable non-oliguric Acute Kidney Injury (N17.9) likely multi-factorial: sepsis, decreased oral intake leading to pre-renal state, some contribution by NSAIDs, urine retention . work up for GN neg Diabetic chronic Kidney Disease (E11.22) Hypertensive Chronic Kidney Disease (I12.9) Chronic Kidney Disease (N18.3) Stage 3 with ? mg proteinuria (R80.9) likely due to DM Anemia (D64.9), HTN (I12.9) Morbid obesity, recent Influenza with Myalgias, arthalgias Hyperkalemia, uncontrolled DM moderate pulmonary HTN necrotic sacral decubitus ulcer s/p debridement and diversion colostomy Vit D def with sec hyper PTH (level 205) Plan No acute need for renal replacement therapy at this time Hypertension control with meds as ordered. started losartan 25 mg/day. continue with norvasc 10 mg/day and coreg bid Monitor Input/Output, daily weights and renal function with basic metabolic panel lasix as per cardiology continue with iron supplements, MVI, dose of aransep 05/01/17 and 05/07/17 supplement with weekly Vit D. Dose meds/antibiotics for reduced GFR. Avoid fleets enema/magnesium based laxatives. Avoid nephrotoxins/NSAIDs/ iodinated contrast (unless needed emergently) need better glycemic control. Further work up/management as per primary team pt planned for d/c to [facility]. stable for d/c from renal perspective. f/up outpt 1- 2 weeks post d/c Thanks for allowing me to participate in care of your patient. Please call if any Qs. d/w team and family Dr Rj Montalvo Office: [phone] reason for consult: [place] HPI: Pt is a 66 F with hx of diabetes Mellitus (30 years) with retinopathhy, hypertension (few years), morbid obesity with bodyaches/joint pains, mostly bedbound for last 1 year, CKD for last 1-2 years (per family best creatinine has been 1.3-1.5) however had lack of regular follow up lately due to her difficulty in ambulatin presented with complaints of SOB, worsening bodyaches, generalized fatigue and weakness for last 1 week after she was diagnosed with Influenza in ER and was treated with tamiflu. Denies OTC/herbal meds but has taken NSAIDs as naproxen on prn basis over last 1 week No recent iodinated contrast exposure. No obvious episodes of low BP. ROS: pt denies CP/SOB/nausea.' Physical Examination: General Appearance: Comfortable, in no acute respiratory distress, co-operative .morbid obese. Vitals reviewed and noted as below Head; Atraumatic, normocephalic ENT: no ulcers no thrush. Tongue is midline. Oropharynx: no rash or ulcers. EYES: Pupils are equal, round and reactive to light accommodation. Eye muscles and extraocular movement intact. Sclera is anicteric. Neck; supple no lymphadenopathy, no thyromegaly or bruit Lungs: improved respiratory rate/effort. Breath sounds bilateral equal and clear anteriorly Heart: Normal rate. s1s2 normal. No rub or gallop. Extremities: no edema. No varicose veins Neurological: Patient is awake alert follow commands no deficit Skin: Warm and dry. Normal turgor. No rash. Palpitation: Normal elasticity for age Abdomen: Abdomen is soft. Bowel sounds +. There is no abdominal tenderness, no guarding/rigidity no organomegaly. has LLQ colostomy + Psych: deferred MSK: no joint tenderness or swelling. Digits and nails normal, no deformity : kidney or bladder not palpable Labs/imaging reviewed. Past medical history, past surgical history, family history, social history, allergy reviewed and noted as below Family hx: no hx of CKD. Rest non-contributory BNP 9030 UA trace blood trace protein normal complements CT abdomen; normal renals CXR improved pulm edema Objective - Vital Signs/Intake and Output Vital Signs (last 24 hours): Temp Pulse Resp BP Pulse Ox 98.7 F 69 20 140/68 95 05/07/17 08:23 05/07/17 14:51 05/07/17 08:23 05/07/17 10:32 05/07/17 08:23 Intake and Output: 05/07/17 05/07/17 06:59 18:59 Intake Total 440 780 Output Total 1400 1500 Balance -960 -720 - Medications Medications: Current Medications Albuterol/Ipratropium (Duoneb 3 Mg/0.5 Mg (3 Ml) Ud) 3 ml IH Q2H PRN PRN Reason: Shortness of Breath Last Admin: 05/03/17 10:56 Dose: 3 ml Albuterol/Ipratropium (Duoneb 3 Mg/0.5 Mg (3 Ml) Ud) 3 ml IH [id number] [facility] Last Admin: 05/07/17 13:54 Dose: 3 ml Amlodipine Besylate (Norvasc) 10 mg PO DAILY [facility] Last Admin: 05/07/17 10:31 Dose: 10 mg Aspirin (Aspirin Chewable) 81 mg PO DAILY [facility] Last Admin: 05/07/17 10:32 Dose: 81 mg Atorvastatin Calcium (Lipitor) 10 mg PO DAILY [facility] Last Admin: 05/07/17 10:32 Dose: 10 mg Carvedilol (Coreg) 6.25 mg PO BID [facility] Last Admin: 05/07/17 10:32 Dose: 6.25 mg Collagenase (Santyl) 0 gm TOP BID [facility] Last Admin: 05/07/17 10:34 Dose: Not Given Ergocalciferol (Drisdol 50,000 Intl Units Cap) 1 cap PO Q7D [facility] Last Admin: 05/04/17 17:54 Dose: 1 cap Ferrous Gluconate (Fergon) 324 mg PO TID [facility] Last Admin: 05/07/17 13:28 Dose: 324 mg Furosemide (Lasix) 40 mg IVP DAILY [facility] Last Admin: 05/07/17 10:31 Dose: 40 mg Heparin Sodium (Porcine) (Heparin) 5,000 units SC Q8H [facility] PRN Reason: Protocol Last Admin: 05/07/17 11:52 Dose: 5,000 units Cefazolin Sodium (Ancef 1gm In Ns) 1 gm in 100 mls @ 100 mls/hr IVPB Q8 [facility] Last Admin: 05/07/17 13:28 Dose: 100 mls/hr Insulin Detemir (Levemir) 50 unit SC DAILY [facility] Last Admin: 05/07/17 10:32 Dose: 50 unit Insulin Human Regular (Humulin R High) 0 units SC ACHS [facility] PRN Reason: Protocol Last Admin: 05/07/17 11:49 Dose: 12 units Losartan Potassium (Cozaar) 25 mg PO DAILY [facility] Last Admin: 05/06/17 11:09 Dose: 25 mg Magnesium Oxide (Mag-Ox) 400 mg PO BID [facility] Last Admin: 05/07/17 11:52 Dose: 400 mg Multivitamins (Thera Tab) 1 tab PO 0800 [facility] Last Admin: 05/07/17 10:37 Dose: 1 tab Oxycodone/Acetaminophen (Percocet 5/325 Mg Tab) 1 tab PO Q4H PRN PRN Reason: Pain, moderate (4-7) Stop: 05/09/17 12:16 Last Admin: 05/07/17 03:44 Dose: 1 tab Pantoprazole Sodium (Protonix Ec Tab) 40 mg PO ACB [facility] Last Admin: 05/07/17 10:37 Dose: 40 mg Simethicone (Mylicon Chew Tab) 80 mg PO Q6H PRN PRN Reason: GI distress - Labs Labs: 05/07/17 06:30 05/07/17 06:30 PT 14.2 SECONDS (9.4-12.5) H 04/30/17 06:30 INR 1.23 (0.93-1.08) H 04/30/17 06:30 APTT 28.2 Seconds (25.1-36.5) 04/26/17 21:55
[2017-05-07 16:27] VITALS: BP 150/54; PULSE 66
--- NOTE | 2017-05-07 18:41 | CP.PCM.PN ---
Subjective - Date & Time of Evaluation Date of Evaluation: 05/07/17 Time of Evaluation: 06:37 - Subjective Subjective: General Surgery Progress Note for Dr. Bernard Patient seen and examined at bedside. Family is present at bedside, all questions answered. Patient is without any complaints. Nurse reports no events overnight. Objective - Vital Signs/Intake and Output Vital Signs (last 24 hours): Temp Pulse Resp BP Pulse Ox 98.7 F 66 20 150/54 L 95 05/07/17 08:23 05/07/17 17:15 05/07/17 08:23 05/07/17 17:15 05/07/17 08:23 Intake and Output: 05/07/17 05/07/17 06:59 18:59 Intake Total 440 780 Output Total 1400 1500 Balance -960 -720 - Medications Medications: Current Medications Albuterol/Ipratropium (Duoneb 3 Mg/0.5 Mg (3 Ml) Ud) 3 ml IH Q2H PRN PRN Reason: Shortness of Breath Last Admin: 05/03/17 10:56 Dose: 3 ml Albuterol/Ipratropium (Duoneb 3 Mg/0.5 Mg (3 Ml) Ud) 3 ml IH [id number] [facility] Last Admin: 05/07/17 13:54 Dose: 3 ml Amlodipine Besylate (Norvasc) 10 mg PO DAILY [facility] Last Admin: 05/07/17 10:31 Dose: 10 mg Aspirin (Aspirin Chewable) 81 mg PO DAILY [facility] Last Admin: 05/07/17 10:32 Dose: 81 mg Atorvastatin Calcium (Lipitor) 10 mg PO DAILY [facility] Last Admin: 05/07/17 10:32 Dose: 10 mg Carvedilol (Coreg) 6.25 mg PO BID [facility] Last Admin: 05/07/17 17:15 Dose: 6.25 mg Collagenase (Santyl) 0 gm TOP BID [facility] Last Admin: 05/07/17 10:34 Dose: Not Given Ergocalciferol (Drisdol 50,000 Intl Units Cap) 1 cap PO Q7D [facility] Last Admin: 05/04/17 17:54 Dose: 1 cap Ferrous Gluconate (Fergon) 324 mg PO TID [facility] Last Admin: 05/07/17 13:28 Dose: 324 mg Furosemide (Lasix) 40 mg IVP DAILY [facility] Last Admin: 05/07/17 10:31 Dose: 40 mg Heparin Sodium (Porcine) (Heparin) 5,000 units SC Q8H [facility] PRN Reason: Protocol Last Admin: 05/07/17 11:52 Dose: 5,000 units Cefazolin Sodium (Ancef 1gm In Ns) 1 gm in 100 mls @ 100 mls/hr IVPB Q8 [facility] Last Admin: 05/07/17 13:28 Dose: 100 mls/hr Insulin Detemir (Levemir) 50 unit SC DAILY [facility] Last Admin: 05/07/17 10:32 Dose: 50 unit Insulin Human Regular (Humulin R High) 0 units SC ACHS [facility] PRN Reason: Protocol Last Admin: 05/07/17 17:15 Dose: 10 units Losartan Potassium (Cozaar) 25 mg PO DAILY [facility] Last Admin: 05/07/17 16:24 Dose: 25 mg Magnesium Oxide (Mag-Ox) 400 mg PO BID [facility] Last Admin: 05/07/17 11:52 Dose: 400 mg Multivitamins (Thera Tab) 1 tab PO 0800 [facility] Last Admin: 05/07/17 10:37 Dose: 1 tab Oxycodone/Acetaminophen (Percocet 5/325 Mg Tab) 1 tab PO Q4H PRN PRN Reason: Pain, moderate (4-7) Stop: 05/09/17 12:16 Last Admin: 05/07/17 16:25 Dose: 1 tab Pantoprazole Sodium (Protonix Ec Tab) 40 mg PO ACB [facility] Last Admin: 05/07/17 10:37 Dose: 40 mg Simethicone (Mylicon Chew Tab) 80 mg PO Q6H PRN PRN Reason: GI distress - Labs Labs: 05/07/17 06:30 05/07/17 06:30 PT 14.2 SECONDS (9.4-12.5) H 04/30/17 06:30 INR 1.23 (0.93-1.08) H 04/30/17 06:30 APTT 28.2 Seconds (25.1-36.5) 04/26/17 21:55 - Constitutional Appears: Non-toxic, Older Than Stated Age - Head Exam Head Exam: ATRAUMATIC, NORMOCEPHALIC - Eye Exam Eye Exam: EOMI, Normal appearance - Neck Exam Neck Exam: Normal Inspection - Respiratory Exam Respiratory Exam: NORMAL BREATHING PATTERN. absent: Accessory Muscle Use - Cardiovascular Exam Cardiovascular Exam: RRR - GI/Abdominal Exam GI & Abdominal Exam: Soft, Normal Bowel Sounds. absent: Tenderness Additional comments: colostomy bag intact, no leakage of fluid - Psychiatric Exam Psychiatric exam: Normal Affect, Normal Mood - Skin Additional comments: Pernieal wound Assessment and Plan - Assessment and Plan (Free Text) Assessment: 66 year old female with complex, non-healing labial abscess/wound requiring diverting loop colostomy POD#6. - Patient continues to pass BM from ostomy site. - Local wound care for labial/perineal switched to Santyl BID; case discussed with wound care nurseAzeem - IV antibiotics per ID, Cefazolin. - No further surgical intervention needed at this time. - Case management recommendations appreciated in regards to placement. - Case discussed with Dr. Bernard, in detail
--- NOTE | 2017-05-07 19:00 | CP.PCM.PN ---
Subjective - Date & Time of Evaluation Date of Evaluation: 05/07/17 Time of Evaluation: 17:15 - Subjective Subjective: Infectious Disease Follow Up: May 07, 2017 66 yo female with presentation of weakness and somnolence progressing over the last few days. The patient was recently treated for influenza and has severely limited mobility. The patient also has gluteal and sacral pain with possible abscess formation with foul smelling discharge. Normally as per the family, the patient is able to ambulate to the bathroom but stays mostly in bed. She was taken to the OR for eli-rectal abscess I&D and washout. Taken to MICU for further care. Currently on nasal cannula. Cultures pending. Was on IV Zosyn for treatment and now on Ancef at this time. OR cultures showing E. coli sensitive to Zosyn and Ancef. Supportive care. Transferred to medical floor. Awaiting further surgery. Noted the positive Antibodies for Influenza A. This only states the patient was exposed to Influenza within the last 6 months of so and not a confirmation of active influenza. EIA for Influenza was negative which is a much more accurate method of checking for active influenza infection. In addition the patient was recently treated with TamiFlu for flu just before admission [place] [facility] Leukocytosis normalized now. Had placement of diverting loop colostomy during this hospitalization. She has a mild cough with thin white sputum. Remains on Zosyn for antibiotic coverage. Still with SOB episodes. No fevers. Repeat CBC pending. Will obtain procalcitonin to monitor trend of the procalcitonin. Procalcitonin improved to 0.18 from 2.87. WBC down to 10.7. Improving. Objective - Vital Signs/Intake and Output Vital Signs (last 24 hours): Temp Pulse Resp BP Pulse Ox 98.7 F 66 20 150/54 L 95 05/07/17 08:23 05/07/17 17:15 05/07/17 08:23 05/07/17 17:15 05/07/17 08:23 Intake and Output: 05/07/17 05/07/17 06:59 18:59 Intake Total 440 780 Output Total 1400 1500 Balance -020 -196 - Medications Medications: Current Medications Albuterol/Ipratropium (Duoneb 3 Mg/0.5 Mg (3 Ml) Ud) 3 ml IH Q2H PRN PRN Reason: Shortness of Breath Last Admin: 05/03/17 10:56 Dose: 3 ml Albuterol/Ipratropium (Duoneb 3 Mg/0.5 Mg (3 Ml) Ud) 3 ml IH [id number] [facility] Last Admin: 05/07/17 13:54 Dose: 3 ml Amlodipine Besylate (Norvasc) 10 mg PO DAILY [facility] Last Admin: 05/07/17 10:31 Dose: 10 mg Aspirin (Aspirin Chewable) 81 mg PO DAILY [facility] Last Admin: 05/07/17 10:32 Dose: 81 mg Atorvastatin Calcium (Lipitor) 10 mg PO DAILY [facility] Last Admin: 05/07/17 10:32 Dose: 10 mg Carvedilol (Coreg) 6.25 mg PO BID [facility] Last Admin: 05/07/17 17:15 Dose: 6.25 mg Collagenase (Santyl) 0 gm TOP BID [facility] Last Admin: 05/07/17 10:34 Dose: Not Given Ergocalciferol (Drisdol 50,000 Intl Units Cap) 1 cap PO Q7D [facility] Last Admin: 05/04/17 17:54 Dose: 1 cap Ferrous Gluconate (Fergon) 324 mg PO TID [facility] Last Admin: 05/07/17 13:28 Dose: 324 mg Furosemide (Lasix) 40 mg IVP DAILY [facility] Last Admin: 05/07/17 10:31 Dose: 40 mg Heparin Sodium (Porcine) (Heparin) 5,000 units SC Q8H [facility] PRN Reason: Protocol Last Admin: 05/07/17 11:52 Dose: 5,000 units Cefazolin Sodium (Ancef 1gm In Ns) 1 gm in 100 mls @ 100 mls/hr IVPB Q8 [facility] Last Admin: 05/07/17 13:28 Dose: 100 mls/hr Insulin Detemir (Levemir) 50 unit SC DAILY [facility] Last Admin: 05/07/17 10:32 Dose: 50 unit Insulin Human Regular (Humulin R High) 0 units SC ACHS [facility] PRN Reason: Protocol Last Admin: 05/07/17 17:15 Dose: 10 units Losartan Potassium (Cozaar) 25 mg PO DAILY [facility] Last Admin: 05/07/17 16:24 Dose: 25 mg Magnesium Oxide (Mag-Ox) 400 mg PO BID [facility] Last Admin: 05/07/17 11:52 Dose: 400 mg Multivitamins (Thera Tab) 1 tab PO 0800 [facility] Last Admin: 05/07/17 10:37 Dose: 1 tab Oxycodone/Acetaminophen (Percocet 5/325 Mg Tab) 1 tab PO Q4H PRN PRN Reason: Pain, moderate (4-7) Stop: 05/09/17 12:16 Last Admin: 05/07/17 16:25 Dose: 1 tab Pantoprazole Sodium (Protonix Ec Tab) 40 mg PO ACB [facility] Last Admin: 05/07/17 10:37 Dose: 40 mg Simethicone (Mylicon Chew Tab) 80 mg PO Q6H PRN PRN Reason: GI distress - Labs Labs: 05/07/17 06:30 05/07/17 06:30 PT 14.2 SECONDS (9.4-12.5) H 04/30/17 06:30 INR 1.23 (0.93-1.08) H 04/30/17 06:30 APTT 28.2 Seconds (25.1-36.5) 04/26/17 21:55 - Constitutional Appears: Non-toxic, No Acute Distress, Chronically Ill - Head Exam Head Exam: ATRAUMATIC, NORMOCEPHALIC - Eye Exam Eye Exam: EOMI, PERRL Pupil Exam: NORMAL ACCOMODATION, PERRL - ENT Exam ENT Exam: Mucous Membranes Moist, Normal External Ear Exam, TM's Normal Bilaterally - Neck Exam Neck Exam: Full ROM, Normal Inspection - Respiratory Exam Respiratory Exam: Clear to Ausculation Bilateral, NORMAL BREATHING PATTERN. absent: Rales, Rhonchi, Wheezes - Cardiovascular Exam Cardiovascular Exam: REGULAR RHYTHM, RRR, +S1, +S2 - GI/Abdominal Exam GI & Abdominal Exam: Soft, Normal Bowel Sounds. absent: Distended, Tenderness Additional comments: colostomy in place. healing incisions. - Extremities Exam Extremities Exam: Full ROM, Normal Inspection - Neurological Exam Neurological Exam: Alert, Awake, CN II-XII Intact, Oriented x3 - Psychiatric Exam Psychiatric exam: Normal Affect, Normal Mood - Skin Skin Exam: Normal Color Additional comments: As above Assessment and Plan - Assessment and Plan (Free Text) Assessment: 66 yo morbidly obese female with multiple medical issues presenting with sepsis like symptoms in setting of large perirectal abscess. The patient had known history of NIDDM, lower extremity DVT, HTN, and CKD at least stage III. Patient with foul smelling discharge from the buttocks area. Recently treated for influenza. Question of CHF. Taken to OR tonight for I&D of the sacral abscess. Procalcitonin of 2.87 which can fall in diagnosis of sepsis. Hgb A1c of 8.3. The patient is awake and alert although groggy from anesthesia. Supportive care. Continue with antibiotics of Zosyn although would monitor renal function closely while on this regimen. E. coli from OR cultures sensitive to Zosyn. Looking for 14 days of treatment in total. Can consider oral antibiotics when medical cleared from the hospital. Leukocytosis is improving. Taken back to OR for diverting colostomy. Postoperative day #2 now. Leukocytosis down to 10.7 today. Clinically no changes. Was on Zosyn for antibiotic coverage and now deescalated to Ancef for treatment yesterday. Supportive care. No new symptoms. Treated for influenza prior to this hospitalization. Supportive care. Spoke with Dr. Grullon this afternoon. Chest X-ray done today showing CHF. Recheck procalcitonin values... improved to 0.18. The patient can be given Keflex 500mg PO TID for 7 more days on discharge. For transfer to [facility] for [facility]. Thank you for allowing me to participate in the care of the patient, we will follow with you.
== END 2017-05-07 21:30 | DRG 853 ==
LOC: ED 19:43 → ERH 04-27 00:20 → CCU 04-27 10:34 → 3RSO 04-29 18:41 → CCU 04-30 16:06 → 5RSO 05-01 17:57
PROVIDERS: ADMIT Internal Medicine; ATTEND Internal Medicine
PROC: 5A09557 Assistance with Respiratory Ventilation, Greater than 96 Consecutive Hours, Continuous Positive Airway Pressure (ICD-10-PCS; 2017-04-27)
PROC: 3E0F7GC Introduction of Other Therapeutic Substance into Respiratory Tract, Via Natural or Artificial Opening (ICD-10-PCS; 2017-04-27)
PROC: 0JB70ZZ Excision of Back Subcutaneous Tissue and Fascia, Open Approach (ICD-10-PCS; principal; 2017-04-27 16:30)
PROC: 0D1L0Z4 Bypass Transverse Colon to Cutaneous, Open Approach (ICD-10-PCS; 2017-04-30)
PROC: 0JBB0ZZ Excision of Perineum Subcutaneous Tissue and Fascia, Open Approach (ICD-10-PCS; 2017-04-30)
PROC: 02HV33Z Insertion of Infusion Device into Superior Vena Cava, Percutaneous Approach (ICD-10-PCS; 2017-05-01)
PROC: B548ZZA Ultrasonography of Superior Vena Cava, Guidance (ICD-10-PCS; 2017-05-01)
DX: A41.9 Sepsis, unspecified organism (principal); J96.90 Respiratory failure, unspecified, unspecified whether with hypoxia or hypercapnia; N76.4 Abscess of vulva; K61.1 Rectal abscess; N76.0 Acute vaginitis; N17.9 Acute kidney failure, unspecified; L89.152 Pressure ulcer of sacral region, stage 2; L89.890 Pressure ulcer of other site, unstageable; I50.33 Acute on chronic diastolic (congestive) heart failure; E11.22 Type 2 diabetes mellitus with diabetic chronic kidney disease; I27.20 Pulmonary hypertension, unspecified; I13.0 Hypertensive heart and chronic kidney disease with heart failure and stage 1 through stage 4 chronic kidney disease, or unspecified chronic kidney disease; E66.01 Morbid (severe) obesity due to excess calories; Z68.43 Body mass index [BMI] 50.0-59.9, adult; E11.65 Type 2 diabetes mellitus with hyperglycemia; N18.3 Chronic kidney disease, stage 3 (moderate); R65.20 Severe sepsis without septic shock; D64.9 Anemia, unspecified; E87.5 Hyperkalemia; E78.00 Pure hypercholesterolemia, unspecified; Z74.01 Bed confinement status; G47.30 Sleep apnea, unspecified; J44.9 Chronic obstructive pulmonary disease, unspecified; Z86.718 Personal history of other venous thrombosis and embolism